=== PATIENT | female | born 1960 | race Caucasian/White ===

== ENCOUNTER → 2017-10-19 | Outpatient (CLI) | payer MEDICARE, BC ==
--- NOTE | 2017-10-23 09:49 | MM ---
Reason for exam: screening (asymptomatic). Last mammogram was performed 1 year and 7 months ago. History: Patient is nulliparous. Benign MG pre op needle loc LT of the left breast, July 16, 2015. Benign MG stereo VAD BX LT of the left breast, June 11, 2015. Took hormonal contraceptives for 7 years beginning at age 13. Physical Findings: A clinical breast exam by your physician is recommended on an annual basis and results should be correlated with mammographic findings. MG 3D Screening Mammo W/Cad Bilateral CC and MLO view(s) were taken. Prior study comparison: May 07, 2015, bilateral MG screening mammo w CAD. April 22, 2014, mammogram, performed at [facility]. There are scattered fibroglandular densities. There is chronic nodularity in the right breast. Two new small groups of microcalcifications in the central left breast appear very similar to the two other groups in the left breast. ASSESSMENT: Probably benign, BI-RAD 3 RECOMMENDATION: Follow-up diagnostic mammogram of the left breast in 6 months. (lateral view recommended at that time as well)
== END ==
LOC: RADMAMWWP 13:42
PROVIDERS: ATTEND Family Medicine
DX: Z12.31 Encounter for screening mammogram for malignant neoplasm of breast (principal)
CPT/HCPCS: 77063; 77067

== ENCOUNTER → 2018-04-10 | Outpatient (CLI) | payer MEDICARE, BC ==
--- NOTE | 2018-04-10 16:41 | US ---
EXAMINATION TYPE: US kidneys/renal and bladder DATE OF EXAM: 04/10/2018 COMPARISON: NONE CLINICAL HISTORY: 57-year-old female N18.2 Chronic Kidney Disease Stage 2. No pain. Abnormal labs. TECHNIQUE: Multiple sonographic images of the kidneys and bladder are obtained. FINDINGS: EXAM MEASUREMENTS: Right Kidney: 8.2 x 4.0 x 4.6 cm Left Kidney: 8.4 x 3.9 x 4.1 cm No hydronephrosis on either side. Right Kidney: Dromedary hump seen. Appears small in size Left Kidney: Appears small in size Bladder: Circumferential wall thickening up to 6 mm. Bilateral Jets seen . IMPRESSION: 1. Bilateral chronic medical renal disease. No hydronephrosis. 2. Circumferential bladder wall thickening. Correlate to exclude cystitis.
== END | disposition home or self-care (01) ==
LOC: RADUSWWP 11:22
PROVIDERS: ATTEND Family Medicine
DX: N18.2 Chronic kidney disease, stage 2 (mild) (principal); N32.89 Other specified disorders of bladder
CPT/HCPCS: 76770

== ENCOUNTER → 2018-04-17 | Outpatient (CLI) | payer MEDICARE, BC ==
--- NOTE | 2018-04-18 08:37 | MM ---
Reason for exam: additional evaluation requested from prior study. Last mammogram was performed 6 months ago. History: Patient is nulliparous. Benign MG pre op needle loc LT of the left breast, July 16, 2015. Benign MG stereo VAD BX LT of the left breast, June 11, 2015. Took hormonal contraceptives for 7 years beginning at age 13. Physical Findings: Nurse did not find any significant physical abnormalities on exam. MG 3D Diag Mammo W/Cad LT CC, MLO, and ML view(s) were taken of the left breast. Prior study comparison: October 19, 2017, bilateral MG 3d screening mammo w/cad. March 24, 2016, left breast MG diagnostic mammo LT w CAD. May 14, 2015, left breast MG work up mamm w CAD LT. There are scattered fibroglandular densities. There are benign diffuse and grouped 3-5 round calcifications in the left breast. No discrete abnormality int the left breast. And no change from the 6 month prior study. These results were verbally communicated with the patient and result sheet given to the patient on 04/17/18. ASSESSMENT: Benign, BI-RAD 2 RECOMMENDATION: Return to routine screening mammogram schedule for both breasts.
== END | disposition home or self-care (01) ==
LOC: RADMAMWWP 10:44
PROVIDERS: ATTEND Family Medicine
DX: R92.8 Other abnormal and inconclusive findings on diagnostic imaging of breast (principal)
CPT/HCPCS: 77065; G0279; 77061

== ENCOUNTER → 2020-06-18 | Outpatient (CLI) | payer MEDICARE, BC ==
--- NOTE | 2020-06-19 20:32 | MR ---
EXAMINATION TYPE: MR hand LT wo con DATE OF EXAM: 06/18/2020 COMPARISON: None HISTORY: L index finger pain Multiplanar multiecho imaging of the left hand and index finger was performed without contrast. The fingers appear intact. The metacarpals are intact. I see no bony destructive process. There is no evidence of a fracture line. I see no sign of any significant bone edema. There is 6 mm focus of flu id signal on the dorsal aspect of the second metacarpal head. This could be a small ganglion cyst. Th is is close to the skin surface. I see no focal bone destruction. IMPRESSION: Possible small ganglion cyst on the dorsal aspect of the second metacarpal head. No fracture seen. No sign of osteomyelitis. No evidence of any significant arthritic disease.
== END | disposition home or self-care (01) ==
LOC: RADMRIMAIN 06:08
PROVIDERS: ATTEND Orthopaedic Surgery
DX: M79.645 Pain in left finger(s) (principal)

== ENCOUNTER 2020-07-16 15:08 | Observation (INO) | payer MEDICARE, BC ==
--- NOTE | 2020-07-16 16:12 | ED ---
Arrhythmia/Palpitations HPI - General Chief Complaint: Arrhythmia/Palpitations Stated Complaint: Palpatations Time Seen by Provider: 07/16/20 15:40 Source: patient Mode of arrival: ambulatory Limitations: no limitations - History of Present Illness Initial Comments: Patient is a 59-year-old female presenting to the emergency Department with complaints of palpitations that have been intermittent over the last few days. Patient states she does have a history of palpitations, PVCs that she's had most of her life but feels like over the last few days they have been increasing. Patient states she also feels like she can "hear her heartbeat in her ears swishing sometimes when she is laying down." Patient states then today she walked from her office to her car and started experiencing left-sided jaw pain which lasted for about 10 minutes. Patient states this got her concerned and she decided to come in to the ER for evaluation. She denies any chest pains, shortness of breath, nausea, vomiting. She denies any dizziness, headache, neck pain. She states she has never had a stress test. She has not followed up with a electrical hardware engineer ever. She does have a family history of heart disease. She has no further complaints at this time. Upon arrival to the ER, her vital signs are stable. - Related Data Home Medications Medication Instructions Recorded Confirmed Fish Oil (Unknown Strength) 1 tab PO HS 07/16/20 07/16/20 Levothyroxine Sodium [Synthroid] 50 mcg PO QAM 07/16/20 07/16/20 Vitamin B Complex 1 cap PO HS 07/16/20 07/16/20 Allergies Allergy/AdvReac Type Severity Reaction Status Date / Time codeine AdvReac Nausea & Verified 07/16/20 17:46 Vomiting tramadol AdvReac Nausea & Verified 07/16/20 17:46 Vomiting Review of Systems ROS Statement: Those systems with pertinent positive or pertinent negative responses have been documented in the HPI. ROS Other: All systems not noted in ROS Statement are negative. Past Medical History Past Medical History: Diabetes Mellitus, Musculoskeletal Disorder, Osteoarthritis (OA) Additional Past Medical History / Comment(s): hx. palpitations, feet swell, right leg gives out, constipation-usually gives self enemas History of Any Multi-Drug Resistant Organisms: None Reported Past Surgical History: Appendectomy, Cholecystectomy, Hysterectomy, Orthopedic Surgery, Tonsillectomy, Tubal Ligation Additional Past Surgical History / Comment(s): Cervical decompression and fusion placement of interbody graft c4-c7 Past Anesthesia/Blood Transfusion Reactions: Family History of Problems w/ Anesthesia, Postoperative Nausea & Vomiting (PONV) Additional Past Anesthesia/Blood Transfusion Reaction / Comment(s): MOTHER PONV Past Psychological History: No Psychological Hx Reported Smoking Status: Never smoker Past Alcohol Use History: Occasional Past Drug Use History: None Reported - Past Family History Brother(s) Family Medical History: Cancer General Exam - General Exam Comments Initial Comments: GENERAL: Patient is well-developed and well-nourished. Patient is nontoxic and in no acu te distress. HEAD: Atraumatic, normocephalic. EYES: Pupils equal round and reactive to light, extraocular movements intact, sclera anicteric, conjunctiva are normal. Eyelids were unremarkable. ENT: TMs normal, nares patent, oropharynx clear without exudates. Moist mucous mem branes. NECK: Normal range of motion, supple without lymphadenopathy or JVD. LUNGS: Unlabored respirations. Breath sounds clear to auscultation bilaterally and equal. No wheezes rales or rhonchi. HEART: Regular rate and rhythm without murmurs, rubs or gallops. ABDOMEN: Soft, nontender, normoactive bowel sounds. No guarding, no rebound. No masses appreciated. : Deferred MUSCULOSKELETAL: Normal extremities with adequate strength and normal range of motion, no pitting or edema. No clubbing or cyanosis. NEUROLOGICAL: Patient is alert and oriented x 3. Motor and sensory are also intact. Cranial nerves II through XII grossly intact. Symmetrical smile. Normal speech, normal gait. PSYCH: Normal mood, normal affect. SKIN: Warm, Dry, normal turgor, no rashes or lesions noted. Limitations: no limitations Course Vital Signs 07/16/20 07/16/20 15:09 19:02 Temperature 98.2 F Pulse Rate 84 72 Respiratory 18 18 Rate Blood Pressure 157/72 152/69 O2 Sat by Pulse 97 99 Oximetry EKG Findings - EKG Comments: EKG Findings:: Normal sinus rhythm, no signs of acute ischemia, compared to previous EKG on 07/01/2014. Ventricular rate 80, ID interval 188, QTC 370. Medical Decision Making - Medical Decision Making Patient is a 59-year-old female presenting with intermittent palpitations that has been worsening over the past few days as well as development of left jaw pain that lasted for approximately 10 minutes today. Her vital signs are stable, her EKG reveals no acute process. Since lab work is unremarkable, first troponin is normal. Chest x-ray shows no acute process. I discussed these findings with the patient. Given her history, lack of cardiac workup. I did recommend admission for serial troponins, cardiac consult. Patient is in agreement with this plan of care. Patient was accepted by Dr. Poole. Case discussed with Dr. Benz. - Lab Data Result diagrams: 07/16/20 16:29 07/16/20 16:29 Lab Results 07/16/20 07/16/20 07/16/20 Range/Units 16:29 16:29 16:29 WBC 7.4 (3.8-10.6) k/uL RBC 5.15 (3.80-5.40) m/uL Hgb 15.7 (11.4-16.0) gm/dL Hct 47.2 H (34.0-46.0) % MCV 91.5 (80.0-100.0) fL MCH 30.5 (25.0-35.0) pg MCHC 33.3 (31.0-37.0) g/dL RDW 12.9 (11.5-15.5) % Plt Count 220 (150-450) k/uL MPV 8.2 Neutrophils % 62 % Lymphocytes % 25 % Monocytes % 7 % Eosinophils % 3 % Basophils % 1 % Neutrophils # 4.6 (1.3-7.7) k/uL Lymphocytes # 1.9 (1.0-4.8) k/uL Monocytes # 0.5 (0-1.0) k/uL Eosinophils # 0.2 (0-0.7) k/uL Basophils # 0.1 (0-0.2) k/uL PT 10.3 (9.0-12.0) sec INR 1.0 (<1.2) APTT 23.9 (22.0-30.0) sec Sodium 141 (137-145) mmol/L Potassium 5.4 H (3.5-5.1) mmol/L Chloride 107 (98-107) mmol/L Carbon Dioxide 26 (22-30) mmol/L Anion Gap 8 mmol/L BUN 13 (7-17) mg/dL Creatinine 0.93 (0.52-1.04) mg/dL Est GFR (CKD-EPI)AfAm 77 (>60 ml/min/1.73 sqM) Est GFR (CKD-EPI)NonAf 67 (>60 ml/min/1.73 sqM) Glucose 150 H (74-99) mg/dL Calcium 9.0 (8.4-10.2) mg/dL Magnesium 2.0 (1.6-2.3) mg/dL Total Bilirubin 0.8 (0.2-1.3) mg/dL AST 44 H (14-36) U/L ALT 37 H (4-34) U/L Alkaline Phosphatase 48 (38-126) U/L Troponin I (0.000-0.034) ng/mL Total Protein 8.2 (6.3-8.2) g/dL Albumin 4.5 (3.5-5.0) g/dL 07/16/20 Range/Units 16:29 WBC (3.8-10.6) k/uL RBC (3.80-5.40) m/uL Hgb (11.4-16.0) gm/dL Hct (34.0-46.0) % MCV (80.0-100.0) fL MCH (25.0-35.0) pg MCHC (31.0-37.0) g/dL RDW (11.5-15.5) % Plt Count (150-450) k/uL MPV Neutrophils % % Lymphocytes % % Monocytes % % Eosinophils % % Basophils % % Neutrophils # (1.3-7.7) k/uL Lymphocytes # (1.0-4.8) k/uL Monocytes # (0-1.0) k/uL Eosinophils # (0-0.7) k/uL Basophils # (0-0.2) k/uL PT (9.0-12.0) sec INR (<1.2) APTT (22.0-30.0) sec Sodium (137-145) mmol/L Potassium (3.5-5.1) mmol/L Chloride (98-107) mmol/L Carbon Dioxide (22-30) mmol/L Anion Gap mmol/L BUN (7-17) mg/dL Creatinine (0.52-1.04) mg/dL Est GFR (CKD-EPI)AfAm (>60 ml/min/1.73 sqM) Est GFR (CKD-EPI)NonAf (>60 ml/min/1.73 sqM) Glucose (74-99) mg/dL Calcium (8.4-10.2) mg/dL Magnesium (1.6-2.3) mg/dL Total Bilirubin (0.2-1.3) mg/dL AST (14-36) U/L ALT (4-34) U/L Alkaline Phosphatase (38-126) U/L Troponin I <0.012 (0.000-0.034) ng/mL Total Protein (6.3-8.2) g/dL Albumin (3.5-5.0) g/dL Disposition Clinical Impression: Chest pain, Palpitations, Jaw pain Disposition: ADMITTED IP TO THIS [facility] Condition: Stable Decision Date: 07/16/20 Decision Time: 18:27
[2020-07-16 16:39] LABS: Basophils # (A) 0.1 k/uL (0-0.2); Basophils % (A) 1 %; Eosinophils # (A) 0.2 k/uL (0-0.7); Eosinophils % (A) 3 %; HCT 47.2 % (34.0-46.0); HGB 15.7 gm/dL (11.4-16.0); Lymphocytes # (A) 1.9 k/uL (1.0-4.8); Lymphocytes % (A) 25 %; MCH 30.5 pg (25.0-35.0); MCHC 33.3 g/dL (31.0-37.0); MCV 91.5 fL (80.0-100.0); Mean Platelet Volume 8.2; Monocytes # (A) 0.5 k/uL (0-1.0); Monocytes % (A) 7 %; Neutrophils # (A) 4.6 k/uL (1.3-7.7); Neutrophils % (A) 62 %; Platelet Count 220 k/uL (150-450); RBC 5.15 m/uL (3.80-5.40); RDW 12.9 % (11.5-15.5); WBC 7.4 k/uL (3.8-10.6)
[2020-07-16 16:48] LABS: Albumin 4.5 g/dL (3.5-5.0); Total Bilirubin 0.8 mg/dL (0.2-1.3); Total Protein 8.2 g/dL (6.3-8.2)
--- NOTE | 2020-07-16 16:57 | XR ---
EXAMINATION TYPE: XR chest 2V DATE OF EXAM: 07/16/2020 COMPARISON: 07/01/2014 HISTORY: Dysrhythmia TECHNIQUE: FINDINGS: Heart and mediastinum are normal. Lungs are clear. Diaphragm is normal. Bony thorax appears normal. IMPRESSION: Normal chest. No change.
[2020-07-16 17:02] LABS: Potassium 5.4 mmol/L (3.5-5.1)
[2020-07-16 17:12] LABS: Partial Thromboplastin Time 23.9 sec (22.0-30.0); Prothrombin Time 10.3 sec (9.0-12.0)
[2020-07-16] MEDS ORDERED: NITROGLYCERIN SL TABS 0.4 MG TAB SUBLINGUAL PRN (18:27)
[2020-07-17 04:37] LABS: Cholesterol 227 mg/dL (<200); HDL Cholesterol 48 mg/dL (40-60); LDL Cholesterol,Calculated 134 mg/dL (0-99); Triglycerides 224 mg/dL (<150)
[2020-07-17] MEDS ORDERED: ALPRAZolam 0.5 MG TAB PO PRN (07:43)
[2020-07-17] MEDS ORDERED: ATORVASTATIN 80 MG TAB PO STA (07:43)
[2020-07-17] MEDS ORDERED: ASPIRIN 325 MG TAB PO STA (07:43)
[2020-07-17] MEDS ORDERED: NITROGLYCERIN SL TABS 0.4 MG TAB SUBLINGUAL PRN (07:43)
[2020-07-17] MEDS ORDERED: ALPRAZolam 0.25 MG TAB PO PRN (07:43)
[2020-07-17] MEDS ORDERED: SODIUM CHLORIDE 0.9% 1,000 ML in EMPTY BAG 1 BAG IV ONE (07:43)
--- NOTE | 2020-07-17 07:48 | P.CRDCN ---
History of Present Illness Consult date: 07/17/20 Chief complaint: Jaw pain History of present illness: This is a very pleasant 59-year-old female patient with a past medical history significant for hypertension and dyslipidemia who presented to the hospital complaining of palpitation and jaw pain. The patient has been experiencing palpitations for long time for the last few weeks of palpitation has increased. More importantly she came in because of jaw pain. She has been experiencing jaw pain for the last several months. For the last few weeks the jaw pain has been more often and more intense. It is associated with the pain in the upper chest. She states clearly that the jaw pain is worse with exertion and better with resting after she stopped for about 10 minutes. Its associated old the time with upper chest pain. No shortness of breath and no dizziness or lightheadedness and no sweating and no feeling of heart racing or fluttering or syncope. The EKG showed sinus rhythm without any significant ST or T-wave abnormalities. The blood work into her troponin came in to be unremarkable. The rest of blood work came in to be also unremarkable except for mildly elevated potassium. The patient does have hypertension and dyslipidemia as risk factor. She does have in addition to that significant family history of coronary artery disease involving the mother as well as brother. I had a long discussion with her regarding the next step. Severe underlying coronary artery disease to be ruled out. I discussed with her the option of proceeding with a stress test versus proceeding with coronary angiogram but the patient would like a definitive diagnosis. Based on that I am considering proceeding with coronary angiogram. Meanwhile she is on aspirin which we will continue. I would add metoprolol to the current medical regimen. Beside that we'll obtain an echocar diogram to establish LV function. We'll continue following up with the patient. Past Medical History Past Medical History: Diabetes Mellitus, Musculoskeletal Disorder, Osteoarthritis (OA) Additional Past Medical History / Comment(s): hx. palpitations, feet swell, right leg gives out, constipation-usually gives self enemas History of Any Multi-Drug Resistant Organisms: None Reported Past Surgical History: Appendectomy, Cholecystectomy, Hysterectomy, Orthopedic Surgery, Tonsillectomy, Tubal Ligation Additional Past Surgical History / Comment(s): Cervical decompression and fusion placement of interbody graft c4-c7 Past Anesthesia/Blood Transfusion Reactions: Family History of Problems w/ Anesthesia, Postoperative Nausea & Vomiting (PONV) Additional Past Anesthesia/Blood Transfusion Reaction / Comment(s): MOTHER PONV Past Psychological History: No Psychological Hx Reported Smoking Status: Never smoker Past Alcohol Use History: Occasional Past Drug Use History: None Reported - Past Family History Brother(s) Family Medical History: Cancer Medications and Allergies Home Medications Medication Instructions Recorded Confirmed Type Fish Oil (Unknown Strength) 1 tab PO HS 07/16/20 07/16/20 History Levothyroxine Sodium [Synthroid] 50 mcg PO QAM 07/16/20 07/16/20 History Vitamin B Complex 1 cap PO HS 07/16/20 07/16/20 History Allergies Allergy/AdvReac Type Severity Reaction Status Date / Time codeine AdvReac Nausea & Verified 07/16/20 17:46 Vomiting tramadol AdvReac Nausea & Verified 07/16/20 17:46 Vomiting Physical Exam Vitals: Vital Signs Temp Pulse Pulse Resp BP BP Pulse Ox 07/17/20 03:00 82 07/17/20 02:15 98.0 F 82 149/64 98 07/16/20 19:45 97.4 F L 76 157/79 99 07/16/20 19:35 97.4 F L 76 157/79 99 07/16/20 19:02 72 18 152/69 99 07/16/20 15:09 98.2 F 84 18 157/72 97 Intake and Output 07/16/20 07/17/20 07/17/20 22:59 06:59 14:59 Intake Total 200 Output Total 500 0 Balance -300 0 Intake: Oral 200 Output: Urine 500 0 Other: Voiding Method Toilet Toilet # Voids 1 0 Weight 100.698 kg - Constitutional General appearance: no acute distress - Respiratory Respiratory: bilateral: CTA - Cardiovascular Rhythm: regular Heart sounds: normal: S1, S2 Results 07/16/20 16:29 07/16/20 16:29 Cardiac Enzymes 07/16/20 07/16/20 07/16/20 Range/Units 16:29 16:29 19:17 AST 44 H (14-36) U/L Troponin I <0.012 <0.012 (0.000-0.034) ng/mL 07/16/20 Range/Units 21:59 AST (14-36) U/L Troponin I <0.012 (0.000-0.034) ng/mL Coagulation 07/16/20 Range/Units 16:29 PT 10.3 (9.0-12.0) sec APTT 23.9 (22.0-30.0) sec Lipids 07/16/20 Range/Units 16:29 Triglycerides 224 H (<150) mg/dL Cholesterol 227 H (<200) mg/dL HDL Cholesterol 48 (40-60) mg/dL CBC 07/16/20 Range/Units 16:29 WBC 7.4 (3.8-10.6) k/uL RBC 5.15 (3.80-5.40) m/uL Hgb 15.7 (11.4-16.0) gm/dL Hct 47.2 H (34.0-46.0) % Plt Count 220 (150-450) k/uL Comprehensive Metabolic Panel 07/16/20 Range/Units 16:29 Sodium 141 (137-145) mmol/L Potassium 5.4 H (3.5-5.1) mmol/L Chloride 107 (98-107) mmol/L Carbon Dioxide 26 (22-30) mmol/L BUN 13 (7-17) mg/dL Creatinine 0.93 (0.52-1.04) mg/dL Glucose 150 H (74-99) mg/dL Calcium 9.0 (8.4-10.2) mg/dL AST 44 H (14-36) U/L ALT 37 H (4-34) U/L Alkaline Phosphatase 48 (38-126) U/L Total Protein 8.2 (6.3-8.2) g/dL Albumin 4.5 (3.5-5.0) g/dL Current Medications Generic Name Dose Route Start Last Admin Trade Name Freq PRN Reason Stop Dose Admin Aspirin 325 mg 07/17/20 09:00 Aspirin 325 Mg Tab PO DAILY MAGNUS Nitroglycerin 0.4 mg 07/16/20 18:27 Nitroglycerin Sl Tabs 0.4 Mg Tab SUBLINGUAL Q5M PRN Chest Pain Intake and Output 07/16/20 07/17/20 07/17/20 22:59 06:59 14:59 Intake Total 200 Output Total 500 0 Balance -300 0 Intake: Oral 200 Output: Urine 500 0 Other: Voiding Method Toilet Toilet # Voids 1 0 Weight 100.698 kg 07/16/20 16:29 07/16/20 16:29 Assessment and Plan Assessment: Assessment #1 intermittent episodes of jaw pain and chest pain #2 hypertension #3 dyslipidemia #4 significant family history of CAD Plan #1 proceed with coronary angiogram #2 obtain an echocardiogram was Doppler #3 add metoprolol to the current medical regimen #4 follow-up with the patient
[2020-07-17 08:00] LABS: Glucose,Whole Blood 114 mg/dL (75-99)
[2020-07-17 08:15] VITALS: RESP 16; TEMP 97.8
[2020-07-17] MEDS ORDERED: VERAPAMIL 2.5 MG/ML 2 ML AMP ONE (08:52)
[2020-07-17] MEDS ORDERED: fentaNYL (PF) 50 MCG/ML 2 ML AMP ONE (08:52)
[2020-07-17] MEDS ORDERED: HEPARIN SODIUM 1,000 UN/ML (10ML VL) ONE (08:52)
[2020-07-17] MEDS ORDERED: LIDOCAINE 1% INJ 10MG/ML (20 ML MDV) ONE (08:52)
[2020-07-17] MEDS ORDERED: MIDAZOLAM 2 MG/2 ML VIAL IVP ONE (08:58)
[2020-07-17] MEDS ORDERED: LIDOCAINE 1% (PF) 10 MG/ML (30 ML SDV) SQ ONE (08:59)
[2020-07-17] MEDS ORDERED: METOPROLOL TARTRATE 12.5 MG TAB PO SCH (09:00)
[2020-07-17] MEDS ORDERED: ASPIRIN 325 MG TAB PO SCH (09:00)
[2020-07-17] MEDS: VERAPAMIL SYRINGE (5 MG/10 ML) INTRAARTER ONE ×2 (09:00→09:20)
[2020-07-17] MEDS ORDERED: LEVOTHYROXINE 50 MCG TAB PO SCH (09:00)
[2020-07-17] MEDS ORDERED: IV FLUID CONTINUATION 1,000 ML IV ONE (09:03)
[2020-07-17] MEDS ORDERED: fentaNYL (PF) 50 MCG/ML 2 ML AMP IVP ONE (09:09)
[2020-07-17] MEDS ORDERED: HEPARIN SODIUM 1,000 UN/ML (10ML VL) IV ONE (09:10)
[2020-07-17] MEDS ORDERED: SODIUM CHLORIDE 0.9% 1,000 ML IV SCH (09:15)
[2020-07-17] MEDS ORDERED: RX INFO: IV CONTRAST WAS GIVEN 1 EACH MISC MISCELLANE PRN (09:15)
[2020-07-17] MEDS ORDERED: IOPAMIDOL-370 125ML BTL INJ ONE (09:20)
--- NOTE | 2020-07-17 10:17 | CC ---
CARDIAC CATHETERIZATION REPORT DATE OF SERVICE: July 17, 2020 PERFORMING PHYSICIAN: Elton Vasquez MD. PROCEDURE PERFORMED: 1. Selective right and left coronary angiogram. 2. Left heart catheterization. INDICATION: This is a 59-year-old female patient with very significant family history of coronary artery disease and history of hypertension and dyslipidemia who presented to the hospital with jaw and chest discomfort with exertion. Because of that, a heart catheterization was advised. APPROACH: Right radial artery. COMPLICATION: None. LEVEL OF SEDATION: Moderate with sedation length of 14 minutes. PROCEDURE DESCRIPTION: After obtaining an informed consent, the patient was brought to the cardiac engineering lab technician. The right radial artery was cannulated using micropuncture technique, the micropuncture wire passed easily, then I placed a 6-Malay sheath at the right radial artery. I gave the patient 2 mg of verapamil IA and a total of 5000 units of heparin IV. Selective right and left coronary angiogram performed with JR4 and JL3 catheters. Left heart catheterization was performed using the JL catheter which crossed the aortic valve then I did pullback across the valve. The procedure was completed without any complication. SELECTIVE CORONARY ANGIOGRAM: 1. The right coronary artery is a moderate caliber vessel. It is a dominant vessel. The RCA is angiographically normal. It bifurcates distally into PDA and PLV branches and both appeared to be angiographically normal. 2. The left main is angiographically normal. It bifurcates into LCX and ramus intermedius and left anterior descending artery. 3. The LCX is a large caliber vessel, it is a nondominant vessel. The LCX is angiographically normal in the midportion gives rise into a large OM branch which appeared to be angiographically normal. 4. The ramus intermedius is a moderate caliber vessel, seems to be angiographically normal. 5. The LAD: The proximal LAD appeared to be normal. It gives rise in the proximal portion into first diagonal branch which has an ostial lesion in the range of 40% to 50% and the mid LAD is normal and gives rise into a second diagonal branch which has an ostial lesion in the range of 30% and the LAD distally appeared to be angiographically normal. HEMODYNAMICS: The LVEDP was 10 to 12 mmHg without significant gradient across aortic valve. CONCLUSION: 1. Mild nonobstructive coronary artery disease. 2. Possible component of coronary vasospasm. 3. Normal LVEDP. POSTPROCEDURE MANAGEMENT: 1. Medical treatment. 2. Follow up with the patient. MANOJ / IJN: [id number] /
--- NOTE | 2020-07-17 10:54 | P.HPIM ---
History of Present Illness H&P Date: 07/17/20 Chief Complaint: chest pain/palpitations History of physical and discharge summary This is a 59-year-old female in my patient with a previous medical history significant for hypothyroidism, mixed hyperlipidemia, diabetes mellitus type 2 diet-controlled, hypertension and hypertensive cardiovascular disease, presented to the emergency department at [facility] yesterday with increased palpitation associated with increased jaw pain that has started after she finished her physical [facility] regarding her chronic back pain,, patient also does have a few risk factors for coronary artery disease including her family history with her mother who has significant ischemic cardiomyopathy as well as paroxysmal atrial fibrillation, patient age and weight is another risk factor, I because of the presentation even though her EKG did not show any evidence of acute ST-T wave changes and her troponin came back negative, we elected to keep the patient the hospital for evaluation by cardiology she was already seen in consultation by Dr. Vasquez and after long conversation with the patient she elected to go for left heart catheterization f or definitive diagnosis of she has coronary artery disease, patient underwent left heart catheterization through her right wrist and that showed mild nonobstructive coronary artery disease including the first diagonal branch for a 50% and the second diagonal branch of 30%, the rest of the examination was normal left ventricular end-diastolic pressure was normal, patient was started on metoprolol 12.5 mg orally twice every day, and we will decrease her Lipitor to 40 mg orally once every day along with a baby aspirin patient underwent the heart catheterization through the radial approach subsequently she will be able to be discharged home in the next few hours, as to follow-up with me as an ou tpatient in 1 week. Review of Systems Constitutional: Reports weight gain, Denies anorexia, Denies chronic headaches, Denies lethargy, Denies weakness Eyes: denies blurred vision, denies bulging eye, denies decreased vision Ears, nose, mouth and throat: Denies dysphagia, Denies neck lump, Denies sore throat Cardiovascular: Reports chest pain, Reports decreased exercise tolerance, Re ports dyspnea on exertion, Reports shortness of breath, Denies lightheadedness, Denies rapid heart beat, Denies syncope Respiratory: Denies congestion, Denies cough, Denies cough with sputum, Denies home oxygen, Denies sleep apnea, Denies snoring, Denies wheezing Gastrointestinal: Denies abdominal pain, Denies bloating, Denies BRBPR, Denies excessive gas, Denies loss of appetite, Denies melena, Denies nausea, Denies vomiting Genitourinary: Denies dysuria, Denies nocturia Menstruation: Reports postmenopausal Musculoskeletal: Denies myalgias Musculoskeletal: absent: ankle pain, ankle stiffness, ankle swelling, elbow pain, elbow stiffness, elbow swelling, foot pain, foot stiffness, foot swelling, hand pain, hand stiffness, hand swelling, hip pain, hip stiffness, hip swelling, knee pain, knee stiffness, knee swelling, shoulder pain, shoulder stiffness, shoulder swelling, wrist pain, wrist stiffness, wrist swelling Integumentary: Denies pruritus, Denies rash Neurological: Denies numbness, Denies weakness Psychiatric: Denies anxiety, Denies depression Endocrine: Denies fatigue, Denies weight change Past Medical History Past Medical History: Diabetes Mellitus, Hyperlipidemia, Hypertension, Musculos keletal Disorder, Osteoarthritis (OA) Additional Past Medical History / Comment(s): hx. palpitations, feet swell, right leg gives out, constipation-usually gives self enemas History of Any Multi-Drug Resistant Organisms: None Reported Past Surgical History: Appendectomy, Cholecystectomy, Hysterectomy, Orthopedic Surgery, Tonsillectomy, Tubal Ligation Additional Past Surgical History / Comment(s): Cervical decompression and fusion placement of interbody graft c4-c7 Past Anesthesia/Blood Transfusion Reactions: Family History of Problems w/ Anesthesia, Postoperative Nausea & Vomiting (PONV) Additional Past Anesthesia/Blood Transfusion Reaction / Comment(s): MOTHER PONV Past Psychological History: No Psychological Hx Reported Smoking Status: Never smoker Past Alcohol Use History: Occasional Past Drug Use History: None Reported - Past Family History Brother(s) Family Medical History: Cancer (Patient has half brother with throat cancer) Mother Family Medical History: Coronary Artery Disease (CAD) (Mother is 88-year-old with history of coronary artery disease as well as ischemic cardiomyopathy with paroxysmal atrial flutter ablation.) Father Family Medical History: Unable to Obtain (Father and she could not recall of what she does not know much about her father.) Additional Family Medical History / Comment(s): Patient stated that she does have additional half-brothers and sisters that she does not know much about. Medications and Allergies Home Medications Medication Instructions Recorded Confirmed Type Fish Oil (Unknown Strength) 1 tab PO HS 07/16/20 07/16/20 History Levothyroxine Sodium [Synthroid] 50 mcg PO QAM 07/16/20 07/16/20 History Vitamin B Complex 1 cap PO HS 07/16/20 07/16/20 History Aspirin 81 mg PO DAILY chew 07/17/20 Rx Atorvastatin [Lipitor] 40 mg PO DAILY #30 tab 07/17/20 Rx Metoprolol Tartrate [Lopressor] 12.5 mg PO BID #60 tab 07/17/20 Rx Allergies Allergy/AdvReac Type Severity Reaction Status Date / Time codeine AdvReac Nausea & Verified 07/16/20 17:46 Vomiting tramadol AdvReac Nausea & Verified 07/16/20 17:46 Vomiting Physical Exam Vitals: Vital Signs Temp Pulse Pulse Resp BP BP Pulse Ox 07/17/20 08:14 97.8 F 73 16 144/79 98 07/17/20 03:00 82 07/17/20 02:15 98.0 F 82 149/64 98 07/16/20 19:45 97.4 F L 76 157/79 99 07/16/20 19:35 97.4 F L 76 157/79 99 07/16/20 19:02 72 18 152/69 99 07/16/20 15:09 98.2 F 84 18 157/72 97 Intake and Output 07/16/20 07/17/20 07/17/20 22:59 06:59 14:59 Intake Total 200 Output Total 500 0 Balance -300 0 Intake: Oral 200 Output: Urine 500 0 Other: Voiding Method Toilet Toilet # Voids 1 0 Weight 100.698 kg Physical examination: General: This is a 59-year-old female who is laying down in bed in no apparent distress. HEENT: Head is atraumatic, normocephalic, pupils were equal round reactive to light and accommodation, extraocular muscle movement were intact, mucous membranes of the mouth are somewhat dry. Neck: Supple, no JVP, decreased carotid of stroke bilaterally. Chest: Clear to auscultation bilaterally there is no crackles, no wheezes, no chest wall tenderness, no intercostal retractions. Heart: First heart sound is depressed, second heart sounds normal, there is no gallop or murmur. Abdomen: Soft, nontender, nondistended, positive bowel sounds. Extremities: There is no edema, no calf tenderness, dorsalis pedis +2 bilaterally. Neurologic examination: Patient is awake alert and oriented 3, creatinine nerves II through XII appear grossly intact, muscle power 4 out of 5 in upper and lower extremity's bilaterally, deep tendon reflexes were normal. Results CBC & Chem 7: 07/16/20 16:29 07/16/20 16:29 Labs: Abnormal Lab Results - Last 24 Hours (Table) 07/16/20 07/16/20 07/16/20 Range/Units 16:29 16:29 16:29 Hct 47.2 H (34.0-46.0) % Potassium 5.4 H (3.5-5.1) mmol/L Glucose 150 H (74-99) mg/dL POC Glucose (mg/dL) (75-99) mg/dL AST 44 H (14-36) U/L ALT 37 H (4-34) U/L Triglycerides 224 H (<150) mg/dL Cholesterol 227 H (<200) mg/dL LDL Cholesterol, Calc 134 H (0-99) mg/dL 07/17/20 Range/Units 08:00 Hct (34.0-46.0) % Potassium (3.5-5.1) mmol/L Glucose (74-99) mg/dL POC Glucose (mg/dL) 114 H (75-99) mg/dL AST (14-36) U/L ALT (4-34) U/L Triglycerides (<150) mg/dL Cholesterol (<200) mg/dL LDL Cholesterol, Calc (0-99) mg/dL Thrombosis Risk Factor Assmnt - DVT/VTE Prophylaxis DVT/VTE Prophylaxis: Pharmacologic Prophylaxis ordered, Mechanical Prophylaxis ordered - Choose All That Apply Each Factor Represents 1 point: Obesity (BMI >25) Thrombosis Risk Factor Assessment Total Risk Factor Score: 1 Thrombosis Risk Factor Assessment Level: Low Risk Assessment and Plan Assessment: Assessment and plan: 1. Recurrent palpitations associated with the jaw pain. Patient does have a few obstructive for heart disease including hypertension, hyperlipidemia, age, overweight, significant family history of coronary artery disease, based on that it was elected for the patient to go for left heart catheterization for better delineation of coronary artery disease, she was started on metoprolol 12.5 mg orally twice every day, she did receive aspirin 81mg orally once every day in the ER, she was started on Lipitor 40 mg orally once every day as well, patient underwent left heart catheterization that showed non-obstructive coronary artery disease with the 40-50% in the first diagonal branch, and 30% of the second diagonal branch with normal LVEDP, risk factor modification and to the left side changes, start the patient on a baby aspirin, moderate dose of statin in the form of Lipitor 40 mg orally once every day, and continue patient on metoprolol 12.5 mg orally twice every day, we will hold off adding any nitroglycerin at this point and dosing the patient the office. 2. Hyperlipidemia. Continue Lipitor 40 mg orally once every day. 3. Hypothyroidism. Continue Synthroid 50 g orally once every day. 4. Hypertension and hypertensive cardiovascular disease. Continue patient on metoprolol 12.5 mg orally twice every day. 5. Diabetes mellitus type 2 diet controlled. Continue diet and exercise and weight loss. 6. DVT prophylaxis. Heparin 5000 units subcutaneously every 8 hours. 7. GI prophylaxis. Continue patient on Protonix 40 mg orally once every day. 8. Observation. 9. Patient can be discharged home follow-up with me as an outpatient in 1 week.
--- NOTE | 2020-07-17 14:35 | ECHOF ---
Referral Reason:chest pain MEASUREMENTS -------- HEIGHT: 165.1 cm WEIGHT: 100.7 kg BP: 149/64 RVIDd: 3.1 cm (< 3.3) IVSd: 1.3 cm (0.6 - 1.1) LVIDd: 4.2 cm (3.9 - 5.3) LVPWd: 1.3 cm (0.6 - 1.1) IVSs: 1.7 cm LVIDs: 2.7 cm LVPWs: 1.8 cm LA Diam: 3.5 cm (2.7 - 3.8) Ao Diam: 2.8 cm (2.0 - 3.7) AV Cusp: 1.9 cm (1.5 - 2.6) MV EXCURSION: 7.809 mm (> 18.000) MV EF SLOPE: 52 mm/s (70 - 150) EPSS: 0.9 cm MV E Nile: 0.84 m/s MV DecT: 228 ms MV A Nile: 1.02 m/s MV E/A Ratio: 0.83 FINDINGS -------- Sinus rhythm. This was a technically adequate study. The left ventricular size is normal. There is mild concentric left ventricular hypertrophy. Overa ll left ventricular systolic function is low-normal with, an EF between 50 - 55 %. The right ventricle is normal in size. The left atrial size is normal. The right atrium is normal in size. The aortic valve is trileaflet and appears structurally normal. Mild mitral annular calcification present. The tricuspid valve appears structurally normal. Trace/mild (physiologic) pulmonic regurgitation. The aortic root size is normal. IVC Not well visulized. There is no pericardial effusion. CONCLUSIONS -------- 1. The left ventricular size is normal. 2. There is mild concentric left ventricular hypertrophy. 3. Overall left ventricular systolic function is low-normal with, an EF between 50 - 55 %. 4. Trace/mild (physiologic) pulmonic regurgitation. 5. There is no pericardial effusion. LOADER HELPER: Yolanda Stark, [facility]
[2020-07-17 15:05] VITALS: BP 133/64; PULSE 68
[2020-07-17] MEDS ORDERED: HEPARIN SODIUM,PORCINE 5,000 UNIT/ML 1 ML VIAL SQ SCH (16:00)
[2020-07-17] MEDS ORDERED: FISH OIL PO SCH (21:00)
[2020-07-17] MEDS ORDERED: NON FORMULARY DRUG (Vitamin B Complex [Vitamin B Complex] 1 EACH Capsule) PO SCH (21:00)
[2020-07-18] MEDS ORDERED: PANTOPRAZOLE 40 MG TABLET PO SCH (07:30)
[2020-07-18] MEDS ORDERED: ATORVASTATIN 40 MG TAB PO SCH (09:00)
[2020-07-18] MEDS ORDERED: ATORVASTATIN 80 MG TAB PO SCH (09:00)
[2020-07-18] MEDS ORDERED: ASPIRIN 81 MG PO SCH (09:00)
== END 2020-07-17 16:55 | disposition home or self-care (01) ==
LOC: EC 15:08 → 3NCARDOBS 18:31
PROVIDERS: ADMIT Internal Medicine; ATTEND Internal Medicine
DX: I25.110 Atherosclerotic heart disease of native coronary artery with unstable angina pectoris (principal); E78.00 Pure hypercholesterolemia, unspecified; I10 Essential (primary) hypertension; E03.9 Hypothyroidism, unspecified; E78.2 Mixed hyperlipidemia; E11.9 Type 2 diabetes mellitus without complications; I11.9 Hypertensive heart disease without heart failure; G89.29 Other chronic pain; M54.9 Dorsalgia, unspecified; Z82.49 Family history of ischemic heart disease and other diseases of the circulatory system; M19.90 Unspecified osteoarthritis, unspecified site; E66.9 Obesity, unspecified; Z68.36 Body mass index [BMI] 36.0-36.9, adult; K59.00 Constipation, unspecified; Z90.49 Acquired absence of other specified parts of digestive tract; Z90.710 Acquired absence of both cervix and uterus; Z98.51 Tubal ligation status; Z98.890 Other specified postprocedural states; Z98.1 Arthrodesis status; Z80.0 Family history of malignant neoplasm of digestive organs; Z79.82 Long term (current) use of aspirin; Z79.890 Hormone replacement therapy; Z79.899 Other long term (current) drug therapy; Z88.5 Allergy status to narcotic agent
CPT/HCPCS: 99285; 36415; 93005; 93306; 93458; 80061; 80053; 83735; 84484; 85025; 85610; 85730; 71046; G0378 ×2; C1769; C1894; J2250; J2001; J3010; J1644; Q9967

== ENCOUNTER 2020-08-20 08:44 | Day surgery (SDC) | payer MEDICARE, BC ==
[2020-08-20 09:01] VITALS: TEMP 98.1
[2020-08-20 09:10] LABS: Glucose,Whole Blood 273 mg/dL (75-99)
--- NOTE | 2020-08-20 10:22 | US ---
ULTRASOUND GUIDED FNA THYROID BIOPSY: CLINICAL HISTORY: Left axillary lymph node FINDINGS: The procedure was explained to the patient. The risks, complications, benefits and alternatives were discussed and any questions were answered. Informed consent was obtained. Patient was placed supin e on the ultrasound table and prepped and draped in the usual sterile fashion. Utilizing a 18 gauge needle, 2 passes were made into the requested left lymph node. Patient was stable throughout the procedure. Pathology is pending. All elements of maximal barrier technique were utilized. IMPRESSION: 1. Successful ultrasound guided core biopsy left axillary lymph node.
[2020-08-20 10:25] VITALS: BP 141/68; PULSE 73; RESP 16
== END 2020-08-20 10:15 | disposition home or self-care (01) ==
LOC: RADPROMAIN 08:44
PROVIDERS: ATTEND Surgery
DX: C77.3 Secondary and unspecified malignant neoplasm of axilla and upper limb lymph nodes (principal); C50.912 Malignant neoplasm of unspecified site of left female breast; M19.90 Unspecified osteoarthritis, unspecified site; E07.9 Disorder of thyroid, unspecified; E78.5 Hyperlipidemia, unspecified; Z90.710 Acquired absence of both cervix and uterus; Z90.49 Acquired absence of other specified parts of digestive tract; Z98.1 Arthrodesis status; Z98.890 Other specified postprocedural states; Z98.51 Tubal ligation status; Z83.3 Family history of diabetes mellitus; Z82.49 Family history of ischemic heart disease and other diseases of the circulatory system; Z80.8 Family history of malignant neoplasm of other organs or systems
CPT/HCPCS: 38505; 76942; 88305; 88341; 88342

== ENCOUNTER 2020-08-21 13:17 | Emergency (ER) | payer MEDICARE, BC ==
[2020-08-21 13:24] VITALS: RESP 18; TEMP 98.6
[2020-08-21 13:35] LABS: Glucose,Whole Blood 228 mg/dL (75-99)
[2020-08-21] MEDS ORDERED: SODIUM CHLORIDE 0.9% 1,000 ML IV STA (13:54)
[2020-08-21] MEDS ORDERED: SODIUM CHLORIDE 0.9% 500 ML 500 ML IV STA (13:54)
[2020-08-21 14:01] LABS: Basophils # (A) 0.1 k/uL (0-0.2); Basophils % (A) 1 %; Eosinophils # (A) 0.2 k/uL (0-0.7); Eosinophils % (A) 3 %; HCT 45.4 % (34.0-46.0); HGB 15.5 gm/dL (11.4-16.0); Lymphocytes # (A) 1.5 k/uL (1.0-4.8); Lymphocytes % (A) 25 %; MCH 30.6 pg (25.0-35.0); MCHC 34.2 g/dL (31.0-37.0); MCV 89.5 fL (80.0-100.0); Mean Platelet Volume 8.3; Monocytes # (A) 0.4 k/uL (0-1.0); Monocytes % (A) 7 %; Neutrophils # (A) 3.6 k/uL (1.3-7.7); Neutrophils % (A) 61 %; Platelet Count 179 k/uL (150-450); RBC 5.07 m/uL (3.80-5.40); RDW 12.5 % (11.5-15.5); WBC 5.9 k/uL (3.8-10.6)
[2020-08-21 14:11] LABS: Albumin 4.4 g/dL (3.5-5.0); Calcium 9.4 mg/dL (8.4-10.2); Total Bilirubin 0.7 mg/dL (0.2-1.3); Total Protein 7.9 g/dL (6.3-8.2)
[2020-08-21 14:12] LABS: Potassium 4.5 mmol/L (3.5-5.1)
--- NOTE | 2020-08-21 14:26 | XR ---
EXAMINATION TYPE: XR chest 2V DATE OF EXAM: 08/21/2020 COMPARISON: 07/16/2020 HISTORY: Palpitations. Hyperglycemia. TECHNIQUE: FINDINGS: Heart and mediastinum are normal. Lungs are clear. Diaphragm is normal. There is old left s jackson thoracotomy defect. There is no pleural effusion. IMPRESSION: No cardiopulmonary disease. No change compared to old exam. Normal heart.
--- NOTE | 2020-08-21 15:13 | ED ---
Recheck HPI - General Chief Complaint: Recheck/Abnormal Lab/Rx Stated Complaint: High Blood Sugar Time Seen by Provider: 08/21/20 13:20 Source: patient, RN notes reviewed Mode of arrival: ambulatory Limitations: no limitations - History of Present Illness Initial Comments: This is a 59-year-old female with a history of diabetes and hypertension who states he states he went and acute diet loss 60 pounds and was off her medications who presents today because her blood sugar has been in the 200+ range recently. She does states she was using her mother's insulin control of blood she is concerned that it still elevated. She did recently have a breast biopsy done in the left side denies any fevers chills nausea vomiting sweats or abnormal pain. No other complaints or modifying factors she does admit that she's regained about 30 the pounds that she lost. MD Complaint: abnormal lab - Related Data Home Medications Medication Instructions Recorded Confirmed Levothyroxine Sodium [Synthroid] 50 mcg PO QAM 07/16/20 08/21/20 Vitamin B Complex 1 cap PO HS 07/16/20 08/21/20 Atorvastatin [Lipitor] 40 mg PO HS 08/19/20 08/21/20 Metoprolol Tartrate [Lopressor] 12.5 mg PO BID 08/21/20 08/21/20 Previous Rx's Medication Instructions Recorded sitaGLIPtin PHOSPHATE [Januvia] 100 mg PO DAILY #30 tab 08/21/20 Allergies Allergy/AdvReac Type Severity Reaction Status Date / Time codeine AdvReac Nausea & Verified 08/21/20 14:46 Vomiting tramadol AdvReac Nausea & Verified 08/21/20 14:46 Vomiting Review of Systems ROS Statement: Those systems with pertinent positive or pertinent negative responses have been documented in the HPI. ROS Other: All systems not noted in ROS Statement are negative. Past Medical History Past Medical History: Cancer, Diabetes Mellitus, Hyperlipidemia, Hypertension, Musculoskeletal Disorder, Osteoarthritis (OA) Additional Past Medical History / Comment(s): hx. palpitations, feet swell, right leg gives out, constipation-usually gives self enemas new breast cancer diagnosis 08/2020. History of Any Multi-Drug Resistant Organisms: None Reported Past Surgical History: Appendectomy, Breast Surgery, Cholecystectomy, Hysterectomy, Orthopedic Surgery, Tonsillectomy, Tubal Ligation Additional Past Surgical History / Comment(s): Cervical decompression and fusion placement of interbody graft c4-c7, surgical left breast biopsy benign - 2014, left breast core biopsy - positive cancer. Past Anesthesia/Blood Transfusion Reactions: Family History of Problems w/ Anesthesia, Postoperative Nausea & Vomiting (PONV) Additional Past Anesthesia/Blood Transfusion Reaction / Comment(s): MOTHER PONV Past Psychological History: No Psychological Hx Reported Smoking Status: Former smoker Past Alcohol Use History: Occasional Past Drug Use History: None Reported - Past Family History Mother Family Medical History: Coronary Artery Disease (CAD) Father Family Medical History: Unable to Obtain Additional Family Medical History / Comment(s): Patient stated that she does have additional half-brothers and sisters that she does not know much about. Brother(s) Family Medical History: Cancer General Exam - General Exam Comments Initial Comments: This is a well-developed well-nourished awake alert oriented 3 female Limitations: no limitations General appearance: alert, in no apparent distress Head exam: Present: atraumatic, normocephalic, normal inspection Eye exam: Present: normal appearance, PERRL, EOMI. Absent: scleral icterus, conjunctival injection, periorbital swelling ENT exam: Present: normal exam, mucous membranes moist Neck exam: Present: normal inspection. Absent: tenderness, meningismus, lymphadenopathy Respiratory exam: Present: normal lung sounds bilaterally, other (Examination of the left breast biopsy site reveals some mild ecchymosis no illicit drainage or erythema or other abnormalities). Absent: respiratory distress, wheezes, rales, rhonchi, stridor Cardiovascular Exam: Present: regular rate, normal rhythm, normal heart sounds. Absent: systolic murmur, diastolic murmur, rubs, gallop, clicks GI/Abdominal exam: Present: soft, normal bowel sounds. Absent: distended, tenderness, guarding, rebound, rigid Extremities exam: Present: normal inspection, full ROM, normal capillary refill. Absent: tenderness, pedal edema, joint swelling, calf tenderness Back exam: Present: normal inspection Neurological exam: Present: alert, oriented X3, CN II-XII intact Psychiatric exam: Present: normal affect, normal mood Skin exam: Present: warm, dry, intact, normal color. Absent: rash Course Vital Signs 08/21/20 13:18 Temperature 98.6 F Pulse Rate 87 Respiratory 18 Rate Blood Pressure 174/67 O2 Sat by Pulse 98 Oximetry Medical Decision Making - Medical Decision Making I did discuss findings with the patient she initially wanted to be discharged without any medication she's had trouble with metformin the past. I did discuss case with Dr. Poole placed on Januvia 100 mg per day and follow-up next week. - Lab Data Result diagrams: 08/21/20 13:55 08/21/20 13:55 Lab Results 08/21/20 08/21/20 08/21/20 Range/Units 13:23 13:55 13:55 WBC 5.9 (3.8-10.6) k/uL RBC 5.07 (3.80-5.40) m/uL Hgb 15.5 (11.4-16.0) gm/dL Hct 45.4 (34.0-46.0) % MCV 89.5 (80.0-100.0) fL MCH 30.6 (25.0-35.0) pg MCHC 34.2 (31.0-37.0) g/dL RDW 12.5 (11.5-15.5) % Plt Count 179 (150-450) k/uL MPV 8.3 Neutrophils % 61 % Lymphocytes % 25 % Monocytes % 7 % Eosinophils % 3 % Basophils % 1 % Neutrophils # 3.6 (1.3-7.7) k/uL Lymphocytes # 1.5 (1.0-4.8) k/uL Monocytes # 0.4 (0-1.0) k/uL Eosinophils # 0.2 (0-0.7) k/uL Basophils # 0.1 (0-0.2) k/uL Sodium 138 (137-145) mmol/L Potassium 4.5 (3.5-5.1) mmol/L Chloride 105 (98-107) mmol/L Carbon Dioxide 25 (22-30) mmol/L Anion Gap 8 mmol/L BUN 19 H (7-17) mg/dL Creatinine 0.98 (0.52-1.04) mg/dL Est GFR (CKD-EPI)AfAm 72 (>60 ml/min/1.73 sqM) Est GFR (CKD-EPI)NonAf 62 (>60 ml/min/1.73 sqM) Glucose 234 H (74-99) mg/dL POC Glucose (mg/dL) 228 H (75-99) mg/dL POC Glu Final Inspector [employer] Trailer ID Elaina Muniz Calcium 9.4 (8.4-10.2) mg/dL Total Bilirubin 0.7 (0.2-1.3) mg/dL AST 34 (14-36) U/L ALT 46 H (4-34) U/L Alkaline Phosphatase 43 (38-126) U/L Creatine Kinase 63 (30-135) U/L Total Protein 7.9 (6.3-8.2) g/dL Albumin 4.4 (3.5-5.0) g/dL - Radiology Data Radiology results: report reviewed (Imaging reviewed no acute findings), image reviewed Disposition Clinical Impression: Hyperglycemia Disposition: HOME SELF-CARE Condition: Good Instructions (If sedation given, give patient instructions): Mediterranean Diet (DC), Diabetic Hyperglycemia (ED), Diabetes and Exercise (ED) Prescriptions: sitaGLIPtin PHOSPHATE [Januvia] 100 mg PO DAILY #30 tab Is patient prescribed a controlled substance at d/c from ED?: No Referrals: Dion Poole MD [Primary Care Provider] - 1-2 days
[2020-08-21 15:26] VITALS: BP 139/70; PULSE 69
[2020-08-22 00:19] LABS: Hemoglobin A1C 8.4 % (4.0-6.0)
== END 2020-08-21 15:26 | disposition home or self-care (01) ==
LOC: EC 13:17
DX: E11.65 Type 2 diabetes mellitus with hyperglycemia (principal); E78.5 Hyperlipidemia, unspecified; I10 Essential (primary) hypertension; Z79.890 Hormone replacement therapy; Z79.899 Other long term (current) drug therapy; Z88.5 Allergy status to narcotic agent; Z88.6 Allergy status to analgesic agent; Z88.8 Allergy status to other drugs, medicaments and biological substances; Z85.3 Personal history of malignant neoplasm of breast; Z98.890 Other specified postprocedural states; Z87.891 Personal history of nicotine dependence
CPT/HCPCS: 36415; 71046; 80053; 82550; 83036; 85025; 96360; 99285

== ENCOUNTER → 2020-08-25 | Outpatient (CLI) | payer MEDICARE, BC | END | disposition home or self-care (01) | LOC: RADMAMWWP 14:10 | PROVIDERS: ATTEND Internal Medicine | DX: Z53.9 Procedure and treatment not carried out, unspecified reason (principal) ==

== ENCOUNTER → 2020-09-04 | Outpatient (CLI) | payer MEDICARE, BC ==
--- NOTE | 2020-09-06 07:51 | PE ---
EXAMINATION TYPE: PET CT fusion skull to thigh DATE OF EXAM: 09/04/2020 COMPARISON: Outside Ultrasound left breast July 22, 2020. Ultrasound left axilla August 20 0 HISTORY: Recently diagnosed left-sided breast cancer with left axillary metastatic disease on biopsy last month. TECHNIQUE: Following the intravenous administration of 12.15 mCi of F-18 FDG, whole body images are performed from the skull base to the midthigh. Images are reviewed on the computer in the coronal, a xial, and sagittal planes. Reconstructed rotating images are created on independent workstation and reviewed on the computer. A noncontrast CT is performed in conjunction with the PET scan. Blood glu cose level equals 145. SCAN: Initial Scan FINDINGS: SKULL BASE AND NECK: No areas of suspicious hypermetabolic uptake. CHEST, MEDIASTINUM, AND HILAR REGION: Corresponding to ultrasound there is a slightly lobulated 2.4 x 2.4 cm hypermetabolic mass in the left breast axial image 82, max SUV is 8.46. Superior to this ther e is larger left axillary mass or adenopathy measuring 4.3 x 2.9 cm axial image 62, max SUV is 8.08. No additional areas of suspicious hypermetabolic uptake or mass in the remainder of the thorax includ ing the right breast. ABDOMEN AND PELVIS: Normal excretion is present. No areas of suspicious hypermetabolic uptake noted. OSSEOUS STRUCTURES: No areas of suspicious hypermetabolic uptake. OTHER CT: Visualized liver is low dense consistent with diffuse fatty infiltration. Cholecystectomy c lips are present. Uterus surgically absent. Somewhat prominent remnant left ovary axial image 212. Co nsider pelvic ultrasound follow-up to further evaluate. IMPRESSION: Hypermetabolic masses correspond to known left breast neoplasm and left axillary involvem ent. No metastatic disease identified. Attention to left pelvis/ovary.
== END | disposition home or self-care (01) ==
LOC: RADPETMAIN 13:24
PROVIDERS: ATTEND Internal Medicine Hematology & Oncology
DX: N63.20 Unspecified lump in the left breast, unspecified quadrant (principal); C50.412 Malignant neoplasm of upper-outer quadrant of left female breast
CPT/HCPCS: 78815; A9552

== ENCOUNTER 2020-11-15 15:41 | Emergency (ER) | payer MEDICARE, BC ==
[2020-11-15 15:46] VITALS: RESP 16; TEMP 98.8
--- NOTE | 2020-11-15 16:12 | ED ---
General Adult HPI - General Chief complaint: Back Pain/Injury Stated complaint: kidney pain Time Seen by Provider: 11/15/20 15:57 Source: patient Mode of arrival: ambulatory Limitations: no limitations - History of Present Illness Initial comments: Dictation was produced using Shout dictation software. please excuse any grammatical, word or spelling errors. This patient was cared for during a federal and state declared state of emergency secondary to Covid 19 Chief Complaint: 59-year-old feel presents with abdominal pain History of Present Illness: 59-year-old female she has past medical history of breast cancer. She is currently performing regular chemo therapy. Over the last day or 2 she's been developing a right lower quadrant abdominal pain and rates to the back. It is worse with me palpate the area. Does not seem to the be triggered by certain movements. No nausea vomiting. Patient has history of appendectomy. Patient has history of hysterectomy. She still has her ovaries. Denies any vaginal discharge The ROS documented in this emergency department record has been reviewed and confirmed by me. Those systems with pertinent positive or negative responses have been documented in the HPI. All other systems are other negative and/or noncontributory. PHYSICAL EXAM: General Impression: Alert and oriented x3, not in acute distress, smiling HEENT: Normocephalic atraumatic, extra-ocular movements intact, pupils equal and reactive to light bilaterally, mucous membranes moist. Cardiovascular: Heart regular rate and rhythm Chest: Able to complete full sentences, no retractions, no tachypnea Abdomen: abdomen soft, mild tenderness to the right lower quadrant, no skin changes, non-distended, no organomegaly Musculoskeletal: Pulses present and equal in all extremities, no peripheral edema Motor: no focal deficits noted Neurological: CN II-XII grossly intact, no focal motor or sensory deficits noted Skin: Intact with no visualized rashes Psych: Normal affect and mood ED course: 59-year-old female presents with right lower quadrant abdominal pain on arrival are within acceptable limits. Patient is smiling and looks comfortable. She does have some mild palpatory tenderness to the right lower quadrant. She does not have any other GI symptoms. Laboratory evaluation obtained. Patient is leukocytosis of 15.9. This appears to be around patient's baseline from her recent labs are performed and her oncologist soft that she provided at the bedside. Rest patient's labs appear to be somewhat to the labs are performed recently. Urinalysis shows 4+ glucose. At this point given how well-appearing patient is and history of appendectomy we will plan to discharge patient she is mildly. This likely a strain. She has no other GI symptoms. No high-risk features. Patient is agreeable for discharge. - Related Data Home Medications Medication Instructions Recorded Confirmed Levothyroxine Sodium [Synthroid] 50 mcg PO DAILY 07/16/20 11/15/20 Atorvastatin [Lipitor] 40 mg PO HS 08/19/20 11/15/20 Metoprolol Tartrate [Lopressor] 25 mg PO BID 08/21/20 11/15/20 Cholecalciferol [Vitamin D3 (25 25 mcg PO DAILY 11/15/20 11/15/20 Mcg = 1000 Iu)] Insulin Aspart [NovoLOG Flexpen] 10 - 15 units SQ AC-TID 11/15/20 11/15/20 Insulin Glargine,Hum.rec.anlog 25 - 30 units SQ HS 11/15/20 11/15/20 [Lantus Solostar] OLANZapine [ZyPREXA] 5 mg PO DIRECTED 11/15/20 11/15/20 [place]-3 Fatty Acids/Fish Oil [Fish 1 cap PO DAILY 11/15/20 11/15/20 Oil 1,000 mg Softgel] Omeprazole 40 mg PO DAILY 11/15/20 11/15/20 rOPINIRole HCL [Requip] 0.25 mg PO HS 11/15/20 11/15/20 Allergies Allergy/AdvReac Type Severity Reaction Status Date / Time codeine AdvReac Nausea & Verified 11/15/20 16:38 Vomiting tramadol AdvReac Nausea & Verified 11/15/20 16:38 Vomiting Review of Systems ROS Statement: Those systems with pertinent positive or pertinent negative responses have been documented in the HPI. ROS Other: All systems not noted in ROS Statement are negative. Past Medical History Past Medical History: Cancer, Diabetes Mellitus, Hyperlipidemia, Hypertension, Musculoskeletal Disorder, Osteoarthritis (OA) Additional Past Medical History / Comment(s): hx. palpitations, feet swell, right leg gives out, constipation-usually gives self enemas new breast cancer diagnosis 08/2020. History of Any Multi-Drug Resistant Organisms: None Reported Past Surgical History: Appendectomy, Breast Surgery, Cholecystectomy, Hysterectomy, Orthopedic Surgery, Tonsillectomy, Tubal Ligation Additional Past Surgical History / Comment(s): Cervical decompression and fusion placement of interbody graft c4-c7, surgical left breast biopsy benign - 2014, left breast core biopsy - positive cancer. Dental work Past Anesthesia/Blood Transfusion Reactions: Family History of Problems w/ Anesthesia, Postoperative Nausea & Vomiting (PONV) Additional Past Anesthesia/Blood Transfusion Reaction / Comment(s): MOTHER PONV Past Psychological History: No Psychological Hx Reported Smoking Status: Former smoker Past Alcohol Use History: Occasional Past Drug Use History: None Reported - Past Family History Mother Family Medical History: Coronary Artery Disease (CAD) Father Family Medical History: Unable to Obtain Additional Family Medical History / Comment(s): Patient stated that she does have additional half-brothers and sisters that she does not know much about. Brother(s) Family Medical History: Cancer General Exam Limitations: no limitations Course Vital Signs 11/15/20 15:43 Temperature 98.8 F Pulse Rate 98 Respiratory 16 Rate Blood Pressure 141/65 O2 Sat by Pulse 96 Oximetry Medical Decision Making - Lab Data Result diagrams: 11/15/20 16:15 11/15/20 16:15 Lab Results 11/15/20 11/15/20 11/15/20 Range/Units 15:56 16:15 16:15 WBC 15.9 H (3.8-10.6) k/uL RBC 3.51 L (3.80-5.40) m/uL Hgb 10.9 L (11.4-16.0) gm/dL Hct 33.0 L (34.0-46.0) % MCV 94.2 (80.0-100.0) fL MCH 31.1 (25.0-35.0) pg MCHC 33.0 (31.0-37.0) g/dL RDW 16.3 H (11.5-15.5) % Plt Count 89 L (150-450) k/uL MPV 8.4 Neutrophils % 95 % Lymphocytes % 3 % Monocytes % 1 % Eosinophils % 1 % Basophils % 2 % Neutrophils # 15.1 H (1.3-7.7) k/uL Lymphocytes # 0.4 L (1.0-4.8) k/uL Monocytes # 0.2 (0-1.0) k/uL Eosinophils # 0.1 (0-0.7) k/uL Basophils # 0.4 H (0-0.2) k/uL Anisocytosis Slight Sodium 133 L (137-145) mmol/L Potassium 4.8 (3.5-5.1) mmol/L Chloride 103 (98-107) mmol/L Carbon Dioxide 26 (22-30) mmol/L Anion Gap 4 mmol/L BUN 27 H (7-17) mg/dL Creatinine 0.87 (0.52-1.04) mg/dL Est GFR (CKD-EPI)AfAm 83 (>60 ml/min/1.73 sqM) Est GFR (CKD-EPI)NonAf 72 (>60 ml/min/1.73 sqM) Glucose 429 H (74-99) mg/dL Calcium 8.2 L (8.4-10.2) mg/dL Total Bilirubin 0.4 (0.2-1.3) mg/dL AST 29 (14-36) U/L ALT 33 (4-34) U/L Alkaline Phosphatase 197 H (38-126) U/L Total Protein 5.8 L (6.3-8.2) g/dL Albumin 3.4 L (3.5-5.0) g/dL Lipase 388 H (23-300) U/L Urine Color Light Yellow Urine Appearance Clear (Clear) Urine pH 5.5 (5.0-8.0) Ur Specific [place] 1.023 (1.001-1.035) Urine Protein Negative (Negative) Urine Glucose (UA) 4+ H (Negative) Urine Ketones Negative (Negative) Urine Blood Negative (Negative) Urine Nitrite Negative (Negative) Urine Bilirubin Negative (Negative) Urine Urobilinogen <2.0 (<2.0) mg/dL Ur Leukocyte Esterase Negative (Negative) Disposition Clinical Impression: Abdominal pain Disposition: HOME SELF-CARE Condition: Good Instructions (If sedation given, give patient instructions): Abdominal Pain (ED), Acute Low Back Pain (ED) Is patient prescribed a controlled substance at d/c from ED?: No Referrals: Dion Poole MD [Primary Care Provider] - 1-2 days Time of Disposition: 17:09
[2020-11-15 16:13] LABS: Appearance,Urine Clear (Clear); Bilirubin,Urine Negative (Negative); Blood,Urine Negative (Negative); Color,Urine Light Yellow; Glucose,Urine (UA) 4+ (Negative); Ketones,Urine Negative (Negative); Leukocyte Esterase,Urine Negative (Negative); Nitrite,Urine Negative (Negative); PH, Urine 5.5 (5.0-8.0); Protein,Urine Negative (Negative); Specific Gravity,Urine 1.023 (1.001-1.035); Urobilinogen,Urine <2.0 mg/dL (<2.0)
[2020-11-15 16:33] LABS: Anisocytosis Slight; Basophils # (A) 0.4 k/uL (0-0.2); Basophils % (A) 2 %; Eosinophils # (A) 0.1 k/uL (0-0.7); Eosinophils % (A) 1 %; HGB 10.9 gm/dL (11.4-16.0); Lymphocytes # (A) 0.4 k/uL (1.0-4.8); Lymphocytes % (A) 3 %; MCH 31.1 pg (25.0-35.0); MCV 94.2 fL (80.0-100.0); Mean Platelet Volume 8.4; Monocytes # (A) 0.2 k/uL (0-1.0); Monocytes % (A) 1 %; Neutrophils # (A) 15.1 k/uL (1.3-7.7); Neutrophils % (A) 95 %; RBC 3.51 m/uL (3.80-5.40); RDW 16.3 % (11.5-15.5); WBC 15.9 k/uL (3.8-10.6)
[2020-11-15 16:46] LABS: Albumin 3.4 g/dL (3.5-5.0); Calcium 8.2 mg/dL (8.4-10.2); Potassium 4.8 mmol/L (3.5-5.1); Total Bilirubin 0.4 mg/dL (0.2-1.3); Total Protein 5.8 g/dL (6.3-8.2)
[2020-11-15 17:04] LABS: Platelet Count 89 k/uL (150-450)
[2020-11-15 17:33] VITALS: BP 147/58; PULSE 85
== END 2020-11-15 17:40 | disposition home or self-care (01) ==
LOC: EC 15:41
DX: R10.31 Right lower quadrant pain (principal); E11.9 Type 2 diabetes mellitus without complications; E78.5 Hyperlipidemia, unspecified; I10 Essential (primary) hypertension; M19.90 Unspecified osteoarthritis, unspecified site; Z79.4 Long term (current) use of insulin; Z79.899 Other long term (current) drug therapy; Z85.3 Personal history of malignant neoplasm of breast; Z87.891 Personal history of nicotine dependence
CPT/HCPCS: 99284 ×3; 96374; 36415; 80053; 83690; 85025; 81003; J1642

== ENCOUNTER 2020-11-27 09:52 | Emergency (ER) | payer MEDICARE, BC ==
[2020-11-27 10:00] VITALS: TEMP 99
[2020-11-27] MEDS ORDERED: SODIUM CHLORIDE 0.9% 1,000 ML IV STA (10:18)
[2020-11-27 12:13] LABS: Albumin 4.1 g/dL (3.5-5.0); Calcium 8.6 mg/dL (8.4-10.2); Magnesium 1.7 mg/dL (1.6-2.3); Partial Thromboplastin Time 21.5 sec (22.0-30.0); Potassium 4.2 mmol/L (3.5-5.1); Prothrombin Time 10.8 sec (9.0-12.0); Total Bilirubin 0.6 mg/dL (0.2-1.3); Total Protein 6.7 g/dL (6.3-8.2)
[2020-11-27 12:14] LABS: Anisocytosis Slight; HCT 33.8 % (34.0-46.0); HGB 11.7 gm/dL (11.4-16.0); MCH 31.1 pg (25.0-35.0); MCHC 34.5 g/dL (31.0-37.0); MCV 90.2 fL (80.0-100.0); RBC 3.75 m/uL (3.80-5.40); RDW 16.7 % (11.5-15.5)
[2020-11-27 12:20] LABS: D-Dimer 0.65 mg/L FEU (<0.60)
--- NOTE | 2020-11-27 12:22 | ED ---
General Adult HPI - General Chief complaint: Skin/Abscess/Foreign Body Stated complaint: rash on chest Time Seen by Provider: 11/27/20 10:04 Source: patient, EMS, RN notes reviewed Mode of arrival: EMS Limitations: no limitations - History of Present Illness Initial comments: This a 59-year-old female presents emergency Department chief complaint rash, elevated heart rate. Patient is currently receiving chemotherapy for breast cancer. Patient states that since she started a new chemotherapy she is felt that her heart rate has been elevated and that she just has not felt well. Patient developed a rash on her chest initially right after having her chemotherapy. Patient states the area increased slightly. Denies any difficulty swallowing or throat swelling. Patient denies any fevers or chills. Patient offers no other complaints. Patient did state that her PCP told her kidney function was elevated. - Related Data Home Medications Medication Instructions Recorded Confirmed Levothyroxine Sodium [Synthroid] 50 mcg PO DAILY 07/16/20 11/15/20 Atorvastatin [Lipitor] 40 mg PO HS 08/19/20 11/15/20 Metoprolol Tartrate [Lopressor] 25 mg PO BID 08/21/20 11/15/20 Cholecalciferol [Vitamin D3 (25 25 mcg PO DAILY 11/15/20 11/15/20 Mcg = 1000 Iu)] Insulin Aspart [NovoLOG Flexpen] 10 - 15 units SQ AC-TID 11/15/20 11/15/20 Insulin Glargine,Hum.rec.anlog 25 - 30 units SQ HS 11/15/20 11/15/20 [Lantus Solostar] OLANZapine [ZyPREXA] 5 mg PO DIRECTED 11/15/20 11/15/20 [place]-3 Fatty Acids/Fish Oil [Fish 1 cap PO DAILY 11/15/20 11/15/20 Oil 1,000 mg Softgel] Omeprazole 40 mg PO DAILY 11/15/20 11/15/20 rOPINIRole HCL [Requip] 0.25 mg PO HS 11/15/20 11/15/20 Previous Rx's Medication Instructions Recorded Triamcinolone 0.1% Cream [Kenalog 1 applicatio TOPICAL BID #15 gram 11/27/20 0.1% Cream] Allergies Allergy/AdvReac Type Severity Reaction Status Date / Time codeine AdvReac Nausea & Verified 11/15/20 16:38 Vomiting tramadol AdvReac Nausea & Verified 11/15/20 16:38 Vomiting Review of Systems ROS Statement: Those systems with pertinent positive or pertinent negative responses have been documented in the HPI. ROS Other: All systems not noted in ROS Statement are negative. Past Medical History Past Medical History: Cancer, Diabetes Mellitus, Hyperlipidemia, Hypertension, Musculoskeletal Disorder, Osteoarthritis (OA) Additional Past Medical History / Comment(s): hx. palpitations, feet swell, right leg gives out, constipation-usually gives self enemas new breast cancer diagnosis 08/2020. History of Any Multi-Drug Resistant Organisms: None Reported Past Surgical History: Appendectomy, Breast Surgery, Cholecystectomy, Hysterectomy, Orthopedic Surgery, Tonsillectomy, Tubal Ligation Additional Past Surgical History / Comment(s): Cervical decompression and fusion placement of interbody graft c4-c7, surgical left breast biopsy benign - 2013, left breast core biopsy - positive cancer. Dental work Past Anesthesia/Blood Transfusion Reactions: Family History of Problems w/ Anesthesia, Postoperative Nausea & Vomiting (PONV) Additional Past Anesthesia/Blood Transfusion Reaction / Comment(s): MOTHER PONV Past Psychological History: No Psychological Hx Reported Smoking Status: Former smoker Past Alcohol Use History: Occasional Past Drug Use History: None Reported - Past Family History Mother Family Medical History: Coronary Artery Disease (CAD) Father Family Medical History: Unable to Obtain Additional Family Medical History / Comment(s): Patient stated that she does have additional half-brothers and sisters that she does not know much about. Brother(s) Family Medical History: Cancer General Exam Limitations: no limitations General appearance: alert, in no apparent distress Head exam: Present: atraumatic, normocephalic, normal inspection Eye exam: Present: normal appearance, PERRL, EOMI. Absent: scleral icterus, conjunctival injection, periorbital swelling ENT exam: Present: normal exam, normal oropharynx, mucous membranes moist, TM's normal bilaterally Neck exam: Present: normal inspection, full ROM. Absent: tenderness, meningismus, lymphadenopathy Respiratory exam: Present: normal lung sounds bilaterally. Absent: respiratory distress, wheezes, rales, rhonchi, stridor Cardiovascular Exam: Present: normal rhythm, tachycardia, normal heart sounds. Absent: systolic murmur, diastolic murmur, rubs, gallop, clicks GI/Abdominal exam: Present: soft, normal bowel sounds. Absent: distended, tenderness, guarding, rebound, rigid Skin exam: Present: warm, dry, intact, normal color. Absent: rash Course Vital Signs 11/27/20 11/27/20 11/27/20 09:53 10:01 13:27 Temperature 99.0 F Pulse Rate 106 H 103 H Pulse Rate [ 106 H Relay Tester ] Respiratory 18 19 Rate Blood Pressure 122/46 133/65 O2 Sat by Pulse 96 98 Oximetry 11/27/20 14:27 Temperature Pulse Rate 104 H Pulse Rate [ Relay Tester ] Respiratory 20 Rate Blood Pressure 122/55 O2 Sat by Pulse 95 Oximetry EKG Findings - EKG Comments: EKG Findings:: EKG performed at 10:09 sinus tachycardia rate of 106 GA 180 QRS 82 QT/QTC 352/467 Medical Decision Making - Medical Decision Making 59-year-old presented for palpitations, mild shortness of breath and rash. Patient has had underlying dermatitis from her medication chemotherapy treatment. Patient does have moderate leukocytosis case discussed with oncologist who feels this is just from [facility]. Patient has no evidence of PE. Patient discharged in stable condition. - Lab Data Result diagrams: 11/27/20 11:32 11/27/20 11:32 Lab Results 11/27/20 11/27/20 11/27/20 Range/Units 11:32 11:32 11:32 WBC 55.9 H* (3.8-10.6) k/uL RBC 3.75 L (3.80-5.40) m/uL Hgb 11.7 (11.4-16.0) gm/dL Hct 33.8 L (34.0-46.0) % MCV 90.2 (80.0-100.0) fL MCH 31.1 (25.0-35.0) pg MCHC 34.5 (31.0-37.0) g/dL RDW 16.7 H (11.5-15.5) % Plt Count 146 L D (150-450) k/uL MPV 8.0 Neutrophils % (Manual) 96 % Band Neuts % (Manual) 3 % Lymphocytes % (Manual) 1 % Neutrophils # (Manual) 55.30 H (1.3-7.7) k/uL Lymphocytes # (Manual) 0.56 L (1.0-4.8) k/uL Nucleated RBCs 0 (0-0) /100 WBC Manual Slide Review Performed Toxic Vacuolation Present Anisocytosis Slight PT 10.8 (9.0-12.0) sec INR 1.0 (<1.2) APTT 21.5 L (22.0-30.0) sec D-Dimer 0.65 H (<0.60) mg/L FEU Sodium 137 (137-145) mmol/L Potassium 4.2 (3.5-5.1) mmol/L Chloride 105 (98-107) mmol/L Carbon Dioxide 23 (22-30) mmol/L Anion Gap 9 mmol/L BUN 23 H (7-17) mg/dL Creatinine 0.84 (0.52-1.04) mg/dL Est GFR (CKD-EPI)AfAm 87 (>60 ml/min/1.73 sqM) Est GFR (CKD-EPI)NonAf 75 (>60 ml/min/1.73 sqM) Glucose 194 H (74-99) mg/dL Calcium 8.6 (8.4-10.2) mg/dL Magnesium 1.7 (1.6-2.3) mg/dL Total Bilirubin 0.6 (0.2-1.3) mg/dL AST 45 H (14-36) U/L ALT 46 H (4-34) U/L Alkaline Phosphatase 147 H (38-126) U/L Troponin I (0.000-0.034) ng/mL Total Protein 6.7 (6.3-8.2) g/dL Albumin 4.1 (3.5-5.0) g/dL 11/27/20 Range/Units 11:32 WBC (3.8-10.6) k/uL RBC (3.80-5.40) m/uL Hgb (11.4-16.0) gm/dL Hct (34.0-46.0) % MCV (80.0-100.0) fL MCH (25.0-35.0) pg MCHC (31.0-37.0) g/dL RDW (11.5-15.5) % Plt Count (150-450) k/uL MPV Neutrophils % (Manual) % Band Neuts % (Manual) % Lymphocytes % (Manual) % Neutrophils # (Manual) (1.3-7.7) k/uL Lymphocytes # (Manual) (1.0-4.8) k/uL Nucleated RBCs (0-0) /100 WBC Manual Slide Review Toxic Vacuolation Anisocytosis PT (9.0-12.0) sec INR (<1.2) APTT (22.0-30.0) sec D-Dimer (<0.60) mg/L FEU Sodium (137-145) mmol/L Potassium (3.5-5.1) mmol/L Chloride (98-107) mmol/L Carbon Dioxide (22-30) mmol/L Anion Gap mmol/L BUN (7-17) mg/dL Creatinine (0.52-1.04) mg/dL Est GFR (CKD-EPI)AfAm (>60 ml/min/1.73 sqM) Est GFR (CKD-EPI)NonAf (>60 ml/min/1.73 sqM) Glucose (74-99) mg/dL Calcium (8.4-10.2) mg/dL Magnesium (1.6-2.3) mg/dL Total Bilirubin (0.2-1.3) mg/dL AST (14-36) U/L ALT (4-34) U/L Alkaline Phosphatase (38-126) U/L Troponin I 0.016 (0.000-0.034) ng/mL Total Protein (6.3-8.2) g/dL Albumin (3.5-5.0) g/dL Disposition Clinical Impression: Palpitations, Leukocytosis, Dermatitis Disposition: HOME SELF-CARE Condition: Stable Instructions (If sedation given, give patient instructions): Heart Palpitations (ED) Additional Instructions: Please return to the Emergency Department if symptoms worsen or any other concerns. Prescriptions: Triamcinolone 0.1% Cream [Kenalog 0.1% Cream] 1 applicatio TOPICAL BID #15 gram Is patient prescribed a controlled substance at d/c from ED?: No Referrals: Dion Poole MD [Primary Care Provider] - 1-2 days Time of Disposition: 16:21
[2020-11-27 12:30] LABS: Platelet Count 146 k/uL (150-450)
[2020-11-27 12:32] LABS: WBC 55.9 k/uL (3.8-10.6)
[2020-11-27 12:48] LABS: Band Neutrophils % 3 %; Lymphocytes # (M) 0.56 k/uL (1.0-4.8); Neutrophils % (M) 96 %; Nucleated Red Blood Cells 0 /100 WBC (0-0); Total Cells Counted 100
[2020-11-27 12:49] LABS: Toxic Vacuolation Present
--- NOTE | 2020-11-27 14:59 | CT ---
EXAMINATION TYPE: CT chest angio for PE DATE OF EXAM: 11/27/2020 COMPARISON: PET CT 09/04/2020. HISTORY: Shortnbess of breath, rash on chest, palpitation, chest pains CT DLP: 564.6 mGycm Automated exposure control for dose reduction was used. CONTRAST: CT Chest for pulmonary embolism performed with with IV Contrast, patient injected with 100 mL of Isov ue 370. FINDINGS: LUNGS: There is mild increase of left upper lobe irregular nodule, now measuring 1 cm (previously lizandro sured 0.8 cm). There is new small focal groundglass opacity in the lingula. Additional mild atelectat ic changes seen. No pleural effusion or pneumothorax. MEDIASTINUM: There is satisfactory enhancement of the pulmonary artery and its branches, there is no CT evidence for pulmonary embolism. There are no greater than 1 cm hilar or mediastinal lymph nodes. No pericardial effusion is seen. OTHER: Right IJ portacatheter is in place. C5-C6 bony fusion seen. There is decrease in size of left axillary lymph node measuring 2.1 x 1.6 and measures (previously measured 4.2 x 2.9 cm). Stable left adrenal thickening. IMPRESSION: No acute PE. Mild increase of 1 cm left upper lobe nodule. Metastatic disease cannot be excluded, recommend follow -up. Nonspecific focal groundglass opacity in the lingula. Decreased size of left axillary lymph node.
[2020-11-27 16:53] VITALS: BP 126/60; PULSE 103; RESP 18
== END 2020-11-27 17:10 | disposition home or self-care (01) ==
LOC: EC 09:52
DX: R00.2 Palpitations (principal); D72.829 Elevated white blood cell count, unspecified; L30.9 Dermatitis, unspecified; E11.9 Type 2 diabetes mellitus without complications; E78.5 Hyperlipidemia, unspecified; I10 Essential (primary) hypertension; M19.90 Unspecified osteoarthritis, unspecified site; Z79.4 Long term (current) use of insulin; Z85.3 Personal history of malignant neoplasm of breast; Z87.891 Personal history of nicotine dependence
CPT/HCPCS: 36415; 93005; 85379; 80053; 83735; 84484; 85025; 85610; 85730; 71275; 99284; 96374; 96361; J1642; Q9967

== ENCOUNTER → 2020-12-02 | Outpatient (CLI) | payer MEDICARE, BC ==
--- NOTE | 2020-12-03 10:43 | ECHOF ---
Referral Reason:Sustained tachycardia R00.0 R06.02 MEASUREMENTS -------- HEIGHT: 167.6 cm WEIGHT: 62.6 kg BP: RVIDd: 2.4 cm (< 3.3) IVSd: 1.1 cm (0.6 - 1.1) LVIDd: 3.4 cm (3.9 - 5.3) LVPWd: 1.2 cm (0.6 - 1.1) IVSs: 2.0 cm LVIDs: 1.7 cm LVPWs: 1.9 cm Ao Diam: 2.5 cm (2.0 - 3.7) AV Cusp: 1.7 cm (1.5 - 2.6) LA Diam: 3.3 cm (2.7 - 3.8) MV EXCURSION: 9.718 mm (> 18.000) MV EF SLOPE: 33 mm/s (70 - 150) EPSS: 1.3 cm MV E Nile: 1.00 m/s MV DecT: 93 ms MV A Nile: 0.48 m/s MV E/A Ratio: 2.07 RAP: 5.00 mmHg RVSP: 19.00 mmHg FINDINGS -------- Resting tachycardia (HR>100bpm). This was a technically adequate study. The left ventricular size is normal. There is mild concentric left ventricular hypertrophy. Overa ll left ventricular systolic function is normal with, an EF between 55 - 60 %. The right ventricle is normal in size. The left atrial size is normal. The right atrial size is normal. Unable to visualize the septum. The aortic valve is trileaflet and appears structurally normal. The mitral valve is normal. There is trace mitral regurgitation. The tricuspid valve appears structurally normal. Trace tricuspid regurgitation present. Right edvin tricular systolic pressure is normal at < 35 mmHg. There is no pulmonic regurgitation present. The aortic root size is normal. IVC Not well visulized. There is a trivial pericardial effusion present. CONCLUSIONS -------- 1. The left ventricular size is normal. 2. There is mild concentric left ventricular hypertrophy. 3. Overall left ventricular systolic function is normal with, an EF between 55 - 60 %. 4. There is trace mitral regurgitation. 5. Trace tricuspid regurgitation present. 6. There is a trivial pericardial effusion present. PHYSICIAN OFFICE SECRETARY: Ann Marie Ramirez [facility]
== END | disposition home or self-care (01) ==
LOC: RADECHMAIN 14:58
PROVIDERS: ATTEND Internal Medicine Hematology & Oncology
DX: I08.1 Rheumatic disorders of both mitral and tricuspid valves (principal); I31.3 Pericardial effusion (noninflammatory)
CPT/HCPCS: 93306

== ENCOUNTER 2020-12-07 14:05 | Emergency (ER) | payer MEDICARE, BC ==
--- NOTE | 2020-12-07 16:17 | ED ---
General Adult HPI <Ten Carr - Last Filed: 12/07/20 16:15> <Arnav Peralta - Last Filed: 12/07/20 20:54> - General Stated complaint: cough/fever. Pt is on Chemo therapy tx - History of Present Illness Initial comments: 60-year-old female currently undergoing chemotherapy (last 11/25/20) for breast cancer is presenting to the emergency department with a chief complaint of a cough and fever. Patient reports a nonproductive cough for the past 2 days and noticed a fever last night of 100.3. Patient also feels slightly short of breath. She denies any chest pain at this time. (Ten Carr) - Related Data Home Medications Medication Instructions Recorded Confirmed Levothyroxine Sodium [Synthroid] 50 mcg PO DAILY 07/16/20 11/15/20 Atorvastatin [Lipitor] 40 mg PO HS 08/19/20 11/15/20 Metoprolol Tartrate [Lopressor] 25 mg PO BID 08/21/20 11/15/20 Cholecalciferol [Vitamin D3 (25 25 mcg PO DAILY 11/15/20 11/15/20 Mcg = 1000 Iu)] Insulin Aspart [NovoLOG Flexpen] 10 - 15 units SQ AC-TID 11/15/20 11/15/20 Insulin Glargine,Hum.rec.anlog 25 - 30 units SQ HS 11/15/20 11/15/20 [Lantus Solostar] OLANZapine [ZyPREXA] 5 mg PO DIRECTED 11/15/20 11/15/20 [place]-3 Fatty Acids/Fish Oil [Fish 1 cap PO DAILY 11/15/20 11/15/20 Oil 1,000 mg Softgel] Omeprazole 40 mg PO DAILY 11/15/20 11/15/20 rOPINIRole HCL [Requip] 0.25 mg PO HS 11/15/20 11/15/20 Previous Rx's Medication Instructions Recorded Triamcinolone 0.1% Cream [Kenalog 1 applicatio TOPICAL BID #15 gram 11/27/20 0.1% Cream] Allergies Allergy/AdvReac Type Severity Reaction Status Date / Time codeine AdvReac Nausea & Verified 12/07/20 16:19 Vomiting tramadol AdvReac Nausea & Verified 12/07/20 16:19 Vomiting Review of Systems ROS Other: All systems not noted in ROS Statement are negative. <Ten Carr - Last Filed: 12/07/20 16:15> ROS Other: All systems not noted in ROS Statement are negative. <Arnav Peralta - Last Filed: 12/07/20 20:54> ROS Statement: Those systems with pertinent positive or pertinent negative responses have been documented in the HPI. Past Medical History Past Medical History: Cancer, Diabetes Mellitus, Hyperlipidemia, Hypertension, Musculoskeletal Disorder, Osteoarthritis (OA) Additional Past Medical History / Comment(s): hx. palpitations, feet swell, right leg gives out, constipation-usually gives self enemas new breast cancer diagnosis 08/2020. History of Any Multi-Drug Resistant Organisms: None Reported Past Surgical History: Appendectomy, Breast Surgery, Cholecystectomy, Hysterectomy, Orthopedic Surgery, Tonsillectomy, Tubal Ligation Additional Past Surgical History / Comment(s): Cervical decompression and fusion placement of interbody graft c4-c7, surgical left breast biopsy benign - 2013, left breast core biopsy - positive cancer. Dental work Past Anesthesia/Blood Transfusion Reactions: Family History of Problems w/ Anesthesia, Postoperative Nausea & Vomiting (PONV) Additional Past Anesthesia/Blood Transfusion Reaction / Comment(s): MOTHER PONV Past Psychological History: No Psychological Hx Reported Smoking Status: Former smoker Past Alcohol Use History: Occasional Past Drug Use History: None Reported - Past Family History Mother Family Medical History: Coronary Artery Disease (CAD) Father Family Medical History: Unable to Obtain Additional Family Medical History / Comment(s): Patient stated that she does have additional half-brothers and sisters that she does not know much about. Brother(s) Family Medical History: Cancer <Ten Carr - Last Filed: 12/07/20 16:15> Course Vital Signs 12/07/20 12/07/20 12/07/20 16:14 19:21 19:49 Temperature 99.5 F 100.6 F H Pulse Rate 118 H 127 H 119 H Respiratory 24 20 20 Rate Blood Pressure 112/57 151/81 O2 Sat by Pulse 98 94 L 95 Oximetry Medical Decision Making - Lab Data Result diagrams: 12/07/20 16:28 12/07/20 16:28 <Arnav Peralta - Last Filed: 12/07/20 20:54> - Medical Decision Making This is a 60-year-old female who presents emergency department for cough. She was found to be Covid Positive. Chest x-ray did not reveal any infiltrates. The patient was not hypoxic. The rest of her blood work was unremarkable. D- dimer was slightly elevated however age-adjusted d-dimer was negative. The patient was educated about myoclonic antibodies and she consented to this. She wanted to speak with Dr. Musa about the infusion and I did speak with his colic Dr. Munguia who stated that he felt that it would be okay. The patient is immunosuppressed from her chemotherapy for breast cancer. The patient tolerated the infusion well and is going to follow closely with her oncologist and primary doctor. Return for any worsening or changing symptoms or questions were answered. (Arnav Peralta) - Lab Data Lab Results 12/07/20 12/07/20 12/07/20 Range/Units 16:19 16:28 16:28 WBC 10.3 (3.8-10.6) k/uL RBC 3.81 (3.80-5.40) m/uL Hgb 11.8 (11.4-16.0) gm/dL Hct 34.8 (34.0-46.0) % MCV 91.3 (80.0-100.0) fL MCH 30.9 (25.0-35.0) pg MCHC 33.9 (31.0-37.0) g/dL RDW 16.9 H (11.5-15.5) % Plt Count 162 (150-450) k/uL MPV 7.7 Neutrophils % 83 % Lymphocytes % 5 % Monocytes % 9 % Eosinophils % 1 % Basophils % 0 % Neutrophils # 8.6 H (1.3-7.7) k/uL Lymphocytes # 0.6 L (1.0-4.8) k/uL Monocytes # 0.9 (0-1.0) k/uL Eosinophils # 0.1 (0-0.7) k/uL Basophils # 0.0 (0-0.2) k/uL Poikilocytosis Slight Anisocytosis Slight PT 11.0 (9.0-12.0) sec INR 1.0 (<1.2) APTT 22.3 (22.0-30.0) sec D-Dimer 0.61 H (<0.60) mg/L FEU Sodium (137-145) mmol/L Potassium (3.5-5.1) mmol/L Chloride (98-107) mmol/L Carbon Dioxide (22-30) mmol/L Anion Gap mmol/L BUN (7-17) mg/dL Creatinine (0.52-1.04) mg/dL Est GFR (CKD-EPI)AfAm (>60 ml/min/1.73 sqM) Est GFR (CKD-EPI)NonAf (>60 ml/min/1.73 sqM) Glucose (74-99) mg/dL Calcium (8.4-10.2) mg/dL Total Bilirubin (0.2-1.3) mg/dL AST (14-36) U/L ALT (4-34) U/L Alkaline Phosphatase (38-126) U/L Total Protein (6.3-8.2) g/dL Albumin (3.5-5.0) g/dL Coronavirus (PCR) Detected A (Not Detectd) 12/07/20 Range/Units 16:28 WBC (3.8-10.6) k/uL RBC (3.80-5.40) m/uL Hgb (11.4-16.0) gm/dL Hct (34.0-46.0) % MCV (80.0-100.0) fL MCH (25.0-35.0) pg MCHC (31.0-37.0) g/dL RDW (11.5-15.5) % Plt Count (150-450) k/uL MPV Neutrophils % % Lymphocytes % % Monocytes % % Eosinophils % % Basophils % % Neutrophils # (1.3-7.7) k/uL Lymphocytes # (1.0-4.8) k/uL Monocytes # (0-1.0) k/uL Eosinophils # (0-0.7) k/uL Basophils # (0-0.2) k/uL Poikilocytosis Anisocytosis PT (9.0-12.0) sec INR (<1.2) APTT (22.0-30.0) sec D-Dimer (<0.60) mg/L FEU Sodium 137 (137-145) mmol/L Potassium 4.2 (3.5-5.1) mmol/L Chloride 103 (98-107) mmol/L Carbon Dioxide 23 (22-30) mmol/L Anion Gap 11 mmol/L BUN 16 (7-17) mg/dL Creatinine 0.89 (0.52-1.04) mg/dL Est GFR (CKD-EPI)AfAm 80 (>60 ml/min/1.73 sqM) Est GFR (CKD-EPI)NonAf 70 (>60 ml/min/1.73 sqM) Glucose 148 H (74-99) mg/dL Calcium 9.0 (8.4-10.2) mg/dL Total Bilirubin 0.6 (0.2-1.3) mg/dL AST 52 H (14-36) U/L ALT 50 H (4-34) U/L Alkaline Phosphatase 146 H (38-126) U/L Total Protein 6.8 (6.3-8.2) g/dL Albumin 3.9 (3.5-5.0) g/dL Coronavirus (PCR) (Not Detectd) Disposition <Ten Carr - Last Filed: 12/07/20 16:15> Is patient prescribed a controlled substance at d/c from ED?: No <Arnav Peralta - Last Filed: 12/07/20 20:54> Clinical Impression: COVID-19 Disposition: HOME SELF-CARE Condition: Stable Instructions (If sedation given, give patient instructions): Coronavirus Disease 2019 (COVID-19) Referrals: Dion Poole MD [Primary Care Provider] - 1-2 days
--- NOTE | 2020-12-07 17:03 | XR ---
EXAMINATION TYPE: XR chest 2V DATE OF EXAM: 12/07/2020 COMPARISON: 08/21/2020 HISTORY: Shortness of breath TECHNIQUE: Frontal and lateral views of the chest are obtained. FINDINGS: Scattered senescent parenchymal changes noted. Hyperinflation compatible with COPD. No evidence for infiltrate. No evidence for atelectasis. Heart size is stable. Mediastinal structures are stable and grossly unremarkable. No evidence for hilar prominence. Degenerative changes dorsal spine. IMPRESSION: 1. No evidence for acute pulmonary disease.
[2020-12-07 17:16] LABS: Anisocytosis Slight; Basophils % (A) 0 %; Eosinophils # (A) 0.1 k/uL (0-0.7); Eosinophils % (A) 1 %; HCT 34.8 % (34.0-46.0); HGB 11.8 gm/dL (11.4-16.0); Lymphocytes # (A) 0.6 k/uL (1.0-4.8); Lymphocytes % (A) 5 %; MCH 30.9 pg (25.0-35.0); MCHC 33.9 g/dL (31.0-37.0); MCV 91.3 fL (80.0-100.0); Mean Platelet Volume 7.7; Monocytes # (A) 0.9 k/uL (0-1.0); Monocytes % (A) 9 %; Neutrophils # (A) 8.6 k/uL (1.3-7.7); Neutrophils % (A) 83 %; Platelet Count 162 k/uL (150-450); Poikilocytosis Slight; RBC 3.81 m/uL (3.80-5.40); RDW 16.9 % (11.5-15.5); WBC 10.3 k/uL (3.8-10.6)
[2020-12-07 17:24] LABS: Albumin 3.9 g/dL (3.5-5.0); Potassium 4.2 mmol/L (3.5-5.1); Total Bilirubin 0.6 mg/dL (0.2-1.3); Total Protein 6.8 g/dL (6.3-8.2)
[2020-12-07 17:29] LABS: D-Dimer 0.61 mg/L FEU (<0.60); Partial Thromboplastin Time 22.3 sec (22.0-30.0)
[2020-12-07] MEDS ORDERED: SODIUM CHLORIDE 0.9% 500 ML 500 ML IV ONE (18:59)
[2020-12-07] MEDS ORDERED: BAMLANIVIMAB (EUA) 700 MG, ETESEVIMAB (EUA) 1,400 MG in SODIUM CHLORIDE 0.9% 50 ML IVPB ONE (20:00)
[2020-12-07] MEDS ORDERED: SODIUM CHLORIDE 0.9% 50 ML IVPB ONE (21:00)
[2020-12-07 21:58] VITALS: BP 147/69; PULSE 116; RESP 16; TEMP 100.3
== END 2020-12-07 21:57 | disposition home or self-care (01) ==
LOC: EC 14:05
DX: U07.1 COVID-19 (principal); E11.9 Type 2 diabetes mellitus without complications; E78.5 Hyperlipidemia, unspecified; I10 Essential (primary) hypertension; C50.919 Malignant neoplasm of unspecified site of unspecified female breast; Z87.891 Personal history of nicotine dependence; Z79.890 Hormone replacement therapy; Z79.4 Long term (current) use of insulin; Z79.899 Other long term (current) drug therapy; Z88.5 Allergy status to narcotic agent; Z98.1 Arthrodesis status
CPT/HCPCS: 36415; 85379; 80053; 85025; 85610; 85730; 87635; 71046; 99283; 96365; 96361 ×6; J1642; Q0245

== ENCOUNTER → 2021-01-13 | Outpatient (CLI) | payer MEDICARE, BC ==
[2021-01-13 11:37] LABS: Basophils # (A) 0.04 X 10*3/uL (0.00-0.10); Basophils % (A) 0.7 %; Eosinophils # (A) 0.01 X 10*3/uL (0.04-0.35); Eosinophils % (A) 0.2 %; HCT 36.9 % (37.2-46.3); HGB 11.6 g/dL (12.0-15.0); Lymphocytes # (A) 0.85 X 10*3/uL (0.90-5.00); Lymphocytes % (A) 14.5 %; MCH 30.3 pg (27.0-32.0); MCHC 31.4 g/dL (32.0-37.0); MCV 96.3 fL (80.0-97.0); Mean Platelet Volume 10.5 fL (9.5-12.2); Monocytes # (A) 0.42 X 10*3/uL (0.20-1.00); Monocytes % (A) 7.1 %; Neutrophils # (A) 4.54 X 10*3/uL (1.80-7.70); Neutrophils % (A) 77.2 %; Platelet Count 152 X 10*3/uL (140-440); RBC 3.83 X 10*6/uL (4.10-5.20); RDW 14.5 % (11.5-14.5); WBC 5.88 X 10*3/uL (4.50-10.00)
[2021-01-13 16:02] LABS: African American GFR (CKD) 69.9 (60.0-200.0); Albumin 4.2 g/dL (3.80-4.90); Albumin/Globulin Ratio 1.91 (1.60-3.17); Anion Gap 9.8 mmol/L (4.00-12.00); Calcium 8.8 mg/dL (8.7-10.3); Carbon Dioxide 24.2 mmol/L (21.6-31.8); Chol/HDL Ratio 3.61; Globulin 2.2 g/dL (1.6-3.3); LDL Cholesterol,Calculated 55.2 mg/dL (0.0-131.0); Magnesium 1.7 mg/dL (1.5-2.4); Non-African American GFR(CKD) 60.3 (60.0-200.0); Potassium 4.2 mmol/L (3.5-5.5); Total Bilirubin 0.6 mg/dL (0.3-1.2); Total Protein 6.4 g/dL (6.2-8.2); VLDL Calculation 30.8 mg/dL (5.00-40.00)
[2021-01-13 16:10] LABS: T4, Free (Free Thyroxine) 1.3 ng/dL (0.80-1.80)
[2021-01-13 21:28] LABS: Urine Creatinine 192.4 mg/dL
== END | disposition home or self-care (01) ==
LOC: LABWHC1 07:03
PROVIDERS: ATTEND Internal Medicine
DX: E03.9 Hypothyroidism, unspecified (principal); E11.9 Type 2 diabetes mellitus without complications; E78.2 Mixed hyperlipidemia; I10 Essential (primary) hypertension
CPT/HCPCS: 36415; 80053; 80061; 82043; 82570; 83036; 83735; 84439; 84443; 85025

== ENCOUNTER 2021-01-26 08:23 | Emergency (ER) | payer MEDICARE, BC ==
[2021-01-26 08:28] VITALS: BP 140/82; RESP 18; TEMP 98
[2021-01-26] MEDS ORDERED: ONDANSETRON 4 MG/2 ML VIAL IVP STA (08:47)
--- NOTE | 2021-01-26 08:52 | ED ---
General Adult HPI - General Chief complaint: Nausea/Vomiting/Diarrhea Stated complaint: ENT/Tongue Discoloration Time Seen by Provider: 01/26/21 08:33 Source: patient Mode of arrival: ambulatory Limitations: no limitations - History of Present Illness Initial comments: Dictation was produced using [employer] dictation software. please excuse any gramma tical, word or spelling errors. Chief Complaint: 60-year-old female with past medical history of breast cancer presents to the emergency department for abnormal tongue, nausea and vomiting. History of Present Illness: Patient is a pleasant 60-year-old female presents to the emergency department today for tongue abnormality, nausea and vomiting. She has a history of breast cancer and just recently completed chemotherapy. States that she noticed yesterday that her tongue was turning white. She looked online concerned about thrush. She had some nausea and vomiting ever managed with her oral nausea medicines. Her oncologist is Dr. Godfrey. She denies any fever, chills or night sweats. She states that she's never had these tongue abnormalities in the past. States that it's very mildly painful The ROS documented in this emergency department record has been reviewed and con firmed by me. Those systems with pertinent positive or negative responses have been documented in the HPI. All other systems are other negative and/or noncontributory. PHYSICAL EXAM: General Impression: Alert and oriented x3, not in acute distress HEENT: Normocephalic atraumatic, extra-ocular movements intact, pupils equal and reactive to light bilaterally, mucous membranes moist. Oral: White patches to the tongue, no erythema. Tongue blade removes white residue slightly. Cardiovascular: Heart regular rate and rhythm Chest: Able to complete full sentences, no retractions, no tachypnea Abdomen: abdomen soft, non-tender, non-distended, no organomegaly Musculoskeletal: Pulses present and equal in all extremities, no peripheral edema Motor: no focal deficits noted Neurological: CN II-XII grossly intact, no focal motor or sensory deficits noted Skin: Intact with no visualized rashes Psych: Normal affect and mood ED course: 60-year-old well-appearing female presents with abnormal tongue nausea. Patient's nausea appears to be mild she is well-appearing at bedside. She states that her nausea is controlled with oral nausea medications. Vital signs upon arrival shows heart rate of 118, rest of vital signs within acceptable limits. Patient does not appear to be in any significant distress. Tongue of normality is consistent with oral candidiasis.Laboratory evaluation obtained. CBC and metabolic panel within acceptable limits. Patient given prescription for nystatin swish and spit. She is advised follow up with oncologist primary care doctor for outpatient management of thrush. Reevaluated at bedside at 10:10 AM. She is Resting comfortably. - Related Data Home Medications Medication Instructions Recorded Confirmed Levothyroxine Sodium [Synthroid] 50 mcg PO DAILY 07/16/20 11/15/20 Atorvastatin [Lipitor] 40 mg PO HS 08/19/20 11/15/20 Metoprolol Tartrate [Lopressor] 25 mg PO BID 08/21/20 11/15/20 Cholecalciferol [Vitamin D3 (25 25 mcg PO DAILY 11/15/20 11/15/20 Mcg = 1000 Iu)] Insulin Aspart [NovoLOG Flexpen] 10 - 15 units SQ AC-TID 11/15/20 11/15/20 Insulin Glargine,Hum.rec.anlog 25 - 30 units SQ HS 11/15/20 11/15/20 [Lantus Solostar] OLANZapine [ZyPREXA] 5 mg PO DIRECTED 11/15/20 11/15/20 [place]-3 Fatty Acids/Fish Oil [Fish 1 cap PO DAILY 11/15/20 11/15/20 Oil 1,000 mg Softgel] Omeprazole 40 mg PO DAILY 11/15/20 11/15/20 rOPINIRole HCL [Requip] 0.25 mg PO HS 11/15/20 11/15/20 Previous Rx's Medication Instructions Recorded Triamcinolone 0.1% Cream [Kenalog 1 applicatio TOPICAL BID #15 gram 11/27/20 0.1% Cream] Nystatin 100,000 Unit/ml Susp 5 ml PO QID 4 Days #80 ml 01/26/21 [Mycostatin Oral Susp] Allergies Allergy/AdvReac Type Severity Reaction Status Date / Time codeine AdvReac Nausea & Verified 01/26/21 08:25 Vomiting tramadol AdvReac Nausea & Verified 01/26/21 08:25 Vomiting Review of Systems ROS Statement: Those systems with pertinent positive or pertinent negative responses have been documented in the HPI. ROS Other: All systems not noted in ROS Statement are negative. Past Medical History Past Medical History: Cancer, Diabetes Mellitus, Hyperlipidemia, Hypertension, Musculoskeletal Disorder, Osteoarthritis (OA) Additional Past Medical History / Comment(s): hx. palpitations, feet swell, right leg gives out, constipation-usually gives self enemas new breast cancer diagnosis 08/2020. History of Any Multi-Drug Resistant Organisms: None Reported Past Surgical History: Appendectomy, Breast Surgery, Cholecystectomy, Hysterectomy, Orthopedic Surgery, Tonsillectomy, Tubal Ligation Additional Past Surgical History / Comment(s): Cervical decompression and fusion placement of interbody graft c4-c7, surgical left breast biopsy benign - 2013, left breast core biopsy - positive cancer. Dental work Past Anesthesia/Blood Transfusion Reactions: Family History of Problems w/ Anesthesia, Postoperative Nausea & Vomiting (PONV) Additional Past Anesthesia/Blood Transfusion Reaction / Comment(s): MOTHER PONV Past Psychological History: No Psychological Hx Reported Smoking Status: Former smoker Past Alcohol Use History: Occasional Past Drug Use History: None Reported - Past Family History Mother Family Medical History: Coronary Artery Disease (CAD) Father Family Medical History: Unable to Obtain Additional Family Medical History / Comment(s): Patient stated that she does have additional half-brothers and sisters that she does not know much about. Brother(s) Family Medical History: Cancer General Exam Limitations: no limitations Course Vital Signs 01/26/21 08:25 Temperature 98.0 F Pulse Rate 118 H Respiratory 18 Rate Blood Pressure 140/82 O2 Sat by Pulse 97 Oximetry Medical Decision Making - Lab Data Result diagrams: 01/26/21 08:49 01/26/21 08:49 Lab Results 01/26/21 01/26/21 Range/Units 08:49 08:49 WBC 6.4 (3.8-10.6) k/uL RBC 4.13 (3.80-5.40) m/uL Hgb 12.6 (11.4-16.0) gm/dL Hct 38.4 (34.0-46.0) % MCV 92.9 (80.0-100.0) fL MCH 30.5 (25.0-35.0) pg MCHC 32.8 (31.0-37.0) g/dL RDW 15.3 (11.5-15.5) % Plt Count 162 (150-450) k/uL MPV 8.7 Neutrophils % (Manual) 63 % Band Neuts % (Manual) 4 % Lymphocytes % (Manual) 13 % Monocytes % (Manual) 19 % Eosinophils % (Manual) 1 % Metamyelocytes % 1 % Myelocytes % 2 % Neutrophils # (Manual) 4.20 (1.3-7.7) k/uL Lymphocytes # (Manual) 0.83 L (1.0-4.8) k/uL Monocytes # (Manual) 1.22 H (0-1.0) k/uL Eosinophils # (Manual) 0.06 (0-0.7) k/uL Metamyelocytes # (Man) 0.06 H (0) k/uL Myelocytes # (Manual) 0.13 H (0) k/uL Nucleated RBCs 0 (0-0) /100 WBC Manual Slide Review Performed Poikilocytosis (manual Present Anisocytosis (manual) Present Sodium 136 L (137-145) mmol/L Potassium 4.2 (3.5-5.1) mmol/L Chloride 103 (98-107) mmol/L Carbon Dioxide 25 (22-30) mmol/L Anion Gap 8 mmol/L BUN 14 (7-17) mg/dL Creatinine 0.93 (0.52-1.04) mg/dL Est GFR (CKD-EPI)AfAm 77 (>60 ml/min/1.73 sqM) Est GFR (CKD-EPI)NonAf 67 (>60 ml/min/1.73 sqM) Glucose 187 H (74-99) mg/dL Calcium 9.3 (8.4-10.2) mg/dL Total Bilirubin 0.7 (0.2-1.3) mg/dL AST 36 (14-36) U/L ALT 46 H (4-34) U/L Alkaline Phosphatase 101 (38-126) U/L Total Protein 6.5 (6.3-8.2) g/dL Albumin 3.8 (3.5-5.0) g/dL Disposition Clinical Impression: Thrush Disposition: HOME SELF-CARE Condition: Good Instructions (If sedation given, give patient instructions): Oral Candidiasis (ED) Prescriptions: Nystatin 100,000 Unit/ml Susp [Mycostatin Oral Susp] 5 ml PO QID 4 Days #80 ml Is patient prescribed a controlled substance at d/c from ED?: No Referrals: Dion Poole MD [Primary Care Provider] - 1-2 days Bekah,Arcadio, MD [STAFF PHYSICIAN] - 1-2 days Time of Disposition: 10:13
[2021-01-26 09:17] LABS: Potassium 4.2 mmol/L (3.5-5.1)
[2021-01-26 09:18] LABS: Albumin 3.8 g/dL (3.5-5.0); Calcium 9.3 mg/dL (8.4-10.2); Total Bilirubin 0.7 mg/dL (0.2-1.3); Total Protein 6.5 g/dL (6.3-8.2)
[2021-01-26 09:20] LABS: HCT 38.4 % (34.0-46.0); HGB 12.6 gm/dL (11.4-16.0); MCH 30.5 pg (25.0-35.0); MCHC 32.8 g/dL (31.0-37.0); MCV 92.9 fL (80.0-100.0); Mean Platelet Volume 8.7; Platelet Count 162 k/uL (150-450); RBC 4.13 m/uL (3.80-5.40); RDW 15.3 % (11.5-15.5); WBC 6.4 k/uL (3.8-10.6)
[2021-01-26 09:57] LABS: Band Neutrophils % 4 %; Eosinophils # (M) 0.06 k/uL (0-0.7); Lymphocytes # (M) 0.83 k/uL (1.0-4.8); Metamyelocytes # (M) 0.06 k/uL (0); Metamyelocytes % 1 %; Monocytes # (M) 1.22 k/uL (0-1.0); Myelocytes # (M) 0.13 k/uL (0); Myelocytes % 2 %; Neutrophils % (M) 63 %; Nucleated Red Blood Cells 0 /100 WBC (0-0); Total Cells Counted 200
[2021-01-26 09:58] LABS: Anisocytosis (M) Present; Poikilocytosis (M) Present
[2021-01-26 10:20] VITALS: PULSE 95
== END 2021-01-26 10:17 | disposition home or self-care (01) ==
LOC: EC 08:23
DX: B37.0 Candidal stomatitis (principal); E11.9 Type 2 diabetes mellitus without complications; E78.5 Hyperlipidemia, unspecified; I10 Essential (primary) hypertension; M19.90 Unspecified osteoarthritis, unspecified site; Z87.891 Personal history of nicotine dependence; Z85.3 Personal history of malignant neoplasm of breast; Z79.4 Long term (current) use of insulin; Z79.899 Other long term (current) drug therapy; Z82.49 Family history of ischemic heart disease and other diseases of the circulatory system; Z88.5 Allergy status to narcotic agent; Z88.8 Allergy status to other drugs, medicaments and biological substances
CPT/HCPCS: 36415; 80053; 85025

== ENCOUNTER 2021-02-16 05:58 | Emergency (ER) | payer MEDICARE, BC ==
[2021-02-16 06:06] VITALS: RESP 18
[2021-02-16 06:57] LABS: Albumin 3.7 g/dL (3.5-5.0); Calcium 9.1 mg/dL (8.4-10.2); Potassium 4.5 mmol/L (3.5-5.1); Total Bilirubin 0.8 mg/dL (0.2-1.3); Total Protein 6.3 g/dL (6.3-8.2)
[2021-02-16 07:00] LABS: Anisocytosis Slight; HGB 12.5 gm/dL (11.4-16.0); MCH 30.4 pg (25.0-35.0); MCHC 32.9 g/dL (31.0-37.0); MCV 92.3 fL (80.0-100.0); Mean Platelet Volume 8.9; Platelet Count 113 k/uL (150-450); RBC 4.12 m/uL (3.80-5.40); RDW 16.2 % (11.5-15.5); WBC 2.2 k/uL (3.8-10.6)
--- NOTE | 2021-02-16 07:02 | ED ---
ENT HPI - General Chief complaint: ENT Stated complaint: Sore Throat Time Seen by Provider: 02/16/21 06:07 Source: patient Mode of arrival: wheelchair Limitations: no limitations - History of Present Illness Initial comments: Patient is a 60-year-old female, currently receiving treatment for breast cancer, presenting to the emergency Department with complaints of a sore throat that started 1-2 days ago. Patient states she saw her doctor yesterday, di agnosed with an ear infection and started her on Augmentin. Patient was encouraged to go to the ER for further evaluation. Patient states her throat feels sore when she swallows, she denies any difficulty breathing or swallowing. Patient finished her last round of chemo on February 19. She states she was treated for thrush a few weeks before that. She states it did clear up. She denies any chest pains or shortness of breath, no cough, no abdominal pain. She denies nausea this morning when she woke up and she took a Zofran at home and currently has no nausea. She states she did have a fever yesterday at the doctor's office, she did not have one this morning. She denies any further complaints at this time. Upon arrival to the ER, she is slightly tachycardia, she states this is normal for her, rest of vitals are normal. - Related Data Home Medications Medication Instructions Recorded Confirmed Levothyroxine Sodium [Synthroid] 50 mcg PO DAILY 07/16/20 11/15/20 Atorvastatin [Lipitor] 40 mg PO HS 08/19/20 11/15/20 Metoprolol Tartrate [Lopressor] 25 mg PO BID 08/21/20 11/15/20 Cholecalciferol [Vitamin D3 (25 25 mcg PO DAILY 11/15/20 11/15/20 Mcg = 1000 Iu)] Insulin Aspart [NovoLOG Flexpen] 10 - 15 units SQ AC-TID 11/15/20 11/15/20 Insulin Glargine,Hum.rec.anlog 25 - 30 units SQ HS 11/15/20 11/15/20 [Lantus Solostar] OLANZapine [ZyPREXA] 5 mg PO DIRECTED 11/15/20 11/15/20 [place]-3 Fatty Acids/Fish Oil [Fish 1 cap PO DAILY 11/15/20 11/15/20 Oil 1,000 mg Softgel] Omeprazole 40 mg PO DAILY 11/15/20 11/15/20 rOPINIRole HCL [Requip] 0.25 mg PO HS 11/15/20 11/15/20 Previous Rx's Medication Instructions Recorded Triamcinolone 0.1% Cream [Kenalog 1 applicatio TOPICAL BID #15 gram 11/27/20 0.1% Cream] Nystatin 100,000 Unit/ml Susp 5 ml PO QID 4 Days #80 ml 01/26/21 [Mycostatin Oral Susp] Allergies Allergy/AdvReac Type Severity Reaction Status Date / Time codeine AdvReac Nausea & Verified 01/26/21 08:25 Vomiting tramadol AdvReac Nausea & Verified 01/26/21 08:25 Vomiting Review of Systems ROS Statement: Those systems with pertinent positive or pertinent negative responses have been documented in the HPI. ROS Other: All systems not noted in ROS Statement are negative. Past Medical History Past Medical History: Cancer, Diabetes Mellitus, Hyperlipidemia, Hypertension, Musculoskeletal Disorder, Osteoarthritis (OA) Additional Past Medical History / Comment(s): hx. palpitations, feet swell, right leg gives out, constipation-usually gives self enemas new breast cancer diagnosis 08/2020. covid 20 december 2020 History of Any Multi-Drug Resistant Organisms: None Reported Past Surgical History: Appendectomy, Breast Surgery, Cholecystectomy, Hysterectomy, Orthopedic Surgery, Tonsillectomy, Tubal Ligation Additional Past Surgical History / Comment(s): Cervical decompression and fusion placement of interbody graft c4-c7, surgical left breast biopsy benign - 2013, left breast core biopsy - positive cancer. Dental work Past Anesthesia/Blood Transfusion Reactions: Family History of Problems w/ Anesthesia, Postoperative Nausea & Vomiting (PONV) Additional Past Anesthesia/Blood Transfusion Reaction / Comment(s): MOTHER PONV Past Psychological History: No Psychological Hx Reported Smoking Status: Former smoker Past Alcohol Use History: Occasional Past Drug Use History: None Reported - Past Family History Mother Family Medical History: Coronary Artery Disease (CAD) Father Family Medical History: Unable to Obtain Additional Family Medical History / Comment(s): Patient stated that she does have additional half-brothers and sisters that she does not know much about. Brother(s) Family Medical History: Cancer General Exam - General Exam Comments Initial Comments: GENERAL: Patient is well-developed and well-nourished. Patient is nontoxic and in no acute distress. HEAD: Atraumatic, normocephalic. EYES: Pupils equal round and reactive to light, extraocular movements intact, sclera anicteric, conjunctiva are normal. Eyelids were unremarkable. ENT: TMs normal, nares patent, oropharynx clear without exudates. Moist mucous membranes. NECK: Normal range of motion, supple without lymphadenopathy or JVD. LUNGS: Unlabored respirations. Breath sounds clear to auscultation bilaterally and equal. No wheezes rales or rhonchi. HEART: Tachy rate and rhythm without murmurs, rubs or gallops. ABDOMEN: Soft, nontender, normoactive bowel sounds. No guarding, no rebound. No masses appreciated. : Deferred MUSCULOSKELETAL: Normal extremities with adequate strength and normal range of motion, no pitting or edema. No clubbing or cyanosis. NEUROLOGICAL: Patient is alert and oriented x 3. Motor and sensory are also intact. Cranial nerves II through XII grossly intact. Symmetrical smile. Normal speech, normal gait. PSYCH: Normal mood, normal affect. SKIN: Warm, Dry, normal turgor, no rashes or lesions noted. Limitations: no limitations Course Vital Signs 02/16/21 06:02 Temperature 98.1 F Pulse Rate 112 H Respiratory 18 Rate Blood Pressure 127/76 O2 Sat by Pulse 97 Oximetry Medical Decision Making - Medical Decision Making Patient is a 60-year-old female with history of current breast cancer, presenting with a sore throat 2 days. Fever yesterday, she's been afebrile here in the ER. She is slightly tachycardia however this is normal for her. Her exam shows no acute findings. She is already on Augmentin which was started yesterday by her doctor. Her labs show WBC at 2.2, rest are WNL. Covid test is negative. Patient has been resting completely. I discussed with patient her sore throat could be viral in nature. I recommended continuing with her already prescribed antibiotic and to follow-up with her doctor. She is in agreement with this plan of care. Patient did have some nausea while I was discharging her, I'll give her a little Zofran before she goes. Return parameters were discussed with the patient she verbalized understanding. Case discussed with Dr. Beatty. - Lab Data Result diagrams: 02/16/21 06:33 02/16/21 06:33 Lab Results 02/16/21 02/16/21 02/16/21 Range/Units 06:33 06:33 06:33 WBC 2.2 L (3.8-10.6) k/uL RBC 4.12 (3.80-5.40) m/uL Hgb 12.5 (11.4-16.0) gm/dL Hct 38.0 (34.0-46.0) % MCV 92.3 (80.0-100.0) fL MCH 30.4 (25.0-35.0) pg MCHC 32.9 (31.0-37.0) g/dL RDW 16.2 H (11.5-15.5) % Plt Count 113 L (150-450) k/uL MPV 8.9 Anisocytosis Slight Sodium 137 (137-145) mmol/L Potassium 4.5 (3.5-5.1) mmol/L Chloride 103 (98-107) mmol/L Carbon Dioxide 28 (22-30) mmol/L Anion Gap 6 mmol/L BUN 13 (7-17) mg/dL Creatinine 0.92 (0.52-1.04) mg/dL Est GFR (CKD-EPI)AfAm 77 (>60 ml/min/1.73 sqM) Est GFR (CKD-EPI)NonAf 67 (>60 ml/min/1.73 sqM) Glucose 135 H (74-99) mg/dL Calcium 9.1 (8.4-10.2) mg/dL Total Bilirubin 0.8 (0.2-1.3) mg/dL AST 56 H (14-36) U/L ALT 79 H (4-34) U/L Alkaline Phosphatase 91 (38-126) U/L Total Protein 6.3 (6.3-8.2) g/dL Albumin 3.7 (3.5-5.0) g/dL Coronavirus (PCR) Not Detected (Not Detectd) Disposition Clinical Impression: Sore throat Disposition: HOME SELF-CARE Condition: Stable Instructions (If sedation given, give patient instructions): Viral Syndrome (ED) Additional Instructions: Please return to the Emergency Department if symptoms worsen or any other concerns. Continue with the already prescribed antibiotic. Follow-up with your doctor. Is patient prescribed a controlled substance at d/c from ED?: No Referrals: Dion Poole MD [Primary Care Provider] - 1-2 days Time of Disposition: 07:40
[2021-02-16] MEDS ORDERED: ONDANSETRON 4 MG/2 ML VIAL IVP STA (07:37)
[2021-02-16 08:10] VITALS: BP 122/71; PULSE 88; TEMP 98.2
[2021-02-16 08:37] LABS: Eosinophils # (M) 0.07 k/uL (0-0.7); Lymphocytes # (M) 0.66 k/uL (1.0-4.8); Monocytes # (M) 0.33 k/uL (0-1.0); Neutrophils # (M) 1.14 k/uL (1.3-7.7); Neutrophils % (M) 52 %; Nucleated Red Blood Cells 0 /100 WBC (0-0); Total Cells Counted 100
== END 2021-02-16 08:10 | disposition home or self-care (01) ==
LOC: EC 05:58
DX: J02.9 Acute pharyngitis, unspecified (principal); E11.9 Type 2 diabetes mellitus without complications; E78.5 Hyperlipidemia, unspecified; I10 Essential (primary) hypertension; M19.90 Unspecified osteoarthritis, unspecified site; Z79.4 Long term (current) use of insulin; Z87.891 Personal history of nicotine dependence; Z79.899 Other long term (current) drug therapy; Z85.3 Personal history of malignant neoplasm of breast; Z82.49 Family history of ischemic heart disease and other diseases of the circulatory system; Z88.5 Allergy status to narcotic agent; Z88.8 Allergy status to other drugs, medicaments and biological substances
CPT/HCPCS: 96374 ×2; 99283 ×2; 36415; 80053; 85025; 87635; J2405

== ENCOUNTER 2021-04-13 07:04 | Inpatient (IN) | payer MEDICARE, BC ==
[2021-04-08 16:08] VITALS: BMI 38.1
[~2021-04-13 07:04] MED LIST: DEXAMETHASONE SOD PHOSPHATE 4 MG/ML 1 ML VIAL IV ONE; MIDAZOLAM 2 MG/2 ML VIAL IV PRN; ONDANSETRON 4 MG/2 ML VIAL IVP ONE; Pre Op ABX Message 1 EACH MISC MISCELLANE ONE; SCOPOLAMINE 1.5MG/72HR PATCH TRANSDERM ONE
[2021-04-13] MEDS ORDERED: METOCLOPRAMIDE 5 MG/ML 2 ML VIAL ONE (08:14)
[2021-04-13] MEDS ORDERED: METOCLOPRAMIDE 5 MG/ML 2 ML VIAL IVP ONE (08:16)
[2021-04-13] MEDS ORDERED: SCOPOLAMINE 1.5MG/72HR PATCH TRANSDERM ONE (08:17)
[2021-04-13] MEDS ORDERED: DEXAMETHASONE SOD PHOSPHATE 4 MG/ML 1 ML VIAL IVP ONE (08:17)
[2021-04-13 08:31] LABS: Glucose,Whole Blood 163 mg/dL (75-99)
[2021-04-13] MEDS ORDERED: LACTATED RINGERS 1,000 ML IV ONE ×5 (08:41→14:53)
[2021-04-13] MEDS ORDERED: LIDOCAINE 1% (10MG/ML) FOR IV START INTRADERMA ONE (08:42)
--- NOTE | 2021-04-13 08:55 | P.GSHP ---
History of Present Illness H&P Date: 04/13/21 Chief Complaint: Breast cancer Patient is a 60-year-old female diagnosed with a left breast cancer. She elected for bilateral mastectomy and reconstruction - Review of Systems All systems: negative Past Medical History Past Medical History: Cancer, Diabetes Mellitus, Hyperlipidemia, Hypertension, Musculoskeletal Disorder, Osteoarthritis (OA) Additional Past Medical History / Comment(s): hx. palpitations, feet swell, right leg gives out, lt breast cancer diagnosis 08/2020, received chemotherapy last dose 02/09/21 .fast heart rate since chemo.to begin radiation after mastectomy, covid 20 december 2020 History of Any Multi-Drug Resistant Organisms: None Reported Past Surgical History: Appendectomy, Breast Surgery, Cholecystectomy, Hysterectomy, Orthopedic Surgery, Tonsillectomy, Tubal Ligation Additional Past Surgical History / Comment(s): Cervical decompression and fusion placement of interbody graft c4-c7, surgical left breast biopsy - 2013, left breast core biopsy - positive cancer 08/22. Dental work, t5-t6 fusion Past Anesthesia/Blood Transfusion Reactions: Family History of Problems w/ Anesthesia, Postoperative Nausea & Vomiting (PONV) Additional Past Anesthesia/Blood Transfusion Reaction / Comment(s): MOTHER PONV. has had blood transfusion without reaction Smoking Status: Former smoker - Past Family History Mother Family Medical History: Coronary Artery Disease (CAD) Father Family Medical History: Unable to Obtain Additional Family Medical History / Comment(s): Patient stated that she does have additional half-brothers and sisters that she does not know much about. Brother(s) Family Medical History: Cancer Medications and Allergies Home Medications Medication Instructions Recorded Confirmed Type Levothyroxine Sodium [Synthroid] 50 mcg PO DAILY 07/16/20 04/08/21 History Atorvastatin [Lipitor] 40 mg PO HS 08/19/20 04/08/21 History Metoprolol Tartrate [Lopressor] 25 mg PO BID 08/21/20 04/08/21 History Insulin Aspart [NovoLOG Flexpen] 0 units SQ AC-TID 11/15/20 04/08/21 History Insulin Glargine,Hum.rec.anlog 14 units SQ HS 11/15/20 04/08/21 History [Lantus Solostar] [place]-3 Fatty Acids/Fish Oil [Fish 1 cap PO DAILY 11/15/20 04/08/21 History Oil 1,000 mg Softgel] Vitamin B Complex 1 each PO DAILY 04/08/21 04/08/21 History Allergies Allergy/AdvReac Type Severity Reaction Status Date / Time codeine AdvReac Nausea & Verified 04/13/21 07:56 Vomiting tramadol AdvReac Nausea & Verified 04/13/21 07:56 Vomiting Surgical - Exam Osteopathic Statement: *. No significant issues noted on an osteopathic structural exam other than those noted in the History and Physical/Consult. Vital Signs Temp Pulse Resp BP Pulse Ox 97.7 F 99 16 132/63 97 04/13/21 07:58 04/13/21 07:58 04/13/21 07:58 04/13/21 07:58 04/13/21 07:58 - General well developed, well nourished, no distress - Eyes normal ocular movement - Neck trachea midline - Respiratory normal respiratory effort, clear to auscultation - Cardiovascular Rhythm: regular - Psychiatric oriented to time, oriented to person, oriented to place, speech is normal, memory intact Results - Labs Abnormal Lab Results - Last 24 Hours (Table) 04/13/21 Range/Units 08:28 POC Glucose (mg/dL) 163 H (75-99) mg/dL Assessment and Plan (1) Malignant neoplasm of upper-outer quadrant of left female breast Current Visit: Yes Status: Acute Code(s): C50.412 - MALIG NEOPLASM OF UPPER- OUTER QUADRANT OF LEFT FEMALE BREAST SNOMED Code(s): 519135479 (2) Type 2 diabetes mellitus with hyperglycemia Current Visit: Yes Status: Acute Code(s): E11.65 - TYPE 2 DIABETES MELLITUS WITH HYPERGLYCEMIA SNOMED Code(s): 924662080964708 (3) Estrogen receptor positive status [ER+] Current Visit: Yes Status: Acute Code(s): Z17.0 - ESTROGEN RECEPTOR POSITIVE STATUS [ER+] SNOMED Code(s): 242403335 Plan: Left sentinel lymph node biopsy, bilateral mastectomy with reconstruction. The procedure, risks and complications have been discussed in the office. Today questions encouraged and answered. We'll proceed. The patient was marked by Dr. Barreto.
[2021-04-13] MEDS ORDERED: PHENYLEPHRINE-0.9% NACL SYG 1,000 MCG/10 ML SYRINGE ONE (09:32)
[2021-04-13] MEDS ORDERED: PROPOFOL 10 MG/ML 20 ML VIAL IV ONE (09:32)
[2021-04-13] MEDS ORDERED: HYDROmorphone (PF) 1 MG/ML ONE (09:32)
[2021-04-13] MEDS ORDERED: MIDAZOLAM 2 MG/2 ML VIAL ONE (09:32)
[2021-04-13] MEDS ORDERED: INSULIN REGULAR 100 UNIT/ML VIAL (IV) IV ONE (09:32)
[2021-04-13] MEDS ORDERED: SUCCINYLCHOLINE CHLORIDE 100 MG/5 ML SYR IV ONE (09:32)
[2021-04-13] MEDS ORDERED: fentaNYL (PF) 50 MCG/ML 2 ML AMP ONE (09:32)
[2021-04-13] MEDS ORDERED: LIDOCAINE 1% INJ 10MG/ML (20 ML MDV) ONE (09:32)
[2021-04-13] MEDS ORDERED: ONDANSETRON 4 MG/2 ML VIAL ONE (09:32)
[2021-04-13] MEDS ORDERED: HYDROcodone/APAP 5-325MG 1 EACH TAB PO PRN (12:16)
[2021-04-13] MEDS ORDERED: NALOXONE 0.4 MG/ML 1 ML VIAL IV PRN (12:16)
--- NOTE | 2021-04-13 12:16 | P.OP ---
Date of Procedure: 04/13/21 Preoperative Diagnosis: Breast cancer left breast Postoperative Diagnosis: Breast cancer left breast Procedure(s) Performed: Bilateral mastectomy, left axillary sentinel lymph node biopsy, removal of Mediport Anesthesia: CATIE Surgeon: Rowan Lopez Estimated Blood Loss (ml): 100 Pathology: other Condition: stable Indications for Procedure: The patient presented with a left breast cancer. She underwent neoadjuvant therapy. She elected for bilateral mastectomy with reconstruction Description of Procedure: The patient was seen preoperatively and skin markings were done by Dr. Barreto. She hasn't taken to the OR where she is prepped and draped in the usual sterile manner under a general endotracheal anesthetic starting on the right side, circumareolar incision was made. Flaps were then raised superiorly medially inferiorly and laterally. The breast is then dissected off the chest wall. Small bleeding points were controlled with electrocautery. Perforating vessels are suture ligated with 3-0 Vicryl. The right breast is passed off. Lap pads were placed in the area was covered with towel. The left sentinel lymph node biopsy was then carried out. Counts at the skin level were 70. Small skin incision was made and dissection was carried down to the sentinel lymph node. This showed an in vivo count of about 800. Her 2 small lymph nodes in close proximity to each other. These were removed. Ex vivo count was 2200. The remaining counts in the basin was only in the 20-40 range. No enlarged or concerning lymph nodes were palpated. The skin was then closed with 4-0 Vicryl in a subcuticular manner. Lymph nodes were sent for frozen section. Frozen section came back showing no evidence of metastatic disease. Mastectomy was carried out in a similar manner on the left side. She tolerated the procedure without difficulty and Dr. Barreto we'll do reconstruction
--- NOTE | 2021-04-13 12:23 | NM ---
EXAMINATION TYPE: NM sentinel node injection DATE OF EXAM: 04/13/2021 COMPARISON: NONE INDICATION: Abnormal mammogram. Informed consent was obtained. A timeout was performed. The area around the left nipple was cleansed with alcohol. In a single dose, a total of 489 uCi Harvey hnetium 99m Tilmanocept was injected. The patient tolerated the procedure very well. IMPRESSIONS: 1. Successful injection for sentinel node evaluation.
[2021-04-13 13:38] LABS: Glucose,Whole Blood 221 mg/dL (75-99)
[2021-04-13] MEDS: fentaNYL (PF) 50 MCG/ML 2 ML AMP IV PRN ×2 (14:32→14:39)
[2021-04-13 14:48] LABS: Glucose,Whole Blood 216 mg/dL (75-99)
[2021-04-13] MEDS ORDERED: INSULIN ASPART (NovoLOG) 100 UNIT/ML VIAL SQ ONE (15:10)
--- NOTE | 2021-04-13 15:17 | XR ---
EXAMINATION TYPE: XR chest 1V portable DATE OF EXAM: 04/13/2021 COMPARISON: 12/07/2020 HISTORY: Postsurgical changes TECHNIQUE: Single frontal view of the chest is obtained. FINDINGS: There is evidence of bilateral breast surgery subcutaneous emphysema. No sizable pneumotho rax. Subsegmental changes at the left lung base. No overt failure. Postsurgical change overlying the cervical spine. Heart size normal. Surgical clips seen in the right upper quadrant abdomen IMPRESSION: Fibroid postsurgical change. No sizable pneumothorax.
[2021-04-13] MEDS: LACTATED RINGERS 1,000 ML IV SCH (16:17)
[2021-04-13] MEDS: INSULIN ASPART (NovoLOG) 100 UNIT/ML VIAL SQ SCH ×2 (16:18→18:12)
[2021-04-13 17:53] LABS: Glucose,Whole Blood 183 mg/dL (75-99)
[2021-04-13] MEDS: HYDROmorphone 0.5 MG/0.5 ML SYRINGE IVP PRN ×2 (18:23→22:56)
--- NOTE | 2021-04-13 19:20 | OP ---
OPERATIVE REPORT DATE OF SURGERY: April 13, 2021. SURGEON: Dr. Gerard Chen. PREOPERATIVE DIAGNOSES: 1. Acquired loss right and left breast. 2. Left breast cancer. POSTOPERATIVE DIAGNOSIS: 1. Acquired loss of right and left breast. 2. Left breast cancer. OPERATIVE PROCEDURES: 1. Immediate reconstruction right breast following mastectomy with insertion of tissue vegetable i farmworker, subsequent outpatient expansion. 2. Immediate reconstruction, left breast, following mastectomy with insertion of tissue vegetable i farmworker, subsequent outpatient expansion. 3. Implantation of reconstructive graft for left breast reconstruction. OPERATIVE INDICATIONS: Patient is a 60-year-old female with invasive cancer of the left breast. She has been referred to my care by her general surgeon for breast reconstruction. The patient is elected to proceed with a tissue vegetable i farmworker style reconstruction of both breasts. She understands her potential risks and complications related to surgery including, but not limited to hematoma, seroma and wound healing problems, postoperative infection. She also understands the staged nature of breast reconstructive surgery and has requested I perform these procedures today. OPERATIVE PROCEDURE SUMMARY: The patient is seen in the preoperative area, markings made, procedure reviewed. All questions answered. She was transported to the operating room where she was placed in supine position. Following induction of general endotracheal anesthesia, the patient is prepped and draped in usual fashion. Dr. Lopez and her surgical team then proceeded with the right simple mastectomy and subsequent left mastectomy and left sentinel lymph node excision. Once the procedures were completed, I entered the room. The patient was in supine position under general endotracheal anesthesia. All sponge and needle counts prior procedures were correct. Reconstructive surgery is initiated on the right side identifying the pectorals major muscle where it joined the chest wall. The loose connective tissue divided with cautery here allowing entry into the potential plane between pectorals major and minor muscles which was bluntly developed. Medial attachment fibers of the pectorals major muscle released with cautery but not sternal attachments. To obtain sufficient muscle coverage for the vegetable i farmworker required additional muscle tissue inferomedially, rectus abdominis muscle fascia inferolaterally, external abdominal oblique muscle fascia and laterally serratus anterior muscle fascia were all elevated through this technique maintaining hemostasis with cautery during dissection. Once a sufficient sized submuscular reconstructive pocket was created, the site was packed open with laparotomy sponges. Attention was turned to left breast reconstruction. Again, the pectoralis major muscles identified where it joined the lateral border of the chest wall to the loose connective tissue divided with cautery allowing entry into the potential plane between the pectoralis major minor muscles was bluntly developed. Then medial attachment fibers of the pectoralis major muscle to ribs were released with cautery but the sternal attachments again obtaining sufficient muscle coverage required additional muscle tissue inferomedially rectus abdominis muscle fascia inferior and laterally external abdominal oblique muscle and fascia and laterally serratus anterior muscle fascia were all elevated through this technique maintaining hemostasis with cauterization while dissecting. Once a sufficient size submuscular reconstructive pocket was created, that was compared to the right side. Minor adjustments made for symmetry and each side was irrigated. Hemostasis maintained with cautery. Excellent hemostasis was obtained. It was noticed there was a very thin tissue along the patient's left lateral chest wall. The cavity was filled with fluid. The patient was given positive pressure ventilation. No bubbles, air leak or pneumothorax was present and this was checked twice. The gloves were now changed and tissue expanders were opened on the field. Both expanders were the same size from the [employer] of model 133 S-MX 600 mL volume, reference #133S MX-14-T. The right- sided serial number was [id number] and the left-sided serial number was [id number]. The devices were opened on the field but only handled by the surgeon. Each device was irrigated with saline and all air extracted. Each device was filled to a volume of 100 mL with 0.9 normal saline. The right-sided device was inserted into the reconstructive cavity. The suture tabs were secured with 3-0 Vicryl in 3 locations and then the muscle flap approximated over the vegetable i farmworker using a short running 3-0 Vicryl suture. The left-sided device was inserted in the reconstructive cavity. However, the muscle flap could not be completely approximated over the device without significant tension. SurgiMend was opened on the field measuring 10 x 15 cm, thin and fenestrated. The SurgiMend was revitalized with room temperature saline. The vegetable i farmworker was removed from the location on the left and placed in its container with saline. The SurgiMend was now placed into the reconstructive cavity to buttress the lateral aspect of the reconstruction and also buttressed the tissues where they appeared thin along the chest wall. The surgical SurgiMend was inset using interrupted 3-0 Vicryl initially along the lateral and inferior aspect. Then, the vegetable i farmworker was reinserted into the cavity. SurgiMend advanced over the vegetable i farmworker under the muscle flap. The muscle flap SurgiMend inset using interrupted and short running 3-0 Vicryl. Complete coverage obtained. Each vegetable i farmworker was now filled to a volume of 350 mL. Both sites were irrigated. Hemostasis was excellent. 19 Aj channel drains inserted into surgical field and brought separate stab incisions. Right and left lateral, anterior lateral chest wall and sutured in place with 2-0 Prolene. Drains were later connected to close bulb suction. The mastectomy procedure had been accomplished thru circumareolar incisions. The closure was now initiated with deep dermal pursestring 2-0 Prolene suture on each side followed by approximation of the deep dermis where necessary using inverted interrupted 4-0 Monocryl and then completing the skin closure with jolene. The drains connected were closed to bulb suction, patent on each side. Surgical field was cleansed with saline, dried. Postoperative bandages placed using Kerlix squares secured with 3M Medipore tape. I then positioned a size 5 mammary support with additional ABD padding. The patient was then awakened from her anesthetic, extubated, and transferred to the recovery room in good condition with stable vital signs. ESTIMATED BLOOD LOSS: For all procedures was 200 mL. The final volume of each tissue vegetable i farmworker was 350 mL. MMODL / IJN: [id number] /
[2021-04-13] MEDS: ONDANSETRON 4 MG/2 ML VIAL IVP PRN (19:38)
[2021-04-13 20:23] LABS: Glucose,Whole Blood 241 mg/dL (75-99)
[2021-04-13] MEDS: FAMOTIDINE 20 MG TAB PO SCH (20:24)
[2021-04-13] MEDS: INSULIN DETEMIR (LEVEMIR) 100 UNIT/ML SYR SQ SCH (20:24)
[2021-04-13] MEDS: METOPROLOL TARTRATE 25 MG TAB PO SCH (20:24)
[2021-04-13] MEDS: ATORVASTATIN 40 MG TAB PO SCH (20:24)
[2021-04-13] MEDS: HYDROcodone/APAP 5-325MG 1 EACH TAB PO PRN (20:25)
[2021-04-14] MEDS: HYDROcodone/APAP 5-325MG 1 EACH TAB PO PRN ×4 (01:27→19:52)
[2021-04-14] MEDS: HYDROmorphone 0.5 MG/0.5 ML SYRINGE IVP PRN ×2 (04:58→10:07)
[2021-04-14 05:22] LABS: Basophils % (A) 0 %; Eosinophils # (A) 0.2 k/uL (0-0.7); Eosinophils % (A) 1 %; HCT 34.7 % (34.0-46.0); HGB 11.6 gm/dL (11.4-16.0); Lymphocytes # (A) 1.1 k/uL (1.0-4.8); Lymphocytes % (A) 9 %; MCHC 33.3 g/dL (31.0-37.0); Mean Platelet Volume 7.3; Monocytes # (A) 0.6 k/uL (0-1.0); Monocytes % (A) 5 %; Neutrophils # (A) 10.7 k/uL (1.3-7.7); Neutrophils % (A) 84 %; RBC 3.73 m/uL (3.80-5.40); RDW 15.1 % (11.5-15.5); WBC 12.7 k/uL (3.8-10.6)
[2021-04-14 05:24] LABS: Platelet Count 192 k/uL (150-450)
[2021-04-14 05:33] LABS: Calcium 8.1 mg/dL (8.4-10.2); Potassium 4.3 mmol/L (3.5-5.1)
[2021-04-14] MEDS: LACTATED RINGERS 1,000 ML IV SCH ×2 (05:52→12:07)
[2021-04-14] MEDS: LEVOTHYROXINE 50 MCG TAB PO SCH (06:20)
[2021-04-14 06:25] LABS: Glucose,Whole Blood 235 mg/dL (75-99)
[2021-04-14] MEDS: INSULIN ASPART (NovoLOG) 100 UNIT/ML VIAL SQ SCH ×3 (06:27→18:17)
[2021-04-14] MEDS ORDERED: HYDROmorphone 1 MG/ML 1 ML SYRINGE IVP STA (06:34)
[2021-04-14] MEDS: FAMOTIDINE 20 MG TAB PO SCH ×2 (08:37→21:40)
[2021-04-14] MEDS: METOPROLOL TARTRATE 25 MG TAB PO SCH ×2 (08:37→21:40)
[2021-04-14] MEDS: KETOROLAC 15 MG/ML 1 ML VIAL IVP SCH ×3 (12:03→23:53)
[2021-04-14 12:35] LABS: Glucose,Whole Blood 333 mg/dL (75-99)
--- NOTE | 2021-04-14 18:14 | P.PN ---
Subjective Progress Note Date: 04/14/21 Principal diagnosis: POD#1 bilateral mastectomy with reconstruction The patient is seen on rounds. She underwent bilateral mastectomy with reconstruction yesterday. She was having quite a lot of pain in the shoulder this morning. We adjusted her pain medication and gave her IV Toradol. She's feeling better this afternoon. Her blood sugars have been elevated. She did receive Decadron preoperative for postop nausea and vomiting. The patient said she's had significant hyperglycemia in the past from steroids Objective - Vital Signs Vital signs: Vital Signs Temp 98.5 F 04/14/21 15:12 Pulse 107 H 04/14/21 15:12 Resp 18 04/14/21 17:42 BP 107/68 04/14/21 15:12 Pulse Ox 91 L 04/14/21 15:12 Intake & Output 04/13/21 04/14/21 04/14/21 18:59 06:59 18:59 Intake Total 3530 310 800 Output Total 825 560 100 Balance 2705 -250 700 Weight 103.9 kg Intake: IV 3050 Intake, IV Titration 310 Amount Lactated Ringers 1,000 ml 260 @ 20 mls/hr IV .Q24H [facility] Rx#:[id number] ceFAZolin 2 gm In Sodium 50 Chloride 0.9% 50 ml @ 100 mls/hr IVPB Q8H [facility] Rx#: [id number] Oral 480 800 Output: Drainage 90 60 100 Left Chest 60 40 40 Right Chest 30 20 60 Urine 535 500 Estimated Blood Loss 200 Other: Voiding Method Toilet # Voids 2 1 # Emeses 1 - Constitutional General appearance: Present: cooperative, no acute distress - Integumentary Integumentary Comment(s): Dressings are intact, clean and dry. JPs showed minimal serosanguineous drainage in the bulbs. This morning when he had 100 mL's the other 50 mL's. - Labs CBC & Chem 7: 04/14/21 05:09 04/14/21 05:09 Labs: Abnormal Lab Results - Last 24 Hours (Table) 04/13/21 04/14/21 04/14/21 Range/Units 20:22 05:09 05:09 WBC 12.7 H (3.8-10.6) k/uL RBC 3.73 L (3.80-5.40) m/uL Neutrophils # 10.7 H (1.3-7.7) k/uL Sodium 134 L (137-145) mmol/L Glucose 248 H (74-99) mg/dL POC Glucose (mg/dL) 241 H (75-99) mg/dL Calcium 8.1 L (8.4-10.2) mg/dL 04/14/21 04/14/21 Range/Units 06:24 12:33 WBC (3.8-10.6) k/uL RBC (3.80-5.40) m/uL Neutrophils # (1.3-7.7) k/uL Sodium (137-145) mmol/L Glucose (74-99) mg/dL POC Glucose (mg/dL) 235 H 333 H (75-99) mg/dL Calcium (8.4-10.2) mg/dL Assessment and Plan (1) Malignant neoplasm of upper-outer quadrant of left female breast Current Visit: Yes Status: Acute Code(s): C50.412 - MALIG NEOPLASM OF UPPER- OUTER QUADRANT OF LEFT FEMALE BREAST SNOMED Code(s): 070285658 (2) Type 2 diabetes mellitus with hyperglycemia Current Visit: Yes Status: Acute Code(s): E11.65 - TYPE 2 DIABETES MELLITUS WITH HYPERGLYCEMIA SNOMED Code(s): 310681263441028 (3) Estrogen receptor positive status [ER+] Current Visit: Yes Status: Acute Code(s): Z17.0 - ESTROGEN RECEPTOR POSITIVE STATUS [ER+] SNOMED Code(s): 894408885 Plan: We'll continue current pain regimen. Likely will be able to be discharged tomorrow on oral pain medications. Await final pathology. Questions were encouraged and answered.
[2021-04-14 18:22] LABS: Glucose,Whole Blood 287 mg/dL (75-99)
[2021-04-14 20:46] LABS: Glucose,Whole Blood 321 mg/dL (75-99)
[2021-04-14] MEDS: INSULIN DETEMIR (LEVEMIR) 100 UNIT/ML SYR SQ SCH (21:40)
[2021-04-14] MEDS: ATORVASTATIN 40 MG TAB PO SCH (21:40)
[2021-04-15] MEDS: HYDROcodone/APAP 5-325MG 1 EACH TAB PO PRN ×4 (02:04→22:13)
[2021-04-15] MEDS: KETOROLAC 15 MG/ML 1 ML VIAL IVP SCH ×3 (06:28→18:13)
[2021-04-15] MEDS: LEVOTHYROXINE 50 MCG TAB PO SCH (06:28)
[2021-04-15 07:57] LABS: Glucose,Whole Blood 253 mg/dL (75-99)
[2021-04-15] MEDS: INSULIN ASPART (NovoLOG) 100 UNIT/ML VIAL SQ SCH ×6 (08:05→21:04)
[2021-04-15] MEDS ORDERED: SODIUM CHLORIDE 0.9% 500 ML 500 ML IV ONE (08:51)
[2021-04-15] MEDS: FAMOTIDINE 20 MG TAB PO SCH ×2 (09:06→21:03)
--- NOTE | 2021-04-15 09:24 | XR ---
EXAMINATION TYPE: XR chest 1V portable DATE OF EXAM: 04/15/2021 COMPARISON: 04/13/2021 HISTORY: Postop TECHNIQUE: Single frontal view of the chest is obtained. FINDINGS: There now is a large area of consolidation and small effusion involving the left lung. Pos tsurgical changes are seen. There is biapical pleural thickening. Heart size stable. No pneumothorax. IMPRESSION: 1. There now is a large area of consolidation compatible with infiltrate left lung with small effusio n.
[2021-04-15] MEDS: METOPROLOL TARTRATE 25 MG TAB PO SCH ×2 (09:58→21:03)
[2021-04-15 13:07] LABS: Glucose,Whole Blood 251 mg/dL (75-99)
--- NOTE | 2021-04-15 13:40 | P.PN ---
Subjective Progress Note Date: 04/15/21 The patient is feeling much better today. Denies chest pain or shortness of breath. Incisional pain is improved. Doing about 1000 and incentive spirometry. Objective - Vital Signs Vital signs: Vital Signs Temp 98.6 F 04/15/21 07:39 Pulse 104 H 04/15/21 09:55 Resp 18 04/15/21 09:55 BP 114/68 04/15/21 09:55 Pulse Ox 93 L 04/15/21 09:55 Intake & Output 04/14/21 04/15/21 04/15/21 18:59 06:59 18:59 Intake Total 800 240 Output Total 100 78 65 Balance 700 -78 175 Intake: Oral 800 240 Output: Drainage 100 78 65 Left Chest 40 58 50 Right Chest 60 20 15 Other: # Voids 1 1 1 # Emeses 1 - Constitutional General appearance: Present: cooperative, no acute distress - Integumentary Integumentary Comment(s): Incisions are intact, clean and dry. The skin flaps are pink and viable. JPs are serosanguineous - Labs CBC & Chem 7: 04/14/21 05:09 04/14/21 05:09 Labs: Abnormal Lab Results - Last 24 Hours (Table) 04/14/21 04/14/21 04/15/21 Range/Units 18:10 20:44 07:54 POC Glucose (mg/dL) 287 H 321 H 253 H (75-99) mg/dL 04/15/21 Range/Units 12:56 POC Glucose (mg/dL) 251 H (75-99) mg/dL Assessment and Plan (1) Malignant neoplasm of upper-outer quadrant of left female breast Current Visit: Yes Status: Acute Code(s): C50.412 - MALIG NEOPLASM OF UPPER- OUTER QUADRANT OF LEFT FEMALE BREAST SNOMED Code(s): 985324131 (2) Type 2 diabetes mellitus with hyperglycemia Current Visit: Yes Status: Acute Code(s): E11.65 - TYPE 2 DIABETES MELLITUS WITH HYPERGLYCEMIA SNOMED Code(s): 549409071711106 (3) Estrogen receptor positive status [ER+] Current Visit: Yes Status: Acute Code(s): Z17.0 - ESTROGEN RECEPTOR POSITIVE STATUS [ER+] SNOMED Code(s): 539949879 (4) Infiltrate noted on imaging study Current Visit: Yes Status: Acute Code(s): R93.89 - ABNORMAL FINDINGS ON DX IMAGING OF OTH BODY STRUCTURES SNOMED Code(s): 356389255 Plan: Patient's progressing surgically. Nursing will call Dr. Poole with the chest x- ray and lab reports. Surgically stable for discharge when he feels she is ready from a medical standpoint. We went over the usual postoperative care. Questions were encouraged and answered.
[2021-04-15] MEDS ORDERED: IPRATROPIUM-ALBUTEROL 3 ML NEB INHALATION PRN (14:44)
[2021-04-15] MEDS: LEVOFLOXACIN 500MG-D5W PMX 500 MG in DEXTROSE/WATER 1 100ML.BAG IVPB SCH (15:13)
[2021-04-15] MEDS: IPRATROPIUM-ALBUTEROL 3 ML NEB INHALATION SCH ×2 (15:39→18:20)
--- NOTE | 2021-04-15 15:46 | P.CONS ---
History of Present Illness - Reason for Consult Consult date: 04/14/21 Medical management Requesting physician: Rowan Lopez - History of Present Illness HISTORY OF PRESENT ILLNESS This is a 60-year-old female patient of Dr. Lux with past medical history of hypertension, hyperlipidemia, hypothyroidism, left breast cancer, diabetes mellitus type 2. Patient underwent bilateral mastectomy, left axillary sentinel lymph node biopsy and removal of Mediport by Dr. Lopez and reconstruction of bilateral breast with implantation by Dr. Barreto on 04/13. Patient has been afebrile. She has had mild tachycardia for which she is cleared to have her b eta silver. Her blood pressure has been on the lower side. Blood sugars are elevated secondary to steroid use, WBC 12.7, hemoglobin 11.6. REVIEW OF SYSTEMS Constitutional: No fever, no chills, no night sweats. No weight change. No weakness, fatigue or lethargy. No daytime sleepiness. EENT: No headache. No blurred vision or double vision, no loss of vision. No loss of Hearing, no ringing in the ears, no dizziness. No nasal drainage or congestion. No epistaxis. No sore throat. Lungs: No shortness of breath, cough, no sputum production. No wheezing. Cardiovascular: No chest pain, no lower extremity edema. No palpitations. No paroxysmal nocturnal dyspnea. No orthopnea. No lightheadedness or dizziness. No syncopal episodes. Abdominal: No abdominal pain. No nausea, vomiting. No diarrhea. No constipation. No bloody or tarry stools.. No loss of appetite. Genitourinary: No dysuria, increased frequency, urgency. No urinary retention. Musculoskeletal: No myalgias. No muscle weakness, no gait dysfunction, no frequent falls. No back pain. No neck pain. Integumentary: No wounds, no lesions. No rash or pruritus. No unusual bruising. No change in hair or nails. Neurologic: No aphasia. No facial droop. No change in mentation. No head injury. No headache. No paralysis. No paresthesia. Psychiatric: No depression. No anxiety. No mood swings. Endocrine: No abnormal blood sugars. No weight change. No excessive sweating or thirst. No cold intolerance. MEDICAL HISTORY Hypertension Hyperlipidemia Hypothyroidism Left breast cancer Diabetes mellitus type 2 SURGICAL HISTORY Tonsillectomy and adenoidectomy Cholecystectomy Appendectomy Tubal ligation Partial hysterectomy Left breast core biopsy 08/10/2020 Left axillary lymph node dissection 08/20/2020 SOCIAL HISTORY The patient quit smoking greater than 20 years ago. No alcohol use, marijuana use or illicit drug use. FAMILY HISTORY Father is from unknown cause. Mother is alive at age 88 with history of 4 vessel CABG, atrial fibrillation and diabetes. Patient has 1 brother alive with hypertension, hyperlipidemia and anxiety. PHYSICAL EXAMINATION Gen: This is a 60-year-old female. She is resting in bed appears to be comfortable and in no acute distress. HEENT: Head is atraumatic, normocephalic. Pupils equal, round. Sclerae is a nicteric. NECK: Supple. No JVD. No lymphadenopathy. No thyromegaly. LUNGS: Clear to auscultation. No wheezes or rhonchi. No intercostal retractions. HEART: First heart sound is depressed, second heart sound is normal, 2/6 systolic ejection murmur at left sternal border BREAST: Dressing in place to the bilateral breasts, GERMAN drains in place with serosanguineous drainage. ABDOMEN: Soft. Bowel sounds are present. No masses. No tenderness. EXTREMITIES: No pedal edema. No calf tenderness. Dorsalis pedis +2 bilaterally NEUROLOGICAL: Patient is awake, alert and oriented x3. Cranial nerves 2 through 12 are grossly intact. ASSESSMENT AND PLAN 1. Left-sided breast cancer status post bilateral mastectomy and reconstruction, postop day #1. Continue current pain management per surgery, incentive spirometry to reduce incidence of atelectasis and hospital-acquired pneumonia. 2. Diabetes mellitus type 2 with hyperglycemia secondary to steroids. Continue Levemir 14 units at bedtime and NovoLog scale. 3. Sinus tachycardia. Continue Lopressor 25 mg twice daily. 4. Hypertension. Blood pressures currently soft but clear to give Lopressor for heart rate control. 5. Hypothyroidism given the levothyroxine 50 g daily. 6. GI prophylaxis. Pepcid twice daily. 7. Hyperlipidemia. Continue atorvastatin 40 mg at bedtime. 8. DVT prophylaxis. SCDs and MOE hose. DISCHARGE PLAN Home. Impression and plan of care have been directed as dictated by the signing physician. Yenny Clinton nurse practitioner acting as scribe for signing physician. Past Medical History Past Medical History: Cancer, Diabetes Mellitus, Hyperlipidemia, Hypertension, Musculoskeletal Disorder, Osteoarthritis (OA) Additional Past Medical History / Comment(s): hx. palpitations, feet swell, r ight leg gives out, lt breast cancer diagnosis 08/2020, received chemotherapy last dose 02/09/21 .fast heart rate since chemo.to begin radiation after mastectomy, covid 20 december 2020 History of Any Multi-Drug Resistant Organisms: None Reported Past Surgical History: Appendectomy, Breast Surgery, Cholecystectomy, Hysterectomy, Orthopedic Surgery, Tonsillectomy, Tubal Ligation Additional Past Surgical History / Comment(s): Cervical decompression and fusion placement of interbody graft c4-c7, surgical left breast biopsy benign - 2013, left breast core biopsy - positive cancer 08/22. Dental work, t5-t6 fusion Past Anesthesia/Blood Transfusion Reactions: Family History of Problems w/ Anesthesia, Postoperative Nausea & Vomiting (PONV) Additional Past Anesthesia/Blood Transfusion Reaction / Comm: MOTHER PONV. has had blood transfusion without reaction Past Psychological History: No Psychological Hx Reported Smoking Status: Former smoker Past Alcohol Use History: Occasional Additional Past Alcohol Use History / Comment(s): quit smoking 2001 Past Drug Use History: None Reported - Past Family History Mother Family Medical History: Coronary Artery Disease (CAD) Father Family Medical History: Unable to Obtain Additional Family Medical History / Comment(s): Patient stated that she does have additional half-brothers and sisters that she does not know much about. Brother(s) Family Medical History: Cancer Medications and Allergies Home Medications Medication Instructions Recorded Confirmed Type Levothyroxine Sodium [Synthroid] 50 mcg PO DAILY 07/16/20 04/08/21 History Atorvastatin [Lipitor] 40 mg PO HS 08/19/20 04/08/21 History Metoprolol Tartrate [Lopressor] 25 mg PO BID 08/21/20 04/08/21 History Insulin Aspart [NovoLOG Flexpen] 0 units SQ AC-TID 11/15/20 04/08/21 History Insulin Glargine,Hum.rec.anlog 14 units SQ HS 11/15/20 04/08/21 History [Lantus Solostar] [place]-3 Fatty Acids/Fish Oil [Fish 1 cap PO DAILY 11/15/20 04/08/21 History Oil 1,000 mg Softgel] Vitamin B Complex 1 each PO DAILY 04/08/21 04/08/21 History HYDROcodone/APAP 5-325MG [[place] 1 - 2 tab PO Q4H PRN #30 tab 04/15/21 Rx 5-325] Naproxen Sodium [Aleve] 1 - 2 mg PO Q12HR PRN #90 tab 04/15/21 Rx Allergies Allergy/AdvReac Type Severity Reaction Status Date / Time codeine AdvReac Nausea & Verified 04/13/21 07:56 Vomiting tramadol AdvReac Nausea & Verified 04/13/21 07:56 Vomiting Physical Exam Vitals: Vital Signs Temp Pulse Pulse Pulse Resp BP BP 04/14/21 08:00 98.1 F 111 H 20 04/14/21 01:35 98.6 F 106 H 18 04/13/21 19:45 98 F 113 H 16 126/70 04/13/21 18:05 105 H 18 04/13/21 17:35 111 H 18 04/13/21 17:05 106 H 18 04/13/21 16:50 109 H 18 04/13/21 16:35 106 H 18 04/13/21 16:20 107 H 16 122/53 04/13/21 16:05 97.5 F L 111 H 16 146/82 04/13/21 15:32 107 H 16 04/13/21 15:17 110 H 16 04/13/21 15:02 111 H 16 04/13/21 14:47 110 H 16 04/13/21 14:32 112 H 16 04/13/21 14:17 113 H 16 04/13/21 14:02 98.2 F 112 H 16 165/76 BP Pulse Ox 04/14/21 08:00 107/69 92 L 04/14/21 01:35 125/80 93 L 04/13/21 19:45 93 L 04/13/21 18:05 158/69 95 04/13/21 17:35 161/75 96 04/13/21 17:05 172/80 97 04/13/21 16:50 162/66 98 04/13/21 16:35 164/79 96 04/13/21 16:20 96 04/13/21 16:05 94 L 04/13/21 15:32 118/56 96 04/13/21 15:17 119/58 96 04/13/21 15:02 121/56 95 04/13/21 14:47 127/58 97 04/13/21 14:32 163/77 96 04/13/21 14:17 162/70 95 04/13/21 14:02 90 L Intake and Output 04/13/21 04/14/21 04/14/21 22:59 06:59 14:59 Intake Total 540 250 Output Total 490 560 Balance 50 -310 Intake: Intake, IV Titration 60 250 Amount Lactated Ringers 1,000 ml 60 200 @ 20 mls/hr IV .Q24H MAGNUS Rx#:[id number] ceFAZolin 2 gm In Sodium 50 Chloride 0.9% 50 ml @ 100 mls/hr IVPB Q8H MAGNUS Rx#: [id number] Oral 480 Output: Drainage 90 60 Left Chest 60 40 Right Chest 30 20 Urine 400 500 Other: Voiding Method Toilet # Voids 1 2 1 # Emeses 1 Weight 103.9 kg Results CBC & Chem 7: 04/14/21 05:09 04/14/21 05:09 Labs: Abnormal Lab Results - Last 24 Hours (Table) 04/13/21 04/13/21 04/13/21 Range/Units 14:46 17:52 20:22 WBC (3.8-10.6) k/uL RBC (3.80-5.40) m/uL Neutrophils # (1.3-7.7) k/uL Sodium (137-145) mmol/L Glucose (74-99) mg/dL POC Glucose (mg/dL) 216 H 183 H 241 H (75-99) mg/dL Calcium (8.4-10.2) mg/dL 04/14/21 04/14/21 04/14/21 Range/Units 05:09 05:09 06:24 WBC 12.7 H (3.8-10.6) k/uL RBC 3.73 L (3.80-5.40) m/uL Neutrophils # 10.7 H (1.3-7.7) k/uL Sodium 134 L (137-145) mmol/L Glucose 248 H (74-99) mg/dL POC Glucose (mg/dL) 235 H (75-99) mg/dL Calcium 8.1 L (8.4-10.2) mg/dL 04/14/21 Range/Units 12:33 WBC (3.8-10.6) k/uL RBC (3.80-5.40) m/uL Neutrophils # (1.3-7.7) k/uL Sodium (137-145) mmol/L Glucose (74-99) mg/dL POC Glucose (mg/dL) 333 H (75-99) mg/dL Calcium (8.4-10.2) mg/dL
--- NOTE | 2021-04-15 15:52 | P.PN ---
Subjective Progress Note Date: 04/15/21 HISTORY OF PRESENT ILLNESS This is a 60-year-old female patient of Dr. Lux with past medical history of hypertension, hyperlipidemia, hypothyroidism, left breast cancer, diabetes me llitus type 2. Patient underwent bilateral mastectomy, left axillary sentinel lymph node biopsy and removal of Mediport by Dr. Lopez and reconstruction of bilateral breast with implantation by Dr. Barreto on 04/13. Patient has been afebrile. She has had mild tachycardia for which she is cleared to have her beta silver. Her blood pressure has been on the lower side. Blood sugars are elevated secondary to steroid use, WBC 12.7, hemoglobin 11.6. 04/15: Noted to have a drop in her pulse ox 91% and continues to have mild tachycardia. Patient is reaching 750 ML's on incentive spirometry. Chest x-ray done reveals large area of consolidation compatible with infiltrate left lung with small effusion. Patient started on Levaquin 500 mg IV piggyback every day and DuoNeb treatments 4 times daily scheduled and as needed. Requested that discharge be held. Otherwise patient has been afebrile, heart rate in the 107- 112, blood pressure 101/49, pulse ox 90% on room air. Repeat blood work will be ordered for tomorrow. Blood sugars remain elevated 251-321 and 5 units of scheduled NovoLog added before meals and at bedtime, scale change to before meals and at bedtime. REVIEW OF SYSTEMS Constitutional: No fever, no chills, no night sweats. No weight change. No weakness, fatigue or lethargy. No daytime sleepiness. EENT: No headache. No blurred vision or double vision, no loss of vision. No loss of Hearing, no ringing in the ears, no dizziness. No nasal drainage or congestion. No epistaxis. No sore throat. Lungs: Mild shortness of breath, cough, no sputum production. No wheezing. Cardiovascular: No chest pain, no lower extremity edema. No palpitations. No paroxysmal nocturnal dyspnea. No orthopnea. No lightheadedness or dizziness. No syncopal episodes. Abdominal: No abdominal pain. No nausea, vomiting. No diarrhea. No constipation. No bloody or tarry stools.. No loss of appetite. Genitourinary: No dysuria, increased frequency, urgency. No urinary retention. Musculoskeletal: No myalgias. No muscle weakness, no gait dysfunction, no frequent falls. No back pain. No neck pain. Integumentary: No wounds, no lesions. No rash or pruritus. No unusual bruising. No change in hair or nails. Neurologic: No aphasia. No facial droop. No change in mentation. No head injury. No headache. No paralysis. No paresthesia. Psychiatric: No depression. No anxiety. No mood swings. Endocrine: Noted abnormal blood sugars. No weight change. Father is from unknown cause. Mother is alive at age 88 with history of 4 vessel CABG, atrial fibrillation and diabetes. Patient has 1 brother alive with hypertension, hyperlipidemia and anxiety. PHYSICAL EXAMINATION Gen: This is a 60-year-old female. She is resting in bed appears to be comfortable and in no acute distress. HEENT: Head is atraumatic, normocephalic. Pupils equal, round. Sclerae is anicteric. NECK: Supple. No JVD. No lymphadenopathy. No thyromegaly. LUNGS: Left lower lobe diminished. No intercostal retractions. HEART: First heart sound is depressed, second heart sound is normal, 2/6 systolic ejection murmur at left sternal border BREAST: Dressing in place to the bilateral breasts, GERMAN drains in place with serosanguineous drainage. ABDOMEN: Soft. Bowel sounds are present. No masses. No tenderness. EXTREMITIES: No pedal edema. No calf tenderness. Dorsalis pedis +2 bilaterally NEUROLOGICAL: Patient is awake, alert and oriented x3. Cranial nerves 2 through 12 are grossly intact. ASSESSMENT AND PLAN 1. Left-sided breast cancer status post bilateral mastectomy and rec onstruction, postop day #1. Continue current pain management per surgery, incentive spirometry to reduce incidence of atelectasis and hospital-acquired pneumonia. 2. Left-sided pneumonia. Patient started on Levaquin 500 mg IV piggyback daily, DuoNeb treatments 4 times daily and as needed, encourage incentive spirometry and increase activity. 3. Diabetes mellitus type 2 with hyperglycemia secondary to steroids. Continue Levemir 14 units at bedtime and NovoLog scale. 4. Sinus tachycardia. Continue Lopressor 25 mg twice daily. 5. Hypertension. Blood pressures currently soft but clear to give Lopressor for heart rate control. 6. Hypothyroidism given the levothyroxine 50 g daily. 7. GI prophylaxis. Pepcid twice daily. 8. Hyperlipidemia. Continue atorvastatin 40 mg at bedtime. 9. DVT prophylaxis. SCDs and MOE hose, heparin subcu twice daily. DISCHARGE PLAN Home. Impression and plan of care have been directed as dictated by the signing phys ician. Yenny Clinton nurse practitioner acting as scribe for signing physician. Objective - Vital Signs Vital signs: Vital Signs Temp 98.6 F 04/15/21 07:39 Pulse 108 H 04/15/21 08:49 Resp 18 04/15/21 08:49 BP 101/49 04/15/21 07:39 Pulse Ox 93 L 04/15/21 08:49 Intake & Output 04/14/21 04/15/21 04/15/21 18:59 06:59 18:59 Intake Total 800 Output Total 100 78 Balance 700 -78 Intake: Oral 800 Output: Drainage 100 78 Left Chest 40 58 Right Chest 60 20 Other: # Voids 1 1 1 # Emeses 1 - Labs CBC & Chem 7: 04/14/21 05:09 04/14/21 05:09 Labs: Abnormal Lab Results - Last 24 Hours (Table) 04/14/21 04/14/21 04/14/21 Range/Units 12:33 18:10 20:44 POC Glucose (mg/dL) 333 H 287 H 321 H (75-99) mg/dL 04/15/21 Range/Units 07:54 POC Glucose (mg/dL) 253 H (75-99) mg/dL
[2021-04-15] MEDS: HEPARIN SODIUM,PORCINE/PF 5,000 UNIT/0.5 ML SYRINGE SQ SCH (16:23)
[2021-04-15] MEDS: ONDANSETRON 4 MG/2 ML VIAL IVP PRN (16:31)
[2021-04-15] MEDS ORDERED: METOPROLOL TARTRATE 25 MG TAB PO STA (17:06)
[2021-04-15 17:43] LABS: Glucose,Whole Blood 222 mg/dL (75-99)
[2021-04-15] MEDS: LACTATED RINGERS 1,000 ML IV SCH (19:23)
[2021-04-15 20:46] LABS: Glucose,Whole Blood 219 mg/dL (75-99)
[2021-04-15] MEDS ORDERED: HEPARIN SODIUM,PORCINE/PF 5,000 UNIT/0.5 ML SYRINGE SQ SCH (21:00)
[2021-04-15] MEDS: ATORVASTATIN 40 MG TAB PO SCH (21:03)
[2021-04-15] MEDS: INSULIN DETEMIR (LEVEMIR) 100 UNIT/ML SYR SQ SCH (21:03)
[2021-04-16] MEDS: HEPARIN SODIUM,PORCINE/PF 5,000 UNIT/0.5 ML SYRINGE SQ SCH ×3 (00:23→15:16)
[2021-04-16] MEDS: KETOROLAC 15 MG/ML 1 ML VIAL IVP SCH ×5 (00:23→23:16)
[2021-04-16 03:47] LABS: Basophils % (A) 0 %; Eosinophils # (A) 0.3 k/uL (0-0.7); Eosinophils % (A) 3 %; HCT 30.1 % (34.0-46.0); Lymphocytes # (A) 0.8 k/uL (1.0-4.8); Lymphocytes % (A) 9 %; MCH 30.4 pg (25.0-35.0); MCHC 32.6 g/dL (31.0-37.0); MCV 93.3 fL (80.0-100.0); Mean Platelet Volume 8.4; Monocytes # (A) 0.6 k/uL (0-1.0); Monocytes % (A) 6 %; Neutrophils # (A) 7.2 k/uL (1.3-7.7); Neutrophils % (A) 79 %; Platelet Count 146 k/uL (150-450); RBC 3.23 m/uL (3.80-5.40); RDW 14.8 % (11.5-15.5); WBC 9.2 k/uL (3.8-10.6)
[2021-04-16 03:53] LABS: HGB 9.8 gm/dL (11.4-16.0)
[2021-04-16] MEDS: HYDROcodone/APAP 5-325MG 1 EACH TAB PO PRN ×3 (03:54→21:11)
[2021-04-16 03:57] LABS: Albumin 2.6 g/dL (3.5-5.0); Calcium 7.9 mg/dL (8.4-10.2); Potassium 4.1 mmol/L (3.5-5.1); Total Bilirubin 0.6 mg/dL (0.2-1.3); Total Protein 5.1 g/dL (6.3-8.2)
[2021-04-16] MEDS: LEVOTHYROXINE 50 MCG TAB PO SCH (06:48)
[2021-04-16 07:43] LABS: Glucose,Whole Blood 217 mg/dL (75-99)
[2021-04-16] MEDS: FAMOTIDINE 20 MG TAB PO SCH ×2 (07:55→20:54)
[2021-04-16] MEDS: INSULIN ASPART (NovoLOG) 100 UNIT/ML VIAL SQ SCH ×8 (07:55→20:55)
[2021-04-16] MEDS: METOPROLOL TARTRATE 25 MG TAB PO SCH ×2 (07:55→21:43)
[2021-04-16] MEDS: IPRATROPIUM-ALBUTEROL 3 ML NEB INHALATION SCH ×4 (08:09→19:26)
--- NOTE | 2021-04-16 10:18 | P.PN ---
Subjective Progress Note Date: 04/16/21 Progress Note Date: 04/16/21 HISTORY OF PRESENT ILLNESS This is a 60-year-old female patient of Dr. Lux with past medical history of hypertension, hyperlipidemia, hypothyroidism, left breast cancer, diabetes mellitus type 2. Patient underwent bilateral mastectomy, left axillary sentinel lymph node biopsy and removal of Mediport by Dr. Lopez and reconstruction of bilateral breast with implantation by Dr. Barreto on 04/13. Patient has been afebrile. She has had mild tachycardia for which she is cleared to have her beta silver. Her blood pressure has been on the lower side. Blood sugars are elevated secondary to steroid use, WBC 12.7, hemoglobin 11.6. 04/15: Noted to have a drop in her pulse ox 91% and continues to have mild tachycardia. Patient is reaching 750 ML's on incentive spirometry. Chest x-ray done reveals large area of consolidation compatible with infiltrate left lung with small effusion. Patient started on Levaquin 500 mg IV piggyback every day and DuoNeb treatments 4 times daily scheduled and as needed. Requested that discharge be held. Otherwise patient has been afebrile, heart rate in the 107- 112, blood pressure 101/49, pulse ox 90% on room air. Repeat blood work will be ordered for tomorrow. Blood sugars remain elevated 251-321 and 5 units of scheduled NovoLog added before meals and at bedtime, scale change to before meals and at bedtime. 04/16: Patient underwent a portable chest x-ray yesterday that showed left-sided pleural effusion as well as left lower lobe pneumonia, she was started on Levaquin 500 mg IV piggyback every 24 hours along with DuoNeb 3 mg nebulization 4 times every day, along with oxygen support, she was instructed to use incentive spirometer, I recommended to give the patient the hospital until further evaluation, so far she is doing a bit better today, she has no chest pain she continued to have some pleurisy with deep inspiration, she continued to have minimal tachycardia however she is currently on metoprolol 25 mg orally twice every day, she has no pressure or tightness in her chest, she has no abdominal pain, we will continue to monitor. REVIEW OF SYSTEMS Constitutional: No fever, no chills, no night sweats. No weight change. No weakness, fatigue or lethargy. No daytime sleepiness. EENT: No headache. No blurred vision or double vision, no loss of vision. No loss of Hearing, no ringing in the ears, no dizziness. No nasal drainage or congestion. No epistaxis. No sore throat. Lungs: Mild shortness of breath, cough, no sputum production. No wheezing. Cardiovascular: No chest pain, no lower extremity edema. No palpitations. No paroxysmal nocturnal dyspnea. No orthopnea. No lightheadedness or dizziness. No syncopal episodes. Abdominal: No abdominal pain. No nausea, vomiting. No diarrhea. No cons tipation. No bloody or tarry stools.. No loss of appetite. Genitourinary: No dysuria, increased frequency, urgency. No urinary retention. Musculoskeletal: No myalgias. No muscle weakness, no gait dysfunction, no frequent falls. No back pain. No neck pain. Integumentary: wounds clean with GERMAN drains, no lesions. No rash or pruritus. No unusual bruising. No change in hair or nails. Neurologic: No aphasia. No facial droop. No change in mentation. No head injury. No headache. No paralysis. No paresthesia. Psychiatric: No depression. No anxiety. No mood swings. Endocrine: Noted abnormal blood sugars. No weight change. PHYSICAL EXAMINATION Gen: This is a 60-year-old female. She is resting in bed appears to be comfortable and in no acute distress. HEENT: Head is atraumatic, normocephalic. Pupils equal, round. Sclerae is anicteric. NECK: Supple. No JVD. No lymphadenopathy. No thyromegaly. LUNGS: Left lower lobe diminished, decreased breath sounds at the bases, few rhonchi positive for egophony at the left lower base, no chest wall tenderness no intercostal retractions. GERMAN drains in place. HEART: First heart sound is depressed, second heart sound is normal, 2/6 systolic ejection murmur at left sternal border BREAST: Dressing in place to the bilateral breasts, GERMAN drains in place with serosanguineous drainage. ABDOMEN: Soft. Bowel sounds are present. No masses. No tenderness. EXTREMITIES: +2 pedal edema. No calf tenderness. Dorsalis pedis +2 bilaterally NEUROLOGICAL: Patient is awake, alert and oriented x3. Cranial nerves 2 through 12 are grossly intact, cranial nerves II through XII appear grossly intact muscle power 5 out of 5 in upper and lower extremity bilaterally. ASSESSMENT AND PLAN 1. Left-sided breast cancer status post bilateral mastectomy and reconstruction, postop day #2. Continue current pain management per surgery, incentive spirometry to reduce incidence of atelectasis and hospital-acquired pneumonia. 2. Left-sided pneumonia with a pneumonic effusion. Patient is on Levaquin 500 mg IV piggyback daily, DuoNeb treatments 4 times daily and as needed, encourage incentive spirometry and increase activity. 3. Diabetes mellitus type 2 with hyperglycemia secondary to steroids. Continue Levemir 14 units at bedtime and NovoLog scale. 4. Sinus tachycardia. Continue Lopressor 25 mg twice daily and treat underlying cause. 5. Hypertension. Blood pressures currently soft but clear to give Lopressor for heart rate control. 6. Hypothyroidism given the levothyroxine 50 g daily. 7. GI prophylaxis. Pepcid twice daily. 8. Hyperlipidemia. Continue atorvastatin 40 mg at bedtime. 9. DVT prophylaxis. SCDs and MOE hose, heparin subcu twice daily. 10. Edema start the patient on Lasix 20 mg IV push daily along with dust supplement, bilateral knee-high MOE hose. 11. Constipation. Start the patient on Senokot 2 tablets at bedtime. 12. Hopefully home tomorrow morning Objective - Vital Signs Vital signs: Vital Signs Temp 97.8 F 04/16/21 07:53 Pulse 105 H 04/16/21 08:20 Resp 18 04/16/21 07:53 BP 108/62 04/16/21 07:53 Pulse Ox 91 L 04/16/21 08:11 Intake & Output 04/15/21 04/16/21 04/16/21 18:59 06:59 18:59 Intake Total 240 Output Total 145 100 40 Balance 95 -100 -40 Intake: Oral 240 Output: Drainage 145 100 40 Left Chest 100 50 20 Right Chest 45 50 20 Other: # Voids 1 2 - Labs CBC & Chem 7: 04/16/21 03:20 04/16/21 03:20 Labs: Abnormal Lab Results - Last 24 Hours (Table) 04/15/21 04/15/21 04/15/21 Range/Units 12:56 17:32 20:44 RBC (3.80-5.40) m/uL Hgb (11.4-16.0) gm/dL Hct (34.0-46.0) % Plt Count (150-450) k/uL Lymphocytes # (1.0-4.8) k/uL Sodium (137-145) mmol/L BUN (7-17) mg/dL Creatinine (0.52-1.04) mg/dL Glucose (74-99) mg/dL POC Glucose (mg/dL) 251 H 222 H 219 H (75-99) mg/dL Calcium (8.4-10.2) mg/dL Total Protein (6.3-8.2) g/dL Albumin (3.5-5.0) g/dL 04/16/21 04/16/21 04/16/21 Range/Units 03:20 03:20 07:41 RBC 3.23 L (3.80-5.40) m/uL Hgb 9.8 L D (11.4-16.0) gm/dL Hct 30.1 L (34.0-46.0) % Plt Count 146 L (150-450) k/uL Lymphocytes # 0.8 L (1.0-4.8) k/uL Sodium 132 L (137-145) mmol/L BUN 19 H (7-17) mg/dL Creatinine 1.10 H (0.52-1.04) mg/dL Glucose 178 H (74-99) mg/dL POC Glucose (mg/dL) 217 H (75-99) mg/dL Calcium 7.9 L (8.4-10.2) mg/dL Total Protein 5.1 L (6.3-8.2) g/dL Albumin 2.6 L (3.5-5.0) g/dL
[2021-04-16] MEDS: POTASSIUM CHLORIDE ER 20 MEQ TAB.ER PO SCH (10:58)
[2021-04-16] MEDS: FUROSEMIDE 10 MG/ML 2 ML VIAL IV SCH (10:58)
[2021-04-16 12:17] LABS: Glucose,Whole Blood 228 mg/dL (75-99)
[2021-04-16] MEDS: SENNOSIDES-DOCUSATE SODIUM 1 EACH TAB PO SCH ×2 (12:18→20:54)
[2021-04-16] MEDS: LEVOFLOXACIN 500MG-D5W PMX 500 MG in DEXTROSE/WATER 1 100ML.BAG IVPB SCH (15:16)
[2021-04-16 17:22] LABS: Glucose,Whole Blood 260 mg/dL (75-99)
[2021-04-16 20:42] LABS: Glucose,Whole Blood 241 mg/dL (75-99)
[2021-04-16] MEDS: ATORVASTATIN 40 MG TAB PO SCH (20:54)
[2021-04-16] MEDS: INSULIN DETEMIR (LEVEMIR) 100 UNIT/ML SYR SQ SCH (20:56)
[2021-04-17] MEDS: HEPARIN SODIUM,PORCINE/PF 5,000 UNIT/0.5 ML SYRINGE SQ SCH ×4 (04:55→22:03)
[2021-04-17] MEDS: KETOROLAC 15 MG/ML 1 ML VIAL IVP SCH (05:43)
[2021-04-17] MEDS: LEVOTHYROXINE 50 MCG TAB PO SCH (05:43)
[2021-04-17] MEDS: LACTATED RINGERS 1,000 ML IV SCH ×2 (05:53→22:03)
[2021-04-17 08:11] LABS: Glucose,Whole Blood 161 mg/dL (75-99)
[2021-04-17] MEDS: IPRATROPIUM-ALBUTEROL 3 ML NEB INHALATION SCH ×4 (08:22→20:50)
--- NOTE | 2021-04-17 08:25 | XR ---
EXAMINATION TYPE: XR chest 2V DATE OF EXAM: 04/17/2021 COMPARISON: 04/15/2021 HISTORY: 60 years Female. STUDY INDICATION GIVEN: Pneumonia . TECHNIQUE: Single lateral chest radiograph FINDINGS AND IMPRESSION: Limited evaluation of the chest due to a lateral view only. There are opacities projecting over the entire lung field which cannot be placed in anatomical positi on due to lateral view only. These opacities could be on the basis of pulmonary edema vascular conges tion, pneumonia and/or atelectasis. The heart does not appear to be enlarged on the lateral view. There is no pleural effusion. Presence or absence of pneumothorax is difficult to exclude on a single lateral view. No acute osseous abnormality.
[2021-04-17] MEDS: INSULIN ASPART (NovoLOG) 100 UNIT/ML VIAL SQ SCH ×8 (08:28→22:02)
[2021-04-17] MEDS: METOPROLOL TARTRATE 25 MG TAB PO SCH ×2 (08:29→22:01)
[2021-04-17] MEDS: FAMOTIDINE 20 MG TAB PO SCH ×2 (08:29→22:01)
[2021-04-17] MEDS: SENNOSIDES-DOCUSATE SODIUM 1 EACH TAB PO SCH ×2 (08:29→22:02)
[2021-04-17] MEDS: FUROSEMIDE 10 MG/ML 2 ML VIAL IV SCH (08:29)
[2021-04-17] MEDS: POTASSIUM CHLORIDE ER 20 MEQ TAB.ER PO SCH (08:29)
--- NOTE | 2021-04-17 10:22 | P.PN ---
Subjective Progress Note Date: 04/16/21 Patient doing well no complaints, using IS Objective - Vital Signs Vital signs: Vital Signs Temp 99.8 F H 04/17/21 10:00 Pulse 116 H 04/17/21 10:00 Resp 20 04/17/21 10:00 BP 116/60 04/17/21 07:48 Pulse Ox 94 L 04/17/21 10:00 Intake & Output 04/16/21 04/17/21 04/17/21 18:59 06:59 18:59 Intake Total 600 Output Total 130 50 Balance 470 -50 Intake: Oral 600 Output: Drainage 130 50 Left Chest 70 30 Right Chest 60 20 Other: Voiding Method Toilet # Voids 4 2 - Constitutional General appearance: Present: cooperative - Cardiovascular Rhythm: regular - Labs CBC & Chem 7: 04/16/21 03:20 04/16/21 03:20 Labs: Abnormal Lab Results - Last 24 Hours (Table) 04/16/21 04/16/21 04/16/21 Range/Units 12:16 17:20 20:40 POC Glucose (mg/dL) 228 H 260 H 241 H (75-99) mg/dL 04/17/21 Range/Units 08:09 POC Glucose (mg/dL) 161 H (75-99) mg/dL Assessment and Plan Assessment: S/P mastectomy Plan: Stable from surgical standpoint Awaiting medical/pulm clearance
--- NOTE | 2021-04-17 10:33 | P.PN ---
Subjective Progress Note Date: 04/17/21 Patient doing well no complaints, using IS Objective - Vital Signs Vital signs: Vital Signs Temp 99.8 F H 04/17/21 10:00 Pulse 116 H 04/17/21 10:00 Resp 20 04/17/21 10:00 BP 116/60 04/17/21 07:48 Pulse Ox 94 L 04/17/21 10:00 Intake & Output 04/16/21 04/17/21 04/17/21 18:59 06:59 18:59 Intake Total 600 Output Total 130 50 Balance 470 -50 Intake: Oral 600 Output: Drainage 130 50 Left Chest 70 30 Right Chest 60 20 Other: Voiding Method Toilet # Voids 4 2 - Constitutional General appearance: Present: cooperative - Respiratory Details: Wounds CDI - Cardiovascular Rhythm: regular - Labs CBC & Chem 7: 04/16/21 03:20 04/16/21 03:20 Labs: Abnormal Lab Results - Last 24 Hours (Table) 04/16/21 04/16/21 04/16/21 Range/Units 12:16 17:20 20:40 POC Glucose (mg/dL) 228 H 260 H 241 H (75-99) mg/dL 04/17/21 Range/Units 08:09 POC Glucose (mg/dL) 161 H (75-99) mg/dL Assessment and Plan Assessment: S/P mastectomy hospital aquired PNA Plan: Stable from surgical standpoint Awaiting medical/pulm clearance and recs regarding PNA Will follow up with Dr. Lopez and primary
[2021-04-17] MEDS: HYDROcodone/APAP 5-325MG 1 EACH TAB PO PRN ×2 (11:01→23:27)
--- NOTE | 2021-04-17 11:33 | P.PN ---
Subjective Progress Note Date: 04/17/21 Progress Note Date: 04/17/21 HISTORY OF PRESENT ILLNESS This is a 60-year-old female patient of Dr. Lux with past medical history of hypertension, hyperlipidemia, hypothyroidism, left breast cancer, diabetes mellitus type 2. Patient underwent bilateral mastectomy, left axillary sentinel lymph node biopsy and removal of Mediport by Dr. Lopez and reconstruction of bilateral breast with implantation by Dr. Barreto on 04/13. Patient has been afebrile. She has had mild tachycardia for which she is cleared to have her beta silver. Her blood pressure has been on the lower side. Blood sugars are elevated secondary to steroid use, WBC 12.7, hemoglobin 11.6. 04/15: Noted to have a drop in her pulse ox 91% and continues to have mild tachycardia. Patient is reaching 750 ML's on incentive spirometry. Chest x-ray done reveals large area of consolidation compatible with infiltrate left lung with small effusion. Patient started on Levaquin 500 mg IV piggyback every day and DuoNeb treatments 4 times daily scheduled and as needed. Requested that discharge be held. Otherwise patient has been afebrile, heart rate in the 107- 112, blood pressure 101/49, pulse ox 90% on room air. Repeat blood work will be ordered for tomorrow. Blood sugars remain elevated 251-321 and 5 units of scheduled NovoLog added before meals and at bedtime, scale change to before meals and at bedtime. 04/16: Patient underwent a portable chest x-ray yesterday that showed left-sided pleural effusion as well as left lower lobe pneumonia, she was started on Levaquin 500 mg IV piggyback every 24 hours along with DuoNeb 3 mg nebulization 4 times every day, along with oxygen support, she was instructed to use incentive spirometer, I recommended to give the patient the hospital until further evaluation, so far she is doing a bit better today, she has no chest pain she continued to have some pleurisy with deep inspiration, she continued to have minimal tachycardia however she is currently on metoprolol 25 mg orally twice every day, she has no pressure or tightness in her chest, she has no abdominal pain, we will continue to monitor. 04/17: Patient is short of breath and he continued to have increased coughing, tachycardic, around 09/18/2016 appears to be regular, we will transfer to telemetry unit, check labs, order CTA of the chest ruled out pulmonary embolism, continue Levaquin 500 mg IV piggyback daily, add Zosyn 3.375 g IV piggyback every 8 hours, Pulmicort consultation REVIEW OF SYSTEMS Constitutional: No fever, no chills, no night sweats. No weight change. No weakness, fatigue or lethargy. No daytime sleepiness. HEENT: No headache. No blurred vision or double vision, no loss of vision. No loss of Hearing, no ringing in the ears, no dizziness. No nasal drainage or congestion. No epistaxis. No sore throat. Lungs: Mild shortness of breath, cough, no sputum production. No wheezing. Cardiovascular: No chest pain, no lower extremity edema. No palpitations. No paroxysmal nocturnal dyspnea. No orthopnea. No lightheadedness or dizziness. No syncopal episodes. Abdominal: No abdominal pain. No nausea, vomiting. No diarrhea. No constipation. No bloody or tarry stools.. No loss of appetite. Genitourinary: No dysuria, increased frequency, urgency. No urinary retention. Musculoskeletal: No myalgias. No muscle weakness, no gait dysfunction, no frequent falls. No back pain. No neck pain. Integumentary: wounds clean with GERMAN drains, no lesions. No rash or pruritus. No unusual bruising. No change in hair or nails. Neurologic: No aphasia. No facial droop. No change in mentation. No head injury. No headache. No paralysis. No paresthesia. Psychiatric: No depression. No anxiety. No mood swings. Endocrine: Noted abnormal blood sugars. No weight change. PHYSICAL EXAMINATION Gen: This is a 60-year-old female. She is resting in bed appears to be comfortable and in no acute distress. HEENT: Head is atraumatic, normocephalic. Pupils equal, round. Sclerae is anicteric. NECK: Supple. No JVD. No lymphadenopathy. No thyromegaly. LUNGS: Left lower lobe diminished, decreased breath sounds at the bases, few rhonchi positive for egophony at the left lower base, no chest wall tenderness no intercostal retractions. GERMAN drains in place. HEART: First heart sound is depressed, second heart sound is normal, 2/6 systolic ejection murmur at left sternal border, tachycardic BREAST: Dressing in place to the bilateral breasts, GERMAN drains in place with serosanguineous drainage. ABDOMEN: Soft. Bowel sounds are present. No masses. No tenderness. EXTREMITIES: +1 pedal edema. No calf tenderness. Dorsalis pedis +2 bilaterally NEUROLOGICAL: Patient is awake, alert and oriented x3. Cranial nerves 2 through 12 are grossly intact, cranial nerves II through XII appear grossly intact muscle power 5 out of 5 in upper and lower extremity bilaterally. ASSESSMENT AND PLAN 1. Left-sided breast cancer status post bilateral mastectomy and reconstruction, postop day #2. Continue current pain management per surgery, incentive spirometry to reduce incidence of atelectasis and hospital-acquired pneumonia. 2. Left-sided pneumonia with a pneumonic effusion. Patient is on Levaquin 500 mg IV piggyback daily, DuoNeb treatments 4 times daily and as needed, encourage incentive spirometry and increase activity, add Zosyn 3.375 g IV piggyback every 8 hours, transferred to telemetry unit, check CT of the chest, pulmonary consultation. 3. Diabetes mellitus type 2 with hyperglycemia secondary to steroids. Continue Levemir 14 units at bedtime and NovoLog scale. 4. Sinus tachycardia. Continue Lopressor 25 mg twice daily and treat underlying cause., Transferred to telemetry. 5. Hypertension and hypertensive cardiovascular disease. Continue metoprolol 25 orally twice every day. 6. Hypothyroidism given the levothyroxine 50 g daily. 7. GI prophylaxis. Pepcid twice daily. 8. Hyperlipidemia. Continue atorvastatin 40 mg at bedtime. 9. DVT prophylaxis. SCDs and MOE hose, heparin subcu three times daily. 10. Edema start the patient on Lasix 20 mg IV push daily along with dust supple ment, bilateral knee-high MOE hose. 11. Constipation. Start the patient on Senokot 2 tablets at bedtime. 12. prognosis is guarded. Objective - Vital Signs Vital signs: Vital Signs Temp 100.1 F H 04/17/21 10:41 Pulse 119 H 04/17/21 10:41 Resp 20 04/17/21 10:41 BP 110/69 04/17/21 10:41 Pulse Ox 95 04/17/21 10:41 Intake & Output 04/16/21 04/17/21 04/17/21 18:59 06:59 18:59 Intake Total 600 Output Total 130 50 Balance 470 -50 Intake: Oral 600 Output: Drainage 130 50 Left Chest 70 30 Right Chest 60 20 Other: Voiding Method Toilet # Voids 4 2 - Labs CBC & Chem 7: 04/16/21 03:20 04/16/21 03:20 Labs: Abnormal Lab Results - Last 24 Hours (Table) 04/16/21 04/16/21 04/16/21 Range/Units 12:16 17:20 20:40 POC Glucose (mg/dL) 228 H 260 H 241 H (75-99) mg/dL 04/17/21 Range/Units 08:09 POC Glucose (mg/dL) 161 H (75-99) mg/dL
[2021-04-17 12:12] LABS: Basophils % (A) 0 %; Eosinophils # (A) 0.2 k/uL (0-0.7); Eosinophils % (A) 2 %; HCT 31.6 % (34.0-46.0); HGB 10.5 gm/dL (11.4-16.0); Lymphocytes # (A) 0.5 k/uL (1.0-4.8); Lymphocytes % (A) 6 %; MCH 31.2 pg (25.0-35.0); MCHC 33.2 g/dL (31.0-37.0); Mean Platelet Volume 8.1; Monocytes # (A) 0.5 k/uL (0-1.0); Monocytes % (A) 7 %; Neutrophils # (A) 5.8 k/uL (1.3-7.7); Neutrophils % (A) 82 %; Platelet Count 185 k/uL (150-450); RBC 3.37 m/uL (3.80-5.40); RDW 14.8 % (11.5-15.5); WBC 7.1 k/uL (3.8-10.6)
[2021-04-17 12:16] LABS: Albumin 2.8 g/dL (3.5-5.0); Calcium 8.3 mg/dL (8.4-10.2); Total Bilirubin 0.8 mg/dL (0.2-1.3); Total Protein 5.5 g/dL (6.3-8.2)
[2021-04-17 12:50] LABS: Potassium 4.8 mmol/L (3.5-5.1)
[2021-04-17 13:07] LABS: Glucose,Whole Blood 232 mg/dL (75-99)
[2021-04-17] MEDS: LEVOFLOXACIN 500MG-D5W PMX 500 MG in DEXTROSE/WATER 1 100ML.BAG IVPB SCH (15:23)
[2021-04-17] MEDS: PIPERACILLIN-TAZOBACTAM 3.375 GM in SODIUM CHLORIDE 0.9% 100 ML IVPB SCH ×2 (16:44→23:28)
[2021-04-17 17:42] LABS: Glucose,Whole Blood 160 mg/dL (75-99)
--- NOTE | 2021-04-17 18:08 | CT ---
EXAMINATION TYPE: CT chest angio for PE DATE OF EXAM: 04/17/2021 COMPARISON: 11/27/2020 HISTORY: SOB, double masectomy sx this week. PT IV found to have leaked quite a bit during injection CT DLP: 548.40 mGycm Automated exposure control for dose reduction was used. CONTRAST: Performed with IV Contrast, patient injected with 80 mL of Isovue 370. Images obtained from the thoracic inlet to the diaphragm with IV contrast. There are 3-D post process ed images. There are bilateral breast implants. There is metal artifact. There is a moderate left pleural effusi on. There is left lower lobe consolidation and atelectasis. Heart appears borderline enlarged. There is small pericardial effusion. There is no mediastinal adenopathy. There are no hilar masses. Thoracic aorta is intact. There is no aneurysm or dissection. There is no evidence of filling defect in the pulmonary arteries. Rising vertebra have normal alignment. There is no compression fracture. Sternum is intact. There is surgery in the mid thoracic spine involving the vertebral bodies with bone graft. I see no focal bone destruction. There is left side rib resection. IMPRESSION: No evidence of pulmonary embolism. There is left pleural effusion with left lower lobe consolidation and atelectasis that is new compared to old exam. Mild atelectasis also in the medial right lower lob e.
[2021-04-17 21:09] LABS: Glucose,Whole Blood 184 mg/dL (75-99)
[2021-04-17] MEDS: ATORVASTATIN 40 MG TAB PO SCH (22:01)
[2021-04-17] MEDS: INSULIN DETEMIR (LEVEMIR) 100 UNIT/ML SYR SQ SCH (22:01)
[2021-04-18] MEDS: LEVOTHYROXINE 50 MCG TAB PO SCH (05:53)
[2021-04-18 07:24] LABS: Glucose,Whole Blood 153 mg/dL (75-99)
[2021-04-18] MEDS: IPRATROPIUM-ALBUTEROL 3 ML NEB INHALATION SCH ×4 (08:02→20:10)
[2021-04-18] MEDS: PIPERACILLIN-TAZOBACTAM 3.375 GM in SODIUM CHLORIDE 0.9% 100 ML IVPB SCH ×2 (08:29→15:49)
[2021-04-18] MEDS: POTASSIUM CHLORIDE ER 20 MEQ TAB.ER PO SCH (08:30)
[2021-04-18] MEDS: SENNOSIDES-DOCUSATE SODIUM 1 EACH TAB PO SCH ×2 (08:30→21:02)
[2021-04-18] MEDS: HEPARIN SODIUM,PORCINE/PF 5,000 UNIT/0.5 ML SYRINGE SQ SCH ×2 (08:30→15:49)
[2021-04-18] MEDS: METOPROLOL TARTRATE 25 MG TAB PO SCH ×2 (08:30→21:03)
[2021-04-18] MEDS: FAMOTIDINE 20 MG TAB PO SCH ×2 (08:30→21:02)
[2021-04-18] MEDS: INSULIN ASPART (NovoLOG) 100 UNIT/ML VIAL SQ SCH ×8 (08:30→21:19)
[2021-04-18] MEDS: HYDROcodone/APAP 5-325MG 1 EACH TAB PO PRN ×2 (08:39→21:01)
[2021-04-18] MEDS: FUROSEMIDE 10 MG/ML 2 ML VIAL IV SCH (08:54)
[2021-04-18 09:03] LABS: Basophils # (A) 0.01 X 10*3/uL (0.00-0.10); Basophils % (A) 0.2 %; Eosinophils # (A) 0.29 X 10*3/uL (0.04-0.35); Eosinophils % (A) 4.7 %; HCT 28.5 % (37.2-46.3); HGB 8.9 g/dL (12.0-15.0); Lymphocytes # (A) 0.81 X 10*3/uL (0.90-5.00); Lymphocytes % (A) 13.1 %; MCHC 31.2 g/dL (32.0-37.0); MCV 92.8 fL (80.0-97.0); Mean Platelet Volume 10.2 fL (9.5-12.2); Monocytes # (A) 0.89 X 10*3/uL (0.20-1.00); Monocytes % (A) 14.4 %; Neutrophils # (A) 4.15 X 10*3/uL (1.80-7.70); Neutrophils % (A) 67.3 %; Platelet Count 168 X 10*3/uL (140-440); RBC 3.07 X 10*6/uL (4.10-5.20); RDW 14.7 % (11.5-14.5); WBC 6.17 X 10*3/uL (4.50-10.00)
[2021-04-18 09:42] LABS: African American GFR (CKD) 62.3 (60.0-200.0); Albumin/Globulin Ratio 1.43 (1.60-3.17); Anion Gap 7.2 mmol/L (4.00-12.00); BUN/Creat Ratio 12.73 Ratio (12.00-20.00); Calcium 7.7 mg/dL (8.7-10.3); Carbon Dioxide 25.8 mmol/L (21.6-31.8); Globulin 2.1 g/dL (1.6-3.3); Non-African American GFR(CKD) 53.8 (60.0-200.0); Potassium 4.6 mmol/L (3.5-5.5); Total Bilirubin 0.8 mg/dL (0.3-1.2); Total Protein 5.1 g/dL (6.2-8.2)
[2021-04-18 11:50] LABS: Glucose,Whole Blood 207 mg/dL (75-99)
--- NOTE | 2021-04-18 12:23 | P.PN ---
Subjective Progress Note Date: 04/18/21 Patient doing well no complaints, using IS Objective - Vital Signs Vital signs: Vital Signs Temp 98.0 F 04/18/21 07:46 Pulse 80 04/18/21 11:56 Resp 16 04/18/21 08:00 BP 108/67 04/18/21 07:46 Pulse Ox 95 04/18/21 07:46 Intake & Output 04/17/21 04/18/21 04/18/21 18:59 06:59 18:59 Intake Total 320 640 Output Total 68 500 90 Balance 252 140 -90 Intake: Oral 320 640 Output: Drainage 68 90 Left Chest 40 50 Right Chest 28 40 Urine 500 Other: Voiding Method Toilet Toilet Toilet # Voids 1 1 # Emeses 1 - Constitutional General appearance: Present: cooperative - Integumentary Integumentary Comment(s): Incisions CDI - Labs CBC & Chem 7: 04/18/21 05:31 04/18/21 05:31 Labs: Abnormal Lab Results - Last 24 Hours (Table) 04/17/21 04/17/21 04/17/21 Range/Units 13:04 17:41 21:08 RBC (4.10-5.20) X 10*6/uL Hgb (12.0-15.0) g/dL Hct (37.2-46.3) % MCHC (32.0-37.0) g/dL RDW (11.5-14.5) % Lymphocytes # (0.90-5.00) X 10*3/uL Est GFR (CKD-EPI)NonAf (60.0-200.0) Glucose (70-110) mg/dL POC Glucose (mg/dL) 232 H 160 H 184 H (75-99) mg/dL Calcium (8.7-10.3) mg/dL AST (13-35) U/L Total Protein (6.2-8.2) g/dL Albumin (3.80-4.90) g/dL Albumin/Globulin Ratio (1.60-3.17) g/dL 04/18/21 04/18/21 04/18/21 Range/Units 05:31 05:31 07:23 RBC 3.07 L (4.10-5.20) X 10*6/uL Hgb 8.9 L (12.0-15.0) g/dL Hct 28.5 L (37.2-46.3) % MCHC 31.2 L (32.0-37.0) g/dL RDW 14.7 H (11.5-14.5) % Lymphocytes # 0.81 L (0.90-5.00) X 10*3/uL Est GFR (CKD-EPI)NonAf 53.8 L (60.0-200.0) Glucose 145 H (70-110) mg/dL POC Glucose (mg/dL) 153 H (75-99) mg/dL Calcium 7.7 L (8.7-10.3) mg/dL AST 48 H (13-35) U/L Total Protein 5.1 L (6.2-8.2) g/dL Albumin 3.00 L (3.80-4.90) g/dL Albumin/Globulin Ratio 1.43 L (1.60-3.17) g/dL 04/18/21 Range/Units 11:48 RBC (4.10-5.20) X 10*6/uL Hgb (12.0-15.0) g/dL Hct (37.2-46.3) % MCHC (32.0-37.0) g/dL RDW (11.5-14.5) % Lymphocytes # (0.90-5.00) X 10*3/uL Est GFR (CKD-EPI)NonAf (60.0-200.0) Glucose (70-110) mg/dL POC Glucose (mg/dL) 207 H (75-99) mg/dL Calcium (8.7-10.3) mg/dL AST (13-35) U/L Total Protein (6.2-8.2) g/dL Albumin (3.80-4.90) g/dL Albumin/Globulin Ratio (1.60-3.17) g/dL Assessment and Plan Assessment: S/P bilateral mastectomy hospital aquired PNA Plan: Stable from surgical standpoint Awaiting medical/pulm clearance and recs regarding PNA Will follow up with Dr. Lopez and primary
[2021-04-18] MEDS ORDERED: NA PHOS,M-B/NA PHOS,DI-BA 133 ML ENEMA RECTAL ONE (13:30)
--- NOTE | 2021-04-18 13:44 | P.CNPUL ---
History of Present Illness Consult date: 04/18/21 Reason for consult: dyspnea, pneumonia History of present illness: This is a 58-year-old here patient is currently postop from bilateral mastect trinity, left axillary sentinel node biopsy and elective reconstruction surgery with placement of expanders. Note that the patient is known to have breast cancer. The patient has undergone neoadjuvant chemotherapy. She is known to have hypertension hyperlipidemia hypothyroidism and diabetes mellitus as comorbid conditions. Surgery was performed on 04/13/2021. Series of chest x-rays were done since surgery shoulder the patient was developing a left lower lobe consolidation. Noted the patient was also having some increased shortness of breath. She was noted to drop her pulse ox also and she was doing poorly on an incentive spirometer. Based on concern of a pneumonia, the patient was initia lly on Levaquin and later on Zosyn was added. CT angiogram of the chest was done that showed no evidence of any pulmonary embolism. There was atelectatic changes in addition to development of a consolidation of the left lower lobe and there was a small loculated pleural effusion developing in the left lung base. Right lung was essentially clear. The patient currently is resting comfortably in bed. GERMAN drains are still in place. She is currently afebrile and hemodynamically stable. Her white cell count is 6.7 with a hemoglobin of 8.9. Questionable blood work and exercise are all within normal limits. The patient's liver function tests are within normal limits. The patient is currently afebrile. Oxygen is being utilized some routine 1 L and 3 L per minute nasal cannula. No altered mentation pain no signs of any acute respiratory distress on today's evaluation. She is also covered with DuoNeb nebulized treatments around the clock. Review of Systems Constitutional: Reports weight gain, Denies anorexia, Denies chronic headaches, Denies lethargy, Denies weakness Eyes: denies blurred vision, denies bulging eye, denies decreased vision Ears, nose, mouth and throat: Denies dysphagia, Denies neck lump, Denies sore throat Cardiovascular: Reports chest pain, Reports decreased exercise tolerance, Reports dyspnea on exertion, Reports shortness of breath, Denies lightheadedness, Denies rapid heart beat, Denies syncope Respiratory: The patient has some increased shortness of breath. Limited congestion., Denies home oxygen, Denies sleep apnea, Denies snoring, Denies wheezing Gastrointestinal: Denies abdominal pain, Denies bloating, Denies BRBPR, Denies excessive gas, Denies loss of appetite, Denies melena, Denies nausea, Denies vomiting Genitourinary: Denies dysuria, Denies nocturia Menstruation: Reports postmenopausal Musculoskeletal: Denies myalgias Musculoskeletal: absent: ankle pain, ankle stiffness, ankle swelling, elbow pain, elbow stiffness, elbow swelling, foot pain, foot stiffness, foot swelling, hand pain, hand stiffness, hand swelling, hip pain, hip stiffness, hip swelling, knee pain, knee stiffness, knee swelling, shoulder pain, shoulder stiffness, shoulder swelling, wrist pain, wrist stiffness, wrist swelling Integumentary: Denies pruritus, Denies rash Neurological: Denies numbness, Denies weakness Psychiatric: Denies anxiety, Denies depression Endocrine: Denies fatigue, Denies weight change Past Medical History Past Medical History: Cancer, Diabetes Mellitus, Hyperlipidemia, Hypertension, Musculoskeletal Disorder, Osteoarthritis (OA) Additional Past Medical History / Comment(s): History of left-sided breast cancer post-neoadjuvant chemotherapy last dose being on 02/10/2021, history of COVID-19 infection back in December 2020, diabetes mellitus, hypertension, hyperlipidemia History of Any Multi-Drug Resistant Organisms: None Reported Past Surgical History: Appendectomy, Breast Surgery, Cholecystectomy, Hysterectomy, Orthopedic Surgery, Tonsillectomy, Tubal Ligation Additional Past Surgical History / Comment(s): Cervical decompression and fusion placement of interbody graft c4-c7, surgical left breast biopsy - 2013, left breast core biopsy - positive cancer 08/22. Dental work, t5-t6 fusion Past Anesthesia/Blood Transfusion Reactions: Family History of Problems w/ Anesthesia, Postoperative Nausea & Vomiting (PONV) Additional Past Anesthesia/Blood Transfusion Reaction / Comment(s): MOTHER PONV. has had blood transfusion without reaction Past Psychological History: No Psychological Hx Reported Smoking Status: Former smoker Past Alcohol Use History: Occasional Additional Past Alcohol Use History / Comment(s): quit smoking 2001 Past Drug Use History: None Reported - Past Family History Mother Family Medical History: Coronary Artery Disease (CAD) Father Family Medical History: Unable to Obtain Additional Family Medical History / Comment(s): Patient stated that she does have additional half-brothers and sisters that she does not know much about. Brother(s) Family Medical History: Cancer Medications and Allergies Home Medications Medication Instructions Recorded Confirmed Type Levothyroxine Sodium [Synthroid] 50 mcg PO DAILY 07/16/20 04/08/21 History Atorvastatin [Lipitor] 40 mg PO HS 08/19/20 04/08/21 History Metoprolol Tartrate [Lopressor] 25 mg PO BID 08/21/20 04/08/21 History Insulin Aspart [NovoLOG Flexpen] 0 units SQ AC-TID 11/15/20 04/08/21 History Insulin Glargine,Hum.rec.anlog 14 units SQ HS 11/15/20 04/08/21 History [Lantus Solostar] [place]-3 Fatty Acids/Fish Oil [Fish 1 cap PO DAILY 11/15/20 04/08/21 History Oil 1,000 mg Softgel] Vitamin B Complex 1 each PO DAILY 04/08/21 04/08/21 History HYDROcodone/APAP 5-325MG [[place] 1 - 2 tab PO Q4H PRN #30 tab 04/15/21 Rx 5-325] Naproxen Sodium [Aleve] 1 - 2 mg PO Q12HR PRN #90 tab 04/15/21 Rx Allergies Allergy/AdvReac Type Severity Reaction Status Date / Time codeine AdvReac Nausea & Verified 04/13/21 07:56 Vomiting tramadol AdvReac Nausea & Verified 04/13/21 07:56 Vomiting Physical Exam Vitals: Vital Signs Temp Pulse Pulse Resp BP Pulse Ox 04/18/21 11:56 80 04/18/21 11:40 80 04/18/21 08:16 92 04/18/21 08:02 88 04/18/21 08:00 16 04/18/21 07:46 98.0 F 103 H 16 108/67 95 04/18/21 01:49 99.1 F 102 H 16 100/63 95 04/17/21 21:03 110 H 04/17/21 20:50 112 H 04/17/21 20:19 99.8 F H 116 H 19 106/70 97 04/17/21 20:00 102 H 16 04/17/21 16:20 99.1 F 121 H 17 102/65 98 04/17/21 16:03 114 H 04/17/21 15:50 110 H 08/15/21 14:00 99.5 F Intake and Output 04/17/21 04/18/21 04/18/21 22:59 06:59 14:59 Intake Total 400 240 Output Total 500 90 Balance -100 240 -90 Intake: Oral 400 240 Output: Drainage 90 Left Chest 50 Right Chest 40 Urine 500 Other: Voiding Method Toilet Toilet # Voids 1 # Emeses 1 Gen. appearance the patient is calm and comfortable currently on oxygen 1 L per minute nasal cannula Head exam was generally normal. There was no scleral icterus or corneal arcus. M ucous membranes were moist. Neck was supple and without jugular venous distension, thyromegaly, or carotid bruits. Carotids were easily palpable bilaterally. There was no adenopathy. Lungs sounds are showing diminished breath on the left lung base along with some dullness to percussion. The patient also has GERMAN drains in the chest bilaterally which are all in place with serosanguineous drainage Cardiac exam revealed the PMI to be normally situated and sized. The rhythm was regular and no extrasystoles were noted during several minutes of auscultation. The first and second heart sounds were normal and physiologic splitting of the second heart sound was noted. There were no murmurs, rubs, clicks, or gallops. Abdominal exam revealed normal bowel sounds. The abdomen was soft, non-tender, and without masses, organomegaly, or appreciable enlargement of the abdominal aorta. Examination of the extremities revealed easily palpable radial, femoral and pedal pulses. There was no cyanosis, clubbing or edema. Examination of the skin revealed no evidence of significant rashes, suspicious appearing nevi or other concerning lesions. Neurologically, the patient is awake and alert and the patient does not have any focal neurological deficit. Cranial nerves are essentially intact. The surgical onset of the chest that is dry clean and intact. Results - Laboratory Findings CBC and BMP: 04/18/21 05:31 04/18/21 05:31 Abnormal lab findings: Abnormal Labs 04/13/21 04/13/21 04/13/21 08:28 13:35 14:46 WBC RBC Hgb Hct MCHC RDW Plt Count Neutrophils # Lymphocytes # Sodium BUN Creatinine Est GFR (CKD-EPI)NonAf Glucose POC Glucose (mg/dL) 163 H 221 H 216 H Calcium AST Total Protein Albumin Albumin/Globulin Ratio 04/13/21 04/13/21 04/14/21 17:52 20:22 05:09 WBC 12.7 H RBC 3.73 L Hgb Hct MCHC RDW Plt Count Neutrophils # 10.7 H Lymphocytes # Sodium BUN Creatinine Est GFR (CKD-EPI)NonAf Glucose POC Glucose (mg/dL) 183 H 241 H Calcium AST Total Protein Albumin Albumin/Globulin Ratio 04/14/21 04/14/21 04/14/21 05:09 06:24 12:33 WBC RBC Hgb Hct MCHC RDW Plt Count Neutrophils # Lymphocytes # Sodium 134 L BUN Creatinine Est GFR (CKD-EPI)NonAf Glucose 248 H POC Glucose (mg/dL) 235 H 333 H Calcium 8.1 L AST Total Protein Albumin Albumin/Globulin Ratio 04/14/21 04/14/21 04/15/21 18:10 20:44 07:54 WBC RBC Hgb Hct MCHC RDW Plt Count Neutrophils # Lymphocytes # Sodium BUN Creatinine Est GFR (CKD-EPI)NonAf Glucose POC Glucose (mg/dL) 287 H 321 H 253 H Calcium AST Total Protein Albumin Albumin/Globulin Ratio 04/15/21 04/15/21 04/15/21 12:56 17:32 20:44 WBC RBC Hgb Hct MCHC RDW Plt Count Neutrophils # Lymphocytes # Sodium BUN Creatinine Est GFR (CKD-EPI)NonAf Glucose POC Glucose (mg/dL) 251 H 222 H 219 H Calcium AST Total Protein Albumin Albumin/Globulin Ratio 04/16/21 04/16/21 04/16/21 03:20 03:20 07:41 WBC RBC 3.23 L Hgb 9.8 L D Hct 30.1 L MCHC RDW Plt Count 146 L Neutrophils # Lymphocytes # 0.8 L Sodium 132 L BUN 19 H Creatinine 1.10 H Est GFR (CKD-EPI)NonAf Glucose 178 H POC Glucose (mg/dL) 217 H Calcium 7.9 L AST Total Protein 5.1 L Albumin 2.6 L Albumin/Globulin Ratio 04/16/21 04/16/21 04/16/21 12:16 17:20 20:40 WBC RBC Hgb Hct MCHC RDW Plt Count Neutrophils # Lymphocytes # Sodium BUN Creatinine Est GFR (CKD-EPI)NonAf Glucose POC Glucose (mg/dL) 228 H 260 H 241 H Calcium AST Total Protein Albumin Albumin/Globulin Ratio 04/17/21 04/17/21 04/17/21 08:09 11:38 11:38 WBC RBC 3.37 L Hgb 10.5 L Hct 31.6 L MCHC RDW Plt Count Neutrophils # Lymphocytes # 0.5 L Sodium 135 L BUN Creatinine 1.10 H Est GFR (CKD-EPI)NonAf Glucose 190 H POC Glucose (mg/dL) 161 H Calcium 8.3 L AST 37 H Total Protein 5.5 L Albumin 2.8 L Albumin/Globulin Ratio 04/17/21 04/17/21 04/17/21 13:04 17:41 21:08 WBC RBC Hgb Hct MCHC RDW Plt Count Neutrophils # Lymphocytes # Sodium BUN Creatinine Est GFR (CKD-EPI)NonAf Glucose POC Glucose (mg/dL) 232 H 160 H 184 H Calcium AST Total Protein Albumin Albumin/Globulin Ratio 04/18/21 04/18/21 04/18/21 05:31 05:31 07:23 WBC RBC 3.07 L Hgb 8.9 L Hct 28.5 L MCHC 31.2 L RDW 14.7 H Plt Count Neutrophils # Lymphocytes # 0.81 L Sodium BUN Creatinine Est GFR (CKD-EPI)NonAf 53.8 L Glucose 145 H POC Glucose (mg/dL) 153 H Calcium 7.7 L AST 48 H Total Protein 5.1 L Albumin 3.00 L Albumin/Globulin Ratio 1.43 L 04/18/21 11:48 WBC RBC Hgb Hct MCHC RDW Plt Count Neutrophils # Lymphocytes # Sodium BUN Creatinine Est GFR (CKD-EPI)NonAf Glucose POC Glucose (mg/dL) 207 H Calcium AST Total Protein Albumin Albumin/Globulin Ratio - Diagnostic Findings Chest x-ray: image reviewed CT scan - chest: image reviewed Assessment and Plan Plan: 1 left lower lobe pneumonia with development of a small loculated parapneumonic effusion. The patient is currently on Zosyn and Levaquin combination. Consider aspiration. Consider perioperative/hospital-acquired pneumonia. No leukocytosis. No hemodynamic instability. Normal significant respiratory distress on today's evaluation. 2 history of breast cancer post-bilateral mastectomy with reconstructive surgery and the patient is postop day #3. GERMAN drains are in place 3 diabetes mellitus type 2 maintain on Levemir insulin 4 hypertension 5 hyperlipidemia 6 acute hypoxic respiratory failure currently on oxygen between 1 and 3 L per minute nasal cannula 7 chronic anemia, normocytic with interval drop in hemoglobin, likely postoperative in nature due to postop blood loss Plan I reviewed the CAT scan of the chest. Concern is for pneumonia. The pleural effusion is small. Continue the current antibiotic coverage with a combination of Zosyn and Levaquin. No signs of any significant respiratory distress. Continue using incentive spirometer. Monitor the output from the GERMAN drain. Monitor do surgical wound. Repeat chest x-ray with the next 24 hours. We'll consider thoracentesis if there is further increase in size of left-sided pleural effusion. Antibiotic coverage is adequate for now. Currently on oxygen between 1 and 2 L per minute nasal cannula. Afebrile hemodynamically stable. Pain control with [place]. We'll continue to follow. Height blood sugar control with Levemir insulin 18 units along with a sliding scale coverage.
[2021-04-18] MEDS: LEVOFLOXACIN 500MG-D5W PMX 500 MG in DEXTROSE/WATER 1 100ML.BAG IVPB SCH (14:25)
[2021-04-18 17:32] LABS: Glucose,Whole Blood 206 mg/dL (75-99)
--- NOTE | 2021-04-18 18:32 | P.PN ---
Subjective Progress Note Date: 04/18/21 Progress Note Date: 04/18/21 HISTORY OF PRESENT ILLNESS This is a 60-year-old female patient of Dr. Poole with past medical history of hypertension, hyperlipidemia, hypothyroidism, left breast cancer, diabetes mellitus type 2. Patient underwent bilateral mastectomy, left axillary sentinel lymph node biopsy and removal of Mediport by Dr. Lopez and reconstruction of bilateral breast with implantation by Dr. Barreto on 04/13. Patient has been afebrile. She has had mild tachycardia for which she is cleared to have her beta silver. Her blood pressure has been on the lower side. Blood sugars are elevated secondary to steroid use, WBC 12.7, hemoglobin 11.6. 04/15: Noted to have a drop in her pulse ox 91% and continues to have mild tachycardia. Patient is reaching 750 ML's on incentive spirometry. Chest x-ray done reveals large area of consolidation compatible with infiltrate left lung with small effusion. Patient started on Levaquin 500 mg IV piggyback every day and DuoNeb treatments 4 times daily scheduled and as needed. Requested that discharge be held. Otherwise patient has been afebrile, heart rate in the 107- 112, blood pressure 101/49, pulse ox 90% on room air. Repeat blood work will be ordered for tomorrow. Blood sugars remain elevated 251-321 and 5 units of scheduled NovoLog added before meals and at bedtime, scale change to before meals and at bedtime. 04/16: Patient underwent a portable chest x-ray yesterday that showed left-sided pleural effusion as well as left lower lobe pneumonia, she was started on Levaquin 500 mg IV piggyback every 24 hours along with DuoNeb 3 mg nebulization 4 times every day, along with oxygen support, she was instructed to use incentive spirometer, I recommended to give the patient the hospital until further evaluation, so far she is doing a bit better today, she has no chest pain she continued to have some pleurisy with deep inspiration, she continued to have minimal tachycardia however she is currently on metoprolol 25 mg orally twice every day, she has no pressure or tightness in her chest, she has no abdominal pain, we will continue to monitor. 04/17: Patient is short of breath and he continued to have increased coughing, tachycardic, around 09/18/2016 appears to be regular, we will transfer to telemetry unit, check labs, order CTA of the chest ruled out pulmonary embolism, continue Levaquin 500 mg IV piggyback daily, add Zosyn 3.375 g IV piggyback every 8 hours, Pulmicort consultation 04/18: patient is doing better today she denies any chest pain, she can need to have some shortness breath, she continues to have a dry cough not able to bring any phlegm, no fever no chills, she continued to have some pleurisy, computed tomography scan of the chest with contrast was negative for pulmonary embolism did show left lower lobe pneumonia with parapneumonic effusion that appears to be small , GERMAN drain continues to be in place, patient is feeling a bit better than yesterday, continue current treatment plan patient will be seen in c onsultation by pulmonary medicine today. REVIEW OF SYSTEMS Constitutional: No fever, no chills, no night sweats. No weight change. No weakness, fatigue or lethargy. No daytime sleepiness. HEENT: No headache. No blurred vision or double vision, no loss of vision. No loss of Hearing, no ringing in the ears, no dizziness. No nasal drainage or congestion. No epistaxis. No sore throat. Lungs: Mild shortness of breath, cough, no sputum production. No wheezing. Cardiovascular: No chest pain, no lower extremity edema. No palpitations. No paroxysmal nocturnal dyspnea. No orthopnea. No lightheadedness or dizziness. No syncopal episodes. Abdominal: No abdominal pain. No nausea, vomiting. No diarrhea. No constipation. No bloody or tarry stools.. No loss of appetite. Genitourinary: No dysuria, increased frequency, urgency. No urinary retention. Musculoskeletal: No myalgias. No muscle weakness, no gait dysfunction, no frequent falls. No back pain. No neck pain. Integumentary: wounds clean with GERMAN drains, no lesions. No rash or pruritus. No unusual bruising. No change in hair or nails. Neurologic: No aphasia. No facial droop. No change in mentation. No head injury. No headache. No paralysis. No paresthesia. Psychiatric: No depression. No anxiety. No mood swings. Endocrine: Noted abnormal blood sugars. No weight change. PHYSICAL EXAMINATION Gen: This is a 60-year-old female. She is resting in bed appears to be comfortable and in no acute distress. HEENT: Head is atraumatic, normocephalic. Pupils equal, round. Sclerae is anicteric. NECK: Supple. No JVD. No lymphadenopathy. No thyromegaly. LUNGS: Left lower lobe diminished, decreased breath sounds at the bases, few rhonchi positive for egophony at the left lower base, no chest wall tenderness no intercostal retractions. GERMAN drains in place. HEART: First heart sound is depressed, second heart sound is normal, 2/6 systolic ejection murmur at left sternal border, tachycardic BREAST: Dressing in place to the bilateral breasts, GERMAN drains in place with serosanguineous drainage. ABDOMEN: Soft. Bowel sounds are present. No masses. No tenderness. EXTREMITIES: +1 pedal edema. No calf tenderness. Dorsalis pedis +2 bilaterally NEUROLOGICAL: Patient is awake, alert and oriented x3. Cranial nerves 2 through 12 are grossly intact, cranial nerves II through XII appear grossly intact muscle power 5 out of 5 in upper and lower extremity bilaterally. ASSESSMENT AND PLAN 1. Left-sided breast cancer status post bilateral mastectomy and reconstruction, postop day #3. Continue current pain management per surgery, incentive spirometry to reduce incidence of atelectasis and hospital-acquired pneumonia. 2. Left-sided pneumonia with a pneumonic effusion. Patient is on Levaquin 500 mg IV piggyback daily, DuoNeb treatments 4 times daily and as needed, encourage incentive spirometry and increase activity, continue Zosyn 3.375 g IV piggyback every 8 hours, computed tomography scan of the chest showed evidence of left lower lobe pneumonia with parapneumonic effusion,no evidence of pulmonary embolism. 3. Diabetes mellitus type 2 with hyperglycemia secondary to steroids. Continue Levemir 14 units at bedtime and NovoLog scale. 4. Sinus tachycardia. Continue Lopressor 25 mg twice daily and treat underlyi ng cause., Transferred to telemetry. 5. Hypertension and hypertensive cardiovascular disease. Continue metoprolol 25 orally twice every day. 6. Hypothyroidism given the levothyroxine 50 g daily. 7. GI prophylaxis. Pepcid twice daily. 8. Hyperlipidemia. Continue atorvastatin 40 mg at bedtime. 9. DVT prophylaxis. SCDs and MOE hose, heparin subcu three times daily. 10. Edema start the patient on Lasix 20 mg IV push daily along with dust supplement, bilateral knee-high MOE hose. 11. Constipation. Start the patient on Senokot 2 tablets at bedtime. 12. prognosis is guarded. 13. increase activity. Objective - Vital Signs Vital signs: Vital Signs Temp 98.0 F 04/18/21 07:46 Pulse 92 04/18/21 08:16 Resp 16 04/18/21 07:46 BP 108/67 04/18/21 07:46 Pulse Ox 95 04/18/21 07:46 Intake & Output 04/17/21 04/18/21 04/18/21 18:59 06:59 18:59 Intake Total 320 640 Output Total 68 500 Balance 252 140 Intake: Oral 320 640 Output: Drainage 68 Left Chest 40 Right Chest 28 Urine 500 Other: Voiding Method Toilet Toilet # Voids 1 1 # Emeses 1 - Labs CBC & Chem 7: 04/18/21 05:31 04/18/21 05:31 Labs: Abnormal Lab Results - Last 24 Hours (Table) 04/17/21 04/17/21 04/17/21 Range/Units 11:38 11:38 13:04 RBC 3.37 L (3.80-5.40) m/uL Hgb 10.5 L (11.4-16.0) gm/dL Hct 31.6 L (34.0-46.0) % Lymphocytes # 0.5 L (1.0-4.8) k/uL Sodium 135 L (137-145) mmol/L Creatinine 1.10 H (0.52-1.04) mg/dL Glucose 190 H (74-99) mg/dL POC Glucose (mg/dL) 232 H (75-99) mg/dL Calcium 8.3 L (8.4-10.2) mg/dL AST 37 H (14-36) U/L Total Protein 5.5 L (6.3-8.2) g/dL Albumin 2.8 L (3.5-5.0) g/dL 04/17/21 04/17/21 04/18/21 Range/Units 17:41 21:08 07:23 RBC (3.80-5.40) m/uL Hgb (11.4-16.0) gm/dL Hct (34.0-46.0) % Lymphocytes # (1.0-4.8) k/uL Sodium (137-145) mmol/L Creatinine (0.52-1.04) mg/dL Glucose (74-99) mg/dL POC Glucose (mg/dL) 160 H 184 H 153 H (75-99) mg/dL Calcium (8.4-10.2) mg/dL AST (14-36) U/L Total Protein (6.3-8.2) g/dL Albumin (3.5-5.0) g/dL
[2021-04-18] MEDS: DOCUSATE 100 MG CAP PO SCH (21:03)
[2021-04-18] MEDS: ATORVASTATIN 40 MG TAB PO SCH (21:12)
[2021-04-18] MEDS: INSULIN DETEMIR (LEVEMIR) 100 UNIT/ML SYR SQ SCH (21:18)
[2021-04-18 21:19] LABS: Glucose,Whole Blood 189 mg/dL (75-99)
[2021-04-19] MEDS: HEPARIN SODIUM,PORCINE/PF 5,000 UNIT/0.5 ML SYRINGE SQ SCH ×3 (03:49→15:42)
[2021-04-19] MEDS: HYDROmorphone 0.5 MG/0.5 ML SYRINGE IVP PRN (03:52)
[2021-04-19] MEDS: ONDANSETRON 4 MG/2 ML VIAL IVP PRN (03:53)
[2021-04-19] MEDS: PIPERACILLIN-TAZOBACTAM 3.375 GM in SODIUM CHLORIDE 0.9% 100 ML IVPB SCH ×3 (03:53→15:40)
[2021-04-19] MEDS: LACTATED RINGERS 1,000 ML IV SCH (05:55)
[2021-04-19] MEDS: LEVOTHYROXINE 50 MCG TAB PO SCH (06:29)
[2021-04-19] MEDS: SENNOSIDES-DOCUSATE SODIUM 1 EACH TAB PO SCH ×2 (07:49→22:18)
[2021-04-19] MEDS: HYDROcodone/APAP 5-325MG 1 EACH TAB PO PRN ×3 (07:49→22:23)
[2021-04-19] MEDS: POTASSIUM CHLORIDE ER 20 MEQ TAB.ER PO SCH (07:50)
[2021-04-19] MEDS: DOCUSATE 100 MG CAP PO SCH ×2 (07:50→22:18)
[2021-04-19] MEDS: METOPROLOL TARTRATE 25 MG TAB PO SCH ×2 (07:50→22:18)
[2021-04-19] MEDS: FAMOTIDINE 20 MG TAB PO SCH ×2 (07:50→22:18)
[2021-04-19] MEDS: FUROSEMIDE 10 MG/ML 2 ML VIAL IV SCH (07:50)
[2021-04-19] MEDS: INSULIN ASPART (NovoLOG) 100 UNIT/ML VIAL SQ SCH ×8 (07:51→22:19)
[2021-04-19 07:53] LABS: Glucose,Whole Blood 167 mg/dL (75-99)
[2021-04-19] MEDS: IPRATROPIUM-ALBUTEROL 3 ML NEB INHALATION SCH ×4 (08:22→20:09)
--- NOTE | 2021-04-19 10:37 | XR ---
EXAMINATION TYPE: XR chest 2V DATE OF EXAM: 04/19/2021 COMPARISON: 04/17/2021 TECHNIQUE: PA and lateral views submitted. HISTORY: Cough FINDINGS: Persistent left-sided infiltrate and small effusion. Drainage tubes are seen overlying the chest bila terally suggestion of recent surgery. Rib resection on the left noted there is postoperative change o verlying the cervical spine. Pleural fluid on the left is similar to the prior exam. IMPRESSION: 1. Left lower lobe infiltrate and pleural effusion similar to the prior exam.
--- NOTE | 2021-04-19 10:56 | P.PN ---
Subjective Progress Note Date: 04/19/21 Principal diagnosis: Left lower lobe pneumonia This is a 58-year-old here patient is currently postop from bilateral mastectomy, left axillary sentinel node biopsy and elective reconstruction surgery with placement of expanders. Note that the patient is known to have breast cancer. The patient has undergone neoadjuvant chemotherapy. She is known to have hypertension hyperlipidemia hypothyroidism and diabetes mellitus as comorbid conditions. Surgery was performed on 04/13/2021. Series of chest x-rays were done since surgery shoulder the patient was developing a left lower lobe consolidation. Noted the patient was also having some increased shortness of breath. She was noted to drop her pulse ox also and she was doing poorly on an incentive spirometer. Based on concern of a pneumonia, the patient was initially on Levaquin and later on Zosyn was added. CT angiogram of the chest was done that showed no evidence of any pulmonary embolism. There was atelectatic changes in addition to development of a consolidation of the left lower lobe and there was a small loculated pleural effusion developing in the left lung base. Right lung was essentially clear. The patient currently is resting comfortably in bed. GERMAN drains are still in place. She is currently a febrile and hemodynamically stable. Her white cell count is 6.7 with a hemoglobin of 8.9. Questionable blood work and exercise are all within normal limits. The patient's liver function tests are within normal limits. The patient is currently afebrile. Oxygen is being utilized some routine 1 L and 3 L per minute nasal cannula. No altered mentation pain no signs of any acute respiratory distress on today's evaluation. She is also covered with DuoNeb nebulized treatments around the clock. The patient is seen today 04/19/2021 in follow-up on the regular medical floor. She is currently sitting up in bed. Awake and alert in no acute distress. Breathing a bit easier today compared to yesterday. Loose nonproductive cough. Chest x-ray continues to show persistent left-sided infiltrate with small effusion. Similar compared to previous. Blood culture reveals no growth to date. Blood glucose 167. She remains on bronchodilators. Antibiotics in the form of Zosyn and Levaquin. Heparin for DVT prophylaxis. She remains on IV diuretics. Working well with the incentive spirometer. Objective - Vital Signs Vital signs: Vital Signs Temp 98.5 F 04/19/21 08:01 Pulse 96 04/19/21 08:38 Resp 16 04/19/21 08:01 BP 137/73 04/19/21 08:01 Pulse Ox 96 04/19/21 08:01 Intake & Output 04/18/21 04/19/21 04/19/21 18:59 06:59 18:59 Intake Total 480 1200 Output Total 90 500 Balance 390 700 Intake: Intake, IV Titration 240 Amount Lactated Ringers 1,000 ml 240 @ 20 mls/hr IV .Q24H [facility] Rx#:[id number] Oral 480 960 Output: Drainage 90 Left Chest 50 Right Chest 40 Urine 500 Other: Voiding Method Toilet Toilet # Voids 1 1 # Bowel Movements 1 1 - Exam Gen. appearance a very pleasant 60-year-old female patient is calm and comfortable currently on room air Head exam was generally normal. There was no scleral icterus or corneal arcus. Mucous membranes were moist. Neck was supple and without jugular venous distension, thyromegaly, or carotid bruits. Carotids were easily palpable bilaterally. There was no adenopathy. Lungs sounds are showing diminished breath on the left lung base along with some dullness to percussion. The patient also has GERMAN drains in the chest bilaterally which are all in place with serosanguineous drainage Cardiac exam revealed the PMI to be normally situated and sized. The rhythm was regular and no extrasystoles were noted during several minutes of auscultation. The first and second heart sounds were normal and physiologic splitting of the second heart sound was noted. There were no murmurs, rubs, clicks, or gallops. Abdominal exam revealed normal bowel sounds. The abdomen was soft, non-tender, and without masses, organomegaly, or appreciable enlargement of the abdominal aorta. Examination of the extremities revealed easily palpable radial, femoral and pedal pulses. There was no cyanosis, clubbing or edema. Examination of the skin revealed no evidence of significant rashes, suspicious appearing nevi or other concerning lesions. Neurologically, the patient is awake and alert and the patient does not have any focal neurological deficit. Cranial nerves are essentially intact. The surgical onset of the chest that is dry clean and intact. - Labs CBC & Chem 7: 04/18/21 05:31 04/18/21 05:31 Labs: Abnormal Lab Results - Last 24 Hours (Table) 04/18/21 04/18/21 04/18/21 Range/Units 11:48 17:31 21:18 POC Glucose (mg/dL) 207 H 206 H 189 H (75-99) mg/dL 04/19/21 Range/Units 07:51 POC Glucose (mg/dL) 167 H (75-99) mg/dL Microbiology - Last 24 Hours (Table) 04/17/21 12:02 Blood Culture - Preliminary Blood No Growth after 24 hours 04/17/21 11:38 Blood Culture - Preliminary Blood No Growth after 24 hours Assessment and Plan Assessment: 1 left lower lobe pneumonia with development of a small loculated parapneumonic effusion. The patient is currently on Zosyn and Levaquin combination. Consider aspiration. Consider perioperative/hospital-acquired pneumonia. No leukocytosis. No hemodynamic instability. Normal significant respiratory distress on today's evaluation. Currently on room air 2 history of breast cancer post-bilateral mastectomy with reconstructive surgery and the patient is postop day #4. GERMAN drains are in place 3 diabetes mellitus type 2 maintain on Levemir insulin 4 hypertension 5 hyperlipidemia 6 acute hypoxic respiratory failure currently on oxygen between 1 and 3 L per minute nasal cannula 7 chronic anemia, normocytic with interval drop in hemoglobin, likely postoperative in nature due to postop blood loss Plan The patient was seen and evaluated by Dr. Hinojosa Chest x-ray reviewed Remains on Zosyn and Levaquin Remains on bronchodilators Encouraged the increase use of the incentive spirometer Increase her activity as tolerated We'll continue to follow I, the cosigning physician, performed a history & physical examination of the patient. Lungs sounds with crackles in the left lung base. Maintaining good O2 saturations in the 90s on room air. I discussed the assessment and plan of care with my nurse practitioner, Marj Hennessy. I attest to the above note as dictated by her.
[2021-04-19 12:13] LABS: Glucose,Whole Blood 191 mg/dL (75-99)
[2021-04-19] MEDS: LEVOFLOXACIN 500 MG TAB PO SCH (15:41)
[2021-04-19 17:32] LABS: Glucose,Whole Blood 218 mg/dL (75-99)
[2021-04-19 20:40] LABS: Glucose,Whole Blood 207 mg/dL (75-99)
--- NOTE | 2021-04-19 21:38 | P.PN ---
Subjective Progress Note Date: 04/19/21 The patient is S/P bilateral mastectomy. Minimal incisional discomfort. Being treated for pneumonia. Less cough today. Only doing about 1,000ml on incentive spirometry. Objective - Vital Signs Vital signs: Vital Signs Temp 99.1 F 04/19/21 18:49 Pulse 104 H 04/19/21 20:21 Resp 16 04/19/21 18:49 BP 111/68 04/19/21 18:49 Pulse Ox 95 04/19/21 20:09 Intake & Output 04/19/21 04/19/21 04/20/21 06:59 18:59 06:59 Intake Total 1200 Output Total 500 40 Balance 700 -40 Intake: Intake, IV Titration 240 Amount Lactated Ringers 1,000 ml 240 @ 20 mls/hr IV .Q24H [facility] Rx#:[id number] Oral 960 Output: Drainage 40 Left Chest 20 Right Chest 20 Urine 500 Other: Voiding Method Toilet # Voids 1 1 # Bowel Movements 1 - Constitutional General appearance: Present: cooperative, no acute distress - Integumentary Integumentary Comment(s): Flaps are intact. Some ecchymosis near central incision. No cellulitis. GERMAN's are serous - Labs CBC & Chem 7: 04/18/21 05:31 04/18/21 05:31 Labs: Abnormal Lab Results - Last 24 Hours (Table) 04/19/21 04/19/21 04/19/21 Range/Units 07:51 12:12 17:31 POC Glucose (mg/dL) 167 H 191 H 218 H (75-99) mg/dL 04/19/21 Range/Units 20:37 POC Glucose (mg/dL) 207 H (75-99) mg/dL Microbiology - Last 24 Hours (Table) 04/17/21 12:02 Blood Culture - Preliminary Blood No Growth after 48 hours 04/17/21 11:38 Blood Culture - Preliminary Blood No Growth after 48 hours Assessment and Plan (1) Malignant neoplasm of upper-outer quadrant of left female breast Current Visit: Yes Status: Acute Code(s): C50.412 - MALIG NEOPLASM OF UPPER- OUTER QUADRANT OF LEFT FEMALE BREAST SNOMED Code(s): 985425658 (2) Type 2 diabetes mellitus with hyperglycemia Current Visit: Yes Status: Acute Code(s): E11.65 - TYPE 2 DIABETES MELLITUS WITH HYPERGLYCEMIA SNOMED Code(s): 558238014292100 (3) Estrogen receptor positive status [ER+] Current Visit: Yes Status: Acute Code(s): Z17.0 - ESTROGEN RECEPTOR POSITIVE STATUS [ER+] SNOMED Code(s): 270583209 (4) Infiltrate noted on imaging study Current Visit: Yes Status: Acute Code(s): R93.89 - ABNORMAL FINDINGS ON DX IMAGING OF OTH BODY STRUCTURES SNOMED Code(s): 176177736 (5) Pneumonia Current Visit: Yes Status: Acute Code(s): J18.9 - PNEUMONIA, UNSPECIFIED ORGANISM SNOMED Code(s): 922989661 Plan: Surgically stable. GERMAN output is decreasing. Has been seen by internal medicine and pulmonary. Discharge when medically stable. Continue to use incentive spirometry, even after discharge
[2021-04-19] MEDS: ATORVASTATIN 40 MG TAB PO SCH (22:18)
[2021-04-19] MEDS: INSULIN DETEMIR (LEVEMIR) 100 UNIT/ML SYR SQ SCH (22:23)
[2021-04-20] MEDS: HEPARIN SODIUM,PORCINE/PF 5,000 UNIT/0.5 ML SYRINGE SQ SCH ×3 (01:18→17:01)
[2021-04-20] MEDS: PIPERACILLIN-TAZOBACTAM 3.375 GM in SODIUM CHLORIDE 0.9% 100 ML IVPB SCH ×3 (01:18→17:01)
[2021-04-20] MEDS: HYDROcodone/APAP 5-325MG 1 EACH TAB PO PRN (04:49)
[2021-04-20] MEDS: LACTATED RINGERS 1,000 ML IV SCH (06:06)
[2021-04-20] MEDS: LEVOTHYROXINE 50 MCG TAB PO SCH (06:32)
[2021-04-20 07:15] LABS: Glucose,Whole Blood 228 mg/dL (75-99)
[2021-04-20] MEDS: INSULIN ASPART (NovoLOG) 100 UNIT/ML VIAL SQ SCH ×4 (07:59→13:16)
[2021-04-20] MEDS: IPRATROPIUM-ALBUTEROL 3 ML NEB INHALATION SCH ×3 (08:00→16:30)
[2021-04-20] MEDS: METOPROLOL TARTRATE 25 MG TAB PO SCH (08:01)
[2021-04-20] MEDS: POTASSIUM CHLORIDE ER 20 MEQ TAB.ER PO SCH (08:01)
[2021-04-20] MEDS: SENNOSIDES-DOCUSATE SODIUM 1 EACH TAB PO SCH (08:01)
[2021-04-20] MEDS: DOCUSATE 100 MG CAP PO SCH (08:02)
[2021-04-20] MEDS: FAMOTIDINE 20 MG TAB PO SCH (08:02)
[2021-04-20] MEDS: FUROSEMIDE 10 MG/ML 2 ML VIAL IV SCH (08:17)
[2021-04-20 12:09] LABS: Glucose,Whole Blood 237 mg/dL (75-99)
--- NOTE | 2021-04-20 12:32 | P.PN ---
Subjective Progress Note Date: 04/20/21 Principal diagnosis: Left lower lobe pneumonia This is a 58-year-old here patient is currently postop from bilateral mastectomy, left axillary sentinel node biopsy and elective reconstruction surgery with placement of expanders. Note that the patient is known to have breast cancer. The patient has undergone neoadjuvant chemotherapy. She is known to have hypertension hyperlipidemia hypothyroidism and diabetes mellitus as comorbid conditions. Surgery was performed on 04/13/2021. Series of chest x-rays were done since surgery shoulder the patient was developing a left lower lobe consolidation. Noted the patient was also having some increased shortness of breath. She was noted to drop her pulse ox also and she was doing poorly on an incentive spirometer. Based on concern of a pneumonia, the patient was initially on Levaquin and later on Zosyn was added. CT angiogram of the chest was done that showed no evidence of any pulmonary embolism. There was atelectatic changes in addition to development of a consolidation of the left lower lobe and there was a small loculated pleural effusion developing in the left lung base. Right lung was essentially clear. The patient currently is resting comfortably in bed. GERMAN drains are still in place. She is currently a febrile and hemodynamically stable. Her white cell count is 6.7 with a hemoglobin of 8.9. Questionable blood work and exercise are all within normal limits. The patient's liver function tests are within normal limits. The patient is currently afebrile. Oxygen is being utilized some routine 1 L and 3 L per minute nasal cannula. No altered mentation pain no signs of any acute respiratory distress on today's evaluation. She is also covered with DuoNeb nebulized treatments around the clock. The patient is seen today 04/19/2021 in follow-up on the regular medical floor. She is currently sitting up in bed. Awake and alert in no acute distress. Breathing a bit easier today compared to yesterday. Loose nonproductive cough. Chest x-ray continues to show persistent left-sided infiltrate with small effusion. Similar compared to previous. Blood culture reveals no growth to date. Blood glucose 167. She remains on bronchodilators. Antibiotics in the form of Zosyn and Levaquin. Heparin for DVT prophylaxis. She remains on IV diuretics. Working well with the incentive spirometer. The patient is seen today 04/20/2021 and follow-up on the regular medical floor. She is awake and alert in no acute distress. Breathing quite a bit better today and maintaining good O2 saturations in the 90s on room air. She has some nausea following her morning medications otherwise she is doing quite well and hoping to go home. Blood cultures reveal no growth. Continues to work well with the incentive spirometer. Remains on Zosyn and Levaquin along with bronchodilators. Heparin for DVT prophylaxis. Objective - Vital Signs Vital signs: Vital Signs Temp 97.4 F L 04/20/21 07:46 Pulse 92 04/20/21 12:14 Resp 18 04/20/21 07:46 BP 123/63 04/20/21 07:46 Pulse Ox 94 L 04/20/21 07:46 Intake & Output 04/19/21 04/20/21 04/20/21 18:59 06:59 18:59 Intake Total 180 Output Total 40 500 Balance -40 -500 180 Intake: Oral 180 Output: Drainage 40 Left Chest 20 Right Chest 20 Urine 500 Other: # Voids 1 1 # Bowel Movements 1 - Exam Gen. appearance a very pleasant 60-year-old female patient is calm and comfortable currently on room air Head exam was generally normal. There was no scleral icterus or corneal arcus. Mucous membranes were moist. Neck was supple and without jugular venous distension, thyromegaly, or carotid bruits. Carotids were easily palpable bilaterally. There was no adenopathy. Lungs sounds are showing diminished breath on the left lung base along with some dullness to percussion. The patient also has GERMAN drains in the chest bilaterally which are all in place with serosanguineous drainage Cardiac exam revealed the PMI to be normally situated and sized. The rhythm was regular and no extrasystoles were noted during several minutes of auscultation. The first and second heart sounds were normal and physiologic splitting of the second heart sound was noted. There were no murmurs, rubs, clicks, or gallops. Abdominal exam revealed normal bowel sounds. The abdomen was soft, non-tender, and without masses, organomegaly, or appreciable enlargement of the abdominal aorta. Examination of the extremities revealed easily palpable radial, femoral and pedal pulses. There was no cyanosis, clubbing or edema. Examination of the skin revealed no evidence of significant rashes, suspicious appearing nevi or other concerning lesions. Neurologically, the patient is awake and alert and the patient does not have any focal neurological deficit. Cranial nerves are essentially intact. The surgical onset of the chest that is dry clean and intact. - Labs CBC & Chem 7: 04/18/21 05:31 04/18/21 05:31 Labs: Abnormal Lab Results - Last 24 Hours (Table) 04/19/21 04/19/21 04/20/21 Range/Units 17:31 20:37 07:14 POC Glucose (mg/dL) 218 H 207 H 228 H (75-99) mg/dL 04/20/21 Range/Units 12:08 POC Glucose (mg/dL) 237 H (75-99) mg/dL Microbiology - Last 24 Hours (Table) 04/17/21 12:02 Blood Culture - Preliminary Blood No Growth after 48 hours 04/17/21 11:38 Blood Culture - Preliminary Blood No Growth after 48 hours Assessment and Plan Assessment: 1 left lower lobe pneumonia with development of a small loculated parapneumonic effusion. The patient is currently on Zosyn and Levaquin combination. Consider aspiration. Consider perioperative/hospital-acquired pneumonia. No leukocytosis. No hemodynamic instability. Normal significant respiratory distress on today's evaluation. Currently on room air and breathing is back to her baseline 2 history of breast cancer post-bilateral mastectomy with reconstructive surgery and the patient is postop day #5. GERMAN drains are in place 3 diabetes mellitus type 2 maintain on Levemir insulin 4 hypertension 5 hyperlipidemia 6 acute hypoxic respiratory failure, recovered and on room air 7 chronic anemia, normocytic with interval drop in hemoglobin, likely postoperative in nature due to postop blood loss Plan The patient was seen and evaluated by Dr. Ashish Mar from the pulmonary standpoint Remains on Zosyn and Levaquin Remains on bronchodilators Encouraged the increase use of the incentive spirometer Increase her activity as tolerated Home once cleared by surgery Follow-up in the office in 1-2 weeks' for repeat chest x-ray I, the cosigning physician, performed a history & physical examination of the patient. Lungs sounds with crackles in the left lung base. Maintaining good O2 saturations in the 90s on room air. I discussed the assessment and plan of care with my nurse practitioner, Marj Hennessy. I attest to the above note as dictated by her.
--- NOTE | 2021-04-20 14:16 | P.PN ---
Subjective Progress Note Date: 04/20/21 The patient is seen on rounds. Having minimal pain. Breathing is better. She's been to be discharged. Patient's anxious to go home Objective - Vital Signs Vital signs: Vital Signs Temp 97.4 F L 04/20/21 07:46 Pulse 92 04/20/21 12:14 Resp 18 04/20/21 07:46 BP 123/63 04/20/21 07:46 Pulse Ox 94 L 04/20/21 07:46 Intake & Output 04/19/21 04/20/21 04/20/21 18:59 06:59 18:59 Intake Total 180 Output Total 40 500 Balance -40 -500 180 Intake: Oral 180 Output: Drainage 40 Left Chest 20 Right Chest 20 Urine 500 Other: # Voids 1 1 # Bowel Movements 1 - Constitutional General appearance: Present: cooperative, no acute distress - Integumentary Integumentary Comment(s): Dressings are clean and dry. JPs are serosanguineous - Labs CBC & Chem 7: 04/18/21 05:31 04/18/21 05:31 Labs: Abnormal Lab Results - Last 24 Hours (Table) 04/19/21 04/19/21 04/20/21 Range/Units 17:31 20:37 07:14 POC Glucose (mg/dL) 218 H 207 H 228 H (75-99) mg/dL 04/20/21 Range/Units 12:08 POC Glucose (mg/dL) 237 H (75-99) mg/dL Microbiology - Last 24 Hours (Table) 04/17/21 11:38 Blood Culture - Preliminary Blood No Growth after 72 hours 04/17/21 12:02 Blood Culture - Preliminary Blood No Growth after 48 hours Assessment and Plan (1) Malignant neoplasm of upper-outer quadrant of left female breast Current Visit: Yes Status: Acute Code(s): C50.412 - MALIG NEOPLASM OF UPPER- OUTER QUADRANT OF LEFT FEMALE BREAST SNOMED Code(s): 692544284 (2) Type 2 diabetes mellitus with hyperglycemia Current Visit: Yes Status: Acute Code(s): E11.65 - TYPE 2 DIABETES MELLITUS WITH HYPERGLYCEMIA SNOMED Code(s): 171484817473261 (3) Estrogen receptor positive status [ER+] Current Visit: Yes Status: Acute Code(s): Z17.0 - ESTROGEN RECEPTOR POSITIVE STATUS [ER+] SNOMED Code(s): 032666576 (4) Infiltrate noted on imaging study Current Visit: Yes Status: Acute Code(s): R93.89 - ABNORMAL FINDINGS ON DX IMAGING OF OTH BODY STRUCTURES SNOMED Code(s): 040295314 (5) Pneumonia Current Visit: Yes Status: Acute Code(s): J18.9 - PNEUMONIA, UNSPECIFIED ORGANISM SNOMED Code(s): 634973002 Plan: Patient will be discharged home. Oral antibiotics per internal medicine. She has an appointment with Dr. Barreto on Sunday. I will see her in the office next week. Questions were encouraged and answered.
[2021-04-20 14:48] VITALS: BP 112/68; TEMP 98.2
[2021-04-20] MEDS: LEVOFLOXACIN 500 MG TAB PO SCH (15:12)
--- NOTE | 2021-04-20 16:08 | CDI ---
Documentation Clarification Form Date: 04/20/2021 03:24:06 PM From: Jaycee Ross RN, CCDS Admit Date: 04/16/2021 07:38:00 AM Patient Name: Adriana Linder Visit Number: [id number] Discharge Date: ATTENTION: The Clinical Documentation Specialists (CDI) and [facility] Coding Staff appreciate your assistance in clarifying documentation. Please respond to the clarification below the line at the bottom and electronically sign. The CDI & [facility] Coding staff will review the response and follow-up if needed. Please note: Queries are made part of the Legal Health Record. If you have any questions, please contact the author of this message via ITS. Dr. Manule Hinojosa Chronic anemia, normocytic with interval drop in hemoglobin, likely postoperative in nature due to postop blood loss is documented starting 04/18/21 with bilateral mastectomy on . Additional clarification is requested regarding the relationship, if any, that exists between the diagnosis and the procedure. Patients Admitting Diagnosis: Left breast cancer Post-Operative Diagnosis: Same 04/13 Procedure performed: Bilateral mastectomy, left axillary sentinel lymph node biopsy, removal of mediport (estimated blood loss 100 ml 04/13 Procedure; reconstruction of right and left breast following mastectomy with insertion of tissue skin diver History/Risk Factors: Left Breast cancer, Diabetes mellitus type 2, Hypertension Clinical Indicators: 60-year-old female who present as SDC on 04/13/21 for elective bilateral mastectomy and reconstruction of bilateral breast. On 04/18 HGB 8.9, HCT 28.5. She had a hemoglobin on 04/14 of 11.6. 04/16 HGB 9.8, HCT 30.1 Treatment: Monitor CBC per orders What relationship, if any, exists between the diagnosis of [insert dx] and the procedure? [ ] Acute blood loss anemia is a complication of surgical procedure [ ] Acute blood loss anemia is an expected outcome of the surgical procedure [ ] Other please specify ____ [x ] Unable to determine (Template Last Revised: November 2020) MTDD
[2021-04-20 16:31] VITALS: PULSE 88; RESP 16
[2021-04-20 17:28] LABS: Glucose,Whole Blood 164 mg/dL (75-99)
--- NOTE | 2021-04-20 17:37 | P.PN ---
Subjective Progress Note Date: 04/19/21 Progress Note Date: 04/19/21 HISTORY OF PRESENT ILLNESS This is a 60-year-old female patient of Dr. Poole with past medical history of hypertension, hyperlipidemia, hypothyroidism, left breast cancer, diabetes mellitus type 2. Patient underwent bilateral mastectomy, left axillary sentinel lymph node biopsy and removal of Mediport by Dr. Lopez and reconstruction of bilateral breast with implantation by Dr. Barreto on 04/13. Patient has been afebrile. She has had mild tachycardia for which she is cleared to have her beta silver. Her blood pressure has been on the lower side. Blood sugars are elevated secondary to steroid use, WBC 12.7, hemoglobin 11.6. 04/15: Noted to have a drop in her pulse ox 91% and continues to have mild tachycardia. Patient is reaching 750 ML's on incentive spirometry. Chest x-ray done reveals large area of consolidation compatible with infiltrate left lung with small effusion. Patient started on Levaquin 500 mg IV piggyback every day and DuoNeb treatments 4 times daily scheduled and as needed. Requested that discharge be held. Otherwise patient has been afebrile, heart rate in the 107- 112, blood pressure 101/49, pulse ox 90% on room air. Repeat blood work will be ordered for tomorrow. Blood sugars remain elevated 251-321 and 5 units of scheduled NovoLog added before meals and at bedtime, scale change to before meals and at bedtime. 04/16: Patient underwent a portable chest x-ray yesterday that showed left-sided pleural effusion as well as left lower lobe pneumonia, she was started on Levaquin 500 mg IV piggyback every 24 hours along with DuoNeb 3 mg nebulization 4 times every day, along with oxygen support, she was instructed to use incentive spirometer, I recommended to give the patient the hospital until further evaluation, so far she is doing a bit better today, she has no chest pain she continued to have some pleurisy with deep inspiration, she continued to have minimal tachycardia however she is currently on metoprolol 25 mg orally twice every day, she has no pressure or tightness in her chest, she has no abdominal pain, we will continue to monitor. 04/17: Patient is short of breath and he continued to have increased coughing, tachycardic, around 09/18/2016 appears to be regular, we will transfer to telemetry unit, check labs, order CTA of the chest ruled out pulmonary embolism, continue Levaquin 500 mg IV piggyback daily, add Zosyn 3.375 g IV piggyback every 8 hours, Pulmicort consultation 04/18: patient is doing better today she denies any chest pain, she can need to have some shortness breath, she continues to have a dry cough not able to bring any phlegm, no fever no chills, she continued to have some pleurisy, computed tomography scan of the chest with contrast was negative for pulmonary embolism did show left lower lobe pneumonia with parapneumonic effusion that appears to be small , GERMAN drain continues to be in place, patient is feeling a bit better than yesterday, continue current treatment plan patient will be seen in c onsultation by pulmonary medicine today. 04/19: Patient is sitting up in bed she continues to have some dry cough production, she has no fever or chills, less short of breath, chest x-ray showed small pleural effusion with left lower lobe pneumonia, continue IV antibiotic in the form of Zosyn and Levaquin, patient was seen in consultation by for medicine patient will likely be discharged home the next 24 hours on oral antibiotic. REVIEW OF SYSTEMS Constitutional: No fever, no chills, no night sweats. No weight change. No weakness, fatigue or lethargy. No daytime sleepiness. HEENT: No headache. No blurred vision or double vision, no loss of vision. No loss of Hearing, no ringing in the ears, no dizziness. No nasal drainage or congestion. No epistaxis. No sore throat. Lungs: Mild shortness of breath, cough, no sputum production. No wheezing. Cardiovascular: No chest pain, no lower extremity edema. No palpitations. No paroxysmal nocturnal dyspnea. No orthopnea. No lightheadedness or dizziness. No syncopal episodes. Abdominal: No abdominal pain. No nausea, vomiting. No diarrhea. No constipation. No bloody or tarry stools.. No loss of appetite. Genitourinary: No dysuria, increased frequency, urgency. No urinary retention. Musculoskeletal: No myalgias. No muscle weakness, no gait dysfunction, no frequent falls. No back pain. No neck pain. Integumentary: wounds clean with GERMAN drains, no lesions. No rash or pruritus. No unusual bruising. No change in hair or nails. Neurologic: No aphasia. No facial droop. No change in mentation. No head injury. No headache. No paralysis. No paresthesia. Psychiatric: No depression. No anxiety. No mood swings. Endocrine: Noted abnormal blood sugars. No weight change. PHYSICAL EXAMINATION Gen: This is a 60-year-old female. She is resting in bed appears to be comfortable and in no acute distress. HEENT: Head is atraumatic, normocephalic. Pupils equal, round. Sclerae is anicteric. NECK: Supple. No JVD. No lymphadenopathy. No thyromegaly. LUNGS: Left lower lobe diminished, decreased breath sounds at the bases, few rhonchi positive for egophony at the left lower base, no chest wall tenderness no intercostal retractions. GERMAN drains in place. HEART: First heart sound is depressed, second heart sound is normal, 2/6 systolic ejection murmur at left sternal border, tachycardic BREAST: Dressing in place to the bilateral breasts, GERMAN drains in place with serosanguineous drainage. ABDOMEN: Soft. Bowel sounds are present. No masses. No tenderness. EXTREMITIES: +1 pedal edema. No calf tenderness. Dorsalis pedis +2 bilaterally NEUROLOGICAL: Patient is awake, alert and oriented x3. Cranial nerves 2 through 12 are grossly intact, cranial nerves II through XII appear grossly intact muscle power 5 out of 5 in upper and lower extremity bilaterally. ASSESSMENT AND PLAN 1. Left-sided breast cancer status post bilateral mastectomy and reconstruction, postop day #3. Continue current pain management per surgery, incentive spirometry to reduce incidence of atelectasis and hospital-acquired pneumonia. 2. Left-sided pneumonia with a pneumonic effusion. Patient is on Levaquin 500 mg IV piggyback daily, DuoNeb treatments 4 times daily and as needed, encourage incentive spirometry and increase activity, continue Zosyn 3.375 g IV piggyback every 8 hours, computed tomography scan of the chest showed evidence of left l ower lobe pneumonia with parapneumonic effusion,no evidence of pulmonary embolism. 3. Diabetes mellitus type 2 with hyperglycemia secondary to steroids. Continue Levemir 14 units at bedtime and NovoLog scale. 4. Sinus tachycardia. Continue Lopressor 25 mg twice daily and treat underlying cause., Transferred to telemetry. 5. Hypertension and hypertensive cardiovascular disease. Continue metoprolol 25 orally twice every day. 6. Hypothyroidism given the levothyroxine 50 g daily. 7. GI prophylaxis. Pepcid twice daily. 8. Hyperlipidemia. Continue atorvastatin 40 mg at bedtime. 9. DVT prophylaxis. SCDs and MOE hose, heparin subcu three times daily. 10. Edema start the patient on Lasix 20 mg IV push daily along with dust supplement, bilateral knee-high MOE hose. 11. Constipation. Start the patient on Senokot 2 tablets at bedtime. 12. prognosis is guarded. 13. increase activity. 14. Home tomorrow morning. Objective - Vital Signs Vital signs: Vital Signs Temp 98.5 F 04/19/21 08:01 Pulse 103 H 04/19/21 08:01 Resp 16 04/19/21 08:01 BP 137/73 04/19/21 08:01 Pulse Ox 96 04/19/21 08:01 Intake & Output 04/18/21 04/19/21 04/19/21 18:59 06:59 18:59 Intake Total 480 1200 Output Total 90 500 Balance 390 700 Intake: Intake, IV Titration 240 Amount Lactated Ringers 1,000 ml 240 @ 20 mls/hr IV .Q24H [facility] Rx#:[id number] Oral 480 960 Output: Drainage 90 Left Chest 50 Right Chest 40 Urine 500 Other: Voiding Method Toilet Toilet # Voids 1 1 # Bowel Movements 1 1 - Labs CBC & Chem 7: 04/18/21 05:31 04/18/21 05:31 Labs: Abnormal Lab Results - Last 24 Hours (Table) 04/18/21 04/18/21 04/18/21 Range/Units 05:31 05:31 11:48 RBC 3.07 L (4.10-5.20) X 10*6/uL Hgb 8.9 L (12.0-15.0) g/dL Hct 28.5 L (37.2-46.3) % MCHC 31.2 L (32.0-37.0) g/dL RDW 14.7 H (11.5-14.5) % Lymphocytes # 0.81 L (0.90-5.00) X 10*3/uL Est GFR (CKD-EPI)NonAf 53.8 L (60.0-200.0) Glucose 145 H (70-110) mg/dL POC Glucose (mg/dL) 207 H (75-99) mg/dL Calcium 7.7 L (8.7-10.3) mg/dL AST 48 H (13-35) U/L Total Protein 5.1 L (6.2-8.2) g/dL Albumin 3.00 L (3.80-4.90) g/dL Albumin/Globulin Ratio 1.43 L (1.60-3.17) g/dL 04/18/21 04/18/21 04/19/21 Range/Units 17:31 21:18 07:51 RBC (4.10-5.20) X 10*6/uL Hgb (12.0-15.0) g/dL Hct (37.2-46.3) % MCHC (32.0-37.0) g/dL RDW (11.5-14.5) % Lymphocytes # (0.90-5.00) X 10*3/uL Est GFR (CKD-EPI)NonAf (60.0-200.0) Glucose (70-110) mg/dL POC Glucose (mg/dL) 206 H 189 H 167 H (75-99) mg/dL Calcium (8.7-10.3) mg/dL AST (13-35) U/L Total Protein (6.2-8.2) g/dL Albumin (3.80-4.90) g/dL Albumin/Globulin Ratio (1.60-3.17) g/dL Microbiology - Last 24 Hours (Table) 04/17/21 12:02 Blood Culture - Preliminary Blood No Growth after 24 hours 04/17/21 11:38 Blood Culture - Preliminary Blood No Growth after 24 hours
--- NOTE | 2021-04-20 18:23 | P.PN ---
Subjective Progress Note Date: 04/20/21 Progress Note Date: 04/19/21 HISTORY OF PRESENT ILLNESS This is a 60-year-old female patient of Dr. Poole with past medical history of hypertension, hyperlipidemia, hypothyroidism, left breast cancer, diabetes mellitus type 2. Patient underwent bilateral mastectomy, left axillary sentinel lymph node biopsy and removal of Mediport by Dr. Lopez and reconstruction of bilateral breast with implantation by Dr. Barreto on 04/13. Patient has been afebrile. She has had mild tachycardia for which she is cleared to have her beta silver. Her blood pressure has been on the lower side. Blood sugars are elevated secondary to steroid use, WBC 12.7, hemoglobin 11.6. 04/15: Noted to have a drop in her pulse ox 91% and continues to have mild tachycardia. Patient is reaching 750 ML's on incentive spirometry. Chest x-ray done reveals large area of consolidation compatible with infiltrate left lung with small effusion. Patient started on Levaquin 500 mg IV piggyback every day and DuoNeb treatments 4 times daily scheduled and as needed. Requested that discharge be held. Otherwise patient has been afebrile, heart rate in the 107- 112, blood pressure 101/49, pulse ox 90% on room air. Repeat blood work will be ordered for tomorrow. Blood sugars remain elevated 251-321 and 5 units of scheduled NovoLog added before meals and at bedtime, scale change to before meals and at bedtime. 04/16: Patient underwent a portable chest x-ray yesterday that showed left-sided pleural effusion as well as left lower lobe pneumonia, she was started on Levaquin 500 mg IV piggyback every 24 hours along with DuoNeb 3 mg nebulization 4 times every day, along with oxygen support, she was instructed to use incentive spirometer, I recommended to give the patient the hospital until further evaluation, so far she is doing a bit better today, she has no chest pain she continued to have some pleurisy with deep inspiration, she continued to have minimal tachycardia however she is currently on metoprolol 25 mg orally twice every day, she has no pressure or tightness in her chest, she has no abdominal pain, we will continue to monitor. 04/17: Patient is short of breath and he continued to have increased coughing, tachycardic, around 09/18/2016 appears to be regular, we will transfer to telemetry unit, check labs, order CTA of the chest ruled out pulmonary embolism, continue Levaquin 500 mg IV piggyback daily, add Zosyn 3.375 g IV piggyback every 8 hours, Pulmicort consultation 04/18: patient is doing better today she denies any chest pain, she can need to have some shortness breath, she continues to have a dry cough not able to bring any phlegm, no fever no chills, she continued to have some pleurisy, computed tomography scan of the chest with contrast was negative for pulmonary embolism did show left lower lobe pneumonia with parapneumonic effusion that appears to be small , GERMAN drain continues to be in place, patient is feeling a bit better than yesterday, continue current treatment plan patient will be seen in c onsultation by pulmonary medicine today. 04/19: Patient is sitting up in bed she continues to have some dry cough production, she has no fever or chills, less short of breath, chest x-ray showed small pleural effusion with left lower lobe pneumonia, continue IV antibiotic in the form of Zosyn and Levaquin, patient was seen in consultation by for medicine patient will likely be discharged home the next 24 hours on oral antibiotic. 04/20: Patient is feeling a lot better today she denies any chest pain, shortness breath, less coughing, no fever no chills, increase activity, using spirometer, was seen earlier by surgery and pulmonary she will be discharged home on oral antibiotic and follow-up with me as an outpatient in 1 week. REVIEW OF SYSTEMS Constitutional: No fever, no chills, no night sweats. No weight change. No weakness, fatigue or lethargy. No daytime sleepiness. HEENT: No headache. No blurred vision or double vision, no loss of vision. No loss of Hearing, no ringing in the ears, no dizziness. No nasal drainage or congestion. No epistaxis. No sore throat. Lungs: Mild shortness of breath, cough, no sputum production. No wheezing. Cardiovascular: No chest pain, no lower extremity edema. No palpitations. No paroxysmal nocturnal dyspnea. No orthopnea. No lightheadedness or dizziness. No syncopal episodes. Abdominal: No abdominal pain. No nausea, vomiting. No diarrhea. No constipation. No bloody or tarry stools.. No loss of appetite. Genitourinary: No dysuria, increased frequency, urgency. No urinary retention. Musculoskeletal: No myalgias. No muscle weakness, no gait dysfunction, no frequent falls. No back pain. No neck pain. Integumentary: wounds clean with GERMAN drains, no lesions. No rash or pruritus. No unusual bruising. No change in hair or nails. Neurologic: No aphasia. No facial droop. No change in mentation. No head injury. No headache. No paralysis. No paresthesia. Psychiatric: No depression. No anxiety. No mood swings. Endocrine: Noted abnormal blood sugars. No weight change. PHYSICAL EXAMINATION Gen: This is a 60-year-old female. She is resting in bed appears to be comfortable and in no acute distress. HEENT: Head is atraumatic, normocephalic. Pupils equal, round. Sclerae is anicteric. NECK: Supple. No JVD. No lymphadenopathy. No thyromegaly. LUNGS: Left lower lobe diminished, decreased breath sounds at the bases, few rhonchi positive for egophony at the left lower base, no chest wall tenderness no intercostal retractions. GERMAN drains in place. HEART: First heart sound is depressed, second heart sound is normal, 2/6 systolic ejection murmur at left sternal border, tachycardic BREAST: Dressing in place to the bilateral breasts, GERMAN drains in place with serosanguineous drainage. ABDOMEN: Soft. Bowel sounds are present. No masses. No tenderness. EXTREMITIES: +1 pedal edema. No calf tenderness. Dorsalis pedis +2 bilaterally NEUROLOGICAL: Patient is awake, alert and oriented x3. Cranial nerves 2 through 12 are grossly intact, cranial nerves II through XII appear grossly intact muscle power 5 out of 5 in upper and lower extremity bilaterally. ASSESSMENT AND PLAN 1. Left-sided breast cancer status post bilateral mastectomy and reconstruction, postop day #4. Continue current pain management per surgery, incentive spirometry to reduce incidence of atelectasis and hospital-acquired pneumonia. 2. Left-sided pneumonia with a pneumonic effusion. We'll switch of admission: Levaquin 500 mg orally once every day for the next 10 days, follow-up with me as an outpatient. 3. Diabetes mellitus type 2 with hyperglycemia secondary to steroids. Continue Levemir 14 units at bedtime and NovoLog scale. 4. Sinus tachycardia. Continue Lopressor 25 mg twice daily and treat underlying cause., Transferred to telemetry. 5. Hypertension and hypertensive cardiovascular disease. Continue metoprolol 25 orally twice every day. 6. Hypothyroidism given the levothyroxine 50 g daily. 7. GI prophylaxis. Pepcid twice daily. 8. Hyperlipidemia. Continue atorvastatin 40 mg at bedtime. 9. DVT prophylaxis. SCDs and MOE hose, heparin subcu three times daily. 10. Edema start the patient on Lasix 20 mg IV push daily along with dust supplement, bilateral knee-high MOE hose. 11. Constipation. Start the patient on Senokot 2 tablets at bedtime. 12. prognosis is guarded. 13. increase activity. 14. Patient is medically stable for discharge. Objective - Vital Signs Vital signs: Vital Signs Temp 98.2 F 04/20/21 14:00 Pulse 88 04/20/21 16:39 Resp 16 04/20/21 16:39 BP 112/68 04/20/21 14:00 Pulse Ox 97 04/20/21 14:00 Intake & Output 04/19/21 04/20/21 04/20/21 18:59 06:59 18:59 Intake Total 180 Output Total 40 500 Balance -40 -500 180 Intake: Oral 180 Output: Drainage 40 Left Chest 20 Right Chest 20 Urine 500 Other: # Voids 1 1 # Bowel Movements 1 - Labs CBC & Chem 7: 04/18/21 05:31 04/18/21 05:31 Labs: Abnormal Lab Results - Last 24 Hours (Table) 04/19/21 04/20/21 04/20/21 Range/Units 20:37 07:14 12:08 POC Glucose (mg/dL) 207 H 228 H 237 H (75-99) mg/dL 04/20/21 Range/Units 17:27 POC Glucose (mg/dL) 164 H (75-99) mg/dL Microbiology - Last 24 Hours (Table) 04/17/21 12:02 Blood Culture - Preliminary Blood No Growth after 72 hours 04/17/21 11:38 Blood Culture - Preliminary Blood No Growth after 72 hours
== END 2021-04-20 18:31 | disposition home or self-care (01) | DRG 981 ==
LOC: OR 07:04 → EDSTATUS 09:00 → 6PED 14:02 → OR 04-14 13:22 → OBSVTOIN 04-16 07:38 → 6NMEDSUR 04-17 16:15
PROVIDERS: ADMIT Surgery; ATTEND Surgery
PROC: 0HTV0ZZ Resection of Bilateral Breast, Open Approach (ICD-10-PCS; principal; 2021-04-13 09:00)
PROC: 07B60ZX Excision of Left Axillary Lymphatic, Open Approach, Diagnostic (ICD-10-PCS; principal; 2021-04-13 09:00)
PROC: 0JPT0WZ Removal of Totally Implantable Vascular Access Device from Trunk Subcutaneous Tissue and Fascia, Open Approach (ICD-10-PCS; principal; 2021-04-13 09:00)
PROC: 0HHV0NZ Insertion of Tissue Expander into Bilateral Breast, Open Approach (ICD-10-PCS; 2021-04-13 09:00)
PROC: 0HUU0KZ Supplement Left Breast with Nonautologous Tissue Substitute, Open Approach (ICD-10-PCS; 2021-04-13 09:00)
DX: J18.9 Pneumonia, unspecified organism (principal); J96.01 Acute respiratory failure with hypoxia; J98.11 Atelectasis; J90 Pleural effusion, not elsewhere classified; C50.412 Malignant neoplasm of upper-outer quadrant of left female breast; I11.9 Hypertensive heart disease without heart failure; E11.65 Type 2 diabetes mellitus with hyperglycemia; E03.9 Hypothyroidism, unspecified; D64.9 Anemia, unspecified; Z79.4 Long term (current) use of insulin; Y95 Nosocomial condition; Z17.0 Estrogen receptor positive status [ER+]; T38.0X5A Adverse effect of glucocorticoids and synthetic analogues, initial encounter; E78.5 Hyperlipidemia, unspecified; K59.00 Constipation, unspecified; M19.90 Unspecified osteoarthritis, unspecified site; Z79.890 Hormone replacement therapy; Z79.899 Other long term (current) drug therapy; Z90.711 Acquired absence of uterus with remaining cervical stump; Z87.42 Personal history of other diseases of the female genital tract; Z86.16 Personal history of COVID-19; Z87.891 Personal history of nicotine dependence; Z92.21 Personal history of antineoplastic chemotherapy; Z90.49 Acquired absence of other specified parts of digestive tract; Z87.19 Personal history of other diseases of the digestive system; Z98.1 Arthrodesis status; Z90.89 Acquired absence of other organs; Z98.51 Tubal ligation status; Z98.890 Other specified postprocedural states; Z88.5 Allergy status to narcotic agent; Z82.49 Family history of ischemic heart disease and other diseases of the circulatory system; Z83.3 Family history of diabetes mellitus; Z83.49 Family history of other endocrine, nutritional and metabolic diseases; Z81.8 Family history of other mental and behavioral disorders
CPT/HCPCS: 38792; 71045; 71046; 71275; 80048; 80053; 85025; 87040; 88307; 88331; 88341; 88342; 94640; 94760

== ENCOUNTER 2021-04-27 22:54 | Emergency (ER) | payer MEDICARE, BC ==
[2021-04-27 23:01] VITALS: BP 137/68; RESP 20; TEMP 99
--- NOTE | 2021-04-27 23:26 | ED ---
Recheck HPI - General Chief Complaint: Recheck/Abnormal Lab/Rx Stated Complaint: Post-op complications Time Seen by Provider: 04/27/21 23:25 Source: patient, RN notes reviewed, old records reviewed Mode of arrival: ambulatory Limitations: no limitations - History of Present Illness Initial Comments: This is a 60-year-old female to the emergency department. Patient presents emergency department today for evaluation of bilateral mastectomy with left si ded chest pain. Patient does have placed currently. She feels like to the left may have slept or flapped because the pain over there is very severe. Some increased redness on the left side and has had more problems the left side of the right since it began. Denies any fevers no chest pain or shortness of breath MD Complaint: medication refill request -: days(s) Returns Today for: persistent/worsening pain related to initial visit Symptoms Since Prior Visit: worsening pain Context: planned re-check Associated Symptoms: malaise, nausea Treatments Prior to Arrival: Given Pain Meds on - Related Data Home Medications Medication Instructions Recorded Confirmed Levothyroxine Sodium [Synthroid] 50 mcg PO DAILY 07/16/20 04/08/21 Atorvastatin [Lipitor] 40 mg PO HS 08/19/20 04/08/21 Metoprolol Tartrate [Lopressor] 25 mg PO BID 08/21/20 04/08/21 Insulin Aspart [NovoLOG Flexpen] 0 units SQ AC-TID 11/15/20 04/08/21 Insulin Glargine,Hum.rec.anlog 14 units SQ HS 11/15/20 04/08/21 [Lantus Solostar Pen] [place]-3 Fatty Acids/Fish Oil [Fish 1 cap PO DAILY 11/15/20 04/08/21 Oil 1,000 mg Softgel] Vitamin B Complex 1 each PO DAILY 04/08/21 04/08/21 Previous Rx's Medication Instructions Recorded HYDROcodone/APAP 5-325MG [[place] 1 - 2 tab PO Q4H PRN #30 tab 04/15/21 5-325] Naproxen Sodium [Aleve] 1 - 2 mg PO Q12HR PRN #90 tab 04/15/21 Docusate [Colace] 100 mg PO BID cap 04/20/21 Famotidine [Pepcid] 20 mg PO BID tab 04/20/21 Levofloxacin [Levaquin] 500 mg PO Q24H #10 tab 04/20/21 Allergies Allergy/AdvReac Type Severity Reaction Status Date / Time codeine AdvReac Nausea & Verified 04/27/21 23:01 Vomiting tramadol AdvReac Nausea & Verified 04/27/21 23:01 Vomiting Review of Systems ROS Statement: Those systems with pertinent positive or pertinent negative responses have been documented in the HPI. ROS Other: All systems not noted in ROS Statement are negative. Past Medical History Past Medical History: Cancer, Diabetes Mellitus, Hyperlipidemia, Hypertension, Musculoskeletal Disorder, Osteoarthritis (OA) Additional Past Medical History / Comment(s): History of left-sided breast cancer post-neoadjuvant chemotherapy last dose being on 02/10/2021, history of COVID-19 infection back in December 2020, diabetes mellitus, hypertension, hyperlipidemia History of Any Multi-Drug Resistant Organisms: None Reported Past Surgical History: Appendectomy, Breast Surgery, Cholecystectomy, H ysterectomy, Orthopedic Surgery, Tonsillectomy, Tubal Ligation Additional Past Surgical History / Comment(s): Cervical decompression and fusion placement of interbody graft c4-c7, surgical left breast biopsy benign - 2013, left breast core biopsy - positive cancer 08/22. Dental work, t5-t6 fusion Past Anesthesia/Blood Transfusion Reactions: Family History of Problems w/ Anesthesia, Postoperative Nausea & Vomiting (PONV) Additional Past Anesthesia/Blood Transfusion Reaction / Comment(s): MOTHER PONV. has had blood transfusion without reaction Past Psychological History: No Psychological Hx Reported Smoking Status: Former smoker Past Alcohol Use History: Occasional Past Drug Use History: None Reported - Past Family History Mother Family Medical History: Coronary Artery Disease (CAD) Father Family Medical History: Unable to Obtain Additional Family Medical History / Comment(s): Patient stated that she does have additional half-brothers and sisters that she does not know much about. Brother(s) Family Medical History: Cancer General Exam Limitations: no limitations General appearance: alert, in no apparent distress, anxious Head exam: Present: atraumatic, normocephalic, normal inspection Eye exam: Present: normal appearance, PERRL, EOMI. Absent: scleral icterus, conjunctival injection, periorbital swelling ENT exam: Present: normal exam, mucous membranes moist Neck exam: Present: normal inspection. Absent: tenderness, meningismus, lymphadenopathy Respiratory exam: Present: normal lung sounds bilaterally. Absent: respiratory distress, wheezes, rales, rhonchi, stridor Cardiovascular Exam: Present: normal rhythm, tachycardia, normal heart sounds. Absent: systolic murmur, diastolic murmur, rubs, gallop, clicks GI/Abdominal exam: Present: soft, normal bowel sounds. Absent: distended, tenderness, guarding, rebound, rigid Extremities exam: Present: normal inspection, full ROM, normal capillary refill. Absent: tenderness, pedal edema, joint swelling, calf tenderness Back exam: Present: normal inspection Neurological exam: Present: alert, oriented X3, CN II-XII intact Psychiatric exam: Present: normal affect, normal mood Skin exam: Present: warm, dry, intact, normal color. Absent: rash Course Vital Signs 04/27/21 04/28/21 22:56 02:07 Temperature 99.0 F Pulse Rate 115 H 90 Respiratory 20 20 Rate Blood Pressure 137/68 O2 Sat by Pulse 98 98 Oximetry - Reevaluation(s) Reevaluation #1: 04/27/21 Medical record is reviewed Symptoms are improved here in the emergency department Patient informed results and questions answered Patient is in no acute distress Medical Decision Making - Medical Decision Making 60 female to the emergency room today for evaluation of chest pain related to recent breast surgery. Pain here in the emergency room is resolved. Patient will follow-up with surgeon regarding findings - Lab Data Result diagrams: 04/28/21 00:02 04/28/21 00:02 Lab Results 04/28/21 04/28/21 04/28/21 Range/Units 00:02 00:02 00:02 WBC 8.2 (3.8-10.6) k/uL RBC 3.69 L (3.80-5.40) m/uL Hgb 11.2 L (11.4-16.0) gm/dL Hct 34.2 (34.0-46.0) % MCV 92.7 (80.0-100.0) fL MCH 30.3 (25.0-35.0) pg MCHC 32.6 (31.0-37.0) g/dL RDW 15.1 (11.5-15.5) % Plt Count 392 D (150-450) k/uL MPV 8.0 Neutrophils % 71 % Lymphocytes % 12 % Monocytes % 8 % Eosinophils % 8 % Basophils % 0 % Neutrophils # 5.8 (1.3-7.7) k/uL Lymphocytes # 1.0 (1.0-4.8) k/uL Monocytes # 0.6 (0-1.0) k/uL Eosinophils # 0.6 (0-0.7) k/uL Basophils # 0.0 (0-0.2) k/uL Hypochromasia Slight PT 10.6 (9.0-12.0) sec INR 1.0 (<1.2) APTT 22.9 (22.0-30.0) sec Sodium 136 L (137-145) mmol/L Potassium 4.4 (3.5-5.1) mmol/L Chloride 103 (98-107) mmol/L Carbon Dioxide 25 (22-30) mmol/L Anion Gap 8 mmol/L BUN 14 (7-17) mg/dL Creatinine 1.02 (0.52-1.04) mg/dL Est GFR (CKD-EPI)AfAm 69 (>60 ml/min/1.73 sqM) Est GFR (CKD-EPI)NonAf 59 (>60 ml/min/1.73 sqM) Glucose 195 H (74-99) mg/dL Plasma Lactic Acid Bull (0.7-2.0) mmol/L Calcium 8.7 (8.4-10.2) mg/dL Phosphorus 3.3 (2.5-4.5) mg/dL Magnesium 1.7 (1.6-2.3) mg/dL Total Bilirubin 0.4 (0.2-1.3) mg/dL AST 54 H (14-36) U/L ALT 40 H (4-34) U/L Alkaline Phosphatase 97 (38-126) U/L Creatine Kinase 38 (30-135) U/L Troponin I (0.000-0.034) ng/mL NT-Pro-B Natriuret Pep pg/mL Total Protein 6.1 L (6.3-8.2) g/dL Albumin 3.3 L (3.5-5.0) g/dL 04/28/21 04/28/21 04/28/21 Range/Units 00:02 00:02 00:02 WBC (3.8-10.6) k/uL RBC (3.80-5.40) m/uL Hgb (11.4-16.0) gm/dL Hct (34.0-46.0) % MCV (80.0-100.0) fL MCH (25.0-35.0) pg MCHC (31.0-37.0) g/dL RDW (11.5-15.5) % Plt Count (150-450) k/uL MPV Neutrophils % % Lymphocytes % % Monocytes % % Eosinophils % % Basophils % % Neutrophils # (1.3-7.7) k/uL Lymphocytes # (1.0-4.8) k/uL Monocytes # (0-1.0) k/uL Eosinophils # (0-0.7) k/uL Basophils # (0-0.2) k/uL Hypochromasia PT (9.0-12.0) sec INR (<1.2) APTT (22.0-30.0) sec Sodium (137-145) mmol/L Potassium (3.5-5.1) mmol/L Chloride (98-107) mmol/L Carbon Dioxide (22-30) mmol/L Anion Gap mmol/L BUN (7-17) mg/dL Creatinine (0.52-1.04) mg/dL Est GFR (CKD-EPI)AfAm (>60 ml/min/1.73 sqM) Est GFR (CKD-EPI)NonAf (>60 ml/min/1.73 sqM) Glucose (74-99) mg/dL Plasma Lactic Acid Bull 1.6 (0.7-2.0) mmol/L Calcium (8.4-10.2) mg/dL Phosphorus (2.5-4.5) mg/dL Magnesium (1.6-2.3) mg/dL Total Bilirubin (0.2-1.3) mg/dL AST (14-36) U/L ALT (4-34) U/L Alkaline Phosphatase (38-126) U/L Creatine Kinase (30-135) U/L Troponin I 0.019 (0.000-0.034) ng/mL NT-Pro-B Natriuret Pep 2910 pg/mL Total Protein (6.3-8.2) g/dL Albumin (3.5-5.0) g/dL - EKG Data -: EKG Interpreted by Me (EKG is sinus rhythm 98 NC 200 QRS 84 QTc 454) - Radiology Data Radiology results: report reviewed (Chest x-rays negative for acute disease), image reviewed Disposition Clinical Impression: Postoperative pain Disposition: HOME SELF-CARE Condition: Good Instructions (If sedation given, give patient instructions): Pain Management After Surgery (DC) Is patient prescribed a controlled substance at d/c from ED?: No Referrals: Dion Poole MD [Primary Care Provider] - 1-2 days
--- NOTE | 2021-04-28 00:14 | XR ---
EXAMINATION TYPE: XR chest 2V DATE OF EXAM: 04/27/2021 COMPARISON: 1720 HISTORY: Weakness TECHNIQUE: 2 views FINDINGS: Heart and mediastinum are normal. Lungs are clear of consolidation. There is some blunting left costophrenic angle. There is some mild pleural thickening at the left lateral chest wall. There is previous left thoracotomy defect. There are bilateral breast implants. There is a left side chest tube. No pneumothorax. IMPRESSION: There is some pleural thickening on the left side. There is reduction of the pleural flui d and significant improvement compared to recent exam. No heart failure. Normal heart.
[2021-04-28] MEDS ORDERED: MORPHINE SULFATE 4 MG/ML SYRINGE IVP STA (00:18)
[2021-04-28 00:45] LABS: Albumin 3.3 g/dL (3.5-5.0); Calcium 8.7 mg/dL (8.4-10.2); Magnesium 1.7 mg/dL (1.6-2.3); Phosphorus 3.3 mg/dL (2.5-4.5); Potassium 4.4 mmol/L (3.5-5.1); Total Bilirubin 0.4 mg/dL (0.2-1.3); Total Protein 6.1 g/dL (6.3-8.2)
[2021-04-28 00:56] LABS: Partial Thromboplastin Time 22.9 sec (22.0-30.0); Prothrombin Time 10.6 sec (9.0-12.0)
[2021-04-28 01:03] LABS: Basophils % (A) 0 %; Eosinophils # (A) 0.6 k/uL (0-0.7); Eosinophils % (A) 8 %; HCT 34.2 % (34.0-46.0); HGB 11.2 gm/dL (11.4-16.0); Hypochromasia Slight; Lymphocytes % (A) 12 %; MCH 30.3 pg (25.0-35.0); MCHC 32.6 g/dL (31.0-37.0); MCV 92.7 fL (80.0-100.0); Monocytes # (A) 0.6 k/uL (0-1.0); Monocytes % (A) 8 %; Neutrophils # (A) 5.8 k/uL (1.3-7.7); Neutrophils % (A) 71 %; RBC 3.69 m/uL (3.80-5.40); RDW 15.1 % (11.5-15.5); WBC 8.2 k/uL (3.8-10.6)
[2021-04-28 01:08] LABS: Platelet Count 392 k/uL (150-450)
[2021-04-28 02:45] VITALS: PULSE 90
== END 2021-04-28 02:10 | disposition home or self-care (01) ==
LOC: EC 22:54
DX: R07.89 Other chest pain (principal); G89.18 Other acute postprocedural pain; I10 Essential (primary) hypertension; E11.9 Type 2 diabetes mellitus without complications; E78.5 Hyperlipidemia, unspecified; M19.90 Unspecified osteoarthritis, unspecified site; Z79.4 Long term (current) use of insulin; Z88.1 Allergy status to other antibiotic agents; Z88.5 Allergy status to narcotic agent; Z85.3 Personal history of malignant neoplasm of breast; Z86.16 Personal history of COVID-19; Z90.49 Acquired absence of other specified parts of digestive tract; Z90.710 Acquired absence of both cervix and uterus; Z90.89 Acquired absence of other organs; Z98.51 Tubal ligation status; Z87.891 Personal history of nicotine dependence; Z90.13 Acquired absence of bilateral breasts and nipples
CPT/HCPCS: 71046; 80053; 82550; 83605; 83735; 83880; 84100; 84484; 85025; 85610; 85730; 93005; 99285

== ENCOUNTER 2021-06-29 23:52 | Emergency (ER) | payer MEDICARE, BC ==
[2021-06-30 01:00] LABS: Glucose,Whole Blood 249 mg/dL (75-99)
[2021-06-30 01:06] LABS: Basophils % (A) 0 %; Eosinophils % (A) 0 %; HCT 40.2 % (34.0-46.0); HGB 12.4 gm/dL (11.4-16.0); Lymphocytes # (A) 0.9 k/uL (1.0-4.8); Lymphocytes % (A) 9 %; MCH 26.4 pg (25.0-35.0); MCHC 30.8 g/dL (31.0-37.0); Mean Platelet Volume 7.7; Monocytes # (A) 0.5 k/uL (0-1.0); Monocytes % (A) 5 %; Neutrophils # (A) 8.3 k/uL (1.3-7.7); Neutrophils % (A) 86 %; Platelet Count 209 k/uL (150-450); RBC 4.69 m/uL (3.80-5.40); RDW 14.4 % (11.5-15.5); WBC 9.7 k/uL (3.8-10.6)
[2021-06-30 01:15] LABS: MCV 85.6 fL (80.0-100.0)
[2021-06-30 01:20] LABS: Potassium 4.6 mmol/L (3.5-5.1)
[2021-06-30 02:09] LABS: Glucose,Whole Blood 243 mg/dL (75-99)
--- NOTE | 2021-06-30 03:11 | ED ---
General Adult HPI - General Chief complaint: Recheck/Abnormal Lab/Rx Stated complaint: doubled insulin Time Seen by Provider: 06/30/21 00:11 Source: patient Mode of arrival: wheelchair Limitations: no limitations - History of Present Illness Initial comments: This patient is a 60-year-old woman who presents with concern that she had actually taken a second dose of her short-acting insulin tonight. Patient states that it came time to take her usual insulin. She took her short-acting insulin as usual and then instead of her long-acting she accidentally gave a second dose of the short-acting and some. Following that she did have something to eat and then came here for evaluation. The patient states she is not having symptoms other than feeling somewhat anxious because of the error. -: minutes(s) Severity scale (1-10): 0 Improves with: none Worsens with: none Associated Symptoms: other (Anxiety) Treatments Prior to Arrival: none - Related Data Home Medications Medication Instructions Recorded Confirmed Levothyroxine Sodium [Synthroid] 50 mcg PO DAILY 07/16/20 04/08/21 Atorvastatin [Lipitor] 40 mg PO HS 08/19/20 04/08/21 Metoprolol Tartrate [Lopressor] 25 mg PO BID 08/21/20 04/08/21 Insulin Aspart [NovoLOG Flexpen] 0 units SQ AC-TID 11/15/20 04/08/21 Insulin Glargine,Hum.rec.anlog 14 units SQ HS 11/15/20 04/08/21 [Lantus Solostar Pen] [place]-3 Fatty Acids/Fish Oil [Fish 1 cap PO DAILY 11/15/20 04/08/21 Oil 1,000 mg Softgel] Vitamin B Complex 1 each PO DAILY 04/08/21 04/08/21 Previous Rx's Medication Instructions Recorded HYDROcodone/APAP 5-325MG [[place] 1 - 2 tab PO Q4H PRN #30 tab 04/15/21 5-325] Naproxen Sodium [Aleve] 1 - 2 mg PO Q12HR PRN #90 tab 04/15/21 Docusate [Colace] 100 mg PO BID cap 04/20/21 Famotidine [Pepcid] 20 mg PO BID tab 04/20/21 Levofloxacin [Levaquin] 500 mg PO Q24H #10 tab 04/20/21 Allergies Allergy/AdvReac Type Severity Reaction Status Date / Time codeine AdvReac Nausea & Verified 06/30/21 00:00 Vomiting tramadol AdvReac Nausea & Verified 06/30/21 00:00 Vomiting Review of Systems ROS Statement: Those systems with pertinent positive or pertinent negative responses have been documented in the HPI. ROS Other: All systems not noted in ROS Statement are negative. Constitutional: Denies: fever, chills, weakness Respiratory: Denies: cough, dyspnea Cardiovascular: Denies: chest pain, palpitations Gastrointestinal: Denies: abdominal pain, nausea, vomiting, diarrhea Genitourinary: Denies: dysuria, hematuria Skin: Denies: rash Neurological: Denies: headache Psychiatric: Reports: anxiety Past Medical History Past Medical History: Cancer, Diabetes Mellitus, Hyperlipidemia, Hypertension, Musculoskeletal Disorder, Osteoarthritis (OA) Additional Past Medical History / Comment(s): History of left-sided breast cancer post-neoadjuvant chemotherapy last dose being on 02/10/2021, history of COVID-19 infection back in December 2020, diabetes mellitus, hypertension, hy perlipidemia History of Any Multi-Drug Resistant Organisms: None Reported Past Surgical History: Appendectomy, Breast Surgery, Cholecystectomy, Hyster ectomy, Orthopedic Surgery, Tonsillectomy, Tubal Ligation Additional Past Surgical History / Comment(s): Cervical decompression and fusion placement of interbody graft c4-c7, surgical left breast biopsy benign - 2013, left breast core biopsy - positive cancer 08/22. Dental work, t5-t6 fusion Past Anesthesia/Blood Transfusion Reactions: Family History of Problems w/ Anesthesia, Postoperative Nausea & Vomiting (PONV) Additional Past Anesthesia/Blood Transfusion Reaction / Comment(s): MOTHER PONV. has had blood transfusion without reaction Past Psychological History: No Psychological Hx Reported Smoking Status: Former smoker Past Alcohol Use History: Occasional Past Drug Use History: None Reported - Past Family History Mother Family Medical History: Coronary Artery Disease (CAD) Father Family Medical History: Unable to Obtain Additional Family Medical History / Comment(s): Patient stated that she does have additional half-brothers and sisters that she does not know much about. Brother(s) Family Medical History: Cancer General Exam Limitations: no limitations General appearance: alert, in no apparent distress Head exam: Present: atraumatic, normocephalic Eye exam: Present: normal appearance. Absent: scleral icterus, conjunctival injection Neck exam: Present: normal inspection Respiratory exam: Present: normal lung sounds bilaterally. Absent: respiratory distress, wheezes, rales, rhonchi, stridor Cardiovascular Exam: Present: regular rate, normal rhythm, normal heart sounds. Absent: systolic murmur, diastolic murmur, rubs, gallop GI/Abdominal exam: Present: soft. Absent: distended, tenderness, guarding, rebound, rigid, mass Extremities exam: Present: normal inspection Back exam: Present: normal inspection Neurological exam: Present: alert, oriented X3. Absent: motor sensory deficit Skin exam: Present: warm, dry, intact, normal color. Absent: rash Course Vital Signs 06/30/21 06/30/21 00:00 03:10 Temperature 97.8 F 98.0 F Pulse Rate 107 H 89 Respiratory 20 18 Rate Blood Pressure 128/63 132/70 O2 Sat by Pulse 95 96 Oximetry Medical Decision Making - Medical Decision Making Patient's 60-year-old woman with accidental second dose of short-acting insulin. She is observed here in the emergency department through the half-life of her insulin without suffering any symptoms or hypoglycemia. Discussed appropriate further care and follow-up - Lab Data Result diagrams: 06/30/21 00:54 06/30/21 00:54 Lab Results 06/30/21 06/30/21 06/30/21 Range/Units 00:54 00:54 00:59 WBC 9.7 (3.8-10.6) k/uL RBC 4.69 (3.80-5.40) m/uL Hgb 12.4 (11.4-16.0) gm/dL Hct 40.2 (34.0-46.0) % MCV 85.6 D (80.0-100.0) fL MCH 26.4 (25.0-35.0) pg MCHC 30.8 L (31.0-37.0) g/dL RDW 14.4 (11.5-15.5) % Plt Count 209 (150-450) k/uL MPV 7.7 Neutrophils % 86 % Lymphocytes % 9 % Monocytes % 5 % Eosinophils % 0 % Basophils % 0 % Neutrophils # 8.3 H (1.3-7.7) k/uL Lymphocytes # 0.9 L (1.0-4.8) k/uL Monocytes # 0.5 (0-1.0) k/uL Eosinophils # 0.0 (0-0.7) k/uL Basophils # 0.0 (0-0.2) k/uL Sodium 135 L (137-145) mmol/L Potassium 4.6 (3.5-5.1) mmol/L Chloride 103 (98-107) mmol/L Carbon Dioxide 22 (22-30) mmol/L Anion Gap 10 mmol/L BUN 18 H (7-17) mg/dL Creatinine 0.88 (0.52-1.04) mg/dL Est GFR (CKD-EPI)AfAm 82 (>60 ml/min/1.73 sqM) Est GFR (CKD-EPI)NonAf 71 (>60 ml/min/1.73 sqM) Glucose 263 H (74-99) mg/dL POC Glucose (mg/dL) 249 H (75-99) mg/dL POC Glu Cosmetic Chemist ID Toshia Worley Calcium 9.0 (8.4-10.2) mg/dL 06/30/21 Range/Units 02:07 WBC (3.8-10.6) k/uL RBC (3.80-5.40) m/uL Hgb (11.4-16.0) gm/dL Hct (34.0-46.0) % MCV (80.0-100.0) fL MCH (25.0-35.0) pg MCHC (31.0-37.0) g/dL RDW (11.5-15.5) % Plt Count (150-450) k/uL MPV Neutrophils % % Lymphocytes % % Monocytes % % Eosinophils % % Basophils % % Neutrophils # (1.3-7.7) k/uL Lymphocytes # (1.0-4.8) k/uL Monocytes # (0-1.0) k/uL Eosinophils # (0-0.7) k/uL Basophils # (0-0.2) k/uL Sodium (137-145) mmol/L Potassium (3.5-5.1) mmol/L Chloride (98-107) mmol/L Carbon Dioxide (22-30) mmol/L Anion Gap mmol/L BUN (7-17) mg/dL Creatinine (0.52-1.04) mg/dL Est GFR (CKD-EPI)AfAm (>60 ml/min/1.73 sqM) Est GFR (CKD-EPI)NonAf (>60 ml/min/1.73 sqM) Glucose (74-99) mg/dL POC Glucose (mg/dL) 243 H (75-99) mg/dL POC Glu Cosmetic Chemist ID Magalys Rea Calcium (8.4-10.2) mg/dL Disposition Clinical Impression: Accidental overdose Disposition: HOME SELF-CARE Condition: Good Instructions (If sedation given, give patient instructions): Hypoglycemia in a Person with Diabetes (ED) Is patient prescribed a controlled substance at d/c from ED?: No Referrals: Dion Poole MD [Primary Care Provider] - 1-2 days
[2021-06-30 03:35] VITALS: BP 132/70; PULSE 89; RESP 18; TEMP 98
== END 2021-06-30 03:10 | disposition home or self-care (01) ==
LOC: EC 23:52
DX: T38.3X1A Poisoning by insulin and oral hypoglycemic [antidiabetic] drugs, accidental (unintentional), initial encounter (principal); E11.9 Type 2 diabetes mellitus without complications; E78.5 Hyperlipidemia, unspecified; I10 Essential (primary) hypertension; M19.90 Unspecified osteoarthritis, unspecified site; Z79.4 Long term (current) use of insulin; Z88.5 Allergy status to narcotic agent; Z88.1 Allergy status to other antibiotic agents; Z85.3 Personal history of malignant neoplasm of breast; Z90.49 Acquired absence of other specified parts of digestive tract; Z90.710 Acquired absence of both cervix and uterus; Z98.51 Tubal ligation status; Z90.89 Acquired absence of other organs; Z87.891 Personal history of nicotine dependence
CPT/HCPCS: 36415; 80048; 85025; 99284

== ENCOUNTER 2021-07-30 22:01 | Emergency (ER) | payer MEDICARE, BC ==
[2021-07-30 23:06] VITALS: BP 124/77; PULSE 100; RESP 20; TEMP 97.7
--- NOTE | 2021-07-30 23:53 | US ---
EXAMINATION TYPE: US venous doppler duplex LE RT DATE OF EXAM: 07/30/2021 11:45 PM COMPARISON: NONE CLINICAL HISTORY: rule out of dvt. Right leg pain SIDE PERFORMED: Right TECHNIQUE: The lower extremity deep venous system is examined utilizing real time linear array sonog kayleen with graded compression, doppler sonography and color-flow sonography. VESSELS IMAGED: Common Femoral Vein Deep Femoral Vein Greater Saphenous Vein * Femoral Vein Popliteal Vein Small Saphenous Vein * Proximal Calf Veins (* superficial vessels) Right Leg: Appears negative for DVT IMPRESSION: No evidence of deep vein thrombosis in the right leg.
--- NOTE | 2021-07-31 00:49 | ED ---
Lower Extremity Injury HPI - General Chief Complaint: Extremity Injury, Lower Stated Complaint: RT leg pain Source: patient, RN notes reviewed, old records reviewed Mode of arrival: ambulatory Limitations: no limitations - History of Present Illness Initial Comments: This is a 60-year-old female to the emergency room today. Patient Dese with right lower Shorty pain. History of cancer concern for DVT. Pain on the back of her right leg. No trauma noted. No travel history sick contacts. Patient on the concern for DVT has no complaints MD Complaint: other (Right eye pain) -: days(s) Injury: Knee: Right, Ankle: Right, Foot: Right Type of Injury: unknown Place: home Severity: moderate Severity scale (1-10): 4 Improves With: nothing Worsens With: nothing Context: direct blow Associated Symptoms: swelling, numbness Treatments Prior to Arrival: other (none) - Related Data Home Medications Medication Instructions Recorded Confirmed Levothyroxine Sodium [Synthroid] 50 mcg PO DAILY 07/16/20 04/08/21 Atorvastatin [Lipitor] 40 mg PO HS 08/19/20 04/08/21 Metoprolol Tartrate [Lopressor] 25 mg PO BID 08/21/20 04/08/21 Insulin Aspart [NovoLOG Flexpen] 0 units SQ AC-TID 11/15/20 04/08/21 Insulin Glargine,Hum.rec.anlog 14 units SQ HS 11/15/20 04/08/21 [Lantus Solostar Pen] [place]-3 Fatty Acids/Fish Oil [Fish 1 cap PO DAILY 11/15/20 04/08/21 Oil 1,000 mg Softgel] Vitamin B Complex 1 each PO DAILY 04/08/21 04/08/21 Previous Rx's Medication Instructions Recorded HYDROcodone/APAP 5-325MG [[place] 1 - 2 tab PO Q4H PRN #30 tab 04/15/21 5-325] Naproxen Sodium [Aleve] 1 - 2 mg PO Q12HR PRN #90 tab 04/15/21 Docusate [Colace] 100 mg PO BID cap 04/20/21 Famotidine [Pepcid] 20 mg PO BID tab 04/20/21 Levofloxacin [Levaquin] 500 mg PO Q24H #10 tab 04/20/21 Allergies Allergy/AdvReac Type Severity Reaction Status Date / Time codeine AdvReac Nausea & Verified 06/30/21 00:00 Vomiting tramadol AdvReac Nausea & Verified 06/30/21 00:00 Vomiting Review of Systems ROS Statement: Those systems with pertinent positive or pertinent negative responses have been documented in the HPI. ROS Other: All systems not noted in ROS Statement are negative. Past Medical History Past Medical History: Cancer, Diabetes Mellitus, Hyperlipidemia, Hypertension, Musculoskeletal Disorder, Osteoarthritis (OA) Additional Past Medical History / Comment(s): History of left-sided breast cancer post-neoadjuvant chemotherapy last dose being on 02/10/2021, history of COVID-19 infection back in December 2020, diabetes mellitus, hypertension, hyperlipidemia History of Any Multi-Drug Resistant Organisms: None Reported Past Surgical History: Appendectomy, Breast Surgery, Cholecystectomy, Hysterectomy, Orthopedic Surgery, Tonsillectomy, Tubal Ligation Additional Past Surgical History / Comment(s): Cervical decompression and fusion placement of interbody graft c4-c7, surgical left breast biopsy - 2013, left breast core biopsy - positive cancer 08/22. Dental work, t5-t6 fusion Past Anesthesia/Blood Transfusion Reactions: Family History of Problems w/ Anesthesia, Postoperative Nausea & Vomiting (PONV) Additional Past Anesthesia/Blood Transfusion Reaction / Comment(s): MOTHER PONV. has had blood transfusion without reaction Past Psychological History: No Psychological Hx Reported Smoking Status: Former smoker Past Alcohol Use History: Occasional Past Drug Use History: None Reported - Past Family History Mother Family Medical History: Coronary Artery Disease (CAD) Father Family Medical History: Unable to Obtain Additional Family Medical History / Comment(s): Patient stated that she does have additional half-brothers and sisters that she does not know much about. Brother(s) Family Medical History: Cancer General Exam Limitations: no limitations General appearance: alert, in no apparent distress Head exam: Present: atraumatic, normocephalic, normal inspection Eye exam: Present: normal appearance, PERRL, EOMI. Absent: scleral icterus, conjunctival injection, periorbital swelling ENT exam: Present: normal exam, mucous membranes moist Neck exam: Present: normal inspection. Absent: tenderness, meningismus, lymphadenopathy Respiratory exam: Present: normal lung sounds bilaterally. Absent: respiratory distress, wheezes, rales, rhonchi, stridor Cardiovascular Exam: Present: regular rate, normal rhythm, normal heart sounds. Absent: systolic murmur, diastolic murmur, rubs, gallop, clicks GI/Abdominal exam: Present: soft, normal bowel sounds. Absent: distended, tenderness, guarding, rebound, rigid Extremities exam: Present: normal inspection, full ROM, normal capillary refill. Absent: tenderness, pedal edema, joint swelling, calf tenderness Back exam: Present: normal inspection Neurological exam: Present: alert, oriented X3, CN II-XII intact Psychiatric exam: Present: normal affect, normal mood Skin exam: Present: warm, dry, intact, normal color. Absent: rash Course Vital Signs 07/30/21 23:00 Temperature 97.7 F Pulse Rate 100 Respiratory 20 Rate Blood Pressure 124/77 O2 Sat by Pulse 97 Oximetry - Reevaluation(s) Reevaluation #1: 07/31/21 04:32 Medical record is reviewed Reevaluation #2: 07/31/21 04:32 Patient now requiring anything for pain Reevaluation #3: 07/31/21 04:32 Patient informed results and questions are answered Medical Decision Making - Medical Decision Making 60 female to the emergency department for evaluation of right lower extremity pain. Swelling. Patient has adequate current pain control, negative for DVT she is concerned for possible DVT. Patient has no other complaints and can be discharged home - Radiology Data Radiology results: report reviewed (Right Lower Extremity Negative for DVT), image reviewed Disposition Clinical Impression: Right leg pain Disposition: HOME SELF-CARE Condition: Good Instructions (If sedation given, give patient instructions): Leg Pain (ED) Is patient prescribed a controlled substance at d/c from ED?: No Referrals: Dion Poole MD [Primary Care Provider] - 1-2 days
== END 2021-07-31 01:11 | disposition home or self-care (01) ==
LOC: EC 22:01
DX: M79.661 Pain in right lower leg (principal); E11.9 Type 2 diabetes mellitus without complications; E78.5 Hyperlipidemia, unspecified; I10 Essential (primary) hypertension; M19.90 Unspecified osteoarthritis, unspecified site; Z79.4 Long term (current) use of insulin; Z88.5 Allergy status to narcotic agent; Z88.1 Allergy status to other antibiotic agents; Z85.3 Personal history of malignant neoplasm of breast; Z90.49 Acquired absence of other specified parts of digestive tract; Z90.710 Acquired absence of both cervix and uterus; Z98.51 Tubal ligation status; Z87.891 Personal history of nicotine dependence
CPT/HCPCS: 99283

== ENCOUNTER 2021-08-14 14:17 | Emergency (ER) | payer MEDICARE, BC ==
[2021-08-14] MEDS ORDERED: HYDROcodone/APAP 5-325MG 1 EACH TAB PO STA (15:06)
--- NOTE | 2021-08-14 15:29 | ED ---
General Adult HPI - General Source: patient, RN notes reviewed Mode of arrival: ambulatory Limitations: no limitations <Jean-Pierre Stokes - Last Filed: 08/14/21 17:18> <Jacob Lewis - Last Filed: 08/14/21 18:28> - General Chief complaint: Back Pain/Injury Stated complaint: Back pain Time Seen by Provider: 08/14/21 14:54 - History of Present Illness Initial comments: 60-year-old female with a past medical history of left-sided breast cancer currently on radiation, diabetes mellitus, hyperlipidemia, hypertension presents to the emergency room for right upper back pain. pt states it hurts to take a deep breath. Doesn't seem to hurt with palpation or movement. Patient is concerned because of her history of cancer. States she also wants to be checked for COVID-19. Denies any anterior chest pain.Patient has no other complaints at this time including shortness of breath, chest pain, abdominal pain, nausea or vomiting, headache, or visual changes. (Jean-Pierre Stokes) - Related Data Home Medications Medication Instructions Recorded Confirmed Levothyroxine Sodium [Synthroid] 50 mcg PO DAILY 07/16/20 04/08/21 Atorvastatin [Lipitor] 40 mg PO HS 08/19/20 04/08/21 Metoprolol Tartrate [Lopressor] 25 mg PO BID 08/21/20 04/08/21 Insulin Aspart [NovoLOG Flexpen] 0 units SQ AC-TID 11/15/20 04/08/21 Insulin Glargine,Hum.rec.anlog 14 units SQ HS 11/15/20 04/08/21 [Lantus Solostar Pen] [place]-3 Fatty Acids/Fish Oil [Fish 1 cap PO DAILY 11/15/20 04/08/21 Oil 1,000 mg Softgel] Vitamin B Complex 1 each PO DAILY 04/08/21 04/08/21 Previous Rx's Medication Instructions Recorded HYDROcodone/APAP 5-325MG [[place] 1 - 2 tab PO Q4H PRN #30 tab 04/15/21 5-325] Naproxen Sodium [Aleve] 1 - 2 mg PO Q12HR PRN #90 tab 04/15/21 Docusate [Colace] 100 mg PO BID cap 04/20/21 Famotidine [Pepcid] 20 mg PO BID tab 04/20/21 Levofloxacin [Levaquin] 500 mg PO Q24H #10 tab 04/20/21 Allergies Allergy/AdvReac Type Severity Reaction Status Date / Time codeine AdvReac Nausea & Verified 08/14/21 14:40 Vomiting tramadol AdvReac Nausea & Verified 08/14/21 14:40 Vomiting Review of Systems ROS Other: All systems not noted in ROS Statement are negative. <Jean-Pierre Stokes P - Last Filed: 08/14/21 17:18> ROS Other: All systems not noted in ROS Statement are negative. <Jacob Lewis - Last Filed: 08/14/21 18:28> ROS Statement: Those systems with pertinent positive or pertinent negative responses have been documented in the HPI. Past Medical History Past Medical History: Cancer, Diabetes Mellitus, Hyperlipidemia, Hypertension, Musculoskeletal Disorder, Osteoarthritis (OA) Additional Past Medical History / Comment(s): History of left-sided breast cancer post-neoadjuvant chemotherapy last dose being on 02/10/2021, history of COVID-19 infection back in December 2020, diabetes mellitus, hypertension, hyperlipidemia History of Any Multi-Drug Resistant Organisms: None Reported Past Surgical History: Appendectomy, Breast Surgery, Cholecystectomy, Hysterectomy, Orthopedic Surgery, Tonsillectomy, Tubal Ligation Additional Past Surgical History / Comment(s): Cervical decompression and fusion placement of interbody graft c4-c7, surgical left breast biopsy benign - 2013, left breast core biopsy - positive cancer 08/22. Dental work, t5-t6 fusion Past Anesthesia/Blood Transfusion Reactions: Family History of Problems w/ Anesthesia, Postoperative Nausea & Vomiting (PONV) Additional Past Anesthesia/Blood Transfusion Reaction / Comment(s): MOTHER PONV. has had blood transfusion without reaction Past Psychological History: No Psychological Hx Reported Smoking Status: Former smoker Past Alcohol Use History: Occasional Past Drug Use History: None Reported - Past Family History Mother Family Medical History: Coronary Artery Disease (CAD) Father Family Medical History: Unable to Obtain Additional Family Medical History / Comment(s): Patient stated that she does have additional half-brothers and sisters that she does not know much about. Brother(s) Family Medical History: Cancer <Jean-Pierre Stokes P - Last Filed: 08/14/21 17:18> General Exam Limitations: no limitations General appearance: alert, in no apparent distress Head exam: Present: atraumatic Eye exam: Present: normal appearance, PERRL, EOMI. Absent: scleral icterus, conjunctival injection ENT exam: Present: normal exam, mucous membranes moist Neck exam: Present: normal inspection, full ROM. Absent: tenderness Respiratory exam: Present: normal lung sounds bilaterally. Absent: respiratory distress, wheezes, chest wall tenderness Cardiovascular Exam: Present: regular rate, normal rhythm, normal heart sounds GI/Abdominal exam: Present: soft, normal bowel sounds. Absent: distended, tenderness Back exam: Absent: tenderness <Jean-Pierre Stokes - Last Filed: 08/14/21 17:18> Course Vital Signs 08/14/21 08/14/21 14:36 17:55 Temperature 97.5 F L Pulse Rate 103 H 98 Respiratory 16 20 Rate Blood Pressure 139/76 106/55 O2 Sat by Pulse 97 97 Oximetry EKG Findings - EKG Comments: EKG Findings:: Normal sinus rhythm, ventricular rate 97, TX interval 198, QTC 472 <Jean-Pierre Stokes - Last Filed: 08/14/21 17:18> Medical Decision Making - Lab Data Result diagrams: 08/14/21 15:33 08/14/21 15:33 <Jean-Pierre Sotkes - Last Filed: 08/14/21 17:18> - Lab Data Result diagrams: 08/14/21 15:33 08/14/21 15:33 <Jacob Lewis - Last Filed: 08/14/21 18:28> - Medical Decision Making Vitals are stable. Patient is well-appearing. EKG nonischemic. CBC CMP unremarkable. She is lightly dehydrated with hyperglycemia however she does have a history of diabetes. This was treated with fluids. Troponin negative. coronavirus not detected. Patient's care was signed out pending computed tomography scan of the chest with contrast to Dr. Lewis. (Jean-Pierre Stokes) 60-year-old female with right upper back pain, worse with deep breathing, pleuritic in nature. There was concern for pulmonary embolism or acute intrathoracic findings. Workup was initiated, laboratory testing is unremarkable with exception of some hyperglycemia in this known diabetic. CT angiography was performed to rule out pulmonary embolism or other acute findings as was negative for any findings to indicate the cause of the patient's pain. She is reevaluated she's resting comfortably without complaint. She is eager for discharge. She's given return parameters. She will take nonsteroidal anti- inflammatories as well as her prescribed [place] for pain. (Jacob Lewis) - Lab Data Lab Results 08/14/21 08/14/21 08/14/21 Range/Units 15:33 15:33 15:33 WBC 4.9 (3.8-10.6) k/uL RBC 4.91 (3.80-5.40) m/uL Hgb 13.8 (11.4-16.0) gm/dL Hct 42.9 (34.0-46.0) % MCV 87.3 (80.0-100.0) fL MCH 28.0 (25.0-35.0) pg MCHC 32.1 (31.0-37.0) g/dL RDW 16.3 H (11.5-15.5) % Plt Count 186 (150-450) k/uL MPV 8.5 Neutrophils % 69 % Lymphocytes % 17 % Monocytes % 8 % Eosinophils % 2 % Basophils % 0 % Neutrophils # 3.4 (1.3-7.7) k/uL Lymphocytes # 0.8 L (1.0-4.8) k/uL Monocytes # 0.4 (0-1.0) k/uL Eosinophils # 0.1 (0-0.7) k/uL Basophils # 0.0 (0-0.2) k/uL Hypochromasia Slight Anisocytosis Slight PT 10.6 (9.0-12.0) sec INR 1.0 (<1.2) APTT 23.1 (22.0-30.0) sec Sodium 138 (137-145) mmol/L Potassium 4.6 (3.5-5.1) mmol/L Chloride 105 (98-107) mmol/L Carbon Dioxide 24 (22-30) mmol/L Anion Gap 9 mmol/L BUN 22 H (7-17) mg/dL Creatinine 0.94 (0.52-1.04) mg/dL Est GFR (CKD-EPI)AfAm 75 (>60 ml/min/1.73 sqM) Est GFR (CKD-EPI)NonAf 65 (>60 ml/min/1.73 sqM) Glucose 245 H (74-99) mg/dL Calcium 8.9 (8.4-10.2) mg/dL Total Bilirubin 0.6 (0.2-1.3) mg/dL AST 35 (14-36) U/L ALT 27 (4-34) U/L Alkaline Phosphatase 60 (38-126) U/L Troponin I (0.000-0.034) ng/mL Total Protein 7.3 (6.3-8.2) g/dL Albumin 4.0 (3.5-5.0) g/dL Coronavirus (PCR) (Not Detectd) 08/14/21 08/14/21 Range/Units 15:33 15:33 WBC (3.8-10.6) k/uL RBC (3.80-5.40) m/uL Hgb (11.4-16.0) gm/dL Hct (34.0-46.0) % MCV (80.0-100.0) fL MCH (25.0-35.0) pg MCHC (31.0-37.0) g/dL RDW (11.5-15.5) % Plt Count (150-450) k/uL MPV Neutrophils % % Lymphocytes % % Monocytes % % Eosinophils % % Basophils % % Neutrophils # (1.3-7.7) k/uL Lymphocytes # (1.0-4.8) k/uL Monocytes # (0-1.0) k/uL Eosinophils # (0-0.7) k/uL Basophils # (0-0.2) k/uL Hypochromasia Anisocytosis PT (9.0-12.0) sec INR (<1.2) APTT (22.0-30.0) sec Sodium (137-145) mmol/L Potassium (3.5-5.1) mmol/L Chloride (98-107) mmol/L Carbon Dioxide (22-30) mmol/L Anion Gap mmol/L BUN (7-17) mg/dL Creatinine (0.52-1.04) mg/dL Est GFR (CKD-EPI)AfAm (>60 ml/min/1.73 sqM) Est GFR (CKD-EPI)NonAf (>60 ml/min/1.73 sqM) Glucose (74-99) mg/dL Calcium (8.4-10.2) mg/dL Total Bilirubin (0.2-1.3) mg/dL AST (14-36) U/L ALT (4-34) U/L Alkaline Phosphatase (38-126) U/L Troponin I <0.012 (0.000-0.034) ng/mL Total Protein (6.3-8.2) g/dL Albumin (3.5-5.0) g/dL Coronavirus (PCR) Not Detected (Not Detectd) Disposition <Jean-Pierre Stokes - Last Filed: 08/14/21 17:18> Is patient prescribed a controlled substance at d/c from ED?: No Time of Disposition: 18:28 <Jacob Lewis - Last Filed: 08/14/21 18:28> Clinical Impression: Atypical chest pain, Upper back pain Disposition: HOME SELF-CARE Condition: Fair Instructions (If sedation given, give patient instructions): Back Pain (ED) Referrals: Dion Poole MD [Primary Care Provider] - 1-2 days
[2021-08-14 15:58] LABS: Anisocytosis Slight; Basophils % (A) 0 %; Eosinophils # (A) 0.1 k/uL (0-0.7); Eosinophils % (A) 2 %; HCT 42.9 % (34.0-46.0); HGB 13.8 gm/dL (11.4-16.0); Hypochromasia Slight; Lymphocytes # (A) 0.8 k/uL (1.0-4.8); Lymphocytes % (A) 17 %; MCHC 32.1 g/dL (31.0-37.0); MCV 87.3 fL (80.0-100.0); Mean Platelet Volume 8.5; Monocytes # (A) 0.4 k/uL (0-1.0); Monocytes % (A) 8 %; Neutrophils # (A) 3.4 k/uL (1.3-7.7); Neutrophils % (A) 69 %; Platelet Count 186 k/uL (150-450); RBC 4.91 m/uL (3.80-5.40); RDW 16.3 % (11.5-15.5); WBC 4.9 k/uL (3.8-10.6)
[2021-08-14 16:15] LABS: Calcium 8.9 mg/dL (8.4-10.2); Total Bilirubin 0.6 mg/dL (0.2-1.3); Total Protein 7.3 g/dL (6.3-8.2)
[2021-08-14 16:18] LABS: Potassium 4.6 mmol/L (3.5-5.1)
[2021-08-14] MEDS ORDERED: SODIUM CHLORIDE 0.9% 1,000 ML IV STA (16:23)
[2021-08-14 16:31] LABS: Partial Thromboplastin Time 23.1 sec (22.0-30.0); Prothrombin Time 10.6 sec (9.0-12.0)
[2021-08-14 17:56] VITALS: RESP 20
--- NOTE | 2021-08-14 18:09 | CT ---
EXAMINATION TYPE: CT chest angio for PE DATE OF EXAM: 08/14/2021 COMPARISON: 04/17/2021 HISTORY: Right upper back pain. History of breast cancer, recently started radiation. CT DLP: 449.5 mGycm Automated exposure control for dose reduction was used. CONTRAST: Performed with IV Contrast, patient injected with 100 mL of Isovue 370. There are 3-D post processed images. There is some mild subsegmental atelectasis in the left lower lo be. There is small left pleural effusion. Heart size is fairly normal. There is no pericardial effusion. There is no mediastinal adenopathy. Th ere are no hilar masses. There is normal contrast opacification of the pulmonary arteries. There are no filling defects. There is bilateral breast implants. Thoracic vertebra have normal alignment. There is no compression fracture. The sternum is intact. The re is fusion surgery in the lower cervical spine. There is T5-T6 ankylotic change anteriorly. This co uld be postsurgical. I see no focal bone destruction. There is previous left thoracotomy. IMPRESSION: No evidence of pulmonary embolism. Small left pleural effusion and improved compared to last exam. Le ft lower lobe mild subsegmental atelectasis significantly improved compared to last exam.
[2021-08-14 19:13] VITALS: BP 117/65; PULSE 95; TEMP 98.2
== END 2021-08-14 19:13 | disposition home or self-care (01) ==
LOC: EC 14:17
DX: R07.89 Other chest pain (principal); M54.6 Pain in thoracic spine; C50.912 Malignant neoplasm of unspecified site of left female breast; E11.9 Type 2 diabetes mellitus without complications; E78.5 Hyperlipidemia, unspecified; I10 Essential (primary) hypertension; M19.90 Unspecified osteoarthritis, unspecified site; Z87.891 Personal history of nicotine dependence; Z72.89 Other problems related to lifestyle; Z79.4 Long term (current) use of insulin; Z79.899 Other long term (current) drug therapy
CPT/HCPCS: 36415; 93005; 80053; 84484; 85025; 85610; 85730; 87635; 71275; 99284; 96360; 96361; Q9967

== ENCOUNTER → 2021-08-23 | Outpatient (CLI) | payer MEDICARE, BC ==
--- NOTE | 2021-08-23 14:28 | CT ---
EXAMINATION TYPE: CT lumbar spine wo con DATE OF EXAM: 08/23/2021 2:04 PM COMPARISON: PET CT September 04, 2020 HISTORY: Low back pain CT DLP: 1820.0 mGycm Automated exposure control for dose reduction was used. Unenhanced CT of the lumbar spine was performed. Bone and soft tissue window settings are submitted as well as coronal and sagittal reconstructions. There are 5 lumbar-type vertebra redemonstrated. Slight grade 1 retrolisthesis of L5 on S1 without pa rs defects redemonstrated. Vacuum disc phenomenon with mild disc space narrowing L5-S1 level otherwis e vertebral Body heights and disc space heights are satisfactory. Spinal canal is preserved. Axial images at T12-L1 level appear within normal limits. Axial images at L1-L2 level mild broad disc bulge mildly effacing the anterior thecal sac, bilateral neural foramina are patent. Axial images at L2-L3 level mild/moderate broad disc bulge mildly effacing anterior thecal sac with m ild facet degenerative changes bilaterally. Patent bilateral neural foramina. Axial images at L3-L4 level shows moderate broad disc bulge effacing the anterior thecal sac. There i s mild to moderate facet degenerative changes and ligamentum flavum hypertrophy. There is bilateral p osterolateral thecal sac effacement on axial image 49. Mild bilateral anterior inferior neural forami nal narrowing is present. Axial images at L4-L5 level show moderate to advanced facet degenerative changes bilaterally. Mild/mo derate broad-based posterior disc protrusion. There is effacement of the anterior and posterolateral thecal sac on axial image 61. There is mild to moderate bilateral neural foraminal narrowing seen. Axial images at L5-S1 level mild facet arthropathy bilaterally. There is focal central disc protrusio n but the spinal canal is preserved. Patent bilateral neural foramina. Cholecystectomy clips are present. Visualized liver is isodense relative to spleen consistent with mi ld diffuse fatty infiltration. Mild to moderate calcified plaque of the infrarenal abdominal aorta ex tends into iliac branch vessels. IMPRESSION: Oejv-[id number] multilevel degenerative changes greatest in the mid to lower lumbar spi ne as detailed above.
== END | disposition home or self-care (01) ==
LOC: RADCTMAIN 13:48
PROVIDERS: ATTEND Physical Medicine & Rehabilitation
DX: M47.817 Spondylosis without myelopathy or radiculopathy, lumbosacral region (principal); M51.27 Other intervertebral disc displacement, lumbosacral region; M51.37 Other intervertebral disc degeneration, lumbosacral region; M99.73 Connective tissue and disc stenosis of intervertebral foramina of lumbar region
CPT/HCPCS: 72131

== ENCOUNTER 2021-08-29 18:56 | Emergency (ER) | payer MEDICARE, BC ==
[2021-08-29 20:44] VITALS: BP 142/73; PULSE 102; RESP 20; TEMP 99
--- NOTE | 2021-08-29 21:54 | ED ---
URI HPI - General Chief Complaint: Upper Respiratory Infection Stated Complaint: wants Covid test Time Seen by Provider: 08/29/21 21:52 Source: patient, RN notes reviewed Mode of arrival: ambulatory Limitations: no limitations - History of Present Illness Initial Comments: Patient is a 60-year-old female that presents to the emergency department complaining of upper respiratory tract symptoms wanting a Covid test. Patient is otherwise well-appearing in no apparent distress. She denied any other symptoms. She denied chest pain shortness of breath headache nausea vomiting diarrhea constipation fever fatigue chills. - Related Data Home Medications Medication Instructions Recorded Confirmed Levothyroxine Sodium [Synthroid] 50 mcg PO DAILY 07/16/20 04/08/21 Atorvastatin [Lipitor] 40 mg PO HS 08/19/20 04/08/21 Metoprolol Tartrate [Lopressor] 25 mg PO BID 08/21/20 04/08/21 Insulin Aspart [NovoLOG Flexpen] 0 units SQ AC-TID 11/15/20 04/08/21 Insulin Glargine,Hum.rec.anlog 14 units SQ HS 11/15/20 04/08/21 [Lantus Solostar Pen] [place]-3 Fatty Acids/Fish Oil [Fish 1 cap PO DAILY 11/15/20 04/08/21 Oil 1,000 mg Softgel] Vitamin B Complex 1 each PO DAILY 04/08/21 04/08/21 Previous Rx's Medication Instructions Recorded HYDROcodone/APAP 5-325MG [[place] 1 - 2 tab PO Q4H PRN #30 tab 04/15/21 5-325] Naproxen Sodium [Aleve] 1 - 2 mg PO Q12HR PRN #90 tab 04/15/21 Docusate [Colace] 100 mg PO BID cap 04/20/21 Famotidine [Pepcid] 20 mg PO BID tab 04/20/21 Levofloxacin [Levaquin] 500 mg PO Q24H #10 tab 04/20/21 Allergies Allergy/AdvReac Type Severity Reaction Status Date / Time codeine AdvReac Nausea & Verified 08/29/21 20:44 Vomiting tramadol AdvReac Nausea & Verified 08/29/21 20:44 Vomiting Review of Systems ROS Statement: Those systems with pertinent positive or pertinent negative responses have been documented in the HPI. ROS Other: All systems not noted in ROS Statement are negative. Past Medical History Past Medical History: Cancer, Diabetes Mellitus, Hyperlipidemia, Hypertension, Musculoskeletal Disorder, Osteoarthritis (OA) Additional Past Medical History / Comment(s): History of left-sided breast cancer post-neoadjuvant chemotherapy last dose being on 02/10/2021, history of COVID-19 infection back in December 2020, diabetes mellitus, hypertension, hyperlipidemia History of Any Multi-Drug Resistant Organisms: None Reported Past Surgical History: Appendectomy, Breast Surgery, Cholecystectomy, Hysterectomy, Orthopedic Surgery, Tonsillectomy, Tubal Ligation Additional Past Surgical History / Comment(s): Cervical decompression and fusion placement of interbody graft c4-c7, surgical left breast biopsy - 2013, left breast core biopsy - positive cancer 08/22. Dental work, t5-t6 fusion Past Anesthesia/Blood Transfusion Reactions: Family History of Problems w/ Anesthesia, Postoperative Nausea & Vomiting (PONV) Additional Past Anesthesia/Blood Transfusion Reaction / Comment(s): MOTHER PONV. has had blood transfusion without reaction Past Psychological History: No Psychological Hx Reported Smoking Status: Former smoker Past Alcohol Use History: Occasional Past Drug Use History: None Reported - Past Family History Mother Family Medical History: Coronary Artery Disease (CAD) Father Family Medical History: Unable to Obtain Additional Family Medical History / Comment(s): Patient stated that she does have additional half-brothers and sisters that she does not know much about. Brother(s) Family Medical History: Cancer General Exam Limitations: no limitations General appearance: alert, in no apparent distress, obese Head exam: Present: atraumatic, normocephalic, normal inspection Eye exam: Present: normal appearance, PERRL, EOMI. Absent: scleral icterus, conjunctival injection, periorbital swelling ENT exam: Present: normal exam, mucous membranes moist Neck exam: Present: normal inspection. Absent: tenderness, meningismus, lymphadenopathy Respiratory exam: Present: normal lung sounds bilaterally. Absent: respiratory distress, wheezes, rales, rhonchi, stridor Cardiovascular Exam: Present: regular rate, normal rhythm, normal heart sounds. Absent: systolic murmur, diastolic murmur, rubs, gallop, clicks GI/Abdominal exam: Present: soft, normal bowel sounds. Absent: distended, tenderness, guarding, rebound, rigid Extremities exam: Present: normal inspection, full ROM, normal capillary refill. Absent: tenderness, pedal edema, joint swelling, calf tenderness Neurological exam: Present: alert, oriented X3 Psychiatric exam: Present: normal affect, normal mood Skin exam: Present: warm, dry, intact, normal color. Absent: rash Course Vital Signs 08/29/21 20:41 Temperature 99 F Pulse Rate 102 H Respiratory 20 Rate Blood Pressure 142/73 O2 Sat by Pulse 98 Oximetry Medical Decision Making - Medical Decision Making 60-year-old female wanting a Covid test due to some cough and congestion. Covid test ordered and is negative. Patient is remote discharge home with conservative management. Case discussed with Dr. Cano. - Lab Data Lab Results 08/29/21 Range/Units 20:46 Coronavirus (PCR) Not Detected (Not Detectd) Disposition Clinical Impression: Encounter for screening for COVID-19 Disposition: HOME SELF-CARE Condition: Stable Instructions (If sedation given, give patient instructions): Upper Respiratory Infection (ED) Additional Instructions: Please return to the Emergency Department if symptoms worsen or any other concerns. Follow-up with primary care in 1-2 days. Take Tylenol and Motrin as needed for aches pains and fevers alternating every spring Can take okit-ino-kfrkzpe cough syrup for medicine. Is patient prescribed a controlled substance at d/c from ED?: No Referrals: Dion Poole MD [Primary Care Provider] - 1-2 days Time of Disposition: 21:53
== END 2021-08-29 22:26 | disposition home or self-care (01) ==
LOC: EC 18:56
DX: Z20.822 Contact with and (suspected) exposure to COVID-19 (principal); E11.9 Type 2 diabetes mellitus without complications; E78.5 Hyperlipidemia, unspecified; I10 Essential (primary) hypertension; M19.90 Unspecified osteoarthritis, unspecified site; Z79.4 Long term (current) use of insulin; Z88.1 Allergy status to other antibiotic agents; Z88.5 Allergy status to narcotic agent; Z85.3 Personal history of malignant neoplasm of breast; Z90.49 Acquired absence of other specified parts of digestive tract; Z90.710 Acquired absence of both cervix and uterus; Z98.51 Tubal ligation status; Z87.891 Personal history of nicotine dependence
CPT/HCPCS: 87635; 99283

== ENCOUNTER → 2022-02-02 | Outpatient (CLI) | payer MEDICARE, BC ==
--- NOTE | 2022-02-02 08:37 | US ---
EXAMINATION TYPE: US carotid duplex BILAT DATE OF EXAM: 02/02/2022 COMPARISON: NONE CLINICAL HISTORY: CAROTID STENOSIS. Hyperlipidemia. Previous smoker. EXAM MEASUREMENTS: RIGHT: Peak Systolic Velocity (PSV) cm/sec ----- Right CCA: 109.2 ----- Right ICA: 105.1 ----- Right ECA: 95.5 ICA/CCA ratio: 1.0 RIGHT: End Diastole cm/sec ----- Right CCA: 20.6 ----- Right ICA: 34.7 ----- Right ECA: 0.0 LEFT: Peak Systolic Velocity (PSV) cm/sec ----- Left CCA: 151.0 ----- Left ICA: 162.7 ----- Left ECA: 124.2 ICA/CCA ratio: 1.1 LEFT: End Diastole cm/sec ----- Left CCA: 32.7 ----- Left ICA: 30.7 ----- Left ECA: 0.0 VERTEBRALS (direction of flow): Right Vertebral: Antegrade Left Vertebral: Antegrade Rhythm: Normal Plaque seen within bilateral bulb and left prox ICA. Elevated velocities within the left distal CCA a nd within the left prox, mid, and distal ICA. Mild to moderate peripheral plaque on grayscale images bilateral carotid bulb level. Increased peak s ystolic velocity bilateral common carotid arteries. No significant increase in velocities or abnormal ratios in the proximal internal carotid arteries bilaterally. IMPRESSION: No hemodynamically significant stenosis in either internal carotid artery. Elevated velo cities raises concern for underlying uncontrolled hypertension , correlate clinically. Criteria for Assigning % of Stenosis / Diameter reduction (Estimation based on the indirect measurements of the internal carotid artery velocities (ICA PSV). 1. Normal (no stenosis)=ICA PSV < 125 cm/s: ratio < 2.0: ICA EDV<40 cm/s. 2. Less than 50% stenosis=ICA PSV < 125 cm/s: ratio < 2.0: ICA EDV<40 cm/s. 3. 50 to 69% stenosis=ICA PSV of 125 to 230 cm/s: ration 2.0 ? 4.0: ICA EDV 40-100 cm/s. 4. Greater than 70% stenosis to near occlusion= ICA PSV > 230 cm/s: ratio > 4.0: ICA EDV > 100 cm/s. 5. Near occlusion= ICA PSV velocities may be low or undetectable: variable ratio and ICA EDV. 6. Total occlusion=unable to detect flow.
--- NOTE | 2022-02-02 22:56 | BD ---
EXAMINATION TYPE: Axial Bone Density DATE OF EXAM: 02/02/2022 COMPARISON: 05/07/2015 CLINICAL HISTORY: 61 years year old Female. ICD-10 CODE: AGE RELATED OSTEOPOROSIS Height: 64.7 IN Weight: 221 LBS FRAX RISK QUESTIONS: History of Fracture in Adulthood: FINGER AGE 16; NOSE AGE 17; RLT KNEE AGE 21 Secondary Osteoporosis: 3. Menopause before 45: PARTIAL HYST AGE 35 RISK FACTORS HISTORY OF: Family History of Osteoporosis: YES MOTHER AND GRANDMOTHER Active: YES Postmenopausal woman: PARTIAL HYST AGE 35 Take estrogen and/or progesterone medications: NOT NOW How long: TOOK CONTROL FOR 7 YEARS MEDICATIONS: Thyroid Medications: YES Which medication: Levothyroxine How Lon+ YEARS Additional Medications: TAMOXIFEN,ATORVASTATIN, FARXIA,LEVOTHYROXINE Additional History: BREAST CANCER WITH CHEMO AND RADIATION EXAM MEASUREMENTS: Bone mineral densitometry was performed using the [employer] System. Bone mineral density as measured about the Lumbar spine is: ----- L1-L4(G/cm2): 1.409 T Score Values are as follows: ----- L1: 0.2 ----- L2: 1.4 ----- L3: 2.0 ----- L4: 3.4 ----- L1-L4: 1.9 Bone mineral density has: Increased 5.9% since study of: 05/07/2015 Bone mineral density about the R hip (g/cm2): 1.015 Bone mineral density about the L hip (g/cm2): 0.983 T Score values are as follows: -----R Neck: -0.2 -----L Neck: -0.4 -----R Total: 0.2 -----L Total: -0.1 Bone mineral density has: Decreased -1.8% since study of: 05/07/2015 FRAX%s: The graph provided illustrates a 10.7 chance for a major osteoporotic fx and a 0.4 chance for the hips probability for fx in 10 years time. IMPRESSION: Normal (Values between +1 and -1 indicate normal bone mass). Consider repeating this study in 5 year s or sooner if there is some new clinical indication. NOTE: T-SCORE=SD OF THE YOUNG ADULT MEAN.
== END | disposition home or self-care (01) ==
LOC: RADUSWWP 06:51
PROVIDERS: ATTEND Internal Medicine
DX: C50.919 Malignant neoplasm of unspecified site of unspecified female breast (principal); I65.23 Occlusion and stenosis of bilateral carotid arteries; Z78.0 Asymptomatic menopausal state; Z87.891 Personal history of nicotine dependence
CPT/HCPCS: 77080; 93880

== ENCOUNTER 2022-04-03 16:40 | Emergency (ER) | payer MEDICARE, BC ==
--- NOTE | 2022-04-03 19:15 | ED ---
URI HPI - General Chief Complaint: Upper Respiratory Infection Stated Complaint: Covid testing Time Seen by Provider: 04/03/22 17:50 Source: patient, RN notes reviewed Mode of arrival: ambulatory Limitations: no limitations - History of Present Illness Initial Comments: 61-year-old female history of multiple medical problems including breast cancer mastectomies chemotherapy who states she started developing a scratchy throat today and was concerned that she may have contracted COVID-19. She states she did have COVID-19 about a year ago she was getting chemotherapy for breast cancer. She denies any shortness of breath chest pain or other symptoms at this time. MD Complaint: sore throat - Related Data Home Medications Medication Instructions Recorded Confirmed Levothyroxine Sodium [Synthroid] 50 mcg PO DAILY 07/16/20 04/08/21 Atorvastatin [Lipitor] 40 mg PO HS 08/19/20 04/08/21 Metoprolol Tartrate [Lopressor] 25 mg PO BID 08/21/20 04/08/21 Insulin Aspart [NovoLOG Flexpen] 0 units SQ AC-TID 11/15/20 04/08/21 Insulin Glargine,Hum.rec.anlog 14 units SQ HS 11/15/20 04/08/21 [Lantus Solostar Pen] [place]-3 Fatty Acids/Fish Oil [Fish 1 cap PO DAILY 11/15/20 04/08/21 Oil 1,000 mg Softgel] Vitamin B Complex 1 each PO DAILY 04/08/21 04/08/21 Previous Rx's Medication Instructions Recorded HYDROcodone/APAP 5-325MG [[place] 1 - 2 tab PO Q4H PRN #30 tab 04/15/21 5-325] Naproxen Sodium [Aleve] 1 - 2 mg PO Q12HR PRN #90 tab 04/15/21 Docusate [Colace] 100 mg PO BID cap 04/20/21 Famotidine [Pepcid] 20 mg PO BID tab 04/20/21 Levofloxacin [Levaquin] 500 mg PO Q24H #10 tab 04/20/21 Allergies Allergy/AdvReac Type Severity Reaction Status Date / Time codeine AdvReac Nausea & Verified 04/03/22 17:28 Vomiting tramadol AdvReac Nausea & Verified 04/03/22 17:28 Vomiting Review of Systems ROS Statement: Those systems with pertinent positive or pertinent negative responses have been documented in the HPI. ROS Other: All systems not noted in ROS Statement are negative. Past Medical History Past Medical History: Cancer, Diabetes Mellitus, Hyperlipidemia, Hypertension, Musculoskeletal Disorder, Osteoarthritis (OA) Additional Past Medical History / Comment(s): History of left-sided breast cancer post-neoadjuvant chemotherapy last dose being on 02/10/2021, history of COVID-19 infection back in December 2020, diabetes mellitus, hypertension, hyperlipidemia History of Any Multi-Drug Resistant Organisms: None Reported Past Surgical History: Appendectomy, Breast Surgery, Cholecystectomy, Hysterectomy, Orthopedic Surgery, Tonsillectomy, Tubal Ligation Additional Past Surgical History / Comment(s): Cervical decompression and fusion placement of interbody graft c4-c7, surgical left breast biopsy - 2013, left breast core biopsy - positive cancer 08/22. Dental work, t5-t6 fusion Past Anesthesia/Blood Transfusion Reactions: Family History of Problems w/ Anesthesia, Postoperative Nausea & Vomiting (PONV) Additional Past Anesthesia/Blood Transfusion Reaction / Comment(s): MOTHER PONV. has had blood transfusion without reaction Past Psychological History: No Psychological Hx Reported Smoking Status: Former smoker Past Alcohol Use History: Occasional Past Drug Use History: None Reported - Past Family History Mother Family Medical History: Coronary Artery Disease (CAD) Father Family Medical History: Unable to Obtain Additional Family Medical History / Comment(s): Patient stated that she does have additional half-brothers and sisters that she does not know much about. Brother(s) Family Medical History: Cancer General Exam - General Exam Comments Initial Comments: This is a well-developed well-nourished awake alert oriented 4 female Limitations: no limitations General appearance: alert, in no apparent distress Head exam: Present: atraumatic, normocephalic, normal inspection Eye exam: Present: normal appearance, PERRL, EOMI. Absent: scleral icterus, conjunctival injection, periorbital swelling ENT exam: Present: normal exam, mucous membranes moist Neck exam: Present: normal inspection. Absent: tenderness, meningismus, lymphadenopathy Respiratory exam: Present: normal lung sounds bilaterally. Absent: respiratory distress, wheezes, rales, rhonchi, stridor Cardiovascular Exam: Present: normal rhythm, tachycardia, normal heart sounds. Absent: systolic murmur, diastolic murmur, rubs, gallop, clicks GI/Abdominal exam: Present: soft, normal bowel sounds. Absent: distended, tenderness, guarding, rebound, rigid Extremities exam: Present: normal inspection, full ROM, normal capillary refill. Absent: tenderness, pedal edema, joint swelling, calf tenderness Back exam: Present: normal inspection Neurological exam: Present: alert, oriented X3, CN II-XII intact Psychiatric exam: Present: normal affect, normal mood Skin exam: Present: warm, dry, intact, normal color. Absent: rash Course Vital Signs 04/03/22 17:23 Temperature 99.3 F Pulse Rate 105 H Respiratory 20 Rate Blood Pressure 101/61 O2 Sat by Pulse 97 Oximetry Medical Decision Making - Medical Decision Making Patient does have a: Positive nasal swab however there is no IV antibiotic L Grover this time. Patient is a candidate for Paxlovid that she will be given a prescription for this. We did discuss this. - Lab Data Lab Results 04/03/22 Range/Units 17:24 Coronavirus (PCR) Detected A (Not Detectd) Disposition Clinical Impression: COVID-19, Viral syndrome Disposition: HOME SELF-CARE Condition: Good Instructions (If sedation given, give patient instructions): Coronavirus Disease 2019 (COVID-19), Face Coverings (Masks) and COVID-19 (ED), How to Recover from COVID-19 at Home (ED), Safely Care for Someone Who Has COVID-19 (ED), Social Distancing Guidelines for COVID-19 (ED) Is patient prescribed a controlled substance at d/c from ED?: No Referrals: Dion Poole MD [Primary Care Provider] - 1-2 days Decision Date: 04/03/22 Decision Time: 20:30
[2022-04-03 20:35] VITALS: BP 148/76; PULSE 78; RESP 16; TEMP 98
== END 2022-04-03 20:35 | disposition home or self-care (01) ==
LOC: EC 16:40
DX: U07.1 COVID-19 (principal); E11.9 Type 2 diabetes mellitus without complications; E78.5 Hyperlipidemia, unspecified; I10 Essential (primary) hypertension; Z87.891 Personal history of nicotine dependence; Z79.4 Long term (current) use of insulin; Z79.899 Other long term (current) drug therapy; Z88.5 Allergy status to narcotic agent; Z88.6 Allergy status to analgesic agent
CPT/HCPCS: 87635; 99283

== ENCOUNTER 2022-04-04 12:17 | Emergency (ER) | payer MEDICARE, BC ==
[2022-04-04 12:22] VITALS: RESP 18; TEMP 98.4
--- NOTE | 2022-04-04 13:04 | ED ---
General Adult HPI - General Chief complaint: Recheck/Abnormal Lab/Rx Stated complaint: Covid+ wants infusion Time Seen by Provider: 04/04/22 12:25 Source: patient, RN notes reviewed, old records reviewed Mode of arrival: ambulatory - History of Present Illness Initial comments: This is a 61-year-old female who presents to the emergency room stating that she was diagnosed with COVID and she comes in here today to get COVID antibiotics. Patient states she has a sore throat and a little achiness with a fever. Patient denies any difficulty breathing shortness of breath chest pain or palpitations. Patient denies any nausea vomiting diarrhea. - Related Data Home Medications Medication Instructions Recorded Confirmed Levothyroxine Sodium [Synthroid] 50 mcg PO DAILY 07/16/20 04/08/21 Atorvastatin [Lipitor] 40 mg PO HS 08/19/20 04/08/21 Metoprolol Tartrate [Lopressor] 25 mg PO BID 08/21/20 04/08/21 Insulin Aspart [NovoLOG Flexpen] 0 units SQ AC-TID 11/15/20 04/08/21 Insulin Glargine,Hum.rec.anlog 14 units SQ HS 11/15/20 04/08/21 [Lantus Solostar Pen] [place]-3 Fatty Acids/Fish Oil [Fish 1 cap PO DAILY 11/15/20 04/08/21 Oil 1,000 mg Softgel] Vitamin B Complex 1 each PO DAILY 04/08/21 04/08/21 Previous Rx's Medication Instructions Recorded HYDROcodone/APAP 5-325MG [[place] 1 - 2 tab PO Q4H PRN #30 tab 04/15/21 5-325] Naproxen Sodium [Aleve] 1 - 2 mg PO Q12HR PRN #90 tab 04/15/21 Docusate [Colace] 100 mg PO BID cap 04/20/21 Famotidine [Pepcid] 20 mg PO BID tab 04/20/21 Levofloxacin [Levaquin] 500 mg PO Q24H #10 tab 04/20/21 Allergies Allergy/AdvReac Type Severity Reaction Status Date / Time codeine AdvReac Nausea & Verified 04/04/22 12:23 Vomiting tramadol AdvReac Nausea & Verified 04/04/22 12:23 Vomiting Review of Systems ROS Statement: Those systems with pertinent positive or pertinent negative responses have been documented in the HPI. ROS Other: All systems not noted in ROS Statement are negative. Past Medical History Past Medical History: Cancer, Diabetes Mellitus, Hyperlipidemia, Hypertension, Musculoskeletal Disorder, Osteoarthritis (OA) Additional Past Medical History / Comment(s): History of left-sided breast cancer post-neoadjuvant chemotherapy last dose being on 02/10/2021, history of COVID-19 infection back in December 2020, diabetes mellitus, hypertension, hyperlipidemia History of Any Multi-Drug Resistant Organisms: None Reported Past Surgical History: Appendectomy, Breast Surgery, Cholecystectomy, Hysterectomy, Orthopedic Surgery, Tonsillectomy, Tubal Ligation Additional Past Surgical History / Comment(s): Cervical decompression and fusion placement of interbody graft c4-c7, surgical left breast biopsy - 2013, left breast core biopsy - positive cancer 08/22. Dental work, t5-t6 fusion Past Anesthesia/Blood Transfusion Reactions: Family History of Problems w/ Anesthesia, Postoperative Nausea & Vomiting (PONV) Additional Past Anesthesia/Blood Transfusion Reaction / Comment(s): MOTHER PONV. has had blood transfusion without reaction Past Psychological History: No Psychological Hx Reported Smoking Status: Former smoker Past Alcohol Use History: Occasional Past Drug Use History: None Reported - Past Family History Mother Family Medical History: Coronary Artery Disease (CAD) Father Family Medical History: Unable to Obtain Additional Family Medical History / Comment(s): Patient stated that she does have additional half-brothers and sisters that she does not know much about. Brother(s) Family Medical History: Cancer General Exam - General Exam Comments Initial Comments: GENERAL: Patient is well-developed and well-nourished. Patient is nontoxic and well- hydrated and is in mild distress. ENT: Neck is soft and supple. No significant lymphadenopathy is noted. Oropharynx is clear. Moist mucous membranes. Neck has full range of motion without eliciting any pain. EYES: The sclera were anicteric and conjunctiva were pink and moist. Extraocular movements were intact and pupils were equal round and reactive to light. Eyelids were unremarkable. PULMONARY: Unlabored respirations. Good breath sounds bilaterally. No audible rales rhonchi or wheezing was noted. CARDIOVASCULAR: There is a regular rate and rhythm without any murmurs gallops or rubs. ABDOMEN: Soft and nontender with normal bowel sounds. SKIN: Skin is clear with no lesions or rashes and otherwise unremarkable. NEUROLOGIC: Patient is alert and oriented x3. Cranial nerves II through XII are grossly intact. Motor and sensory are also intact. Normal speech, volume and content. Symmetrical smile. MUSCULOSKELETAL: Normal extremities with adequate strength and full range of motion. LYMPHATICS: No significant lymphadenopathy is noted PSYCHIATRIC: Normal psychiatric evaluation. Course Vital Signs 04/04/22 12:20 Temperature 98.4 F Pulse Rate 102 H Respiratory 18 Rate Blood Pressure 136/60 O2 Sat by Pulse 96 Oximetry Medical Decision Making - Medical Decision Making Patient will receive monoclonal antibodies Disposition Clinical Impression: COVID-19 Disposition: HOME SELF-CARE Condition: Good Instructions (If sedation given, give patient instructions): COVID-19 (Coronavirus Disease 2019) (ED) Is patient prescribed a controlled substance at d/c from ED?: No Referrals: Dion Poole MD [Primary Care Provider] - 1-2 days Time of Disposition: 13:04
[2022-04-04] MEDS ORDERED: BEBTELOVIMAB (EUA) 175 MG/2 ML VIAL IV ONE (13:30)
[2022-04-04 14:35] VITALS: BP 122/62; PULSE 85
== END 2022-04-04 14:34 | disposition home or self-care (01) ==
LOC: EC 12:17
DX: U07.1 COVID-19 (principal); E11.9 Type 2 diabetes mellitus without complications; E78.5 Hyperlipidemia, unspecified; I10 Essential (primary) hypertension; M19.90 Unspecified osteoarthritis, unspecified site; Z86.16 Personal history of COVID-19; Z87.891 Personal history of nicotine dependence; Z79.4 Long term (current) use of insulin; Z88.5 Allergy status to narcotic agent
CPT/HCPCS: 99283; Q0222

== ENCOUNTER 2022-06-20 10:44 | Day surgery (SDC) | payer MEDICARE, BC ==
[2022-06-14 15:08] VITALS: BMI 35.9
[~2022-06-20 10:44] MED LIST changes: +HYDROmorphone 0.5 MG/0.5 ML SYRINGE IVP PRN; +LACTATED RINGERS 1,000 ML IV SCH; -MIDAZOLAM 2 MG/2 ML VIAL IV PRN; -Pre Op ABX Message 1 EACH MISC MISCELLANE ONE; -SCOPOLAMINE 1.5MG/72HR PATCH TRANSDERM ONE
[2022-06-20 11:39] LABS: Glucose,Whole Blood 151 mg/dL (70-110)
[2022-06-20] MEDS ORDERED: SCOPOLAMINE 1 MG/72 HR PATCH TRANSDERM ONE (12:00)
[2022-06-20] MEDS ORDERED: LIDOCAINE 2% INJ 20 MG/ML (2 ML VIAL) ONE (12:08)
[2022-06-20] MEDS ORDERED: fentaNYL (PF) 50 MCG/ML 2 ML AMP ONE (12:08)
[2022-06-20] MEDS ORDERED: MIDAZOLAM 2 MG/2 ML VIAL ONE (12:08)
[2022-06-20] MEDS ORDERED: diphenhydrAMINE 50 MG/ML 1 ML VIAL ONE (12:08)
[2022-06-20] MEDS ORDERED: ePHEDrine 50 MG/ML 1 ML VIAL ONE (12:08)
[2022-06-20] MEDS ORDERED: SUCCINYLCHOLINE CHLORIDE 200 MG/10 ML VIAL IV ONE (12:08)
[2022-06-20] MEDS ORDERED: PROPOFOL 10 MG/ML 20 ML VIAL IV ONE (12:08)
[2022-06-20 13:43] LABS: Glucose,Whole Blood 159 mg/dL (70-110)
[2022-06-20 13:47] VITALS: TEMP 97
[2022-06-20 14:12] VITALS: RESP 16
[2022-06-20] MEDS ORDERED: oxyCODONE-APAP 5-325MG 1 EACH TAB ONE (14:34)
[2022-06-20] MEDS ORDERED: oxyCODONE-APAP 5-325MG 1 EACH TAB PO ONE (14:34)
[2022-06-20 14:55] VITALS: BP 138/75; PULSE 96
--- NOTE | 2022-06-20 22:47 | OP ---
OPERATIVE REPORT PREOPERATIVE DIAGNOSES: 1. Mechanical failure of right breast tissue sales floor team member. 2. Personal history of breast cancer. 3. Acquired deformity, right reconstructed breast. POSTOPERATIVE DIAGNOSES: 1. Mechanical failure of right breast tissue sales floor team member. 2. Personal history of breast cancer. 3. Acquired deformity, right reconstructed breast. OPERATIVE PROCEDURES: 1. Exploration of right reconstructed breast with removal of tissue sales floor team member, revision of muscle flap for breast reconstruction. 2. Insertion of right breast tissue sales floor team member for right breast reconstruction with subsequent outpatient expansion. OPERATIVE INDICATIONS: The patient is a 61-year-old female, who has undergone mastectomies for treatment of breast cancer with tissue sales floor team member style reconstruction. The right breast tissue sales floor team member has failed, it is not accessible in the office, and the patient's breast shape is distorted compared to the left side also with the sales floor team member present. She has been counseled to undergo today's surgery for exploration with likely replacement of the tissue sales floor team member, revision of the reconstructed breast, proceed with her breast reconstruction. The patient is aware of potential risks and complications, has requested to perform the surgery. OPERATIVE PROCEDURE SUMMARY: The patient was seen in the preoperative area. Markings were made. Procedure was reviewed. All questions were answered. She was transported to the operating room, where she was placed in supine position. Following induction of general endotracheal anesthesia, the patient was prepped and draped in usual fashion. The incision was made through the prior mastectomy scar site in transverse fashion. 10 blade scalpel and then cauterization used to divide subcutaneous tissue. scar tissue was divided and the sales floor team member was present. The sales floor team member was inverted and the anterior surface of the sales floor team member was located posteriorly facing. The sales floor team member was removed and discarded. The cavity was irrigated. There was no granulation tissue, no exudates. The muscle flap clearly had torn from prior closure site. The patient's SurgiMend graft from prior reconstructive procedure was intact and present. The graft was carefully elevated off the muscle flap where it had incorporated for use in this procedure. The muscle flaps muscle flap dissection was performed with cautery releasing the muscle flap tissue medially, medial inferiorly and inferiorly. Hemostasis maintained with cautery. Irrigation was now performed. The cavity was sized, gloves changed, and a tissue sales floor team member opened on the field. The tissue sales floor team member was Outlisten tissue sales floor team member line model [id number] measuring 550 mL, serial #[id number]. The device was only handled by surgeon. All air extracted, initially 25 mL of 0.9 normal saline instilled. The sales floor team member was inserted into the reconstructive cavity and 3 suture tabs located medially inferiorly, medially superiorly, and inferolaterally were secured with 3-0 Vicryl sutures to the chest wall tissue. The muscle flap that had been re-elevated was now directly approximated over the sales floor team member using interrupted 2-0 Vicryl mattress sutures. A complete coverage of the sales floor team member was now obtained with the muscle flap tissue with the SurgiMend that had been re-elevated was now advanced over the muscle flap closure and secured to the muscle flap inferiorly using interrupted 3-0 Vicryl sutures. The sales floor team member was now filled to a volume of 250 mL, which appeared to put optimal stretch and tension on the muscle flap in SurgiMend layers. The cavity was re- irrigated. A 19-round Aj drain inserted in the reconstructive field in the plane between the muscle flap tissue and subcutaneous tissue layers. The drain was brought through a separate stab incision in right anterior lower chest wall and sutured in place with 2-0 Prolene. The incision was now closed, approximating deep dermis using inverted interrupted 4-0 Monocryl and completing superficial dermal epidermal closure with running simple 5-0 Prolene. Surgical rowell cleansed with saline, dried, postoperative bandages were placed using drain sponges, 4x4s, secured with 3M Medipore tape. The drain was patent at the end the procedure. The patient was then awakened from her anesthetic, extubated, and transferred to recovery room in good condition with stable vital signs. Estimated blood loss was 25 mL. There were no complications. The final fill into the patient's sales floor team member was 250 mL. MMODL / IJN: [id number] /
== END 2022-06-20 15:17 | disposition home or self-care (01) ==
LOC: OR 10:44
PROVIDERS: ATTEND Plastic Surgery
DX: N65.0 Deformity of reconstructed breast (principal); I10 Essential (primary) hypertension; E78.5 Hyperlipidemia, unspecified; E11.9 Type 2 diabetes mellitus without complications; E03.9 Hypothyroidism, unspecified; Z85.3 Personal history of malignant neoplasm of breast; Z87.891 Personal history of nicotine dependence; I25.10 Atherosclerotic heart disease of native coronary artery without angina pectoris; Z88.5 Allergy status to narcotic agent; Z79.890 Hormone replacement therapy; Z98.1 Arthrodesis status; Z79.899 Other long term (current) drug therapy; Z79.4 Long term (current) use of insulin
CPT/HCPCS: 19357; C1889; J2250; J0330; J1200; J1100; J0690; J2405; J3010; J2704; J2001

== ENCOUNTER 2022-09-07 09:36 | Emergency (ER) | payer MEDICARE, BC ==
[2022-09-07 09:54] VITALS: RESP 18; TEMP 99.2
--- NOTE | 2022-09-07 10:22 | XR ---
EXAMINATION TYPE: XR chest 2V DATE OF EXAM: 09/07/2022 COMPARISON: 04/27/2021 TECHNIQUE: PA and lateral views submitted. HISTORY: Cough FINDINGS: The lungs are clear and there is no pneumothorax, pleural effusion, or focal pneumonia. Postbilater al breast surgery noted. Heart size normal. No failure. Postsurgical changes overlying the cervical s pine. Surgical clips in the abdomen. IMPRESSION: 1. No acute process.
--- NOTE | 2022-09-07 12:07 | ED ---
URI HPI - General Chief Complaint: Upper Respiratory Infection Stated Complaint: Pneumonia Time Seen by Provider: 09/07/22 11:50 Source: patient, RN notes reviewed Mode of arrival: ambulatory Limitations: no limitations - History of Present Illness Initial Comments: Patient is a 61-year-old female presenting to the emergency room with complaints of cough, congestion, fatigue and body aches ongoing for a couple of days without improvement. She denies any chest pain, shortness of breath not directly related to cough and congestion, abdominal pain, nausea, vomiting, fevers or chills. She denies any known exposure to COVID or influenza. She has a past medical history significant for breast cancer, diabetes, hypertension, hyperlipidemia, pneumonia, hypothyroidism and multiple Covid infections. - Related Data Home Medications Medication Instructions Recorded Confirmed Levothyroxine Sodium [Synthroid] 50 mcg PO QAM 07/16/20 06/20/22 Atorvastatin [Lipitor] 40 mg PO HS 08/19/20 06/20/22 Insulin Aspart [NovoLOG Flexpen] 0 units SQ AC-TID 11/15/20 06/20/22 Dapagliflozin Propanediol [Farxiga] 10 mg PO DAILY 04/24/22 06/20/22 Tamoxifen Citrate [Nolvadex] 20 mg PO DAILY 04/24/22 06/20/22 Hmd Supplement W/ Vit D 1 tab PO DAILY 06/14/22 06/20/22 Previous Rx's Medication Instructions Recorded oxyCODONE HCL/ACETAMINOPHEN 1 tab PO Q4HR PRN 3 Days #18 tab 06/20/22 [Percocet 5-325 mg] Allergies Allergy/AdvReac Type Severity Reaction Status Date / Time codeine AdvReac Nausea & Verified 09/07/22 09:54 Vomiting tramadol AdvReac Nausea & Verified 09/07/22 09:54 Vomiting Review of Systems ROS Statement: Those systems with pertinent positive or pertinent negative responses have been documented in the HPI. ROS Other: All systems not noted in ROS Statement are negative. Past Medical History Past Medical History: Cancer, Diabetes Mellitus, Hyperlipidemia, Hypertension, Musculoskeletal Disorder, Pneumonia, Thyroid Disorder Additional Past Medical History / Comment(s): Covid Infection 04-03-22-tx with monoclonal antibodies, History of left-sided breast cancer post-neoadjuvant chemotherapy last dose being on 02/10/2021, history of COVID-19 infection back in December 2020-received monoclonoal antibodies History of Any Multi-Drug Resistant Organisms: None Reported Past Surgical History: Appendectomy, Breast Surgery, Cholecystectomy, Hysterectomy, Orthopedic Surgery, Tonsillectomy, Tubal Ligation Additional Past Surgical History / Comment(s): anup mastectomy,breast reconstructive,Cervical decompression and fusion placement of interbody graft c4-c7, surgical left breast biopsy benign - 2013, left breast core biopsy - positive cancer 08/22. Dental work, t5-t6 fusion Past Anesthesia/Blood Transfusion Reactions: Family History of Problems w/ Anesthesia, Postoperative Nausea & Vomiting (PONV) Additional Past Anesthesia/Blood Transfusion Reaction / Comment(s): MOTHER PONV. has had blood transfusion without reaction Past Psychological History: No Psychological Hx Reported Smoking Status: Former smoker Past Alcohol Use History: None Reported Past Drug Use History: None Reported - Past Family History Mother Family Medical History: Coronary Artery Disease (CAD) Father Family Medical History: Unable to Obtain Additional Family Medical History / Comment(s): Patient stated that she does have additional half-brothers and sisters that she does not know much about. Brother(s) Family Medical History: Cancer, Myocardial Infarction ([place]) Additional Family Medical History / Comment(s): throat General Exam - General Exam Comments Initial Comments: GENERAL: No acute distress, well developed, well nourished. HEENT: Normocephalic, atraumatic. Pupils equal, round, reactive to light. Moist mucous membranes. Mild pharyngeal erythema and no edema or exudate. LUNGS: No respiratory distress. Clear to auscultation, no adventitious sounds, no use of accessory muscles. HEART: Regular rate and rhythm without murmur, rub, or gallop. ABDOMEN: Normal bowel sounds. Soft, non-tender, non-distended. BACK: Normal inspection. EXTREMITIES: No edema. No tenderness. Moves all extremities. NEUROLOGIC: Alert & oriented x 3. CN II-XII grossly intact. PSYCHIATRIC: Normal affect and behavior. DERMATOLOGIC: Skin intact, without rashes or lesions noted. Limitations: no limitations Course Vital Signs 09/07/22 09/07/22 09:50 12:32 Temperature 99.2 F Pulse Rate 102 H 99 Respiratory 18 18 Rate Blood Pressure 130/74 134/77 O2 Sat by Pulse 98 98 Oximetry Medical Decision Making - Medical Decision Making Was pt. sent in by a medical professional or institution (CARLEE Lux, KINDERGARTEN TUTOR, urgent care, hospital, or half-way...) When possible be specific @ -No Did you speak to anyone other than the patient for history (EMS, parent, family, police, friend...)? What history was obtained from this source @ -No Did you review nursing and triage notes (agree or disagree)? Why? @ -I reviewed and agree with nursing and triage notes Were old charts reviewed (outside hosp., previous admission, EMS record, old EKG, old radiological studies, urgent care reports/EKG's, half-way records)? Report findings @ -No old charts were reviewed Differential Diagnosis (chest pain, altered mental status, abdominal pain women, abdominal pain men, vaginal bleeding, weakness, fever, dyspnea, syncope, headache, dizziness, GI bleed, back pain, seizure, CVA, palpatations, mental health)? @ -Differential Upper respiratory symptoms: Pneumonia, viral URI, bronchitis, otitis, sinusitis, streptococcal pharyngitis, mononucleosis, peritonsillar Abscess, retropharyngeal Abscess, epiglottitis, this is not meant to be an all-inclusive list. EKG interpreted by me (3pts min.). @ -None done X-rays interpreted by me (1pt min.). @ -None done CT interpreted by me (1pt min.). @ -None done U/S interpreted by me (1pt. min.). @ -None done What testing was considered but not performed or refused? (CT, X-rays, U/S, lab s)? Why? @ -Chest x-ray, CBC and BMP considered but deferred due to normal exam with no significant fever or tachycardia. Onset of symptoms within the last 3 days likely viral in nature. What meds were considered but not given or refused? Why? @ -Analgesics offered and declined Did you discuss the management of the patient with other professionals (professionals i.e. CARLEE Lux, KINDERGARTEN TUTOR, lab, RT, psych nurse, social media analyst, home appliance washing machine mechanic, teacher, parole hearing officer, family preservation caseworker)? Give summary @ -No Was smoking cessation discussed for >3mins.? @ -No Was critical care preformed (if so, how long)? @ -No Were there social determinants of health that impacted care today? How? (Homelessness, low income, unemployed, alcoholism, drug addiction, transportation, low edu. Level, literacy, decrease access to med. care, longterm, re hab)? @ -No Was there de-escalation of care discussed even if they declined (Discuss DNR or withdrawal of care, Hospice)? DNR status @ -No What co-morbidities impacted this encounter? (DM, HTN, Smoking, COPD, CAD, Cancer, CVA, ARF, Chemo, Hep., AIDS, mental health diagnosis, sleep apnea, morbid obesity)? @ -None Was patient admitted / discharged? Hospital course, mention meds given and route, prescriptions, significant lab abnormalities, going to OR and other pertinent info. @ -61-year-old female presenting with complaints of cough congestion fatigue and body aches ongoing for a few days without fever, shortness of breath or other systemic symptoms. Normal exam. Hemodynamically stable. No indication for diagnostic imaging or serum laboratory studies. Analgesics for body aches offered and declined. Will obtain swabs for COVID, influenza and RSV. Viral swabs negative for COVID, influenza and RSV. Advised that despite lack of positive viral swab testing high probability for viral upper respiratory infection encourage symptomatic management. Discussed return parameters to the emergency room at length. Questions and concerns answered. Will discharge home in stable condition with symptomatic management of upper respiratory symptoms. Undiagnosed new problem with uncertain prognosis? @ -No Drug Therapy requiring intensive monitoring for toxicity (Heparin, Nitro, Insulin, Cardizem)? @ -No Were any procedures done? @ -No Diagnosis/symptom? @ -Viral upper respiratory infection Acute, or Chronic, or Acute on Chronic? @ -Acute Uncomplicated (without systemic symptoms) or Complicated (systemic symptoms)? @ -Uncomplicated Side effects of treatment? @ -No Exacerbation, Progression, or Severe Exacerbation? @ -No Poses a threat to life or bodily function? How? (Chest pain, USA, MS, pneumonia, PE, COPD, DKA, ARF, appy, cholecystitis, CVA, Diverticulitis, Homicidal, Suicidal, threat to staff... and all critical care pts) @ -No Case discussed with Dr. Flor. - Lab Data Lab Results 09/07/22 Range/Units 09:57 Influenza Type A (PCR) Not Detected (Not Detectd) Influenza Type B (PCR) Not Detected (Not Detectd) RSV (PCR) Not Detected (Not Detectd) SARS-CoV-2 (PCR) Not Detected (Not Detectd) Disposition Clinical Impression: Viral URI Disposition: HOME SELF-CARE Condition: Stable Instructions (If sedation given, give patient instructions): Upper Respiratory Infection (ED) Additional Instructions: It is recommended that you use joen-tge-pohjdhn medications such as cough suppressant, Tylenol and ibuprofen to treat your symptoms. Stay well hydrated. If symptoms do not improve in 5-7 days please return to the emergency room, urgent care your primary care provider for reevaluation. Please return to the Emergency Department if symptoms worsen or any other concerns. Is patient prescribed a controlled substance at d/c from ED?: No Referrals: Dion Poole MD [Primary Care Provider] - 1-2 days Time of Disposition: 12:04
[2022-09-07 12:33] VITALS: BP 134/77; PULSE 99
== END 2022-09-07 12:33 | disposition home or self-care (01) ==
LOC: EC 09:36
DX: J06.9 Acute upper respiratory infection, unspecified (principal); E11.9 Type 2 diabetes mellitus without complications; E78.5 Hyperlipidemia, unspecified; I10 Essential (primary) hypertension; E07.9 Disorder of thyroid, unspecified; Z87.891 Personal history of nicotine dependence; Z88.5 Allergy status to narcotic agent; Z79.890 Hormone replacement therapy; Z79.4 Long term (current) use of insulin; Z79.899 Other long term (current) drug therapy; Z20.822 Contact with and (suspected) exposure to COVID-19
CPT/HCPCS: 71046; 87636; 99283

== ENCOUNTER 2023-02-10 13:01 | Inpatient (IN) | payer MEDICARE, BC ==
[2023-02-10 14:30] LABS: Basophils % (A) 0 %; Eosinophils # (A) 0.2 k/uL (0-0.7); Eosinophils % (A) 2 %; HCT 37.2 % (34.0-46.0); HGB 11.8 gm/dL (11.4-16.0); Hypochromasia Slight; Lymphocytes # (A) 0.6 k/uL (1.0-4.8); Lymphocytes % (A) 9 %; MCH 28.2 pg (25.0-35.0); MCHC 31.8 g/dL (31.0-37.0); MCV 88.7 fL (80.0-100.0); Mean Platelet Volume 7.9; Monocytes # (A) 0.4 k/uL (0-1.0); Monocytes % (A) 6 %; Neutrophils # (A) 5.9 k/uL (1.3-7.7); Neutrophils % (A) 82 %; Platelet Count 231 k/uL (150-450); Poikilocytosis Slight; RDW 13.4 % (11.5-15.5); WBC 7.2 k/uL (3.8-10.6)
--- NOTE | 2023-02-10 14:30 | ED ---
General Adult HPI - General Chief complaint: Recheck/Abnormal Lab/Rx Stated complaint: Post-op issues Time Seen by Provider: 02/10/23 13:13 Source: patient, RN notes reviewed Mode of arrival: EMS Limitations: no limitations - History of Present Illness Initial comments: Patient is a 62-year-old female presenting to the emergency room at the direction of her visiting nurse for worsening redness to her panniculectomy and drainage from previous GERMAN site. She reports significant drainage from drainage site with extensive packing and increased size in the wound. She reports feeling worse over the last 24 hours and has developed fevers at home d espite taking Keflex as prescribed 3 times a day by her primary care provider for the last 4 days. She saw her surgeon yesterday who did not advise any change in treatment. She reports that since seeing him the redness has increased in her generalized malaise has worsened. She denies any postsurgical complications to the breast reconstruction portion of her surgery which she had completed at the same time of her paniculectomy on 01/18/2023 at [facility] by Dr. Dsouza. She was advised to hold her tamoxifen preoperatively and postoperatively and has not resumed any immune suppressant therapy. Though she notes fevers at home she does not have a thermometer consequently does not know T-max. She reports increase in lower abdominal pain in addition to her drainage. She initially had a total of 6 GERMAN drains but only has one remaining GERMAN drain which has no significant drainage noted at this time but is serosanguineous in nature. In addition to her breast cancer history she has a past medical history significant for diabetes, osteoarthritis, hypothyroidism, hypertension and hyperlipidemia. - Related Data Home Medications Medication Instructions Recorded Confirmed Levothyroxine Sodium [Synthroid] 50 mcg PO QAM 07/16/20 06/20/22 Atorvastatin [Lipitor] 40 mg PO HS 08/19/20 06/20/22 Insulin Aspart [NovoLOG Flexpen] 0 units SQ AC-TID 11/15/20 06/20/22 Dapagliflozin Propanediol [Farxiga] 10 mg PO DAILY 04/24/22 06/20/22 Cephalexin [Keflex] 500 mg PO TID 02/10/23 02/10/23 Allergies Allergy/AdvReac Type Severity Reaction Status Date / Time codeine AdvReac Nausea & Verified 02/10/23 16:59 Vomiting tramadol AdvReac Nausea & Verified 02/10/23 16:59 Vomiting Review of Systems ROS Statement: Those systems with pertinent positive or pertinent negative responses have been documented in the HPI. ROS Other: All systems not noted in ROS Statement are negative. Past Medical History Past Medical History: Cancer, Diabetes Mellitus, Hyperlipidemia, Hypertension, Musculoskeletal Disorder, Pneumonia, Thyroid Disorder Additional Past Medical History / Comment(s): Covid Infection 04-03-22-tx with monoclonal antibodies, History of left-sided breast cancer post-neoadjuvant chemotherapy last dose being on 02/10/2021, history of COVID-19 infection back in December 2020-received monoclonoal antibodies History of Any Multi-Drug Resistant Organisms: None Reported Past Surgical History: Appendectomy, Breast Surgery, Cholecystectomy, Hysterectomy, Orthopedic Surgery, Tonsillectomy, Tubal Ligation Additional Past Surgical History / Comment(s): anup mastectomy,breast reconstructive,Cervical decompression and fusion placement of interbody graft c4-c7, surgical left breast biopsy - 2013, left breast core biopsy - positive cancer 08/22. Dental work, t5-t6 fusion Past Anesthesia/Blood Transfusion Reactions: Family History of Problems w/ Anesthesia, Postoperative Nausea & Vomiting (PONV) Additional Past Anesthesia/Blood Transfusion Reaction / Comment(s): MOTHER PONV. has had blood transfusion without reaction Past Psychological History: No Psychological Hx Reported Smoking Status: Former smoker Past Alcohol Use History: None Reported Past Drug Use History: None Reported - Past Family History Mother Family Medical History: Coronary Artery Disease (CAD) Father Family Medical History: Unable to Obtain Additional Family Medical History / Comment(s): Patient stated that she does have additional half-brothers and sisters that she does not know much about. Brother(s) Family Medical History: Cancer, Myocardial Infarction ([place]) Additional Family Medical History / Comment(s): throat General Exam Limitations: no limitations General appearance: alert, in no apparent distress Head exam: Present: atraumatic, normocephalic, normal inspection Eye exam: Present: normal appearance, PERRL, EOMI. Absent: scleral icterus, conjunctival injection, periorbital swelling ENT exam: Present: normal exam, mucous membranes moist Neck exam: Present: normal inspection, full ROM Respiratory exam: Present: normal lung sounds bilaterally. Absent: respiratory distress, wheezes, rales, rhonchi, stridor Cardiovascular Exam: Present: regular rate, normal rhythm, normal heart sounds. Absent: systolic murmur, diastolic murmur, rubs, gallop, clicks GI/Abdominal exam: Present: soft, tenderness (Across lower abdomen with warmth and induration at incision line of panniculectomy mid left aspect of lower abdominal incision with opening approximately 1.5 cm with significant tunneling and serosanguineous drainage with tenderness and surrounding erythema), normal bowel sounds, other (Umbilical incision site well approximated). Absent: d istended Extremities exam: Present: normal inspection. Absent: pedal edema, joint swelling Back exam: Present: normal inspection Neurological exam: Present: alert, oriented X3, CN II-XII intact Psychiatric exam: Present: normal affect, normal mood Skin exam: Present: other (Abdominal incision competitions as above. Breast incisions well approximated without evidence of induration or dehiscence. Right lower quadrant GERMAN drain intact.) Course Vital Signs 02/10/23 02/10/23 13:07 14:16 Temperature 100 F H Pulse Rate 102 H Respiratory 16 Rate Blood Pressure 117/70 O2 Sat by Pulse 98 Oximetry Medical Decision Making - Medical Decision Making Was pt. sent in by a medical professional or institution (, PA, CHEMICAL RECOVERY OPERATOR, urgent care, hospital, or [facility]...) When possible be specific @ -Yes, advised to present to the hospital by her home health nurse. Did you speak to anyone other than the patient for history (EMS, parent, family, police, friend...)? What history was obtained from this source @ -No Did you review nursing and triage notes (agree or disagree)? Why? @ -I reviewed and agree with nursing and triage notes Were old charts reviewed (outside hosp., previous admission, EMS record, old EKG, old radiological studies, urgent care reports/EKG's, [facility] records)? Report findings @ -No old charts were reviewed Differential Diagnosis (chest pain, altered mental status, abdominal pain women, abdominal pain men, vaginal bleeding, weakness, fever, dyspnea, syncope, head ache, dizziness, GI bleed, back pain, seizure, CVA, palpatations, mental health, musculoskeletal)? @ -Differential Fever: Pneumonia, viral URI, endocarditis, myocarditis, pericarditis, otitis, sinusitis, peritonsillar Abscess, retropharyngeal Abscess, epiglottitis, peritonitis, appendicitis, Elsy cystitis, diverticulitis, hepatitis, colitis, UTI, PID, TOA, pyelonephritis, prostatitis, epididymitis, meningitis, encephalitis, pulmonary embolism, CVA, thyroid storm, pancreatitis, adrenal crisis, cavernous sinus thrombosis, this is not meant to be an all-inclusive list. EKG interpreted by me (3pts min.). @ -None done X-rays interpreted by me (1pt min.). @ -None done CT interpreted by me (1pt min.). @ -CT of the abdomen and pelvis without contrast: Postsurgical inflammatory fat stranding with air tracking adjacent to umbilicus consistent with current incision wound track. Her radiologist 2.7 cm partially calcified lesion of the left ovary likely benign disease stable from 2020 incidental benign 3.9 cm right adrenal myelolipoma. U/S interpreted by me (1pt. min.). @ -None done What testing was considered but not performed or refused? (CT, X-rays, U/S, labs)? Why? @ -None What meds were considered but not given or refused? Why? @ -None Did you discuss the management of the patient with other professionals (professionals i.e. , PA, CHEMICAL RECOVERY OPERATOR, lab, RT, psych nurse, social work therapist, supervisor packing, teacher, commissioned police officer, family independence case manager)? Give summary @ -Yes, spoke with Dr. Poole patient's primary care provider regarding patient presentation and workup. He advised admission to hospital for failed outpatient treatment of postoperative incision infection with consults to infectious disease starting on antibiotic therapy of Kefzol 2 g every [address] admission orders along with antibiotic orders and cultures. His recommendations. Was smoking cessation discussed for >3mins.? @ -No Was critical care preformed (if so, how long)? @ -No Were there social determinants of health that impacted care today? How? (Homelessness, low income, unemployed, alcoholism, drug addiction, transportati on, low edu. Level, literacy, decrease access to med. care, alf, rehab)? @ -No Was there de-escalation of care discussed even if they declined (Discuss DNR or withdrawal of care, Hospice)? DNR status @ -No What co-morbidities impacted this encounter? (DM, HTN, Smoking, COPD, CAD, Cancer, CVA, ARF, Chemo, Hep., AIDS, mental health diagnosis, sleep apnea, morbid obesity)? @ -None Was patient admitted / discharged? Hospital course, mention meds given and route, prescriptions, significant lab abnormalities, going to OR and other pertinent info. @ -62-year-old female presenting to the emergency room at the direction of her visiting nurse for worsening redness to her panniculectomy and drainage from previous GERMAN site. She reports significant drainage from drainage site with extensive packing and increased size in the wound. She reports feeling worse over the last 24 hours and has developed fevers at home despite taking Keflex as prescribed 3 times a day by her primary care provider for the last 4 days. She saw her surgeon yesterday who did not advise any change in treatment. Will start workup regarding abdominal surgical site incision infection with CBC, CMP, blood cultures, lactic acid and CT of the abdomen and pelvis. Patient denies analgesic need. Fever noted at 100.0 will hold antipyretics at this time. Laboratory studies demonstrate a CBC with lymphocytes low at 0.6 with no other abnormalities. CMP revealed elevated glucose at 210 low calcium at 8.1 but normal calcium when corrected for low albumin of 2.9. Normal liver function, r enal function, and alkaline phosphate. Remaining electrolytes with the exception of calcium normal. Computed tomography scan results of postsurgical fat stranding concerning for postoperative inflammation or infection noted with tunneling correlating with incision opening. Incidental finding of calcification to the left ovary also disclosed to patient for outpatient follow-up. Findings discussed with patient advised in the setting of worsening symptoms on oral antibiotic therapy would likely need admission for IV antibiotics however her surgeon is out of round [facility]. Spoke with patient's primary care provider Dr. Poole regarding patient's presentation and appointment with her surgeon yesterday. He advise okay for admission to this facility with infectious disease consult, wound culture and is starting 2 g every [address] admission orders along with consults. Will admit patient in stable condition to medical surgical unit under Dr. Poole for further evaluation and treatment of postoperative incision infection. Undiagnosed new problem with uncertain prognosis? @ -No Drug Therapy requiring intensive monitoring for toxicity (Heparin, Nitro, Insulin, Cardizem)? @ -No Were any procedures done? @ -No Diagnosis/symptom? @ -Postoperative infection lower abdominal incision Acute, or Chronic, or Acute on Chronic? @ -Acute Uncomplicated (without systemic symptoms) or Complicated (systemic symptoms)? @ -Complicated Side effects of treatment? @ -No Exacerbation, Progression, or Severe Exacerbation? @ -No Poses a threat to life or bodily function? How? (Chest pain, [place], [place], pneumonia, PE, COPD, DKA, ARF, appy, cholecystitis, CVA, Diverticulitis, Homicidal, Suicidal, threat to staff... and all critical care pts) @ -Yes at risk for worsening infection sepsis and septic shock. Case discussed with Dr. Muniz. - Lab Data Result diagrams: 02/10/23 14:09 02/10/23 14:09 Lab Results 02/10/23 02/10/23 02/10/23 Range/Units 14:09 14:09 14:09 WBC 7.2 (3.8-10.6) k/uL RBC 4.20 (3.80-5.40) m/uL Hgb 11.8 (11.4-16.0) gm/dL Hct 37.2 (34.0-46.0) % MCV 88.7 (80.0-100.0) fL MCH 28.2 (25.0-35.0) pg MCHC 31.8 (31.0-37.0) g/dL RDW 13.4 (11.5-15.5) % Plt Count 231 (150-450) k/uL MPV 7.9 Neutrophils % 82 % Lymphocytes % 9 % Monocytes % 6 % Eosinophils % 2 % Basophils % 0 % Neutrophils # 5.9 (1.3-7.7) k/uL Lymphocytes # 0.6 L (1.0-4.8) k/uL Monocytes # 0.4 (0-1.0) k/uL Eosinophils # 0.2 (0-0.7) k/uL Basophils # 0.0 (0-0.2) k/uL Hypochromasia Slight Poikilocytosis Slight Sodium 137 (137-145) mmol/L Potassium 4.2 (3.5-5.1) mmol/L Chloride 103 (98-107) mmol/L Carbon Dioxide 27 (22-30) mmol/L Anion Gap 7 mmol/L BUN 12 (7-17) mg/dL Creatinine 1.02 (0.52-1.04) mg/dL Est GFR (CKD-EPI)AfAm 68 (>60 ml/min/1.73 sqM) Est GFR (CKD-EPI)NonAf 59 (>60 ml/min/1.73 sqM) Glucose 210 H (74-99) mg/dL Plasma Lactic Acid Bull 1.8 (0.7-2.0) mmol/L Calcium 8.1 L (8.4-10.2) mg/dL Total Bilirubin 0.5 (0.2-1.3) mg/dL AST 22 (14-36) U/L ALT 24 (4-34) U/L Alkaline Phosphatase 70 (38-126) U/L Total Protein 5.8 L (6.3-8.2) g/dL Albumin 2.9 L (3.5-5.0) g/dL - Radiology Data Radiology results: report reviewed, image reviewed Disposition Clinical Impression: Post-operative infection Disposition: ADMITTED IP TO THIS [facility] Condition: Stable Is patient prescribed a controlled substance at d/c from ED?: No Referrals: Dion Poole MD [Primary Care Provider] - 1-2 days Time of Disposition: 16:40
[2023-02-10 14:43] LABS: ALT 24 U/L (4-34); AST 22 U/L (14-36); African American GFR (CKD) 68 (>60 ml/min/1.73 sqM); Albumin 2.9 g/dL (3.5-5.0); Alkaline Phosphatase 70 U/L (38-126); Anion Gap 7 mmol/L; Blood Urea Nitrogen 12 mg/dL (7-17); Calcium 8.1 mg/dL (8.4-10.2); Carbon Dioxide 27 mmol/L (22-30); Chloride 103 mmol/L (98-107); Glucose 210 mg/dL (74-99); Non-African American GFR(CKD) 59 (>60 ml/min/1.73 sqM); Potassium 4.2 mmol/L (3.5-5.1); Sodium 137 mmol/L (137-145); Total Bilirubin 0.5 mg/dL (0.2-1.3); Total Protein 5.8 g/dL (6.3-8.2)
--- NOTE | 2023-02-10 15:41 | CT ---
EXAMINATION TYPE: CT abdomen pelvis wo con DATE OF EXAM: 02/10/2023 COMPARISON: None HISTORY: 62-year-old female Post op panniculectomy complications, pain. CT DLP: 928.8 mGycm. Automated exposure control for dose reduction was used. TECHNIQUE: Contiguous axial scanning of the abdomen and pelvis without IV contrast. Coronal and sagit davidson reconstructions performed. FINDINGS: There appear to be bilateral breast reconstructions. Heart upper limits of normal in size without per icardial effusion. Some strandy atelectasis in the lower lungs. No pleural effusion. Mild fatty infiltration of the liver. Liver borderline enlarged at 17.4 cm. Cholecystectomy clips. Mild thickening of the left adrenal gland without discrete nodularity. There appears to be a 3.9 cm f at density lesion of the right adrenal gland suggesting a benign myelolipoma. Noncontrast appearance of the kidneys, spleen, and pancreas show no gross abnormality. No dilated small bowel, free fluid, or free air. No mesenteric or retroperitoneal lymphadenopathy. No significant stool burden. No pericolonic inflammatory change. Bladder nondistended. Uterus surgically absent. There is a partially calcified nodule of the left ovary measuring 2.7 cm. This remains unchanged from 09/04/2020 suggesting a benign etiology. Consider referral to ELECTRONICS TECHNOLOGY DEPARTMENT CHAIR to determine subsequent surveilla nce or further evaluation. No abnormal fluid collection in the pelvis or pelvic lymphadenopathy. There is a surgical drain coursing horizontally along the anterior lower abdomen/pelvis. Associated i nflammatory fat stranding. Some hyperdense mottled hemorrhagic debris suggested in a platelike collec tion at and just below the patient's drain. Additional air tracking along the subcutaneous adipose layer. Mild thickening of the underlying mid to lower rectus abdominis with surgical clips. Bones: Moderate degenerative disc disease L5-S1 with facet arthropathy with lumbar spine. IMPRESSION: 1. Surgical drain located along the anterior abdominopelvic junction coursing horizontally within th e deep subcutaneous adipose layer. 2. There is a platelike collection, suspected mottled hemorrhagic debris at and just below the patie nt's drain. Postsurgical versus inflammatory fat stranding is also present here with air tracking t o just above the umbilicus. Correlate as to time since surgery to assess if this corresponds to posts urgical change versus infection. 3. No inflammation extending into the intra-abdominal cavity. 4. ELECTRONICS TECHNOLOGY DEPARTMENT CHAIR referral for further assessment or determination for surveillance follow-up of a 2.7 cm pa rtially calcified lesion of the left ovary. Benign disease suspected given stability from 2020. 5. Incidental benign, 3.9 cm right adrenal myelolipoma.
[2023-02-10] MEDS ORDERED: ONDANSETRON 4 MG/2 ML VIAL IVP PRN (16:07)
[2023-02-10] MEDS ORDERED: NALOXONE 0.4 MG/ML 1 ML VIAL IV PRN (16:07)
[2023-02-10] MEDS ORDERED: ACETAMINOPHEN TAB 325 MG TAB PO PRN (16:07)
[2023-02-10] MEDS ORDERED: traMADol 50 MG TAB PO PRN (16:07)
[2023-02-10] MEDS ORDERED: ONDANSETRON 4 MG/2 ML VIAL IVP STA (16:37)
[2023-02-11] MEDS: MORPHINE SULFATE 4 MG/ML SYRINGE IV PRN (06:15)
[2023-02-11] MEDS ORDERED: DEXTROSE 50% SYRINGE 50 ML IVP PRN ×2 (08:04)
[2023-02-11 11:26] LABS: Glucose,Whole Blood 237 mg/dL (70-110)
[2023-02-11] MEDS: INSULIN ASPART (NovoLOG) 100 UNIT/ML VIAL SQ SCH ×3 (12:10→21:00)
[2023-02-11] MEDS ORDERED: INSULIN ASPART (NovoLOG) 100 UNIT/ML VIAL SQ PRN (13:07)
--- NOTE | 2023-02-11 13:59 | P.HPIM ---
History of Present Illness H&P Date: 02/11/23 Chief Complaint: Abdominal wound infection with cellulitis HISTORY OF PRESENT ILLNESS This is a 62-year-old female patient of mine with past medical history of hypertension, hyperlipidemia, hypothyroidism, left breast cancer, diabetes mellitus type 2. Patient underwent bilateral mastectomy, left axillary sentinel lymph node biopsy and removal of Mediport by Dr. Lopez and reconstruction of bilateral breast with implantation by Dr. Barreto on 04/13, and patient had finished her treatment for breast cancer [facility] an she was recentl y underwent bilateral breast reconstruction with abdominoplast(Panniculectomy) that was done at [facility] with on 01/18/2023 , she went to [facility] on [facility] for PT and she was seen in my office 4 days ago with increased redness and fibrinous To the side of the abdominal wound, GERMAN drain still in place, she was started on Keflex 500 mg orally 3 times every day for 10 days, and she was supposed to follow-up with her plastic surgeon which she did on Sunday whokept her on the same treatment, her nurse came to check on the patient yesterday and she advised to go to the ER for evaluation of possible infected abdominal wound, patient was seen in the ER she had no leukocytosis, she did not have any lactic acidosis, but because of increased erythema and pain she was admitted to hospital because of failed outpatient management and she was started on Ancef 2 g IV piggyback every 6 hours as well as getting blood cultures and wound culture, infectious disease consultation was obtained. REVIEW OF SYSTEMS Constitutional: No fever, no chills, no night sweats. No weight change. No weakness, fatigue or lethargy. No daytime sleepiness. HEENT: No headache. No blurred vision or double vision, no loss of vision. No loss of Hearing, no ringing in the ears, no dizziness. No nasal drainage or congestion. No epistaxis. No sore throat. Lungs: No shortness of breath, cough, no sputum production. No wheezing. Cardiovascular: No chest pain, no lower extremity edema. No palpitations. No paroxysmal nocturnal dyspnea. No orthopnea. No lightheadedness or dizziness. No syncopal episodes. Abdominal: no abdominal pain. No nausea, vomiting. No diarrhea. No cons tipation. No bloody or tarry stools.. No loss of appetite. Genitourinary: No dysuria, increased frequency, urgency. No urinary retention. Musculoskeletal: No myalgias. No muscle weakness, no gait dysfunction, no frequent falls. No back pain. No neck pain. Integumentary: infected abdominal wound with GERMAN drain still in place with serosanguinous material. No rash or pruritus. No unusual bruising. No change in hair or nails. Neurologic: No aphasia. No facial droop. No change in mentation. No head injury. No headache. No paralysis. No paresthesia. Psychiatric: No depression. No anxiety. No mood swings. Endocrine: No abnormal blood sugars. No weight change. No excessive sweating or thirst. No cold intolerance. MEDICAL HISTORY Hypertension Hyperlipidemia Hypothyroidism Left breast cancer S/P Bilateral Mastectomy Diabetes mellitus type 2 SURGICAL HISTORY Tonsillectomy and adenoidectomy Cholecystectomy Appendectomy Tubal ligation Partial hysterectomy Left breast core biopsy 08/10/2020 Left axillary lymph node dissection 08/20/2020 Bilateral Mastectomies with bilateral breast reconstruction and abdominal surgery with panniculectomy 01/18/2023 ACDF C3-C4 Thoracic fusion T5-T6 SOCIAL HISTORY The patient quit smoking greater than 20 years ago. No alcohol use, marijuana use or illicit drug use. FAMILY HISTORY Father is from unknown cause. Mother is alive at age 88 with history of 4 vessel CABG, atrial fibrillation and diabetes. Patient has 1 brother alive with hypertension, hyperlipidemia and anxiety. PHYSICAL EXAMINATION Gen: This is a 62-year-old female. She is resting in bed appears to be comfortable and in no acute distress. HEENT: Head is atraumatic, normocephalic. Pupils equal, round. Sclerae is anicteric. NECK: Supple. No JVD. No lymphadenopathy. No thyromegaly. LUNGS: Clear to auscultation. No wheezes or rhonchi. No intercostal retractions. HEART: First heart sound is depressed, second heart sound is normal, 2/6 systolic ejection murmur at left sternal border ABDOMEN: Soft, non tender, non distended positive bowel sounds, there is an incision at the lower abdomen that appears to be erythematous with minimal fibrinous, and GERMAN drain in place, left wound with packing and copious amount of drainage EXTREMITIES: No pedal edema. No calf tenderness. Dorsalis pedis +2 bilaterally NEUROLOGICAL: Patient is awake, alert and oriented x3. Cranial nerves 2 through 12 are grossly intact cranial nerves II-12 appears intact, muscle power 5 out of 5 in upper and lower extremities bilaterally., ASSESSMENT AND PLAN 1. Infected abdominal wall wound status post panniculectomy as well as bilateral breast reconstructive surgery done on 01/18/2023 She was taken off Keflex she was started on Ancef 2 g IV piggyback every 6 hours, blood cultures, wound culture, patient will be seen in consultation by ID, patient will follow- up with plastic surgery as an outpatient. Like;y will need transfer to [facility] 2. Diabetes mellitus type 2 . We will restart the patient on Levemir 16 units at bedtime along with a sliding scale insulin, patient will be given also Farxiga 10 mg orally once every day, continue to monitor the patient blood glucose level before each meal and at bedtime. 3. Hypertension and hypertensive cardiovascular disease. Patient is currently normotensive she has been off metoprolol at this point in time. 4. Hypothyroidism. Continue patient on levothyroxin 50 g orally once every day. 5. Hyperlipidemia. Continue atorvastatin 80 mg at bedtime. 6. DVT prophylaxis. Continue patient on Lovenox 40 mg subcutaneously every 24 hours. 7. GI prophylaxis. Continue patient on Protonix 40 mg once every day. 8. Admit to inpatient. Estimate a length of stay 2 midnights. 9. Full code. Past Medical History Past Medical History: Cancer, Diabetes Mellitus, Hyperlipidemia, Hypertension, Musculoskeletal Disorder, Pneumonia, Thyroid Disorder Additional Past Medical History / Comment(s): Covid Infection 04-03-22-tx with monoclonal antibodies, History of left-sided breast cancer post-neoadjuvant chemotherapy last dose being on 02/10/2021, history of COVID-19 infection back in December 2020-received monoclonoal antibodies History of Any Multi-Drug Resistant Organisms: None Reported Past Surgical History: Appendectomy, Breast Surgery, Cholecystectomy, Hysterectomy, Orthopedic Surgery, Tonsillectomy, Tubal Ligation Additional Past Surgical History / Comment(s): anup mastectomy,breast reconstructive,Cervical decompression and fusion placement of interbody graft c4-c7, surgical left breast biopsy benign - 2013, left breast core biopsy - positive cancer 08/22. Dental work, t5-t6 fusion, galilea flap breast reconstructi on 01/18/23 Past Anesthesia/Blood Transfusion Reactions: Family History of Problems w/ Anesthesia, Postoperative Nausea & Vomiting (PONV) Additional Past Anesthesia/Blood Transfusion Reaction / Comment(s): MOTHER PONV. has had blood transfusion without reaction Past Psychological History: No Psychological Hx Reported Smoking Status: Former smoker Past Alcohol Use History: None Reported Additional Past Alcohol Use History / Comment(s): quit smoking 2001 Past Drug Use History: None Reported - Past Family History Mother Family Medical History: Coronary Artery Disease (CAD) Father Family Medical History: Unable to Obtain Additional Family Medical History / Comment(s): Patient stated that she does have additional half-brothers and sisters that she does not know much about. Brother(s) Family Medical History: Cancer, Myocardial Infarction ([place]) Additional Family Medical History / Comment(s): throat Medications and Allergies Home Medications Medication Instructions Recorded Confirmed Type Levothyroxine Sodium [Synthroid] 50 mcg PO DAILY 07/16/20 02/10/23 History Atorvastatin [Lipitor] 40 mg PO HS 08/19/20 02/10/23 History Insulin Aspart [NovoLOG Flexpen] 10 units SQ AC-TID PRN 11/15/20 02/10/23 History Dapagliflozin Propanediol [Farxiga] 10 mg PO DAILY 04/24/22 02/10/23 History Cephalexin [Keflex] 500 mg PO TID 02/10/23 02/10/23 History Allergies Allergy/AdvReac Type Severity Reaction Status Date / Time codeine AdvReac Nausea & Verified 02/10/23 16:59 Vomiting tramadol AdvReac Nausea & Verified 02/10/23 16:59 Vomiting Physical Exam Vitals: Vital Signs Temp Pulse Pulse Resp BP BP Pulse Ox 02/11/23 07:45 98.7 F 101 H 17 121/75 97 02/11/23 06:28 97 18 133/76 98 02/10/23 14:16 102 H 16 117/70 98 02/10/23 13:07 100 F H Intake and Output 02/10/23 02/11/23 02/11/23 22:59 06:59 14:59 Output Total 60 Balance -60 Output: Drainage 60 Right Abdomen 60 Other: Weight 92.533 kg Results CBC & Chem 7: 02/10/23 14:09 02/10/23 14:09 Labs: Abnormal Lab Results - Last 24 Hours (Table) 02/10/23 02/10/23 02/11/23 Range/Units 14:09 14:09 11:25 Lymphocytes # 0.6 L (1.0-4.8) k/uL Glucose 210 H (74-99) mg/dL POC Glucose (mg/dL) 237 H (70-110) mg/dL Calcium 8.1 L (8.4-10.2) mg/dL Total Protein 5.8 L (6.3-8.2) g/dL Albumin 2.9 L (3.5-5.0) g/dL Thrombosis Risk Factor Assmnt - Choose All That Apply Any of the Below Risk Factors Present?: Yes Each Factor Represents 1 point: Obesity (BMI >25) Each Risk Factor Represents 2 Points: Age 61-74 years Other congenital or acquired thrombophilia - If yes, enter type in comment: No Thrombosis Risk Factor Assessment Total Risk Factor Score: 3 Thrombosis Risk Factor Assessment Level: Moderate Risk
[2023-02-11] MEDS ORDERED: VANCOMYCIN IV PER PHARMACY 1 EACH MISC MISCELLANE PRN (15:34)
[2023-02-11] MEDS ORDERED: VANCOMYCIN 1,500 MG in SODIUM CHLORIDE 0.9% 500 ML 500 ML IVPB ONE (15:45)
[2023-02-11] MEDS: DAPAGLIFLOZIN PROPANEDIOL 10 MG TABLET PO SCH (16:03)
[2023-02-11 16:42] LABS: Glucose,Whole Blood 221 mg/dL (70-110)
[2023-02-11] MEDS ORDERED: AMPICILLIN-SULBACTAM 3 GM in SODIUM CHLORIDE 0.9% 100 ML IVPB SCH (18:00)
[2023-02-11 20:52] LABS: Glucose,Whole Blood 151 mg/dL (70-110)
[2023-02-11] MEDS: INSULIN DETEMIR (LEVEMIR) 100 UNIT/ML SYR SQ SCH (20:58)
[2023-02-11] MEDS: ATORVASTATIN 80 MG TAB PO SCH (20:59)
--- NOTE | 2023-02-11 22:25 | P.CONS ---
History of Present Illness - Reason for Consult Consult date: 02/11/23 Postoperative infection failing outpatient oral antibiotics Requesting physician: Shasta Merchant - Chief Complaint Abdominal pain and drainage x few days - History of Present Illness Patient is a 62-year-old female with a past medical history significant for hypertension hyperlipidemia type 2 diabetes mellitus and did have a left breast consulted patient is status post bilateral mastectomy patient recently has completed treatment for her breast cancer and after the patient underwent a bilateral breast reconstruction with abdominoplasty that was done at [facility] on 01/18/2023 patient did mention that her breast reconstruction surgery did well however she started having more drainage from the panniculectomy site especially to the left lower area symptom has been getting worse over the last 4 days has been complaining of pain describing it to be sharp 6-7 out of 10 no radiation with associated swelling redness and some drainage patient was evaluated by primary care physician has been started on Keflex however the patient did have worsening symptom for the patient presented to hospital on arrival to the ER the patient did have a low-grade fever 100 degrees following high the patient was tachycardic did have a normal white count kidney function was normal liver exams are normal patient did have a abdominal pelvis CT with discharge surgical drain located along the anterior abdominal pelvis junction platelike collection suspected hemorrhagic debris is at or just below the patient drain and postsurgical inflammatory changes patient was started on cefazolin infectious he was consulted for further management of antibiotic therapy Review of Systems Positive point and negatives has been mentioned in the HPI, complete review of systems was performed and all other systems are negative Past Medical History Past Medical History: Cancer, Diabetes Mellitus, Hyperlipidemia, Hypertension, Musculoskeletal Disorder, Pneumonia, Thyroid Disorder Additional Past Medical History / Comment(s): Covid Infection 04-03-22-tx with monoclonal antibodies, History of left-sided breast cancer post-neoadjuvant chemotherapy last dose being on 02/10/2021, history of COVID-19 infection back in December 2020-received monoclonoal antibodies History of Any Multi-Drug Resistant Organisms: None Reported Past Surgical History: Appendectomy, Breast Surgery, Cholecystectomy, Hysterectomy, Orthopedic Surgery, Tonsillectomy, Tubal Ligation Additional Past Surgical History / Comment(s): anup mastectomy,breast reconstructive,Cervical decompression and fusion placement of interbody graft c4-c7, surgical left breast biopsy benign - 2013, left breast core biopsy - positive cancer 08/22. Dental work, t5-t6 fusion, galilea flap breast reconstruction 01/18/23 Past Anesthesia/Blood Transfusion Reactions: Family History of Problems w/ Anesthesia, Postoperative Nausea & Vomiting (PONV) Additional Past Anesthesia/Blood Transfusion Reaction / Comm: MOTHER PONV. has had blood transfusion without reaction Past Psychological History: No Psychological Hx Reported Smoking Status: Former smoker Past Alcohol Use History: None Reported Additional Past Alcohol Use History / Comment(s): quit smoking 2001 Past Drug Use History: None Reported - Past Family History Mother Family Medical History: Coronary Artery Disease (CAD) Father Family Medical History: Unable to Obtain Additional Family Medical History / Comment(s): Patient stated that she does have additional half-brothers and sisters that she does not know much about. Brother(s) Family Medical History: Cancer, Myocardial Infarction ([place]) Additional Family Medical History / Comment(s): throat Medications and Allergies Home Medications Medication Instructions Recorded Confirmed Type Levothyroxine Sodium [Synthroid] 50 mcg PO DAILY 07/16/20 02/10/23 History Atorvastatin [Lipitor] 40 mg PO HS 08/19/20 02/10/23 History Insulin Aspart [NovoLOG Flexpen] 10 units SQ AC-TID PRN 11/15/20 02/10/23 History Dapagliflozin Propanediol [Farxiga] 10 mg PO DAILY 04/24/22 02/10/23 History Cephalexin [Keflex] 500 mg PO TID 02/10/23 02/10/23 History Allergies Allergy/AdvReac Type Severity Reaction Status Date / Time codeine AdvReac Nausea & Verified 02/10/23 16:59 Vomiting tramadol AdvReac Nausea & Verified 02/10/23 16:59 Vomiting Physical Exam Vitals: Vital Signs Temp Pulse Pulse Resp BP BP Pulse Ox 02/11/23 07:45 98.7 F 101 H 17 121/75 97 02/11/23 06:28 97 18 133/76 98 02/10/23 14:16 102 H 16 117/70 98 Intake and Output 02/10/23 02/11/23 02/11/23 22:59 06:59 14:59 Output Total 60 Balance -60 Output: Drainage 60 Right Abdomen 60 Other: Weight 92.533 kg GENERAL DESCRIPTION: Middle-aged female lying in bed, no distress. No tachypnea or accessory muscle of respiration use. HEENT: Shows Pallor , no scleral icterus. Oral mucous membrane is dry. No pharyngeal erythema or thrush NECK: Trachea central, no thyromegaly. LUNGS: Unlabored breathing. Clear to auscultation anteriorly. No wheeze or crackle. HEART: S1, S2, regular rate and rhythm. No loud murmur ABDOMEN: Soft, lower abdominal incision especially at the left lateral and did have a open area draining some foul-smelling drainage EXTREMITIES: No edema of feet. SKIN: No rash, no masses palpable. Bilateral breast incisions are healing well with no swelling redness or drainage NEUROLOGICAL: The patient is awake, alert, oriented x3, mood and affect normal. Results CBC & Chem 7: 02/10/23 14:09 02/10/23 14:09 Labs: Abnormal Lab Results - Last 24 Hours (Table) 02/10/23 02/10/23 02/11/23 Range/Units 14:09 14:09 11:25 Lymphocytes # 0.6 L (1.0-4.8) k/uL Glucose 210 H (74-99) mg/dL POC Glucose (mg/dL) 237 H (70-110) mg/dL Calcium 8.1 L (8.4-10.2) mg/dL Total Protein 5.8 L (6.3-8.2) g/dL Albumin 2.9 L (3.5-5.0) g/dL Assessment and Plan Plan: 1patient presented to the hospital with surgical site infection in this patient who did have a panniculectomy on 01/18/2023 now presenting with the pain swelling redness and drainage mostly from the left lateral part of the incision she did have 1 drainage tube on the right side and is draining some purulent material CT abdominal pelvis did show some inflammatory changes but did not mention well-organized fluid collection suspicious for an abscess we will need to cover for resistant gram-positive as well as gram-negative pathogen 2-discontinue cefazolin 3-we will start patient on vancomycin pharmacy to dose and Unasyn while waiting for the culture to finalize 4-local care with endoform packing of the wound change daily We will follow on clinical condition and cultures to further adjust medication if needed Thank you for this consultation we will follow the patient along with you Time with Patient: Greater than 30
[2023-02-12] MEDS: AMPICILLIN-SULBACTAM 3 GM in SODIUM CHLORIDE 0.9% 100 ML IVPB SCH ×2 (03:43→08:38)
[2023-02-12 04:21] LABS: Basophils % (A) 0 %; Eosinophils # (A) 0.3 k/uL (0-0.7); Eosinophils % (A) 4 %; HCT 35.4 % (34.0-46.0); HGB 11.3 gm/dL (11.4-16.0); Hypochromasia Slight; Lymphocytes # (A) 0.8 k/uL (1.0-4.8); Lymphocytes % (A) 11 %; MCH 27.8 pg (25.0-35.0); MCHC 31.8 g/dL (31.0-37.0); MCV 87.5 fL (80.0-100.0); Mean Platelet Volume 8.1; Monocytes # (A) 0.4 k/uL (0-1.0); Monocytes % (A) 6 %; Neutrophils # (A) 5.4 k/uL (1.3-7.7); Neutrophils % (A) 76 %; Platelet Count 224 k/uL (150-450); Poikilocytosis Slight; RBC 4.05 m/uL (3.80-5.40); RDW 13.5 % (11.5-15.5); WBC 7.1 k/uL (3.8-10.6)
[2023-02-12 04:30] LABS: ALT 17 U/L (4-34); AST 22 U/L (14-36); African American GFR (CKD) 77 (>60 ml/min/1.73 sqM); Albumin 2.8 g/dL (3.5-5.0); Alkaline Phosphatase 61 U/L (38-126); Anion Gap 9 mmol/L; Blood Urea Nitrogen 17 mg/dL (7-17); Carbon Dioxide 21 mmol/L (22-30); Chloride 106 mmol/L (98-107); Globulin 2.7 g/dL; Glucose 140 mg/dL (74-99); Non-African American GFR(CKD) 67 (>60 ml/min/1.73 sqM); Potassium 4.3 mmol/L (3.5-5.1); Sodium 136 mmol/L (137-145); Total Bilirubin 0.4 mg/dL (0.2-1.3); Total Protein 5.5 g/dL (6.3-8.2)
[2023-02-12] MEDS: LEVOTHYROXINE 50 MCG TAB PO SCH (06:08)
[2023-02-12] MEDS: ENOXAPARIN 40 MG/0.4 ML SYRINGE SQ SCH (08:37)
[2023-02-12] MEDS: INSULIN ASPART (NovoLOG) 100 UNIT/ML VIAL SQ SCH ×4 (08:38→21:14)
[2023-02-12] MEDS: PANTOPRAZOLE 40 MG TABLET PO SCH (08:38)
[2023-02-12] MEDS: DAPAGLIFLOZIN PROPANEDIOL 10 MG TABLET PO SCH (08:38)
[2023-02-12] MEDS ORDERED: VANCOMYCIN 1,500 MG in SODIUM CHLORIDE 0.9% 500 ML 500 ML IVPB SCH (10:00)
[2023-02-12 11:18] LABS: Glucose,Whole Blood 179 mg/dL (70-110)
[2023-02-12] MEDS: PIPERACILLIN-TAZOBACTAM 3.375 GM in SODIUM CHLORIDE 0.9% 100 ML IVPB SCH (16:37)
[2023-02-12 16:39] LABS: Glucose,Whole Blood 196 mg/dL (70-110)
[2023-02-12 21:07] LABS: Glucose,Whole Blood 181 mg/dL (70-110)
[2023-02-12] MEDS: ATORVASTATIN 80 MG TAB PO SCH (21:13)
[2023-02-12] MEDS: INSULIN DETEMIR (LEVEMIR) 100 UNIT/ML SYR SQ SCH (21:14)
[2023-02-12] MEDS: MORPHINE SULFATE 4 MG/ML SYRINGE IV PRN (21:43)
--- NOTE | 2023-02-12 22:27 | P.PN ---
Subjective Progress Note Date: 02/12/23 Principal diagnosis: Abdominal wound infection Patient is a 62-year-old female with a past medical history significant for hypertension hyperlipidemia type 2 diabetes mellitus and did have a left breast consulted patient is status post bilateral mastectomy patient recently has completed treatment for her breast cancer and after the patient underwent a bilateral breast reconstruction with abdominoplasty that was done at [facility] on 01/18/2023, patient now presented to hospital with pain swelling redness especially to the left lateral abdominal wall area CT did shows inflammatory changes but no drainable abscess. On today's evaluation that is 02/12/2023 patient denies having any fever or vomiting she is breathing comfortably on room air denies any worsening pain to the abdominal wound area or any worsening drainage no nausea no vomiting chest pain shortness of breath or cough Objective - Vital Signs Vital signs: Vital Signs Temp 98.0 F 02/12/23 07:10 Pulse 100 02/12/23 07:10 Resp 17 02/12/23 07:10 BP 127/70 02/12/23 07:10 Pulse Ox 97 02/12/23 07:10 FiO2 Intake & Output 02/11/23 02/12/23 02/12/23 18:59 06:59 18:59 Intake Total 50 Output Total 485 1045 Balance -435 -1045 Weight 92.533 kg Intake: Intake, IV Titration 50 Amount ceFAZolin 2 gm In Sodium 50 Chloride 0.9% 50 ml @ 100 mls/hr IVPB Q8HR [facility] Rx# :[id number] Output: Drainage 60 15 Right Abdomen 60 15 Urine 425 1030 Other: Voiding Method External Catheter External Catheter # Voids 1 - Exam GENERAL DESCRIPTION: Middle-age female lying in bed in no distress RESPIRATORY SYSTEM: Unlabored breathing , decreased breath sounds at bases HEART: S1 S2 regular rate and rhythm ,no loud murmurs ABDOMEN: Soft lower abdominal incision on the left side did have minimal erythema and drainage less than yesterday EXTREMITIES: No edema feet - Labs CBC & Chem 7: 02/12/23 03:43 02/12/23 03:43 Labs: Abnormal Lab Results - Last 24 Hours (Table) 02/11/23 02/11/23 02/11/23 Range/Units 11:25 16:41 20:44 Hgb (11.4-16.0) gm/dL Lymphocytes # (1.0-4.8) k/uL Sodium (137-145) mmol/L Carbon Dioxide (22-30) mmol/L Glucose (74-99) mg/dL POC Glucose (mg/dL) 237 H 221 H 151 H (70-110) mg/dL Hemoglobin A1c (<=6.0) % Calcium (8.4-10.2) mg/dL Total Protein (6.3-8.2) g/dL Albumin (3.5-5.0) g/dL 02/12/23 02/12/23 02/12/23 Range/Units 03:43 03:43 03:43 Hgb 11.3 L (11.4-16.0) gm/dL Lymphocytes # 0.8 L (1.0-4.8) k/uL Sodium 136 L (137-145) mmol/L Carbon Dioxide 21 L (22-30) mmol/L Glucose 140 H (74-99) mg/dL POC Glucose (mg/dL) (70-110) mg/dL Hemoglobin A1c 7.3 H (<=6.0) % Calcium 8.0 L (8.4-10.2) mg/dL Total Protein 5.5 L (6.3-8.2) g/dL Albumin 2.8 L (3.5-5.0) g/dL Microbiology - Last 24 Hours (Table) 02/10/23 16:26 Gram Stain - Preliminary Abdomen Wound Culture - Preliminary Gram Neg Bacilli 02/10/23 13:30 Blood Culture - Preliminary Blood 02/10/23 13:50 Blood Culture - Preliminary Blood Assessment and Plan (1) Abdominal wall abscess at site of surgical wound Current Visit: Yes Status: Acute Code(s): T81.49XA - INFECTION FOLLOWING A PROCEDURE, OTHER SURGICAL SITE, INIT SNOMED Code(s): 532839036 (2) Post-operative infection Current Visit: Yes Status: Acute Code(s): T81.40XA - INFECTION FOLLOWING A PROCEDURE, UNSPECIFIED, INIT SNOMED Code(s): 89087328 Plan: 1patient presented to the hospital with surgical site infection in this patient who did have a panniculectomy on 01/18/2023 now presenting with the pain swelling redness and drainage mostly from the left lateral part of the incision she did have 1 drainage tube on the right side and is draining some purulent material CT abdominal pelvis did show some inflammatory changes but did not mention well- organized fluid collection suspicious for an abscess we will need to cover for resistant gram-positive as well as gram-negative pathogen 2-local care with iodoform packing of the wound change daily 3local cultures currently growing gram-negative we will discontinue vancomycin and Unasyn start the patient on Zosyn while waiting for the culture to finalize and monitor clinical course closely Time with Patient: Less than 30
[2023-02-13] MEDS: PIPERACILLIN-TAZOBACTAM 3.375 GM in SODIUM CHLORIDE 0.9% 100 ML IVPB SCH ×2 (00:01→08:40)
[2023-02-13] MEDS: MORPHINE SULFATE 4 MG/ML SYRINGE IV PRN ×2 (05:10→13:31)
[2023-02-13 05:56] LABS: African American GFR (CKD) 60 (>60 ml/min/1.73 sqM); Anion Gap 5 mmol/L; Blood Urea Nitrogen 17 mg/dL (7-17); Calcium 7.6 mg/dL (8.4-10.2); Carbon Dioxide 27 mmol/L (22-30); Chloride 104 mmol/L (98-107); Glucose 186 mg/dL (74-99); Non-African American GFR(CKD) 52 (>60 ml/min/1.73 sqM); Potassium 4.4 mmol/L (3.5-5.1); Sodium 136 mmol/L (137-145)
[2023-02-13] MEDS: LEVOTHYROXINE 50 MCG TAB PO SCH (05:58)
[2023-02-13 06:22] LABS: Glucose,Whole Blood 165 mg/dL (70-110)
[2023-02-13] MEDS: PANTOPRAZOLE 40 MG TABLET PO SCH (06:49)
[2023-02-13 07:51] VITALS: RESP 16
[2023-02-13] MEDS: ENOXAPARIN 40 MG/0.4 ML SYRINGE SQ SCH (08:40)
[2023-02-13] MEDS: DAPAGLIFLOZIN PROPANEDIOL 10 MG TABLET PO SCH (08:40)
[2023-02-13] MEDS: INSULIN ASPART (NovoLOG) 100 UNIT/ML VIAL SQ SCH ×2 (08:40→11:24)
[2023-02-13 11:05] LABS: Glucose,Whole Blood 295 mg/dL (70-110)
--- NOTE | 2023-02-13 13:26 | P.TRANS ---
Providers Date of admission: 02/10/23 16:50 Expected date of discharge: 02/13/23 Attending physician: Dion Poole Consults: 02/10/23 16:07 Consult Physician Stat Consulting Provider: Pari Riley Consult Reason/Comments: Postoperative infection failed outpatient antibiotic therapy Do you want consulting provider notified?: Yes Primary care physician: Dion Poole Hospital Course: HISTORY OF PRESENT ILLNESS This is a 62-year-old female patient of mine with past medical history of hypertension, hyperlipidemia, hypothyroidism, left breast cancer, diabetes mellitus type 2. Patient underwent bilateral mastectomy, left axillary sentinel lymph node biopsy and removal of Mediport by Dr. Lopez and reconstruction of bilateral breast with implantation by Dr. Barreto on 04/13, and patient had finished her treatment for breast cancer [facility] Hem-Onc team an she was recently underwent bilateral breast reconstruction with abdominoplast(Panniculectomy) that was done at [facility] with on 01/18/2023 , she went to [facility] on [facility] for PT and she was seen in my office 4 days ago with increased redness and fibrinous To the side of the abdominal wound, GERMAN drain still in place, she was started on Keflex 500 mg orally 3 times every day for 10 days, and she was supposed to follow-up with her plastic surgeon which she did on Sunday whokept her on the same treatment, her nurse came to check on the patient yesterday and she advised to go to the ER for evaluation of possible infected abdominal wound, patient was seen in the ER she had no leukocytosis, she did not have any lactic acidosis, but because of increased erythema and pain she was admitted to hospital because of failed outpatient management and she was started on Ancef 2 g IV piggyback every 6 hours as well as getting blood cultures and wound culture, infectious disease consultation was obtained. 02/12: Patient has been seen by Dr. Hood and patient was started on vancomycin and Unasyn, Kefzol was discontinued while wound culture is in progress. Repeat blood work reveals WBC 7.1, heave 11.3, platelet count 224. Sodium 136, potassium 4.3, CO2 21, BUN 17 creatinine 0.91. Blood sugar 140. Platelet glucose running between 151 and 237. Hemoglobin A1c is 7.3 with average glucose 163. Liver function tests within normal limits. Abdominal wound culture is showing gram-negative bacilli. Blood culture 2 reveals no growth at 24 hours. 02/13: Patient has been ordered for local wound care with iodoform packing and change the wound daily. Wound culture is positive for Morganella morganii and Dr. Riley has changed IV antibiotics to only Zosyn. Patient continues to have pain to the lower abdominal area. We are planning for patient to be transferred to [facility]. Transfer team will be contacted. DISCHARGE DIAGNOSES 1. Infected abdominal wall wound status post panniculectomy as well as bilateral breast reconstructive surgery done on 01/18/2023. Consult with infectious disease appreciated. IV antibiotics changed to Zosyn. Wound culture and blood cultures are in progress. Plan is transfer to [facility] 2. Diabetes mellitus type 2 . We will continue the patient on Levemir 16 units at bedtime along with a sliding scale insulin, Farxiga 10 mg orally once every day, continue to monitor the patient blood glucose level before each meal and at bedtime. 3. Hypertension and hypertensive cardiovascular disease. Patient is currently normotensive she has been off metoprolol at this point in time. 4. Hypothyroidism. Continue patient on levothyroxin 50 g orally once every day. 5. Hyperlipidemia. Continue atorvastatin 80 mg at bedtime. 6. DVT prophylaxis. Continue patient on Lovenox 40 mg subcutaneously every 24 hours. 7. GI prophylaxis. Continue patient on Protonix 40 mg once every day. Transferred to [facility] once all arrangements are completed. Impression and plan of care have been directed as dictated by the signing physician. Yenny Clinton nurse practitioner acting as scribe for signing physician. Patient Condition at Discharge: Stable Plan - Transfer Summary Transfer Medications: Active Medications Generic Name Dose Route Start Last Admin Trade Name Freq PRN Reason Stop Dose Admin Acetaminophen 650 mg 02/10/23 16:07 Acetaminophen Tab 325 Mg Tab PO Q6HR PRN Mild Pain or Fever > 100.5 Atorvastatin Calcium 40 mg 02/11/23 21:00 02/12/23 21:13 Atorvastatin 80 Mg Tab PO 40 mg HS MAGNUS Administration Dapagliflozin 10 mg 02/11/23 13:15 02/13/23 08:40 Dapagliflozin Propanediol 10 Mg Tablet PO 10 mg DAILY MAGNUS Administration Dextrose/Water 25 ml 02/11/23 08:04 Dextrose 50% Syringe 50 Ml IVP PER PROTOCOL PRN Hypoglycemia Protocol Dextrose/Water 50 ml 02/11/23 08:04 Dextrose 50% Syringe 50 Ml IVP PER PROTOCOL PRN Hypoglycemia Protocol Enoxaparin Sodium 40 mg 02/12/23 09:00 02/13/23 08:40 Enoxaparin 40 Mg/0.4 Ml Syringe SQ 40 mg DAILY MAGNUS Administration Piperacillin Sod/Tazobactam 100 mls @ 25 mls/hr 02/12/23 16:00 02/13/23 08:40 Sod 3.375 gm/ Sodium Chloride IVPB 25 mls/hr Q8HR MAGNUS Administration Protocol Insulin Aspart 0 unit 02/11/23 12:30 02/13/23 11:24 Insulin Aspart (Novolog) 100 Unit/Ml Vial SQ 6 unit ACHS MAGNUS Administration Protocol Insulin Detemir 16 unit 02/11/23 21:00 02/12/23 21:14 Insulin Detemir (Levemir) 100 Unit/Ml Syr SQ 16 unit HS MAGNUS Administration Levothyroxine Sodium 50 mcg 02/12/23 06:30 02/13/23 05:58 Levothyroxine 50 Mcg Tab PO 50 mcg 0630 MAGNUS Administration Morphine Sulfate 4 mg 02/10/23 16:07 02/13/23 05:10 Morphine Sulfate 4 Mg/Ml Syringe IV 4 mg Q4HR PRN Administration Severe Pain (Scale 7 to 10) Naloxone HCl 0.2 mg 02/10/23 16:07 Naloxone 0.4 Mg/Ml 1 Ml Vial IV Q2M PRN Opioid Reversal Ondansetron HCl 4 mg 02/10/23 16:07 Ondansetron 4 Mg/2 Ml Vial IVP Q8HR PRN Nausea And Vomiting Pantoprazole Sodium 40 mg 02/12/23 07:30 02/13/23 06:49 Pantoprazole 40 Mg Tablet PO 40 mg [id number] MAGNUS Administration Follow up Appointment(s)/Referral(s): Dion Poole MD [Primary Care Provider] - 1-2 days
--- NOTE | 2023-02-13 13:27 | P.PN ---
Subjective Progress Note Date: 02/12/23 HISTORY OF PRESENT ILLNESS This is a 62-year-old female patient of mine with past medical history of hypertension, hyperlipidemia, hypothyroidism, left breast cancer, diabetes carey itus type 2. Patient underwent bilateral mastectomy, left axillary sentinel lymph node biopsy and removal of Mediport by Dr. Lopez and reconstruction of bilateral breast with implantation by Dr. Barreto on 04/13, and patient had finished her treatment for breast cancer [facility] Hem-Onc team an she was recently underwent bilateral breast reconstruction with abdominoplast(Panniculectomy) that was done at [facility] with on 01/18/2023 , she went to [facility] for PT and she was seen in my office 4 days ago with increased redness and fibrinous To the side of the abdominal wound, GERMAN drain still in place, she was started on Keflex 500 mg orally 3 times every day for 10 days, and she was supposed to follow-up with her plastic surgeon which she did on Sunday whokept her on the same treatment, her nurse came to check on the patient yesterday and she advised to go to the ER for evaluation of possible infected abdominal wound, patient was seen in the ER she had no leukocytosis, she did not have any lactic acidosis, but because of increased erythema and pain she was admitted to hospital because of failed outpatient management and she was started on Ancef 2 g IV piggyback every 6 hours as well as getting blood cultures and wound culture, infectious disease consultation was obtained. 02/12: Patient has been seen by Dr. Hood and patient was started on vancomycin and Unasyn, Kefzol was discontinued while wound culture is in progress. Repeat blood work reveals WBC 7.1, heave 11.3, platelet count 224. Sodium 136, potassium 4.3, CO2 21, BUN 17 creatinine 0.91. Blood sugar 140. Platelet glucose running between 151 and 237. Hemoglobin A1c is 7.3 with average glucose 163. Liver function tests within normal limits. Abdominal wound culture is showing gram-negative bacilli. Blood culture 2 reveals no growth at 24 hours. REVIEW OF SYSTEMS Constitutional: No fever, no chills, no night sweats. No weight change. No w eakness, fatigue or lethargy. No daytime sleepiness. HEENT: No headache. No blurred vision or double vision, no loss of vision. No loss of Hearing, no ringing in the ears, no dizziness. No nasal drainage or congestion. No epistaxis. No sore throat. Lungs: No shortness of breath, cough, no sputum production. No wheezing. Cardiovascular: No chest pain, no lower extremity edema. No palpitations. No paroxysmal nocturnal dyspnea. No orthopnea. No lightheadedness or dizziness. No syncopal episodes. Abdominal: no abdominal pain. No nausea, vomiting. No diarrhea. No constipation. No bloody or tarry stools.. No loss of appetite. Genitourinary: No dysuria, increased frequency, urgency. No urinary retention. Musculoskeletal: No myalgias. No muscle weakness, no gait dysfunction, no frequent falls. No back pain. No neck pain. Integumentary: infected abdominal wound with GERMAN drain still in place with serosanguinous material. No rash or pruritus. No unusual bruising. No change in hair or nails. Neurologic: No aphasia. No facial droop. No change in mentation. No head injury. No headache. No paralysis. No paresthesia. Psychiatric: No depression. No anxiety. No mood swings. Endocrine: No abnormal blood sugars. No weight change. No excessive sweating or thirst. No cold intolerance. PHYSICAL EXAMINATION Gen: This is a 62-year-old female. She is resting in bed appears to be comfortable and in no acute distress. HEENT: Head is atraumatic, normocephalic. Pupils equal, round. Sclerae is anicteric. NECK: Supple. No JVD. No lymphadenopathy. No thyromegaly. LUNGS: Clear to auscultation. No wheezes or rhonchi. No intercostal retr actions. HEART: First heart sound is depressed, second heart sound is normal, 2/6 systolic ejection murmur at left sternal border ABDOMEN: Soft, non tender, non distended positive bowel sounds, there is an incision at the lower abdomen that appears to be erythematous with minimal fibrinous, and GERMAN drain in place, left wound with packing and copious amount of drainage EXTREMITIES: No pedal edema. No calf tenderness. Dorsalis pedis +2 bilaterally NEUROLOGICAL: Patient is awake, alert and oriented x3. Cranial nerves 2 through 12 are grossly intact cranial nerves II-12 appears intact, muscle power 5 out of 5 in upper and lower extremities bilaterally., ASSESSMENT AND PLAN 1. Infected abdominal wall wound status post panniculectomy as well as bilateral breast reconstructive surgery done on 01/18/2023. Consult with infectious disease appreciated. IV antibiotics changed to vancomycin and Unasyn. Will culture and blood cultures are in progress. Patient will follow- up with plastic surgery as an outpatient. Likely will need transfer to [facility] 2. Diabetes mellitus type 2 . We will continue the patient on Levemir 16 units at bedtime along with a sliding scale insulin, Farxiga 10 mg orally once every day, continue to monitor the patient blood glucose level before each meal and at bedtime. 3. Hypertension and hypertensive cardiovascular disease. Patient is currently normotensive she has been off metoprolol at this point in time. 4. Hypothyroidism. Continue patient on levothyroxin 50 g orally once every day. 5. Hyperlipidemia. Continue atorvastatin 80 mg at bedtime. 6. DVT prophylaxis. Continue patient on Lovenox 40 mg subcutaneously every 24 hours. 7. GI prophylaxis. Continue patient on Protonix 40 mg once every day. 8. Admit to inpatient. Estimate a length of stay 2 midnights. 9. Full code. Impression and plan of care have been directed as dictated by the signing physician. Yenny Clinton nurse practitioner acting as scribe for signing physician. Objective - Vital Signs Vital signs: Vital Signs Temp 98.0 F 02/12/23 07:10 Pulse 100 02/12/23 07:10 Resp 17 02/12/23 07:10 BP 127/70 02/12/23 07:10 Pulse Ox 97 02/12/23 07:10 FiO2 Intake & Output 02/11/23 02/12/23 02/12/23 18:59 06:59 18:59 Intake Total 50 Output Total 485 1045 Balance -435 -1045 Weight 92.533 kg Intake: Intake, IV Titration 50 Amount ceFAZolin 2 gm In Sodium 50 Chloride 0.9% 50 ml @ 100 mls/hr IVPB Q8HR [facility] Rx# :[id number] Output: Drainage 60 15 Right Abdomen 60 15 Urine 425 1030 Other: Voiding Method External Catheter External Catheter # Voids 1 - Labs CBC & Chem 7: 02/12/23 03:43 02/12/23 03:43 Labs: Abnormal Lab Results - Last 24 Hours (Table) 02/11/23 02/11/23 02/11/23 Range/Units 11:25 16:41 20:44 Hgb (11.4-16.0) gm/dL Lymphocytes # (1.0-4.8) k/uL Sodium (137-145) mmol/L Carbon Dioxide (22-30) mmol/L Glucose (74-99) mg/dL POC Glucose (mg/dL) 237 H 221 H 151 H (70-110) mg/dL Hemoglobin A1c (<=6.0) % Calcium (8.4-10.2) mg/dL Total Protein (6.3-8.2) g/dL Albumin (3.5-5.0) g/dL 02/12/23 02/12/23 02/12/23 Range/Units 03:43 03:43 03:43 Hgb 11.3 L (11.4-16.0) gm/dL Lymphocytes # 0.8 L (1.0-4.8) k/uL Sodium 136 L (137-145) mmol/L Carbon Dioxide 21 L (22-30) mmol/L Glucose 140 H (74-99) mg/dL POC Glucose (mg/dL) (70-110) mg/dL Hemoglobin A1c 7.3 H (<=6.0) % Calcium 8.0 L (8.4-10.2) mg/dL Total Protein 5.5 L (6.3-8.2) g/dL Albumin 2.8 L (3.5-5.0) g/dL Microbiology - Last 24 Hours (Table) 02/10/23 16:26 Gram Stain - Preliminary Abdomen Wound Culture - Preliminary Gram Neg Bacilli 02/10/23 13:30 Blood Culture - Preliminary Blood 02/10/23 13:50 Blood Culture - Preliminary Blood
[2023-02-13 13:45] VITALS: BP 102/67; PULSE 100; TEMP 98.3
== END 2023-02-13 13:39 | disposition short-term general hospital (02) | DRG 863 ==
LOC: EC 13:01 → 4SSUR 16:50
PROVIDERS: ADMIT Internal Medicine; ATTEND Internal Medicine
DX: T81.43XA Infection following a procedure, organ and space surgical site, initial encounter (principal); L02.211 Cutaneous abscess of abdominal wall; E78.5 Hyperlipidemia, unspecified; E03.9 Hypothyroidism, unspecified; I11.9 Hypertensive heart disease without heart failure; E11.9 Type 2 diabetes mellitus without complications; B96.89 Other specified bacterial agents as the cause of diseases classified elsewhere; D17.79 Benign lipomatous neoplasm of other sites; E66.9 Obesity, unspecified; Z68.33 Body mass index [BMI] 33.0-33.9, adult; Z90.13 Acquired absence of bilateral breasts and nipples; Z86.16 Personal history of COVID-19; Z85.3 Personal history of malignant neoplasm of breast; Z79.899 Other long term (current) drug therapy; Z79.890 Hormone replacement therapy; Z79.84 Long term (current) use of oral hypoglycemic drugs; Z79.4 Long term (current) use of insulin; Z87.01 Personal history of pneumonia (recurrent); Z92.21 Personal history of antineoplastic chemotherapy; Z87.891 Personal history of nicotine dependence; Z88.5 Allergy status to narcotic agent
CPT/HCPCS: 36415; 74176; 80048; 80053; 83036; 83605; 85025; 87040; 87070; 87077; 87186; 87205; 96365; 96366; 96375; 99285